=== PATIENT | male | born 1975 | race Caucasian/White ===

== ENCOUNTER 2016-10-23 15:37 | Emergency (ER) | payer OTHER ==
[~2016-10-23] VITALS: Ht 165.1 cm; Wt 84.4 kg
[~2016-10-23 15:37] MED LIST: ALPRAZOLAM1 M2 PO; AMOXICILLIN875 M1 PO; ANAPROX DS550 MG PO; ANDROGEL1.25 GM TOP; ATORVASTATIN CA20 M1 PO; BACLOFEN10 M1 PO; COQ-10100 MG PO; FLEXERIL PO; GABAPENTIN300 M2 PO; IBUPROFEN800 M1 PO; METFORMIN HCL500 M2 PO; METHADONE HCL10 M1 PO; NEXIUM20 M1 PO; PERCOCET 325 MG1 TA2 PO; PERCOCET 5-3251 EACH PO; POLYETHYLENE G255 GM PO; PROPRANOLOL HCL80 M3 PO; QUETIAPINE FUM200 M1 PO; SEA-OMEGA 50 C1 EACH PO; VENTOLIN HFA18 GM INH; ZITHROMAX250 M2 PO
[2016-10-23 15:40] VITALS: BP 146/92
[2016-10-23] MEDS ORDERED: AMOXICILLIN875 M1 PO (16:14)
[2016-10-23] MEDS ORDERED: IBUPROFEN800 M1 PO (16:14)
--- NOTE | 2016-10-23 16:14 | ED THROAT/DENTAL COMPLAINT ---
History of Present Illness General Chief Complaint: Sore Throat, Dental Pain Stated Complaint: SORE THROAT Source: patient Exam Limitations: no limitations Vital Signs & Intake/Output Vital Signs & Intake/Output Vital Signs Date Time Temp Pulse Resp B/P B/P Pulse O2 O2 Flow FiO2 Mean Ox Delivery Rate 10/23 1540 97.9 95 18 146/92 97 Room Air Allergies Coded Allergies: NO KNOWN ALLERGIES (08/27/15) Reconcile Medications Albuterol Sulfate (Ventolin Hfa) 18 GM HFA.AER.AD 2 PUF INH Q4-6 PRN PRN SOB Alprazolam 1 MG TABLET 1 TAB PO PRN PANIC ATTACKS (Reported) Amoxicillin 875 MG TABLET 1 TAB PO BID pharyngitis Amoxicillin 875 MG TABLET 1 TAB PO BID pharyngitis Atorvastatin Calcium 20 MG TABLET 1 TAB PO DAILY CHOLESTEROL (Reported) Baclofen 10 MG TABLET 1 TAB PO TIDPRN PRN muscle spasm/strain Esomeprazole Magnesium (Nexium) 20 MG CAPSULE.DR 1 CAP PO DAILY GI (Reported) Fish Oil (Sea-[place] 50 Capsule) 1 EACH CAPSULE 1 CAP PO DAILY SUPPLEMENT ( Reported) [FLEXERIL] 5 MG 1 TAB PO TID PRN PAIN Gabapentin 300 MG CAPSULE 1 CAP PO BID NERVE PAIN (Reported) Ibuprofen 800 MG TABLET 1 TAB PO TID pain Ibuprofen 800 MG TABLET 1 TAB PO TID PAIN Metformin HCl (Metformin HCl ER) 500 MG TAB.ER.24 1 TAB PO DAILY PRE-DIABETES (Reported) Methadone Hydrochloride (Methadone HCl) 10 MG TABLET 50 MG PO BID CHRONIC PAIN (Reported) Naproxen (Anaprox Ds) 550 MG TABLET 1 TAB PO BID PRN pain Oxycodone HCl/Acetaminophen (Percocet 5-325 MG Tablet) 1 EACH TABLET 1 TAB PO Q6HR PRN BREAKTHROUGH PAIN Polyethylene Glycol 3350 255 GM POWDER 17 GM PO DAILY PRN GI (Reported) Propranolol HCl 80 MG TABLET 2 TAB PO BID MIGRAINE PREVENTION/BP (Reported) Quetiapine Fumarate 200 MG TABLET 1 TAB PO 4 TIMES/DAY MENTAL HEALTH ( Reported) Testosterone (Androgel) 1.25 GM GEL.PACKET 1 PAC TOP DAILY HRT (Reported) Ubidecarenone (Coq-10) 100 MG CAPSULE 1 CAP PO DAILY SUPPLEMENT (Reported) Triage Note: PT TO TRIAGE WITH C/O SORE THROAT SINCE YESTERDAY. DENIES FEVER, AFEBRILE IN TRIAGE. ALSO PT C/O R EAR PAIN. STREP SWABS OBTAINED IN TRIAGE AND SENT TO LAB. Triage Nurses Notes Reviewed? yes Onset: Abrupt Duration: day(s): (FEW), constant, continues in ED Timing: recent history Injury Environment: home No Modifying Factors: none HPI: 41-year-old male comes into emergency room with complaints of sore throat for the past couple days. Difficulty swallowing. Associated fatigue and malaise. Patient reports some right-sided ear pain. Denies any fever. Denies any vomiting. Denies any other associated symptoms. (EL ADAMS) Past History Travel History Traveled to [place] past 21 day No Medical History Any Pertinent Medical History? 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 No (EL ADAMS) Review of Systems Review of Systems Constitutional: Reports: see HPI. EENTM: Reports: see HPI. Respiratory: Reports: no symptoms. Cardiovascular: Reports: no symptoms. GI: Reports: no symptoms. Genitourinary: Reports: no symptoms. Musculoskeletal: Reports: no symptoms. Skin: Reports: no symptoms. Neurological/Psychological: Reports: no symptoms. Hematologic/Endocrine: Reports: no symptoms. Immunologic/Allergic: Reports: no symptoms. All Other Systems: Reviewed and Negative (EL ADAMS) Physical Exam Physical Exam General Appearance: well developed/nourished, no apparent distress, alert, awake Head: atraumatic, normal appearance Eyes: Bilateral: normal appearance. Nose: normal inspection Mouth/Throat: pharynx swelling, UVULA SWOLLEN Neck: normal inspection, full range of motion Cardiovascular/Respiratory: regular rate/rhythm, no respiratory distress Back: normal inspection Neurologic/Psych: awake, alert, oriented x 3, normal gait, normal mood/affect Skin: intact, normal color Core Measures ACS in differential dx? No Severe Sepsis Present: No Septic Shock Present: No (EL ADAMS) Progress Differential Diagnosis: aspirated tooth, carious tooth, epiglottitis, Ludwigs angina, meningitis, odontogenic abscess, regina-tonsillar abscess, pharyngeal for. body, stomatitis/gingivitis, strep pharyngitis, tooth fracture Plan of Care: Orders Procedure Date/time Status THROAT CULTURE W/QUICK STREP 10/23 1542 Active Departure Departure Disposition: HOME OR SELF CARE Condition: Stable Clinical Impression Primary Impression: Pharyngitis Secondary Impressions: Uvular swelling Referrals: UNKNOWN (PCP/Family) Additional Instructions: Take amoxicillin and ibuprofen as prescribed. Follow-up with your primary care doctor. Return if any concerns worsening symptoms. Please go over all results of today's visit with your primary care doctor. Contact your primary care doctor to let them know you were here in the emergency room. There may be nonspecific findings which may not be related to your visit today here in the emergency room but may require further evaluation and chronic monitoring by your primary care doctor. If you had a laceration today the chance of foreign body always remains. You should follow-up with your primary care doctor for recheck in 3-5 days for a wound check. If you had an x-ray done there is a chance that a fracture could have been missed on initial read and you should follow-up with your primary care doctor for repeat x-rays if symptoms persist. If your blood pressure was elevated here in the emergency room please have rechecked by her primary care doctor within the next 48 hours by your primary care doctor. If you were prescribed a narcotic here in the emergency room or any type of controlled substances you're not allowed to drive while taking this medication or operate any type of heavy machinery. Narcotics can make you feel lightheaded dizziness nausea and can cause constipation. You may need to orange picker a stool softener. Thank you for choosing [facility] emergency room. Please return to the emergency room immediately if you have any other concerns worsening of symptoms. Departure Forms: Customer Survey General Discharge Information Prescriptions: Current Visit Scripts Amoxicillin 1 TAB PO BID #20 TAB Ibuprofen 1 TAB PO TID #30 TAB Comments 10/23/2016 5:05:16 PM Patient clinically looks well. Nontoxic-appearing. In no apparent distress. Strep negative. Due to significant swelling patient covered with antibiotics. Return if any other concerns worsening symptoms. No evidence of airway obstruction. No stridor. Understands and agrees with plan of care. (EBENEZER MCGINNIS,EL) PA/GLUER MACHINE OPERATOR Co-Sign Statement Statement: ED Attending supervision documentation- [] I saw and evaluated the patient. I have also reviewed all the pertinent lab results and diagnostic results. I agree with the findings and the plan of care as documented in the PA's/GLUER MACHINE OPERATOR's documentation. [X] I have reviewed the ED Record and agree with the PA's/GLUER MACHINE OPERATOR's documentation. [] Additions or exceptions (if any) to the PAs/GLUER MACHINE OPERATOR's note and plan are summarized below: [] (ARELI MALIN,JUSTINE Zaldivar)
== END 2016-10-23 16:20 ==
LOC: ERH 15:37
DX: J02.9 Acute pharyngitis, unspecified (principal); R22.0 Localized swelling, mass and lump, head; F17.210 Nicotine dependence, cigarettes, uncomplicated

== ENCOUNTER 2017-09-29 09:34 | Emergency (ER) | payer OTHER ==
[~2017-09-29] VITALS: Ht 165.1 cm; Wt 88.5 kg
--- NOTE | 2017-09-29 10:54 | RADIOLOGY REPORT ---
EXAMINATION: PA and lateral chest radiograph CLINICAL INFORMATION: Productive cough COMPARISON: None TECHNIQUE: 2 views of the chest were obtained. FINDINGS: There is symmetric lung inflation. There is no focal consolidation, pleural effusion, or pneumothorax. Peribronchial thickening that may reflect chronic small airways disease or atypical/viral pneumonia. Cardiac silhouette size is normal. There are no acute osseous findings. IMPRESSION: Peribronchial thickening that may reflect chronic small airways disease or atypical/viral pneumonia. No focal consolidation.
[2017-09-29] MEDS ORDERED: ZITHROMAX250 M2 PO (11:30)
[2017-09-29] MEDS ORDERED: DELTASONE20 MG PO (11:30)
--- NOTE | 2017-09-29 11:30 | ED INFLUENZA/URI COMPLAINT ---
History of Present Illness General Chief Complaint: General Adult Stated Complaint: DX BRONCHITIS FEELING NO BETTER Source: patient Exam Limitations: no limitations Vital Signs & Intake/Output Vital Signs & Intake/Output Vital Signs Date Time Temp Pulse Resp B/P B/P Pulse O2 O2 Flow FiO2 Mean Ox Delivery Rate 09/29 1147 99.0 80 18 118/62 99 Room Air 09/29 0935 100.1 85 16 126/78 95 Room Air Allergies Coded Allergies: NO KNOWN ALLERGIES (08/27/15) Reconcile Medications Albuterol Sulfate (Ventolin Hfa) 18 GM HFA.AER.AD 2 PUF INH Q4-6 PRN PRN SOB Alprazolam 1 MG TABLET 1 TAB PO PRN PANIC ATTACKS (Reported) Atorvastatin Calcium 20 MG TABLET 1 TAB PO DAILY CHOLESTEROL (Reported) Azithromycin (Zithromax) 250 MG TABLET 1 DP PO AD BRONCHITIS 2 the first day followed by 1 for days 2-5 Baclofen 10 MG TABLET 1 TAB PO TIDPRN PRN muscle spasm/strain Esomeprazole Magnesium (Nexium) 20 MG CAPSULE.DR 1 CAP PO DAILY GI (Reported) Fish Oil (Sea-[place] 50 Capsule) 1 EACH CAPSULE 1 CAP PO DAILY SUPPLEMENT ( Reported) Gabapentin 300 MG CAPSULE 1 CAP PO BID NERVE PAIN (Reported) Ibuprofen 800 MG TABLET 1 TAB PO TID pain Metformin HCl (Metformin HCl ER) 500 MG TAB.ER.24 1 TAB PO DAILY PRE-DIABETES (Reported) Methadone Hydrochloride (Methadone HCl) 10 MG TABLET 50 MG PO BID CHRONIC PAIN (Reported) Polyethylene Glycol 3350 255 GM POWDER 17 GM PO DAILY PRN GI (Reported) Prednisone (Deltasone) 20 MG TABLET 1 TAB PO TID BRONCHITIS Propranolol HCl 80 MG TABLET 2 TAB PO BID MIGRAINE PREVENTION/BP (Reported) Quetiapine Fumarate 200 MG TABLET 1 TAB PO 4 TIMES/DAY MENTAL HEALTH ( Reported) Testosterone (Androgel) 1.25 GM GEL.PACKET 1 PAC TOP DAILY HRT (Reported) Ubidecarenone (Coq-10) 100 MG CAPSULE 1 CAP PO DAILY SUPPLEMENT (Reported) Triage Note: 42 Y/O MALE C/O NOT FEELING WELL X 2 WEEKS. STATES HE SWALLOWED SODA "DOWN THE WRONG PIPE" AND BEGAN TO HAVE URI SYMPTOMS SHORTLY AFTER, WHICH HAVE NOT GOTTEN BETTER DESPITE PO ANTIBIOTICS - DIAGNOSED WITH BRONCHITIS TUES AT WALK IN. REPORTS "LOW GRADE" FEVER WELL. TEMP 100.1 SPEAKING CLEARLY WITH NO DISTRESS NOTED, SAT 95% Triage Nurses Notes Reviewed? yes Onset: Abrupt Duration: week(s): (1), constant Timing: recent history Severity: mild, moderate HPI: 42-year-old male comes into the emergency room with complaints of persisting cough and runny nose congestion. Patient has been producing some mucus. He was seen at the walk-in clinic the other day diagnosed bronchitis and prescribed Tessalon Perles and amoxicillin. He reports persisting coughing. Denies any labored breathing or shortness of breath. Denies any fever. He is a daily smoker. Comes in for further evaluation. (Donaldo Beltrán) Past History Travel History Traveled to [place] past 21 day No Medical History Any Pertinent Medical History? 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 No (Donaldo Beltrán) Review of Systems Review of Systems Constitutional: Reports: no symptoms. EENTM: Reports: no symptoms. Respiratory: Reports: see HPI. Cardiovascular: Reports: see HPI. GI: Reports: no symptoms. Genitourinary: Reports: no symptoms. Musculoskeletal: Reports: no symptoms. Skin: Reports: no symptoms. Neurological/Psychological: Reports: no symptoms. Hematologic/Endocrine: Reports: no symptoms. Immunologic/Allergic: Reports: no symptoms. All Other Systems: Reviewed and Negative (Donaldo Beltrán) Physical Exam Physical Exam General Appearance: well developed/nourished, alert, awake Head: atraumatic, normal appearance Eyes: Bilateral: normal appearance. Ears, Nose, Throat: moist mucous membrane, hearing grossly normal Neck: normal inspection Respiratory: normal breath sounds, no respiratory distress Cardiovascular: regular rate/rhythm Back: normal inspection Extremities: normal inspection Neurologic/Psych: awake, alert, oriented x 3 Skin: intact, normal color Core Measures Sepsis Present: No Sepsis Focused Exam Completed? No (Donaldo Beltrán) Progress Differential Diagnosis: influenza, pneumonia, bronchitis Plan of Care: 09/29/2017 1:06:41 PM Patient clinically looks well. Patient is in no apparent distress. Patient is nontoxic-appearing. Symptoms most consistent with bronchitis. Started on prednisone and switch to Z-Aditya. Return if any other concerns. Patient understands and agrees with plan of care. Diagnostic Imaging: Viewed by Me: Radiology Read. Discussed w/RAD: Radiology Read. Radiology Impression: PATIENT: WILLY VARGHESE PRESENT AGE: 42 PATIENT ACCOUNT NO: [id number] : 74 LOCATION: [facility] ORDERING PHYSICIAN: Ford Taylor MD SERVICE DATE: 09/29/17 EXAM TYPE: RAD - XRY-CHEST XRAY, TWO VIEWS EXAMINATION: PA and lateral chest radiograph CLINICAL INFORMATION: Productive cough COMPARISON: None TECHNIQUE: 2 views of the chest were obtained. FINDINGS: There is symmetric lung inflation. There is no focal consolidation, pleural effusion, or pneumothorax. Peribronchial thickening that may reflect chronic small airways disease or atypical/viral pneumonia. Cardiac silhouette size is normal. There are no acute osseous findings. IMPRESSION: Peribronchial thickening that may reflect chronic small airways disease or atypical/viral pneumonia. No focal consolidation. DICTATED BY: David Hobson MD DATE/TIME DICTATED:09/29/171048 CENTRAL PROCESSING TECH:SINDI DATE/TIME TRANSCRIBED:09/29/171048 CONFIDENTIAL, DO NOT COPY WITHOUT APPROPRIATE AUTHORIZATION. <Electronically signed in Other Vendor System> SIGNED BY: David Hobson MD 09/29/17 1058 Initial ED EKG: none (Donaldo Beltrán) Departure Departure Disposition: HOME OR SELF CARE Condition: Stable Clinical Impression Primary Impression: Bronchitis Referrals: Alex Medrano APRN (PCP/Family) Additional Instructions: Take Z-Aditya and prednisone as prescribed. Follow-up with primary care doctor. Continue to use nebulizer pump. Discontinue amoxicillin. Please go over all results of today's visit with your primary care doctor. Contact your primary care doctor to let them know you were here in the emergency room. There may be nonspecific findings which may not be related to your visit today here in the emergency room but may require further evaluation and chronic monitoring by your primary care doctor. If you had a laceration today the chance of foreign body always remains. You should follow-up with your primary care doctor for recheck in 3-5 days for a wound check. If you had an x-ray done there is a chance that a fracture could have been missed on initial read and you should follow-up with your primary care doctor for repeat x-rays if symptoms persist. If your blood pressure was elevated here in the emergency room please have rechecked by our primary care doctor within the next 48. If you were prescribed a narcotic here in the emergency room or any type of controlled substances you're not allowed to drive while taking this medication or operate any type of heavy machinery. Narcotics can make you feel lightheaded dizziness nausea and can cause constipation. You may need to poultry picker a stool softener. Thank you for choosing [facility] emergency room. Please return to the emergency room immediately if you have any other concerns worsening of symptoms. Departure Forms: Customer Survey General Discharge Information Prescriptions: Current Visit Scripts Prednisone (Deltasone) 1 TAB PO TID #15 TAB Azithromycin (Zithromax) 1 DP PO AD #6 TAB 2 the first day followed by 1 for days 2-5 (Donaldo Beltrán) PA/RADIUS CORNER MACHINE OPERATOR Co-Sign Statement Statement: ED Attending supervision documentation- [] I saw and evaluated the patient. I have also reviewed all the pertinent lab results and diagnostic results. I agree with the findings and the plan of care as documented in the PA's/RADIUS CORNER MACHINE OPERATOR's documentation. [X] I have reviewed the ED Record and agree with the PA's/RADIUS CORNER MACHINE OPERATOR's documentation. [] Additions or exceptions (if any) to the PAs/RADIUS CORNER MACHINE OPERATOR's note and plan are summarized below: [] (Claudia MALIN,Ford Zaldivar)
[2017-09-29 11:47] VITALS: BP 118/62
== END 2017-09-29 11:48 ==
LOC: ERH 09:34
DX: J40 Bronchitis, not specified as acute or chronic (principal); F17.210 Nicotine dependence, cigarettes, uncomplicated
CPT/HCPCS: 71046

== ENCOUNTER 2017-10-14 14:07 | Inpatient (IN) | payer OTHER ==
[~2017-10-14] VITALS: Ht 165.1 cm; Wt 81.8 kg
[~2017-10-14 14:07] MED LIST changes: +DELTASONE20 MG PO; +SEA-OMEGA 1,001 EACH PO; -SEA-OMEGA 50 C1 EACH PO
--- NOTE | 2017-10-14 14:43 | ED DYSPNEA/ASTHMA COMPLAINT ---
History of Present Illness General Chief Complaint: Dyspnea (COPD, CHF, Other) Stated Complaint: SHORTNESS OF BREATH X2-3 DAYS Source: patient Exam Limitations: no limitations, unable to give history Vital Signs & Intake/Output Vital Signs & Intake/Output Vital Signs Date Time Temp Pulse Resp B/P B/P Pulse O2 O2 Flow FiO2 Mean Ox Delivery Rate 10/15 0606 100 / 0400 94 Ventilator 100% 10/15 0337 100 10/15 0016 100 10/15 0000 90 Ventilator 100% 10/15 0000 96.7 94 28 120/78 90 Ventilator 100% 10/14 2331 92 Ventilator 100% 10/14 2213 100 10/14 2059 100 Ventilator 10/14 2016 107 28 113/63 90 Ventilator 100% 10/15 2015 104 28 111/66 88 Ventilator 100% 10/14 1958 100 10/14 1922 100 10/14 1915 110 28 122/82 90 Ventilator 100% 10/14 1910 114 28 163/91 90 Ventilator 100% 10/14 1909 118 28 163/91 90 Ventilator 100% 10/14 1907 118 28 165/89 90 Ventilator 100% 10/14 1901 112 28 167/90 90 Ventilator 100% 10/14 1855 114 28 168/86 90 Ventilator 100% 10/14 1853 124 26 157/84 90 100% 10/14 1801 114 94 10/14 1739 116 24 133/70 86 10/14 1734 98.2 115 22 84 10/14 1730 116 22 85 10/14 1718 118 22 113/68 86 Non ReBreather 10/14 1650 22 86 Non 10L ReBreather 10/14 1647 113 22 83 Non 10L ReBreather 10/14 1551 99 18 105/68 94 Non 10L ReBreather 10/14 1438 16 95 Non 10L ReBreather 10/14 1435 20 85 Nasal 6.0L Cannula 10/14 1430 97.9 97 18 109/56 85 Room Air 10/14 1415 Non ReBreather ED Intake and Output 10/15 0000 10/14 1200 Intake Total 263 Output Total 550 Balance -287 Intake, IV 163 Intake, Oral 100 Number 0 Bowel Movements Output, 50 Gastric Drainage Output, Urine 500 Patient 404 lb Weight Weight Estimated Measurement Method Allergies Coded Allergies: No Known Allergies (10/05/17) Reconcile Medications Albuterol Sulfate (Ventolin Hfa) 18 GM HFA.AER.AD 2 PUF INH Q4-6 PRN PRN SOB Alprazolam 1 MG TABLET 1 TAB PO PRN PANIC ATTACKS (Reported) Atorvastatin Calcium 20 MG TABLET 1 TAB PO DAILY CHOLESTEROL (Reported) Baclofen 10 MG TABLET 1 TAB PO TIDPRN PRN muscle spasm/strain Esomeprazole Magnesium (Nexium) 20 MG CAPSULE.DR 1 CAP PO DAILY GI (Reported) Gabapentin 300 MG CAPSULE 1 CAP PO BID NERVE PAIN (Reported) Ibuprofen 800 MG TABLET 1 TAB PO TID pain Metformin HCl (Metformin HCl ER) 500 MG TAB.ER.24 1 TAB PO DAILY PRE-DIABETES (Reported) Methadone Hydrochloride (Methadone HCl) 10 MG TABLET 50 MG PO BID CHRONIC PAIN (Reported) [place]-3S/Dha/Epa/Fish Oil (Sea-[place] 1,000 MG Softgel) 600-1,000MG CAPSULE 1 CAP PO DAILY SUPPLEMENT (Reported) Polyethylene Glycol 3350 255 GM POWDER 17 GM PO DAILY PRN GI (Reported) Prednisone (Deltasone) 20 MG TABLET 1 TAB PO TID BRONCHITIS Propranolol HCl 80 MG TABLET 2 TAB PO BID MIGRAINE PREVENTION/BP (Reported) Quetiapine Fumarate 200 MG TABLET 1 TAB PO 4 TIMES/DAY MENTAL HEALTH ( Reported) Testosterone (Androgel) 1.25 GM GEL.PACKET 1 PAC TOP DAILY HRT (Reported) Ubidecarenone (Coq-10) 100 MG CAPSULE 1 CAP PO DAILY SUPPLEMENT (Reported) Triage Note: TRIAGE: PT COMING FROM HOME WAS FEELING SOB. PT WAS DX WITH BRONCHITIS 3WEEKS AGO. PT FINISHED ZPACK. PT SMOKE 1/2-1 PACK A DAY. PT HAS HAD INCREASED DIZZINESS FOR LAT 3 DAYS. PT WAS 80% ON ROOM AIR. GIVEN 2 DUO NEB AND 125MGSOYU-DORL. BS146. Triage Nurses Notes Reviewed? yes HPI: 42 yo M PMH HTN, Migraines presenting with cough, chest pain, shortness of breath. URI Sx for the last 2-3 weeks with congestion, rhinorrhea, progressive cough, evaluated at walk-in clinic, given azithromycin x 5 days without improvement. Associated progressive shortness of breath and right sided chest pain, pleuritic, non-exertional, worse with movement or palpation. Some tactile fevers, chills, diffuse fatigue, malaise. Denies palpitations, LE swelling or pain, abdominal Sx, urinary Sx, headche, neck pain or focal neurologic Sx. Acute worsening of shortness of breath this morning prompting presentation to the ED. (Paul Moore MD) Past History Medical History Any Pertinent Medical History? 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 Yes (Paul Moore MD) Review of Systems Review of Systems Constitutional: Reports: no symptoms. EENTM: Reports: no symptoms. Respiratory: Reports: see HPI. Cardiovascular: Reports: no symptoms. GI: Reports: no symptoms. Genitourinary: Reports: no symptoms. Musculoskeletal: Reports: no symptoms. Skin: Reports: no symptoms. Neurological/Psychological: Reports: no symptoms. Hematologic/Endocrine: Reports: no symptoms. Immunologic/Allergic: Reports: no symptoms. All Other Systems: Reviewed and Negative (Paul Moore MD) Physical Exam Physical Exam General Appearance: moderate distress Head: atraumatic Eyes: Bilateral: PERRL, EOMI. Ears, Nose, Throat: Dry mucus membranes Respiratory: quiet respiration, rhonchi, respiratory distress Cardiovascular: tachycardia Gastrointestinal: soft, non-tender Comments: General: Moderate distress, tachypneic, appears anxious, Tripoding Lungs: Decreased breath sounds over right lower lung ham[place] with scattered rhonchi throughout both lung [place] Extremities: BLE non-edematous without TTP Core Measures ACS in differential dx? Yes CVA/TIA Diagnosis No Sepsis Present: No Sepsis Focused Exam Completed? No (Paul Moore MD) Progress Differential Diagnosis: asthma, AMI, altitude sickness, bronchitis, costochondritis, CHF, COPD, musculoskeletal pain, pericarditis, pulmonary embolism, pneumonia, pneumothorax, rib fracture, unstable angina Plan of Care: Orders Procedure Date/time Status Nothing by Mouth 10/15 B Active ARTERIAL BLOOD GAS (GEN) 10/15 0700 Active XRY-PORTABLE CHEST XRAY 10/15 0500 Active VANCOMYCIN (VANCOCIN) LEVEL 10/15 0500 Complete ICU LAB BUNDLE 10/15 0500 Complete CORTISOL AM 10/15 0500 Complete CBC WITHOUT DIFFERENTIAL 10/15 0500 Complete Turn and Reposition 10/15 0430 Active ARTERIAL BLOOD GAS (GEN) 10/15 0300 Active Drains/Tubes 10/15 0144 Active XRY-PORTABLE CHEST XRAY 10/15 UNK Active Lab Add-on Test 10/15 UNK Active Restraint- Medical 10/15 UNK Active FingerStick- Glucose 10/15 UNK Active SOCIAL WORK CONSULT 10/15 UNK Active Weight 10/14 2329 Active Vital Signs 10/14 2329 Active Teach/Educate 10/14 2329 Active Pain Treatment and Response 10/14 2329 Active Nutritional Intake, Monitor 10/14 2329 Active Isolation 10/14 2329 Active Intake & Output 10/14 2329 Active Patient Care Conference 10/14 2329 Active Activity/Ambulation 10/14 2329 Active LACTIC ACID 10/14 2227 Complete BLOOD CULTURE 10/14 222 Active ARTERIAL BLOOD GAS (GEN) 10/14 220 Complete OGT 10/14 2099 Active Lavage Treatment 10/14 2057 Active URINE DRUGS OF ABUSE 10/14 2013 Complete SALICYLATE 10/14 2014 Complete SERUM OSMOLALITY 10/14 2014 Complete ECHOCARDIOGRAM 10/14 2012 Active ICU LAB BUNDLE 10/14 2009 Complete Add-on Test (ER Only) 10/14 2008 Active Add-on Test (ER Only) 10/14 2007 Active CULTURE,URINE 10/14 2005 Active STREP PNEUMO URINARY ANTIGEN 10/14 2005 Active LEGIONELLA URINARY ANTIGEN 10/14 2004 Active URINALYSIS 10/14 2005 Complete VRE ACTIVE SURVIELLANCE 10/14 1928 Active VENTILATOR PARAMETERS 10/14 191 Complete ACTIVE SURVEILLANCE NARES 10/14 191 Active Pathway - chart 10/14 1906 Active TRC EVALUATION (GEN) 10/14 190 Active Pathway - chart 10/14 190 Active House Staff 10/14 190 Active Patient Data 10/14 1905 Active SPECIMEN TO BE OBTAINED 10/14 190 Active Code Status 10/14 1905 Active PLEURAL PH (GEN) 10/14 1832 Active LOWER RESPIRATORY CULTURE 10/14 1822 Active BLOOD CULTURE 10/14 1810 Active OXYGEN SETUP (GEN) 10/14 1800 Complete ARTERIAL BLOOD GAS (GEN) 10/14 1745 Complete Patient Data 10/14 1728 Active Admit to inpatient 10/14 1724 Active CULTURE,BODY FLUID 10/14 1623 Active BODY FLUID TOTAL PROTEIN 10/14 1623 Complete BODY FLUID LDH 10/14 1623 Complete BODY FLUID CELL COUNT 10/14 1623 Complete Add-on Test (ER Only) 10/14 1621 Active PROTHROMBIN TIME 10/14 1540 Complete PARTIAL THROMBOPLASTIN TIME 10/14 1518 Complete LDH (LACT ACID DEHYDROGENASE) 10/14 1517 Complete LACTIC ACID 10/14 1517 Complete HIV (Reflex to HIVCQ) 10/14 1517 Complete HEPATIC FUNCTION PANEL 10/14 1517 Complete TROPONIN LEVEL 10/14 1444 Complete CBC WITHOUT DIFFERENTIAL 10/14 1444 Complete BASIC METABOLIC PANEL 10/14 1444 Complete EKG 10/14 1442 Active VENTILATOR PARAMETERS 10/14 UNK Complete BIPAP 10/14 UNK Complete Lab Add-on Test 10/14 UNK Active VTE Mechanical Prophylaxis 10/14 UNK Active Vital Signs 10/14 UNK Complete Intake & Output 10/14 UNK Active Pineda, Insertion/Removal/Asses 10/14 UNK Active Current Medications Sig/Sara Start time Last Medication Dose Stop Time Status Admin Azithromycin 500 MG 10/15 AC (Zithromax) Sodium Chloride 250 ML (Normal Saline 0.9%) Vecuronium [place] 5 MG ONCE ONE 10/15 0730 UNVr (Norcuron) 10/15 0731 Propofol 1,000 MG Q6H 10/15 0615 AC 10/15 (PROPOFOL DRIP) 06 N/A 1 UNIT (No Carrier) Heparin Sodium 5,000 UNIT Q8 10/14 2200 AC 10/15 (Porcine) 0625 Pantoprazole Sodium 40 MG DAILY 10/14 2014 AC 10/14 (Protonix) 2244 Morphine Sulfate 4 MG Q6-PRN PRN 10/14 1914 AC (MORPHINE SULFATE) Potassium Chloride 40 MEQ .[id number] 10/14 191 AC 10/14 (KCl 40MEQ in NS 2245 1000ML) Sodium Chloride 1,000 ML (Normal Saline 0.9%) Vancomycin HCl 1,000 MG ONCE ONE 10/14 1900 CAN Sodium Chloride 250 ML 10/14 195 (Normal Saline 0.9%) Fentanyl Citrate 1,000 MCG Q24H 10/14 1845 AC 10/14 (Fentanyl Drip) 1927 Dextrose/Water 250 ML (Dextrose 5%) Lorazepam 2 MG ONCE ONE 10/14 1730 CAN (Ativan) 10/14 1731 Lidocaine 20 ML ONCE ONE 10/14 1630 CAN (Lidocaine 1%) 10/14 1631 Laboratory Tests 10/15/17 0455: Anion Gap 16, Estimated GFR 17 L, Glucose 163 H, Calcium 6.6 L, Phosphorus 5.2 H, Magnesium 2.6 H, Total Bilirubin 0.6, AST 73 H, ALT 52, Albumin 2.4 L , Cortisol AM Sample 16.5, CBC w Diff MAN DIFF ORDERED, RBC 3.47 L, MCV 85.4, MCH 28.9, MCHC 33.8, RDW 17.2 H, MPV 6.8 L, Segmented Neutrophils 77 H, Band Neutrophils 13 H, Lymphocytes 9 L, Metamyelocytes 1, Platelet Estimate ADEQUATE, Normocytic RBCs VERIFIED, Polychromasia 1+, Random Vancomycin 11.1 10/15/17 0320: pH 7.18 *L, pCO2 50 H, pO2 77 L, HCO3 18 L, ABG O2 Sat (Measured) 92.0 L, P- 50 (Temp Corrected) Y, Carboxyhemoglobin 0.1 L, O2 Concentration % 100%, Temperature 96.8 L, Respiration Rate 28, O2 Delivery Method ESPRIT, Vent Mode AC, Expiratory Pressure 15, Tidal Volume 400, Phlebotomy Draw Site RIGHT RADIAL 10/14/17 2328: pH 7.14 *L, pCO2 52 H, pO2 79 L, HCO3 18 L, ABG O2 Sat (Measured) 91.0 L, Carboxyhemoglobin 0.3 L, O2 Concentration % 100, Respiration Rate 28, O2 Delivery Method VENT, Vent Mode AC, Expiratory Pressure 15, Tidal Volume 400, Pressure Support 0, Phlebotomy Draw Site LEFT RADIAL 10/14/17 2235: Lactic Acid 0.8 10/14/17 2200: Serum Osmolality 293 10/14/17 2200: Anion Gap 16, Estimated GFR 16 L, Glucose 137 H, Calcium 6.3 L, Phosphorus 5.5 H, Magnesium 1.8, Total Bilirubin 0.7, AST 68 H, ALT 48, Albumin 2.4 L, Salicylates < 1.0 10/14/17 2103: Urine Opiates Screen < 100, Methadone Screen > 735 H, Barbiturate Screen < 60, Ur Phencyclidine Scrn < 6.00, Amphetamines Screen < 100, U Benzodiazepines Scrn < 85, Urine Cocaine Screen < 50, Urine Cannabis Screen < 5.00, Urine Color YEL, Urine Clarity CLEAR, Urine pH 6.0, Ur Specific Colon 1.015, Urine Protein 30 H, Urine Ketones NEG, Urine Nitrite NEG, Urine Bilirubin NEG, Urine Urobilinogen 0.2, Ur Leukocyte Esterase NEG, Ur Microscopic SEDIMENT EXAMINED, Urine RBC RARE , Urine WBC 3-5 H, Ur Epithelial Cells RARE, Urine Bacteria RARE H, Urine Hemoglobin SMALL H, Urine Glucose NEG 10/14/172044: pH 7.12 *L, pCO2 49 H, pO2 80, HCO3 16 L, ABG O2 Sat (Measured) 90.0 L, P-50 (Temp Corrected) N, Carboxyhemoglobin 0.3 L, O2 Concentration % 100, Respiration Rate 28, O2 Delivery Method VENT, Vent Mode A/C, Expiratory Pressure 15, Tidal Volume 400, Phlebotomy Draw Site RIGHT RADIAL 10/14/17 1950: Fluid LDH Cancelled 10/14/17 1740: Fluid WBC 01145 H, Fld Total RBCs Counted 1800 H 10/14/17 1740: Fluid Total Protein 5.3, Fluid LDH 6615 10/14/17 1518: PT 15.2 H, INR 1.39 H, APTT 33 10/14/17 1517: Anion Gap 20 H, Estimated GFR 13 L, BUN/Creatinine Ratio 9.8, Glucose 109 H, Lactic Acid 1.2, Calcium 7.7 L, Total Bilirubin 0.9, Direct Bilirubin 0.9 H, AST 48, ALT 32, Alkaline Phosphatase 142 H, Lactate Dehydrogenase 833 H, Troponin I < 0.01, Total Protein 6.3, Albumin 3.1 L, CBC w Diff MAN DIFF ORDERED, RBC 4.31 L, MCV 84.2, MCH 28.6, MCHC 34.0, RDW 16.9 H, MPV 7.3 L, Gran % 91.5 H, Lymphocytes % 4.6 L, Monocytes % 3.0, Eosinophils % 0.9, Basophils % 0, Absolute Granulocytes 13.5 H, Segmented Neutrophils 96 H, Band Neutrophils 3, Absolute Lymphocytes 0.7 L, Lymphocytes 1 L, Absolute Monocytes 0.4, Absolute Eosinophils 0.1, Absolute Basophils 0, Platelet Estimate VERIFIED BY SMEAR, Polychromasia 1+, Anisocytosis 1+, Fld Total RBCs Counted 100, HIV 1&2 Ab Western Blot NONREACTIVE Microbiology 10/14 2229 BLOOD: Blood Culture - RECD 10/14 2209 LOWER RESP: Respiratory Culture - RES 10/14 2209 LOWER RESP: Gram Stain - RES 10/14 2208 LOWER RESP: Respiratory Culture - CAN Cancelled: DUPLICATE ORDER 10/14 2208 LOWER RESP: Gram Stain - CAN Cancelled: DUPLICATE ORDER 10/14 2199 UPPER RESP: Surveillance Culture - RECD 10/14 2199 GI: Surveillance Culture - RECD 10/14 2102 URINE ROUT: Legionella Antigen - RES 10/14 2102 URINE ROUT: Streptococcus pneumoniae Antigen (M - RES 10/14 2102 URINE ROUT: Urine Culture - RES 10/14 1949 BODY FLUID: Body Fluid Culture - CAN Cancelled: DUPLICATE REQUEST 10/14 1949 BODY FLUID: Gram Stain - CAN Cancelled: DUPLICATE REQUEST 10/15 1811 BLOOD: Blood Culture - RECD 10/14 1809 BLOOD: Blood Culture - CAN Cancelled: SPECIMEN NOT RECEIVED IN LABORATORY 10/15 1739 BODY FLUID: Body Fluid Culture - RECD 10/15 1739 BODY FLUID: Gram Stain - RECD Physician MDM: 42 yo M PMH HTN, Migraines presenting with cough, chest pain, shortness of breath. Tachycardic in the 110s, BP stable, saturating 96% on NRB, pulmonary exam as above with mildly increased WOB and decreased breath sounds over right lung base. Bedside utlrasound with large right pleural effusion with ?underlying consolidation, no signs of right heart strain. CXR with large right pleural effusion. CBC with leukocytosis, BMP with BREONNA and elevated creatinine to 4.9, 2L NS ordered for sepsis and BREONNA. Shortly after CXR patient had decline in O2 saturations consistently to the low 80s, this is likely related to the patients large pleural effusion, consented for thoracentesis, right posterior thoracentesis preformed using saftey-centesis needle, drainage of 400-500 ccs of cloudy yellow fluid, unable to aspirate further, ?loculated effusion (though no clear septations on ultrasound). No improvement in O2 sats or work of breathing s/p thoracentesis, placed briefly on HFNC (given recent thoracentsis in effort to avoid iatrogenic PTX), no improvement in O2 saturation, place on BiPAP, O2 sats in the low 90s, improved WOB. Ceftaz, vancomycin ordered. ICU consulted for evaluation and admission, discussed with patient, plan for intubation given persistent hypoxemia, need for CT imaging, and projected critically ill clincal course. Intubated with etomidate, succynlcholine, video assisted laryngoscopy with 8.0 ETT in 1 pass, good post intubation CO2 detector color change and left sided breath sounds, ETT 20 at the teeth, placed on PEEP of 10, O2 sats 92-93%. Good ETT positioning and no PTX on post-intubation XR. Right TLC IJ placed at request of ICU for projected critically ill clinical course, 1 attempt, good flow of agitated saline to right heart on bedside ultrasound, confirmatory CXR pending. Plan for CT chest, admit to ICU for further management. Initial ED EKG: NSR (Paul Moore MD) Departure Departure Disposition: STILL A PATIENT Condition: Stable Clinical Impression Primary Impression: Hypoxemic respiratory failure, chronic Referrals: Alex Medrano APRN (PCP/Family) Departure Forms: Customer Survey General Discharge Information Admission Note Spoke With: David Watts MD Documentation of Exam: Documentation of any treatments & extenuating circumstances including Concerns Regarding Discharge (functional status, medication knowledge or non-compliance, living conditions, etc.) that warrant an admission rather than observation: [ Patient is inutbated and critically ill with hypoxemic respiratory failure and a large right pleural effusion] (Paul Moore MD) Resident Co-Sign Statement Statement: ED Attending supervision documentation- I saw and evaluated the patient. I have also reviewed all the pertinent lab results and diagnostic results. I agree with the findings and the plan of care as documented in the Resident's documentation. x I have reviewed the ED Record and agree with the Resident's documentation. [] Additions or exceptions (if any) to the Resident's note and plan are summarized below: [] (Isra Celis MD) Critical Care Note Critical Care Note Critical Care Time: 75-104 min Comments: Hypoxemic respiratory failure neccessitating thoracentesis, intubation, and central line placement (Paul Moore MD) ED Attending Observation Initial Observation Note: I have seen and personally examined WILLY VARGHESE on 10/14/17 at 2127. I agree with the current emergency department documentation. The disposition (admission or discharge) is uncertain at this time, he needs a period of observation for the following reason(s): The ED Nurse caring for this patient has been personally informed as to what the patient is being observed for. (Teresa MALIN,Paul)
[2017-10-14 15:42] LABS: ABSOLUTE BASOPHIL COUNT 0 /CUMM (0.0-0.2); ABSOLUTE EOSINOPHIL COUNT 0.1 /CUMM (0.0-0.7); ABSOLUTE GRANULOCYTE CT 13.5 /CUMM (1.4-6.5); ABSOLUTE LYMPH COUNT 0.7 /CUMM (1.2-3.4); ABSOLUTE MONOCYTE COUNT 0.4 /CUMM (0.10-0.60); BASOPHIL % 0 % (0.0-2.0); EOSINOPHIL % 0.9 % (0-5); HEMATOCRIT 36.3 % (42-52); MEAN CORPUSCULAR HGB 28.6 PG (27.0-31.0); MEAN CORPUSCULAR VOLUME 84.2 FL (80.0-94.0); MEAN PLATELET VOLUME 7.3 FL (7.4-10.4); PLATELET COUNT 496 /CUMM (130-400); RBC DISTRIBUTION WIDTH 16.9 % (11.5-14.5); RED BLOOD CELL CT 4.31 /CUMM (4.70-6.10); WHITE BLOOD CELL COUNT 14.7 /CUMM (4.8-10.8)
[2017-10-14 15:45] LABS: GRANULOCYTE % 91.5 % (42.2-75.2)
--- NOTE | 2017-10-14 16:29 | RADIOLOGY REPORT ---
EXAMINATION: XR PORTABLE CHEST CLINICAL INFORMATION: Pleural effusion on a Bedside ultrasound study COMPARISON: Chest x-ray 09/29/2017. TECHNIQUE: Portable frontal view of the chest was obtained. 3:33 PM FINDINGS: There is a large opacity in the right hemithorax opacifying the mid and lower lung field. This would be consistent with a pleural effusion but underlying infiltrate and atelectasis likely present as well. There is no midline shift. Left lung is clear. There is no left pleural effusion or pneumothorax. The cardiac and mediastinal contour is normal. IMPRESSION: Large opacity in the right hemithorax opacifying the mid and lower lung field. This is consistent with effusion and probable underlying infiltrate/atelectasis. This density is new since the chest x-ray of 09/29/2017. CT of chest with contrast would be helpful for further assessment.
--- NOTE | 2017-10-14 17:38 | RADIOLOGY REPORT ---
EXAMINATION: XR PORTABLE CHEST CLINICAL INFORMATION: Shortness of breath. Right chest density. COMPARISON: Chest x-ray 10/14/2017, 3:33 PM TECHNIQUE: Portable frontal view of the chest was obtained. 4:59 PM. FINDINGS: There is persistent density at the right lung base. The density now appears decreased since the prior chest x-ray today. There is still silhouetting of the right diaphragm with blunting of the costophrenic angle and hazy parenchymal opacity through the mid and lower lung. Some of the pleural density though present on the prior chest x-ray along the right lateral chest wall at the mid lung has diminished. There is a subtle patchy density at the right lung base adjacent to the left cardiac heart border without silhouetting of the heart border or the diaphragm. This is accentuated by the low inspiratory effort. IMPRESSION: There is persistent density in the right mid and lower lung with silhouetting of the diaphragm and blunting of the costophrenic angle and hazy density of the mid lower lung. The pleural density present along the right lateral chest wall on the chest x-ray earlier today has diminished.
--- NOTE | 2017-10-14 17:43 | History & Physical ---
Gomez MALIN,Marixa 10/14/17 1743: General Information and HPI MD Statement: I have seen and personally examined WILLY HERNÁNDEZ and documented this H&P. The patient is a 42 year old M who presented with a patient stated chief complaint of [shortness of breath]. Source of Information: patient, family, old records, EMS Exam Limitations: no limitations History of Present Illness: Patient is a 42-year-old actively smoking male with past medical history significant for hyperlipidemia, hypertension, anxiety/bipolar disorder, migraines, polysubstance abuse presented to [facility] due to persistent productive cough and shortness of breath despite 2 rounds of antibiotics recently. She had been sick for the past 1 month, initially went to urgent care received amoxicillin for possible bronchitis initially. He never had a chest x-ray at that time. After completing first course of antibiotics he still need to have fevers and came to [facility] ER, received azithromycin with prednisone. After completing his second course of antibiotics is still having productive cough with on and off fevers and chills. Continues to have productive cough with clear phlegm production. Today he woke up in the afternoon tried to go to restroom, had significant shortness of breath with gasping. He found to have bright red sputum production after coming to ER. Allergies/Medications Allergies: Coded Allergies: No Known Allergies (10/05/17) Home Med list Albuterol Sulfate (Ventolin Hfa) 18 GM HFA.AER.AD 2 PUF INH Q4-6 PRN PRN SOB Alprazolam 1 MG TABLET 1 TAB PO PRN PANIC ATTACKS (Reported) Atorvastatin Calcium 20 MG TABLET 1 TAB PO DAILY CHOLESTEROL (Reported) Baclofen 10 MG TABLET 1 TAB PO TIDPRN PRN muscle spasm/strain Esomeprazole Magnesium (Nexium) 20 MG CAPSULE.DR 1 CAP PO DAILY GI (Reported) Gabapentin 300 MG CAPSULE 1 CAP PO BID NERVE PAIN (Reported) Ibuprofen 800 MG TABLET 1 TAB PO TID pain Metformin HCl (Metformin HCl ER) 500 MG TAB.ER.24 1 TAB PO DAILY PRE-DIABETES (Reported) Methadone Hydrochloride (Methadone HCl) 10 MG TABLET 50 MG PO BID CHRONIC PAIN (Reported) [place]-3S/Dha/Epa/Fish Oil (Sea-[place] 1,000 MG Softgel) 600-1,000MG CAPSULE 1 CAP PO DAILY SUPPLEMENT (Reported) Polyethylene Glycol 3350 255 GM POWDER 17 GM PO DAILY PRN GI (Reported) Prednisone (Deltasone) 20 MG TABLET 1 TAB PO TID BRONCHITIS Propranolol HCl 80 MG TABLET 2 TAB PO BID MIGRAINE PREVENTION/BP (Reported) Quetiapine Fumarate 200 MG TABLET 1 TAB PO 4 TIMES/DAY MENTAL HEALTH ( Reported) Testosterone (Androgel) 1.25 GM GEL.PACKET 1 PAC TOP DAILY HRT (Reported) Ubidecarenone (Coq-10) 100 MG CAPSULE 1 CAP PO DAILY SUPPLEMENT (Reported) Compliance With Home Meds: GOOD Past History Travel History Traveled to [place] past 21 day No Medical History Neurological: migraine EENT: NONE Cardiovascular: hyperlipidemia Respiratory: bronchitis Gastrointestinal: HERNIA CHILD Hepatic: NONE Renal: CYST ON KIDNEY Musculoskeletal: CHRONIC LEFT SHOULDER HUE Psychiatric: anxiety, bipolar disease Endocrine: NONE Blood Disorders: NONE Cancer(s): NONE 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 Home Who Do You Live With? spouse, child Services at Home: None Smoking Status: Current Everyday Smoker ETOH Use: occasional use Functional Ability ADLs Independent: dressing, eating, toileting, bathing. Ambulation: independent IADLs Independent: shopping, housework, finances, food prep, telephone, transportation , medication admin. Review of Systems Review of Systems Constitutional: Reports: see HPI. Cardiovascular: Reports: no symptoms. Respiratory: Reports: short of breath. GI: Reports: see HPI. Genitourinary: Reports: see HPI. Musculoskeletal: Reports: see HPI. Skin: Reports: see HPI. Neurological/Psychological: Reports: see HPI. Exam & Diagnostic Data Last 24 Hrs of Vital Signs/I&O Vital Signs Date Time Temp Pulse Resp B/P B/P Pulse O2 O2 Flow FiO2 Mean Ox Delivery Rate 10/14 1739 116 24 133/70 86 10/14 1734 98.2 115 22 84 10/14 1730 116 22 85 10/14 1718 118 22 113/68 86 Non ReBreather 10/14 1650 22 86 Non 10L ReBreather 10/14 1647 113 22 83 Non 10L ReBreather 10/14 1551 99 18 105/68 94 Non 10L ReBreather 10/14 1438 16 95 Non 10L ReBreather 10/14 1435 20 85 Nasal 6.0L Cannula 10/14 1430 97.9 97 18 109/56 85 Room Air 10/14 1415 Non ReBreather Intake & Output 10/14 1600 10/14 0800 10/14 0000 Intake Total 100 Output Total Balance 100 Intake, Oral 100 Patient 83.007 kg Weight Weight Estimated Measurement Method Physical Exam General Appearance Alert, Oriented X3, Cooperative, Moderate Distress Skin No Rashes, No Breakdown Skin Temp/Moisture Exam: Warm/Dry Sepsis Skin Exam (color): Normal for Ethnicity HEENT Atraumatic, PERRLA, EOMI Neck Supple Cardiovascular Normal S1, Normal S2 Lungs Diffuse rhonchi with poor air entry Decreased to absent breath sounds at right lung base Abdomen Normal Bowel Sounds, Soft, No Tenderness Neurological Normal Speech, Strength at 5/5 X4 Ext, Normal Tone, Sensation Intact Extremities No Clubbing, No Cyanosis, scant edema Vascular Normal Pulses Last 24 Hrs of Labs/Venancio: Laboratory Tests 10/14/178: pH 7.14 *L, pCO2 52 H, pO2 79 L, HCO3 18 L, ABG O2 Sat (Measured) 91.0 L, Carboxyhemoglobin 0.3 L, O2 Concentration % 100, Respiration Rate 28, O2 Delivery Method VENT, Vent Mode AC, Expiratory Pressure 15, Tidal Volume 400, Pressure Support 0, Phlebotomy Draw Site LEFT RADIAL 10/14/175: Lactic Acid 0.8 10/14/170: Serum Osmolality 293 10/14/17 2200: Anion Gap 16, Estimated GFR 16 L, Glucose 137 H, Calcium 6.3 L, Phosphorus 5.5 H, Magnesium 1.8, Total Bilirubin 0.7, AST 68 H, ALT 48, Albumin 2.4 L, Salicylates < 1.0 10/14/17 2103: Urine Opiates Screen < 100, Methadone Screen > 735 H, Barbiturate Screen < 60, Ur Phencyclidine Scrn < 6.00, Amphetamines Screen < 100, U Benzodiazepines Scrn < 85, Urine Cocaine Screen < 50, Urine Cannabis Screen < 5.00, Urine Color YEL, Urine Clarity CLEAR, Urine pH 6.0, Ur Specific Mcdaniels 1.015, Urine Protein 30 H, Urine Ketones NEG, Urine Nitrite NEG, Urine Bilirubin NEG, Urine Urobilinogen 0.2, Ur Leukocyte Esterase NEG, Ur Microscopic SEDIMENT EXAMINED, Urine RBC RARE , Urine WBC 3-5 H, Ur Epithelial Cells RARE, Urine Bacteria RARE H, Urine Hemoglobin SMALL H, Urine Glucose NEG 10/14/172044: pH 7.12 *L, pCO2 49 H, pO2 80, HCO3 16 L, ABG O2 Sat (Measured) 90.0 L, P-50 (Temp Corrected) N, Carboxyhemoglobin 0.3 L, O2 Concentration % 100, Respiration Rate 28, O2 Delivery Method VENT, Vent Mode A/C, Expiratory Pressure 15, Tidal Volume 400, Phlebotomy Draw Site RIGHT RADIAL 10/14/17 1950: Fluid LDH Cancelled 10/14/17 1740: Fluid WBC 92389 H, Fld Total RBCs Counted 1800 H 10/14/17 1740: Fluid Total Protein 5.3, Fluid LDH 6615 10/14/17 1518: PT 15.2 H, INR 1.39 H, APTT 33 10/14/17 1517: Anion Gap 20 H, Estimated GFR 13 L, BUN/Creatinine Ratio 9.8, Glucose 109 H, Lactic Acid 1.2, Calcium 7.7 L, Total Bilirubin 0.9, Direct Bilirubin 0.9 H, AST 48, ALT 32, Alkaline Phosphatase 142 H, Troponin I < 0.01, Total Protein 6.3, Albumin 3.1 L, CBC w Diff MAN DIFF ORDERED, RBC 4.31 L, MCV 84.2, MCH 28.6, MCHC 34.0, RDW 16.9 H, MPV 7.3 L, Gran % 91.5 H, Lymphocytes % 4.6 L, Monocytes % 3.0, Eosinophils % 0.9, Basophils % 0, Absolute Granulocytes 13.5 H , Segmented Neutrophils 96 H, Band Neutrophils 3, Absolute Lymphocytes 0.7 L, Lymphocytes 1 L, Absolute Monocytes 0.4, Absolute Eosinophils 0.1, Absolute Basophils 0, Platelet Estimate VERIFIED BY SMEAR, Polychromasia 1+, Anisocytosis 1+, Fld Total RBCs Counted 100, HIV 1&2 Ab Western Blot NONREACTIVE Microbiology 10/14 2229 BLOOD: Blood Culture - RECD 10/14 2209 LOWER RESP: Respiratory Culture - RES 10/14 2209 LOWER RESP: Gram Stain - RES 10/14 2208 LOWER RESP: Respiratory Culture - CAN Cancelled: DUPLICATE ORDER 10/14 2208 LOWER RESP: Gram Stain - CAN Cancelled: DUPLICATE ORDER 10/14 2199 UPPER RESP: Surveillance Culture - RECD 10/14 2199 GI: Surveillance Culture - RECD 10/14 2102 URINE ROUT: Legionella Antigen - RES 10/14 2102 URINE ROUT: Streptococcus pneumoniae Antigen (M - RES 10/14 2102 URINE ROUT: Urine Culture - RES 10/14 1949 BODY FLUID: Body Fluid Culture - CAN Cancelled: DUPLICATE REQUEST 10/14 1949 BODY FLUID: Gram Stain - CAN Cancelled: DUPLICATE REQUEST 10/15 1811 BLOOD: Blood Culture - RECD 10/14 1809 BLOOD: Blood Culture - COLB 10/15 1739 BODY FLUID: Body Fluid Culture - RECD 10/15 1739 BODY FLUID: Gram Stain - RECD Diagnostic Data EKG Results NSR, narrow QRS waves with no ST T wave changes CXR Results Large opacity in the right hemithorax opacifying the mid and lower lung field. This is consistent with effusion and probable underlying infiltrate/atelectasis. This density is new since the chest x-ray of 09/29/2017. Assessment/Plan Assessment: Patient is a 42-year-old male with significant history of polysubstance abuse including cocaine, migraines, hypertension, previous diabetes not on medications presented with progressive worsening of shortness of breath since around a month with outpatient antimicrobial failure. In the ED he found to have purulent phlegm production with productive cough tripoding despite on 100% FiO2. Vital signs at presentation afebrile, heart rate 97, blood pressure 109/56 mmHg, saturating 85% on 6 L. Labs did show white count of 14.7, H&H 12/36, platelet count 496, chemistry sodium 134, potassium 4.5, BUN/creatinine 48/4.9, GFR 13, calcium 7.7, bilirubin 0.9, ALP 142, HIV nonreactive. Normal lactic. Thoracentesis was done in the ER with draining 400 mL of purulent fluid. Pleural fluid analysis did show white count of 22,400, RBC 1800, total protein 5.3, LDH 6615. Blood cultures peripheral cultures pending. Differentials Multilobar pneumonia causing ARDS secondary to staph aureus versus Klebsiella versus strep pneumo. Sepsis with multiorgan failure. Plan Admit to ICU Acute hypoxic respiratory failure Multilobar pneumonia leading to ARDS/acute lung injury Patient was intubated and sedated in the ER. TLC placed at bedside in ER. Currently maintained on low tidal volume, high PEEP 15 cm saturating around 91%. Neuromuscular blockade for the next 24 hours with IV vecuronium. * Monitor ABGs every 2 hours with permissive hypercarbia and mild acidosis. * Continue IV propofol and IV fentanyl for now, if hypotensive can continue discontinue IV propofol. * ABG every 2 hours, add bicarbonate if pH is less than 7.1 * Chest x-ray daily * CT rule out acute pneumothorax, if decompensates candidate for chest tube placement * Received 1 dose of IV vancomycin 1 g, IV Zosyn and IV azithromycin * Continue IV azithromycin daily * Check random Vanco level tomorrow and dose her renal function * Dose Zosyn tomorrow per renal function Acute renal failure Patient has creatinine of 4.9 with anion gap. It appears secondary dehydration in the setting of sepsis. BUN/Cr 9. Intrinsic renal injury due to hypotension. * IV hydration * Able to make urine for now * Monitor BEP Other chronic conditions Hold all home medications for now. He was on methadone -supplemented with IV propofol and IV morphine Watch for baclofen withdrawal symptoms History of diabetes, but he was not on metformin since for around 3 months. Family dynamics Patient is currently with his girlfriend rossy hernández for the past 1 year --they do not have kids together but however his girlfriend had 4 kids. Patient had a by name Gayla with two children (boys). He is not yet legally with his . And patient was awake alert and oriented she gave decision-making authority to his girlfriend. 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 DVT prophylaxis subcutaneous heparin CODE STATUS Full code As Ranked By This Provider Problem List: 1. Acute hypoxemic respiratory failure 2. Tobacco abuse counseling 3. Methadone dependence Core Measures/Misc (01/30) Acute Coronary Syndrome ACS Diagnosis: No Congestive Heart Failure Congestive Heart Failure Diagnosis No Cerebrovascular Accident CVA/TIA Diagnosis: No VTE (View Protocol) VTE Risk Factors Acute Medical Illness No Mechanical VTE Prophylaxis d/t N/A MechProphylax Ordered No VTE Pharm Prophylaxis d/t NA PharmProphylax ordered Sepsis (View protocol) Sepsis Present: Yes If YES complete Sepsis Event Note If YES complete Sepsis Event Note Mac MALIN,[facility] 10/14/171913: Core Measures/Misc (01/30) Sepsis (View protocol) If YES complete Sepsis Event Note If YES complete Sepsis Event Note Attending MD Review Statement Attending Statement Attending MD Statement: examined this patient, discuss w/resident/PA/REAL ESTATE SALES SUPERVISOR, agreed w/resident/PA/REAL ESTATE SALES SUPERVISOR, discussed with family, reviewed EMR data (avail), discussed with nursing, discussed with case mgmt, reviewed images, amended to note Attending Assessment/Plan: In the emergency room This is a gentleman with history of polysubstance abuse in the past, on methadone replacement, hypertension, hyperlipidemia, chronic prednisone use in the recent past, hypoadrenalism, migraine, cocaine abuse in the past, history of intravenous drug abuse, bipolar disorder, on multiple medications, ongoing smoking, previous admission to this hospital with altered mental status, has had a few emergency room visits in the recent past few days. Patient has had cough wheezing shortness of breath and was last seen a few days ago in the emergency room. At that time he was treated for bronchitis with a Z-Aditya and a course of steroid. Patient apparently has been febrile on and off. When I saw him no history could be obtained as he was extremely tachypneic short of breath and he was bringing up copious amounts of sputum. In the emergency room when he first came in before I was called he was evaluated by emergency room physician and he will had a chest x-ray which had shown a consolidation/effusion. This was tapped by the ER M.DLucy and cultures and other workup is pending. He was also noted to be in renal failure. When I saw him he was in profound respiratory failure was short of breath hypoxemic and was tripoding. He was bringing up copious amounts of secretions. At that time was decided to intubate the patient. Patient is in the process of being intubated and I am dictating this note. Past history is as above multiple substance abuse, smoking, other history as noted above He was afebrile profoundly hypoxemic His medications were reviewed On exam extremely tachypneic hypoxemic on BiPAP Pupils reacting extraocular movements intact Obese gentleman with tattoos Tachycardic and hypoxemic with O2 sat of 90% on 100% with BiPAP No significant JVD Chest decreased breath sounds with significant bronchial breathing on the right side with rhonchi diffusely Heart S1 and S2 was heard no murmur could be appreciated but he had significant rhonchi Abdominal exam obese nontender full abdominal exam could not be done as he was unable to lay flat No significant edema or needle cronin noted. Significant laboratory data patient has significant metabolic acidosis with a gap of 20 lactic acid pending Sodium was low, bicarbonate is 21, creatinine is 4.9 BUN is 48. His white count was elevated with a left shift at 14,000 with 91% granulocytes 3% bands His cultures are pending His platelets were 321. Other workup included a chest x-ray which showed dense consolidation and an effusion. He scan of the chest pending After 400 mL of thoracentesis patient has a persistent density in the right mid and lower lung with hazy density pleural density in the lateral chest wall has diminished Previous chest x-ray done few days ago showed peribronchial thickening with small airway disease IMPRESSION This is a gentleman with previous history of polysubstance abuse now on methadone, bipolar disorder, ongoing smoking, now here with Acute respiratory failure and severe sepsis due to severe community-acquired pneumonia in a gentleman with immunosuppressed with previous history of drug use. He also has a parapneumonic effusion probable empyema CT scan pending Impending ARDS versus acute lung injury as he is profoundly hypoxemic. Other pathology needs to be ruled out unlikely he has any other venous thromboembolism Significant emphysema clinically status post apical 400 ML of thoracentesis fluid pending workup. Patient would require a chest tube Acute renal failure in a patient with stage I R2 chronic kidney disease most likely related to sepsis. Patient has been on ibuprofen lately for chest discomfort which may have contributing to that. Does not look like he was on an MARJORIE inhibitor. Patient has been on metformin due to diabetes Diabetes on metformin Methadone use high risk for withdrawal Recent steroid use hence immunosuppressed Bipolar disorder, hypo-testosterone, multiple other issues including polysubstance use and smoking Hyperlipidemia, hypertension, previous chest pain chest discomfort. RECOMMENDATION Intubate IV fluids Patient would need a triple lumen Cantu culture and sputum culture Start broad-spectrum antibiotics with vancomycin S patient has had staph aureus before, Zosyn as he is a risk for aspiration pneumonia or necrotizing pneumonia due to immunosuppressed state and poor dentition, also start him on azithromycin for atypical coverage Low tidal volume ARDS-type strategy for his ventilator Check lactic acid Follow blood work closely Pineda catheter Sedate the patient with fentanyl and propofol, later on he can be switched to fentanyl and low-dose benzos Call surgical consult patient would require chest tube after a chest CT if he has effusions or multiple septae. If he does not have a very large effusion left any probably would require a pigtail catheter by interventional radiology Check coags ICU bundle Discontinue metformin and other medications for now. Patient has been on baclofen which may need to be started as he is a risk for withdrawal. Patient has been on methadone and we will start him on morphine Proton pump inhibitor Venodyne boots Watch electrolytes and replete appropriately. Patient desires for hyperkalemia watch him for that Echocardiogram the future Urine tox screen, serum osmolality to calculate osmolar gap, check alcohol level , salicylate acid level Patient is critically ill prognosis is extremely poor discussed with his girlfriend and discussed with the patient is agreeable to the plan. Patient wants discomfort to make his decisions Patient is critically ill total time spent 40 minutes Prognosis very poor
--- NOTE | 2017-10-14 20:47 | RADIOLOGY REPORT ---
EXAMINATION: XR PORTABLE CHEST CLINICAL INFORMATION: Intubation. COMPARISON: Chest x-ray 10/14/2017, 4:59 PM, 3:33 PM TECHNIQUE: Portable frontal view of the chest was obtained. 7:37 PM FINDINGS: Endotracheal tube in position with catheter tip about 6 cm above the mahendra. Nasogastric tube passes below the level of the diaphragm but the catheter tip is not visualized being below the margin of the film. There is persistent haziness at the right lung base with blunting of the costophrenic angle due to pleural effusion and basilar infiltrate/atelectasis. The right midlung there is increasing radiolucency however. Uncertain whether this is related just to the lung or there is some pleural lucency. There is no air-fluid level however related with the pleural effusion and therefore suspected the increased radiolucency is due to lung. A CT of chest however would be helpful. There is increasing airspace opacity now on the left lung. The small peripheral density at the left lung base has now progressed to patchy airspace and increased vascularity throughout the left lung perihilar and lower lobe. There is consolidation in the retrocardiac area with air bronchograms now present. IMPRESSION: 1. Endotracheal tube in position about 6 cm above mahendra. 2. Nasogastric tube courses below the diaphragm. 3. Persistent left pleural effusion and opacity at the right lung base of infiltrate/atelectasis. 4. Increasing lucency now seen over the right midlung which is favored to be parenchymal but a pleural component not excluded. CT could be helpful for further assessment. 5. Increasing airspace disease now within the left lung superiorly worse than prior chest x-ray today.
[2017-10-14 21:08] LABS: PT 15.2 SEC (9.4-12.5); PTT 33 SEC (25-37)
--- NOTE | 2017-10-14 22:27 | CT SCAN REPORT ---
EXAMINATION: CT CHEST WITHOUT CONTRAST CLINICAL INFORMATION: Follow-up pneumonia COMPARISON: Recent radiographs TECHNIQUE: Multidetector volumetric CT imaging of the chest was done. Axial MIP volume rendering provided. Sagittal and coronal reformatted images were obtained. DLP: 453 mGy-cm FINDINGS: FIRE CODE INSPECTOR: Extensive bilateral consolidation appears progressive. Lucency right pleural space laterally noted. LUNGS: Extensive consolidation involving all lobes particularly dense within the left lower lobe and right lower lobe. Air bronchograms noted. Without contrast, it is difficult to discern whether the air fluid level within the right lung base posteriorly is pleural or parenchymal. There is an element of a moderate size parapneumonic effusion. The air-fluid level is concerning for either a lung abscess versus empyema. Bronchopleural fistula not excluded. There is volume loss involving the right lower lobe suggesting an element of an atelectasis. There is also mild volume loss left hemithorax due to the left lower lobe disease. No gross central endobronchial lesion. MEDIASTINUM: Mildly prominent lymph nodes within the mediastinum largest precarinal location measuring up to 2 cm short axis. ET tube NG tube in good position. PLEURA: As above. AXILLA: No lymphadenopathy. UPPER ABDOMEN: Unremarkable. OSSEOUS STRUCTURES: Unremarkable. IMPRESSION: Without IV contrast, it is difficult to assess pleural-parenchymal disease especially on the right. There is progressive dense marked multilobar pneumonia. Air fluid level disease right hemithorax which may be in part pleural related to empyema. Lung abscess not excluded. Follow-up imaging should be performed with IV contrast for better assessment and delineation.
[2017-10-15] VITALS: BP 120/78
[2017-10-15 05:42] LABS: MEAN CORPUSCULAR HGB 28.9 PG (27.0-31.0); MEAN CORPUSCULAR HGB CONC 33.8 G/DL (33.0-37.0); MEAN CORPUSCULAR VOLUME 85.4 FL (80.0-94.0); MEAN PLATELET VOLUME 6.8 FL (7.4-10.4); PLATELET COUNT 391 /CUMM (130-400); RBC DISTRIBUTION WIDTH 17.2 % (11.5-14.5); RED BLOOD CELL CT 3.47 /CUMM (4.70-6.10); WHITE BLOOD CELL COUNT 14.2 /CUMM (4.8-10.8)
[2017-10-15 05:53] LABS: HEMATOCRIT 29.6 % (42-52)
[2017-10-15 08:00] VITALS: BP 92/58
--- NOTE | 2017-10-15 08:10 | RADIOLOGY REPORT ---
EXAMINATION: XR PORTABLE CHEST CLINICAL INFORMATION: ARDS with multi lobar pneumonia COMPARISON: CT chest 10/14/2017, portable chest 10/15/2019 18 x 2, 2 view chest 09/29/2017 TECHNIQUE: Portable upright AP view of the chest was obtained. FINDINGS: Radiograph obtained with a lordotic patient positioning. The medial clavicular heads are projected superiorly above the lung apices. Endotracheal tube tip is likely partially imaged at superior margin of film, 7 cm above mahendra. The right internal jugular central venous line tip is at mid superior vena cava. Nasogastric tube tip is in the stomach. There is patchy bilateral airspace consolidation mid and lower zones with bilateral apical sparing. There is increased confluence of consolidation left perihilar region. Numerous cystic changes are again seen is noted on recent CT. It is difficult to discern if this is within the pleural cavity or lung parenchyma. Results called to Dr. Ford Ruffin at 0714 hrs. IMPRESSION: 1. Endotracheal tube not clearly visualized, possibly at superior margin of radiograph 7 cm above mahendra. Repeat radiograph with re-centering of patient recommended. 2. Bilateral patchy airspace consolidation with numerous cystic changes on right similar to CT 10/14/2017. Left perihilar consolidation slightly increased.
--- NOTE | 2017-10-15 08:20 | Event Note ---
Event Note Event Note: Situation Major decision making Brief Patient is currently with his girlfriend iesha for the past 1 year --they do not have kids together (however his girlfriend had 4 kids). Patient had a by name Gayla with two children (boys). He is not yet legally with his . And when patient was awake alert and oriented he gave decision-making authority to his girlfriend. His step daughter bal works in our outpatient physical therapy and actively involved in care. His and two kids wants to be involved in major decision making. They requested active participation in his current course, wants update on his condition. Assessment 2 familys are involved in care, legal and girlfriend. Legal isidro is not against girlfriend but wants to be part of major and active decision making on behalf of patient. If they are not reachable they agree with girlfriend making decisons. Plan Family wants to be involved in care. As patient said girlfriend is the decision maker when he is alert and oriented, we will proceed with girlfriend being the POA verbally.
--- NOTE | 2017-10-15 08:47 | PN- Resident CRCU ---
Subjective HPI/CRCU Issues: Patient seen and examined. He is seen lying in bed with his head elevated maintained in bilateral upper extremity restraints. He remains intubated, sedated, on mechanical ventillation in no acute distress. Subjective complaints and review of systems are unobtainable. Objective Vital Signs & I&O Last 8 Hrs of Vitals and I&O: Tele: NSR, no events Exam General Appearance: sedated, intubated Other Physical Findings: General: well developed, ill appearing young man in no acute distress HEENT: NCAT, PERRLA, EOMI, anicteric sclera, moist mucous membranes, OGT/ET tube in place Neck: Supple, no JVD, trachea midline, no accessory respiratory muscle use, RIJ TLC in place Cardio: Normal S1/S2 w/o m/g/r; RRR Pulm: Diffuse rhonchi Abdomen: Soft, non-tender, non-distended, bowel sounds intact : bowman catheter in place draining clear yellow urine Neuro: Sedated, AAOx0, CN II-XII grossly intact Extremities: normal pulses, A-line in left wrist, no edema Current Medications: Current Medications Sig/Sara Start time Last Medication Dose Route Stop Time Status Admin Azithromycin 500 MG 10/15 220 AC Sodium Chloride 250 ML IV Azithromycin 500 MG ONCE ONE 10/14 1900 DC 10/15 Sodium Chloride 250 ML IV 10/14 195 0103 Ceftazidime 0 .STK-MED ONE 10/14 1827 DC .ROUTE Ceftazidime 1,000 MG ONCE ONE 10/14 1630 DC 10/14 IV 10/14 1631 1830 Etomidate 20 MG ONCE ONE 10/14 1845 DC 10/14 IV 10/14 1846 1855 Fentanyl Citrate 1,000 MCG Q4H 10/15 1030 AC Dextrose/Water 250 ML IV Fentanyl Citrate 1,000 MCG Q24H 10/14 1845 DC 10/14 Dextrose/Water 250 ML IV 1927 Heparin Sodium 5,000 UNIT Q8 10/14 2200 AC 10/15 (Porcine) SC 0625 Lidocaine 0 .STK-MED ONE 10/14 1634 DC .ROUTE Lidocaine 20 ML ONCE ONE 10/14 1630 CAN ID 10/14 1631 Lorazepam 2 MG ONCE ONE 10/14 1730 CAN PO 10/14 1731 Lorazepam 2 MG ONCE ONE 10/14 1730 DC 10/14 IV 10/14 1731 1640 Lorazepam 0 .STK-MED ONE 10/14 1637 DC .ROUTE Magnesium Sulfate 1 GM ONCE ONE 10/15 0230 DC 10/15 Dextrose/Water 100 ML IV 10/15 0629 0320 Morphine Sulfate 4 MG Q6-PRN PRN 10/14 1914 AC IV Non-Formulary 0 SEE ADMIN CRITERIA 10/14 1900 DC Medication ANY Non-Formulary 0 SEE ADMIN CRITERIA 10/14 1845 DC Medication ANY Pantoprazole Sodium 40 MG DAILY 10/14 2014 AC 10/15 IV 0812 Piperacillin Sod/ 3.375 GM Q6H 10/15 1030 AC Tazobactam Sod IV Sodium Chloride 100 ML Piperacillin Sod/ 3.375 GM ONE ONE 10/14 191 DC 10/14 Tazobactam Sod IV 10/14 194 2246 Sodium Chloride 100 ML Potassium Chloride 40 MEQ .[id number] 10/14 191 AC 10/14 Sodium Chloride 1,000 ML IV 2245 Propofol 1,000 MG Q6H 10/15 0615 AC 10/15 N/A 1 UNIT IV 0626 Propofol 1,000 MG Q12H 10/14 1930 DC 10/15 N/A 1 UNIT IV 0318 Propofol 1,000 MG ONE ONE 10/14 1900 DC 10/14 N/A 1 UNIT IV 10/14 1901 1901 Sodium Chloride 500 ML BOLUS ONE 10/15 0930 AC 10/15 IV 10/15 1029 0958 Sodium Chloride 1,000 ML BOLUS ONE 10/14 1945 DC 10/14 IV 10/14 2144 1958 Sodium Chloride 1,000 ML BOLUS ONE 10/14 1730 DC 10/14 IV 10/14 1929 1810 Succinylcholine 100 MG ONCE ONE 10/14 1845 DC 10/14 Chloride IV 10/14 1846 1853 Vancomycin HCl 1,000 MG 1930 10/15 193 UNir Sodium Chloride 250 ML IV 10/15 202 Vancomycin HCl 1,000 MG ONCE ONE 10/14 1900 CAN Sodium Chloride 250 ML IV 10/14 1959 Vancomycin HCl 0 .STK-MED ONE 10/14 1827 DC .ROUTE Vancomycin HCl 1,000 MG ONCE ONE 10/14 1630 DC 10/14 Sodium Chloride 250 ML IV 10/14 1729 1935 Vecuronium [place] 5 MG ONCE ONE 10/15 0730 DC 10/15 IV 10/15 0731 0805 Vecuronium [place] 5 MG ONCE ONE 10/15 0030 DC / IV 10/15 0031 0102 Vecuronium [place] 10 MG ONCE ONE 10/14 1845 DC 10/14 IV 10/14 1846 1915 Impression/Plan Impression/Problem List Impression: 42 year old man with multiple medical problems significant for polysubstance abuse on methadone and recent prednisone use seen for evaluation of persistent productive cough with shortness of breath admitted to acute respiratory failure requiring intubation secondary to severe multilobar pneumonia. Patients remains sedated. Vitals are within normal limits on ventilator support. Physical exam is significant for diffuse course rhonchi. Labs demonstrate improvement of his anion gap, mild improvement of his pH, and mild improvement of his creatinine. Cultures remain no growth to date. Patient remains critically ill with extensive multilobar pneumonia and ARDS. Continue antibiotics and sedation. Tidal volume reduced to 380 for elevated plateau pressures. Dose 1 g Vancomycin today and check trough tomorrow. Follow up CT surgery recommenedations regarding possible chest tube placement. Problem List -Acute hypoxic respiratory failure s/p intubation -Acute respiratory distress syndrome -Multilobar pneumonia -Sepsis -Acute kidney injury, improving -Anion gap metabolic acidosis, resolved -Recent steroid use -Bipolar disorder -Polysubstance abuse, on Methadone -Hypertension -Hyperlipidemia -Non-insulin dependent diabetes mellitus Plan -Telemetry monitoring -Intubated, on Vent: 400 VT, FiO2 100%, RR 28. PEEP 15, Plateau 32 -RIJ TLC -NGT -Bowman Catheter -A-Line, left wrist -Accuchecks Q6H -Bilateral upper extremity soft restraits -LR @ 125 mL/hr -Vanco 1 g IV today at 7:30, dose daily -Zosyn 3.375 g IV Q6H -Azithromycin 500 mg IV Daily -Protonix 40 mg IV Daily -Vecuronium PRN for agitation / restlessness -Fentanyl / Propofol for sedation -Morphine PRN for agitation -Hold home meds for now, restart as tolerated/needed -ID consult for antibiotic evaluation -Cardio consult -Follow up cultures & sensitivies -Daily CBC, ICU bundle, CXR, ABG -Follow up transthoracic echocardiogram -Follow up renal ultrasound -Check CPK -Check vanco level in AM -Pain control with morphine PRN -NPO -DVT PPx with subcutaneous heparin / ALPS -FULL CODE Problem List: 1. Acute hypoxemic respiratory failure 2. ARDS (adult respiratory distress syndrome) 3. Community acquired pneumonia Pain Ratin Tomorrow's Labs & Rationales: CBC, ICU ABG, CXR, Vanco trough Plan DVT/Prophylaxis: mechanical, pharmacological
--- NOTE | 2017-10-15 10:24 | PN- CRCU ---
Subjective HPI/Critical Care Issues: Events and data reviewed Continues to be intubated sedated and paralyzed. Blood pressure has been adequate. MAXIMUM TEMPERATURE was 100.1. Other history could not be obtained as patient is sedated and paralyzed Ventilator settings reviewed with the respiratory therapist on the house staff. Patient was on 100% FiO2 with tidal volume of 400 PEEP of 15. His right toe pressure was 33. His tidal volume was further reduced to 380. Plateau did come down to 31. He is being ventilated with ARDS protocol with the plateau off less than 30 being the goal. He is being permissively being kept hypercarbic due to severe ARDS and acute lung injury. Other data no cultures are positive yet body fluid culture did show gram- positive cocci no gram-negative rods were seen in the body fluid blood cultures pending urine for antigen negative lower respiratory culture showed few gram- positive cocci ET tube position was checked and x-ray probably [address] scan of the chest reviewed PATIENT: WILLY VARGHESE PRESENT AGE: 42 PATIENT ACCOUNT NO: [id number] : 74 LOCATION: [facility] ORDERING PHYSICIAN: Marixa Dyer MD SERVICE DATE: 10/14/17- EXAM TYPE: CAT - CT CHEST WO IV CONTRAST EXAMINATION: CT CHEST WITHOUT CONTRAST CLINICAL INFORMATION: Follow-up pneumonia COMPARISON: Recent radiographs TECHNIQUE: Multidetector volumetric CT imaging of the chest was done. Axial MIP volume rendering provided. Sagittal and coronal reformatted images were obtained. DLP: 453 mGy-cm FINDINGS: QUALITY CONTROL TECHNICIAN: Extensive bilateral consolidation appears progressive. Lucency right pleural space laterally noted. LUNGS: Extensive consolidation involving all lobes particularly dense within the left lower lobe and right lower lobe. Air bronchograms noted. Without contrast, it is difficult to discern whether the air fluid level within the right lung base posteriorly is pleural or parenchymal. There is an element of a moderate size parapneumonic effusion. The air-fluid level is concerning for either a lung abscess versus empyema. Bronchopleural fistula not excluded. There is volume loss involving the right lower lobe suggesting an element of an atelectasis. There is also mild volume loss left hemithorax due to the left lower lobe disease. No gross central endobronchial lesion. MEDIASTINUM: Mildly prominent lymph nodes within the mediastinum largest precarinal location measuring up to 2 cm short axis. ET tube NG tube in good position. PLEURA: As above. AXILLA: No lymphadenopathy. UPPER ABDOMEN: Unremarkable. OSSEOUS STRUCTURES: Unremarkable. IMPRESSION: Without IV contrast, it is difficult to assess pleural-parenchymal disease especially on the right. There is progressive dense marked multilobar pneumonia. Air fluid level disease right hemithorax which may be in part pleural related to empyema. Lung abscess not excluded. Follow-up imaging should be performed with IV contrast for better assessment and delineation. DICTATED BY: Ja Sommers MD Objective Current Medications: Current Medications Sig/Sara Start time Last Medication Dose Route Stop Time Status Admin Azithromycin 500 MG 0 10/15 2199 AC Sodium Chloride 250 ML IV Azithromycin 500 MG ONCE ONE 10/14 1899 DC 10/15 Sodium Chloride 250 ML IV 10/14 1958 010 Ceftazidime 0 .STK-MED ONE 10/14 1827 DC .ROUTE Ceftazidime 1,000 MG ONCE ONE 10/14 1630 DC 10/14 IV 10/14 1631 1830 Etomidate 20 MG ONCE ONE 10/14 1845 DC 10/14 IV 10/14 1846 1855 Fentanyl Citrate 1,000 MCG Q24H 10/14 184 AC 10/14 Dextrose/Water 250 ML IV 1927 Heparin Sodium 5,000 UNIT Q8 10/14 2199 AC 10/15 (Porcine) SC 0625 Lidocaine 0 .STK-MED ONE 10/14 1634 DC .ROUTE Lidocaine 20 ML ONCE ONE 10/14 1630 CAN ID 10/14 1631 Lorazepam 2 MG ONCE ONE 10/14 1730 CAN PO 10/14 1731 Lorazepam 2 MG ONCE ONE 10/14 1730 DC 10/14 IV 10/14 1731 1640 Lorazepam 0 .STK-MED ONE 10/14 1637 DC .ROUTE Magnesium Sulfate 1 GM ONCE ONE 10/15 0230 DC 10/15 Dextrose/Water 100 ML IV 10/15 06 0320 Morphine Sulfate 4 MG Q6-PRN PRN 10/14 1914 AC IV Non-Formulary 0 SEE ADMIN CRITERIA 10/14 1899 DC Medication ANY Non-Formulary 0 SEE ADMIN CRITERIA 10/14 184 DC Medication ANY Pantoprazole Sodium 40 MG DAILY 10/14 2014 AC 10/15 IV 0812 Piperacillin Sod/ 3.375 GM ONE ONE 10/14 1914 DC 10/14 Tazobactam Sod IV 10/14 1944 2246 Sodium Chloride 100 ML Potassium Chloride 40 MEQ .[id number] 10/14 1915 AC 10/14 Sodium Chloride 1,000 ML IV 2245 Propofol 1,000 MG Q6H / 0615 AC 10/15 N/A 1 UNIT IV 0626 Propofol 1,000 MG Q12H 10/14 1930 DC 10/15 N/A 1 UNIT IV 0318 Propofol 1,000 MG ONE ONE 10/14 1900 DC 10/14 N/A 1 UNIT IV 10/14 1901 1901 Sodium Chloride 500 ML BOLUS ONE 10/15 0930 AC / IV / 1029 0958 Sodium Chloride 1,000 ML BOLUS ONE 10/14 1945 DC 10/14 IV 10/14 2144 1958 Sodium Chloride 1,000 ML BOLUS ONE 10/14 1730 DC 10/14 IV 10/14 1929 1810 Succinylcholine 100 MG ONCE ONE 10/14 1845 DC 10/14 Chloride IV 10/14 1846 1853 Vancomycin HCl 1,000 MG ONCE ONE 10/14 1900 CAN Sodium Chloride 250 ML IV 10/14 195 Vancomycin HCl 0 .STK-MED ONE 10/14 1827 DC .ROUTE Vancomycin HCl 1,000 MG ONCE ONE 10/14 1630 DC 10/14 Sodium Chloride 250 ML IV 10/14 1729 1935 Vecuronium [place] 5 MG ONCE ONE 10/15 0730 DC 10/15 IV / 0731 0805 Vecuronium [place] 5 MG ONCE ONE 10/15 0030 DC 10/15 IV / 0031 0102 Vecuronium [place] 10 MG ONCE ONE 10/14 1845 DC 10/14 IV / 1846 1915 Vital Signs & I&O Last 24 Hrs of Vitals and I&O: Vital Signs Date Time Temp Pulse Resp B/P B/P Pulse O2 O2 Flow FiO2 Mean Ox Delivery Rate / 0900 90 06/02 0831 100 06/02 0800 97.7 81 28 92/58 97 Ventilator 100% / 0800 97 Ventilator 100% 06/ 0606 100 06/02 0400 94 Ventilator 100% / 0337 100 06/ 0016 100 06/02 0000 90 Ventilator 100% 06/ 0000 96.7 94 28 120/78 90 Ventilator 100% / 2331 92 Ventilator 100% 06/01 2213 100 10/14 2058 100 Ventilator 10/14 2016 107 28 113/63 90 Ventilator 100% 10/15 2015 104 28 111/66 88 Ventilator 100% 10/14 1957 100 10/14 1921 100 10/14 1914 110 28 122/82 90 Ventilator 100% 10/14 1910 114 28 163/91 90 Ventilator 100% 10/14 1909 118 28 163/91 90 Ventilator 100% 10/14 1907 118 28 165/89 90 Ventilator 100% 10/14 1901 112 28 167/90 90 Ventilator 100% 10/14 1855 114 28 168/86 90 Ventilator 100% 10/14 185 124 26 157/84 90 100% 10/14 1801 114 94 10/14 1739 116 24 133/70 86 10/14 1734 98.2 115 22 84 10/14 1730 116 22 85 10/14 1718 118 22 113/68 86 Non ReBreather 10/14 1650 22 86 Non 10L ReBreather 10/14 1647 113 22 83 Non 10L ReBreather 10/14 1551 99 18 105/68 94 Non 10L ReBreather 10/14 1438 16 95 Non 10L ReBreather 10/14 1435 20 85 Nasal 6.0L Cannula 10/14 1430 97.9 97 18 109/56 85 Room Air 10/14 1415 Non ReBreather Intake & Output 10/15 1600 10/15 0800 10/15 0000 Intake Total 1050 163 Output Total 1090 550 Balance -40 -387 Intake, IV 1050 163 Number 0 0 Bowel Movements Output, 60 50 Gastric Drainage Output, Urine 1030 500 Patient 178 lb 404 lb Weight Weight Bed scale Measurement Method Laboratory Tests 10/15 10/15 0455 0320 Blood Gas pH (7.35 - 7.45 PH) 7.18 *L pCO2 (35 - 45 TORR) 50 H pO2 (80 - 100 TORR) 77 L HCO3 (21 - 28 MEQ/L) 18 L ABG O2 Sat (Measured) (>96.0 %) 92.0 L P-50 (Temp Corrected) Y Carboxyhemoglobin (1.5 - 5.0 %) 0.1 L O2 Concentration % 100% Temperature (97.0 - 100.0 FARH) 96.8 L Respiration Rate (BPM) 28 O2 Delivery Method ESPRIT Vent Mode AC Expiratory Pressure (CMH2O/P) 15 Tidal Volume (CC) 400 Chemistry Sodium (137 - 145 mmol/L) 139 Potassium (3.5 - 5.1 mmol/L) 4.0 Chloride (98 - 107 mmol/L) 104 Carbon Dioxide (22 - 30 mmol/L) 19 L Anion Gap (5 - 16) 16 BUN (9 - 20 mg/dL) 41 H Creatinine (0.7 - 1.2 mg/dL) 3.9 H Estimated GFR (>60 ml/min) 17 L Glucose (65 - 99 mg/dL) 163 H Calcium (8.4 - 10.2 mg/dL) 6.6 L Phosphorus (2.5 - 4.5 mg/dL) 5.2 H Magnesium (1.6 - 2.3 mg/dL) 2.6 H Total Bilirubin (0.2 - 1.3 mg/dL) 0.6 AST (17 - 59 U/L) 73 H ALT (21 - 72 U/L) 52 Albumin (3.5 - 5.0 g/dL) 2.4 L Cortisol AM Sample (4.46 - 22.7 ug/dL) 16.5 Hematology CBC w Diff MAN DIFF ORDERED WBC (4.8 - 10.8 /CUMM) 14.2 H RBC (4.70 - 6.10 /CUMM) 3.47 L Hgb (14.0 - 18.0 G/DL) 10.0 L Hct (42 - 52 %) 29.6 L MCV (80.0 - 94.0 FL) 85.4 MCH (27.0 - 31.0 PG) 28.9 MCHC (33.0 - 37.0 G/DL) 33.8 RDW (11.5 - 14.5 %) 17.2 H Plt Count (130 - 400 /CUMM) 391 MPV (7.4 - 10.4 FL) 6.8 L Segmented Neutrophils (42.2 - 75.2 %) 77 H Band Neutrophils (0.0 - 5.0 %) 13 H Lymphocytes (20.5 - 51.1 %) 9 L Metamyelocytes (0.0 - 1.0 %) 1 Platelet Estimate (ADEQUATE) ADEQUATE Normocytic RBCs VERIFIED Polychromasia 1+ Miscellaneous Phlebotomy Draw Site RIGHT RADIAL Toxicology Random Vancomycin (ug/ml) 11.1 10/14 10/14 10/14 10/14 2328 2235 2200 2200 Blood Gas pH (7.35 - 7.45 PH) 7.14 *L pCO2 (35 - 45 TORR) 52 H pO2 (80 - 100 TORR) 79 L HCO3 (21 - 28 MEQ/L) 18 L ABG O2 Sat (Measured) (>96.0 %) 91.0 L Carboxyhemoglobin (1.5 - 5.0 %) 0.3 L O2 Concentration % 100 Respiration Rate (BPM) 28 O2 Delivery Method VENT Vent Mode AC Expiratory Pressure (CMH2O/P) 15 Tidal Volume (CC) 400 Pressure Support (CMH2O/P) 0 Chemistry Sodium (137 - 145 mmol/L) 135 L Potassium (3.5 - 5.1 mmol/L) 4.0 Chloride (98 - 107 mmol/L) 102 Carbon Dioxide (22 - 30 mmol/L) 17 L Anion Gap (5 - 16) 16 BUN (9 - 20 mg/dL) 43 H Creatinine (0.7 - 1.2 mg/dL) 4.2 H Estimated GFR (>60 ml/min) 16 L Glucose (65 - 99 mg/dL) 137 H Serum Osmolality (285 - 295 MOSM/KG) 293 Lactic Acid (0.7 - 2.1 mmol/L) 0.8 Calcium (8.4 - 10.2 mg/dL) 6.3 L Phosphorus (2.5 - 4.5 mg/dL) 5.5 H Magnesium (1.6 - 2.3 mg/dL) 1.8 Total Bilirubin (0.2 - 1.3 mg/dL) 0.7 AST (17 - 59 U/L) 68 H ALT (21 - 72 U/L) 48 Albumin (3.5 - 5.0 g/dL) 2.4 L Miscellaneous Phlebotomy Draw Site LEFT RADIAL Toxicology Salicylates (0 - 20.0 mg/dL) < 1.0 10/14 Blood Gas pH (7.35 - 7.45 PH) 7.12 *L pCO2 (35 - 45 TORR) 49 H pO2 (80 - 100 TORR) 80 HCO3 (21 - 28 MEQ/L) 16 L ABG O2 Sat (Measured) (>96.0 %) 90.0 L P-50 (Temp Corrected) N Carboxyhemoglobin (1.5 - 5.0 %) 0.3 L O2 Concentration % 100 Respiration Rate (BPM) 28 O2 Delivery Method VENT Vent Mode A/C Expiratory Pressure (CMH2O/P) 15 Tidal Volume (CC) 400 Miscellaneous Phlebotomy Draw Site RIGHT RADIAL Toxicology Urine Opiates Screen (>2000 NG/ML) < 100 Methadone Screen (>300 NG/ML) > 735 H Barbiturate Screen (>200 NG/ML) < 60 Ur Phencyclidine Scrn (>25 NG/ML) < 6.00 Amphetamines Screen (>1000 NG/ML) < 100 U Benzodiazepines Scrn (>200 NG/ML) < 85 Urine Cocaine Screen (>300 NG/ML) < 50 Urine Cannabis Screen (>50 NG/ML) < 5.00 Urines Urine Color (YEL,AMB,STR) YEL Urine Clarity (CLEAR) CLEAR Urine pH (5.0 - 8.0) 6.0 Ur Specific [place] (1.001 - 1.035) 1.015 Urine Protein (NEG,<30 MG/DL) 30 H Urine Ketones (NEG) NEG Urine Nitrite (NEG) NEG Urine Bilirubin (NEG) NEG Urine Urobilinogen (0.1 - 1.0 EU/dl) 0.2 Ur Leukocyte Esterase (NEG) NEG Ur Microscopic SEDIMENT EXAMINED Urine RBC (0 - 5 /HPF) RARE Urine WBC (0 - 2 /HPF) 3-5 H Ur Epithelial Cells (NONE,FEW) RARE Urine Bacteria (NEG/NONE) RARE H Urine Hemoglobin (NEG) SMALL H Urine Glucose (N MG/DL) NEG 10/14 10/14 10/14 10/14 1950 1740 1740 1518 Coagulation PT (9.4 - 12.5 SEC) 15.2 H INR (0.90 - 1.17) 1.39 H APTT (25 - 37 SEC) 33 Other Body Source Fluid WBC (0 - 5 /CUMM) 21821 H Fld Total RBCs Counted (0 /CUMM) 1800 H Fluid Total Protein (g/dL) 5.3 Fluid LDH (U/L) Cancelled 6615 10/14 1517 Chemistry Sodium (137 - 145 mmol/L) 134 L Potassium (3.5 - 5.1 mmol/L) 4.5 Chloride (98 - 107 mmol/L) 94 L Carbon Dioxide (22 - 30 mmol/L) 21 L Anion Gap (5 - 16) 20 H BUN (9 - 20 mg/dL) 48 H Creatinine (0.7 - 1.2 mg/dL) 4.9 H Estimated GFR (>60 ml/min) 13 L BUN/Creatinine Ratio (7 - 25 %) 9.8 Glucose (65 - 99 mg/dL) 109 H Lactic Acid (0.7 - 2.1 mmol/L) 1.2 Calcium (8.4 - 10.2 mg/dL) 7.7 L Total Bilirubin (0.2 - 1.3 mg/dL) 0.9 Direct Bilirubin (< 0.4 mg/dL) 0.9 H AST (17 - 59 U/L) 48 ALT (21 - 72 U/L) 32 Alkaline Phosphatase (< 127 U/L) 142 H Lactate Dehydrogenase (313 - 618 U/L) 833 H Troponin I (<0.11 ng/ml) < 0.01 Total Protein (6.3 - 8.2 g/dL) 6.3 Albumin (3.5 - 5.0 g/dL) 3.1 L Hematology CBC w Diff MAN DIFF ORDERED WBC (4.8 - 10.8 /CUMM) 14.7 H RBC (4.70 - 6.10 /CUMM) 4.31 L Hgb (14.0 - 18.0 G/DL) 12.3 L Hct (42 - 52 %) 36.3 L MCV (80.0 - 94.0 FL) 84.2 MCH (27.0 - 31.0 PG) 28.6 MCHC (33.0 - 37.0 G/DL) 34.0 RDW (11.5 - 14.5 %) 16.9 H Plt Count (130 - 400 /CUMM) 496 H MPV (7.4 - 10.4 FL) 7.3 L Gran % (42.2 - 75.2 %) 91.5 H Lymphocytes % (20.5 - 51.1 %) 4.6 L Monocytes % (1.7 - 9.3 %) 3.0 Eosinophils % (0 - 5 %) 0.9 Basophils % (0.0 - 2.0 %) 0 Absolute Granulocytes (1.4 - 6.5 /CUMM) 13.5 H Segmented Neutrophils (42.2 - 75.2 %) 96 H Band Neutrophils (0.0 - 5.0 %) 3 Absolute Lymphocytes (1.2 - 3.4 /CUMM) 0.7 L Lymphocytes (20.5 - 51.1 %) 1 L Absolute Monocytes (0.10 - 0.60 /CUMM) 0.4 Absolute Eosinophils (0.0 - 0.7 /CUMM) 0.1 Absolute Basophils (0.0 - 0.2 /CUMM) 0 Platelet Estimate (ADEQUATE) VERIFIED BY SMEAR Polychromasia 1+ Anisocytosis 1+ Other Body Source Fld Total RBCs Counted (%) 100 Serology HIV 1&2 Ab Western Blot (NONREACTIVE) NONREACTIVE Microbiology Date/Time Procedure - Status Source Growth 10/14 2229 Blood Culture - RECD BLOOD 10/14 2209 Respiratory Culture - RES LOWER RESP 10/14 2209 Gram Stain - RES LOWER RESP 10/14 2208 Respiratory Culture - CAN LOWER RESP Cancelled: DUPLICATE ORDER 10/14 2208 Gram Stain - CAN LOWER RESP Cancelled: DUPLICATE ORDER 10/14 2199 Surveillance Culture - RECD UPPER RESP 10/14 2199 Surveillance Culture - RECD GI 10/14 2102 Legionella Antigen - RES URINE ROUT 10/14 210 Streptococcus pneumoniae Antigen (M - RES URINE ROUT 10/14 210 Urine Culture - RES URINE ROUT 10/14 1950 Body Fluid Culture - CAN BODY FLUID Cancelled: DUPLICATE REQUEST 10/14 1950 Gram Stain - CAN BODY FLUID Cancelled: DUPLICATE REQUEST 10/14 181 Blood Culture - RECD BLOOD 10/14 1809 Blood Culture - CAN BLOOD Cancelled: SPECIMEN NOT RECEIVED IN LABORATORY 10/14 174 Body Fluid Culture - RES BODY FLUID 10/14 174 Gram Stain - RES BODY FLUID Impression/Plan Impression/Plan Impression/Plan: This is a gentleman with history of polysubstance abuse in the past, on methadone replacement, hypertension, hyperlipidemia, chronic prednisone use in the recent past, hypoadrenalism, migraine, cocaine abuse in the past, history of intravenous drug abuse, bipolar disorder, on multiple medications, ongoing smoking, previous admission to this hospital with altered mental status, has had a few emergency room visits in the recent past few days. Now with severe ARDS and necrotizing pna with empyema with trapped lung with large hydropneumothorax INtubated and sedated and paralysed Pupils reacting small pupils Obese gentleman with tattoos IJ cath in place [place] placed today No significant JVD Chest decreased breath sounds with significant bronchial breathing on the right side with rhonchi diffusely Heart S1 and S2 was heard no murmur could be appreciated but he had significant rhonchi Abdominal exam obese nontender full abdominal exam could not be done as he was unable to lay flat No significant edema or needle cronin noted. IMPRESSION This is a gentleman with previous history of polysubstance abuse now on methadone, bipolar disorder, ongoing smoking, now here with * Severe ARDS with severe bilateral multilobar pna due to prob strep or staph pna with empyema (s/p drained initially 400 cc) with hydropneumothorax with trapped lung. INtubated and sedated and paralysed and being vented with ards protocol with plateau pressure goal of 30 with permissive hypercarbia * Trapped lung and hydropneumothorax * Acute renal failure in a patient with sepsis with atn (was on ACI and metformin aswell) * History of Diabetes on metformin * Methadone use high risk for withdrawal * Recent steroid use hence immunosuppressed * Bipolar disorder, hypo-testosterone, multiple other issues including polysubstance use and smoking * History of Hyperlipidemia, hypertension, previous chest pain chest discomfort. RECOMMENDATION COnt vent with ARDS stratergy with high peep and low vt (plateau less than 30 as goal) Ok with permissive hypercarbia (ph goal more than 7.1 CVP goal 6-8 IV fluids d5 ringers at 75 cc Keep npo Cont paralytics and cont cont propofol and fentanyl Ask Thoracic to see would need a bedside chest tube Sedate the patient with fentanyl and propofol, later on he can be switched to fentanyl and low-dose benzos Call surgical consult patient would require chest tube after a chest CT if he has effusions or multiple septae. If he does not have a very large effusion left any probably would require a pigtail catheter by interventional radiology Check coags Cont Proton pump inhibitor and heparin sub cut Rpt sputum culture Follow calcium and may need a dose later if still low Renal, ID , CTS consult Pt critically ill DIscussed with girl friend at the bedside TTS 60 mins PT had explicitly told me that his girl friend should be the surrogate decision maker
--- NOTE | 2017-10-15 11:04 | RADIOLOGY REPORT ---
EXAMINATION: XR PORTABLE CHEST CLINICAL INFORMATION: ET tube difficult to visualize. COMPARISON: 10/15/2017 TECHNIQUE: Portable AP supine view of the chest was obtained. FINDINGS: Endotracheal tube terminates at T3-T4, located approximately 5.3 cm above mahendra and unchanged from the study of 10/14/2017. Right jugular line extends to the mid SVC level. Enteric tube extends below diaphragm, tip not visualized. Extensive airspace disease is seen throughout the bilateral lungs with multiple pleural pulmonary cysts again seen in the mid and lower right lung as noted previously. IMPRESSION: Endotracheal tube terminates 5.3 cm above mahendra which is unchanged from 10/14/2017. Extensive multifocal opacities and right-sided pleural parenchymal cystic changes again identified.
--- NOTE | 2017-10-15 11:40 | Cons- Nephrology ---
General Information and HPI Consulting Request Date of Consult: 10/15/17 Requested By: Brandon Omer MD Reason for Consult: BREONNA Source of Information: patient Exam Limitations: clinical condition History of Present Illness: 42-year-old male with a history of anxiety/bipolar disorder (no documentation of having been on lithium in the past), chronic pain on methadone, history of polysubstance abuse, hypertension, hyperlipidemia, admitted with a chief complaint of several weeks of shortness of breath cough sputum production, as well as having developed hemopytsis. As an outpatient several weeks ago was on amoxicillin without clinical improvement and more recently was seen in the ER [facility] was treated with azithromycin and steroids, without improvement in symptoms. Due to respiratory strict distress hypoxemic respiratory failure he required intubation, and is currently paralyzed and being ventilated on high flow O2 with permissive hypercapnea. Found to be an BREONNA with creatinine of 4.9 on admission improving after 4 L of IV fluids to 3.9 L today. UA is bland with only trace proteinuria. He was taking NSAIDs at home according to his girlfriend and is listed as having been taking ibuprofen, and per the girlfriend was taking at least on a daily basis. Also was on metformin however lactic acid ok at 0.8. Currently with borderline low bBP at 107/55, lowest BP in 90s, and has not required pressors. Chest CT without contrast revealed a multilobar pneumonia, and he is also status post a 400 mL thoracentesis with results consistent with empyema. Allergies/Medications Allergies: Coded Allergies: No Known Allergies (10/05/17) Home Med List: Albuterol Sulfate (Ventolin Hfa) 18 GM HFA.AER.AD 2 PUF INH Q4-6 PRN PRN SOB Alprazolam 1 MG TABLET 1 TAB PO PRN PANIC ATTACKS (Reported) Atorvastatin Calcium 20 MG TABLET 1 TAB PO DAILY CHOLESTEROL (Reported) Baclofen 10 MG TABLET 1 TAB PO TIDPRN PRN muscle spasm/strain Esomeprazole Magnesium (Nexium) 20 MG CAPSULE.DR 1 CAP PO DAILY GI (Reported) Gabapentin 300 MG CAPSULE 1 CAP PO BID NERVE PAIN (Reported) Ibuprofen 800 MG TABLET 1 TAB PO TID pain Metformin HCl (Metformin HCl ER) 500 MG TAB.ER.24 1 TAB PO DAILY PRE-DIABETES (Reported) Methadone Hydrochloride (Methadone HCl) 10 MG TABLET 50 MG PO BID CHRONIC PAIN (Reported) Jelm-3S/Dha/Epa/Fish Oil (Sea-Jelm 1,000 MG Softgel) 600-1,000MG CAPSULE 1 CAP PO DAILY SUPPLEMENT (Reported) Polyethylene Glycol 3350 255 GM POWDER 17 GM PO DAILY PRN GI (Reported) Prednisone (Deltasone) 20 MG TABLET 1 TAB PO TID BRONCHITIS Propranolol HCl 80 MG TABLET 2 TAB PO BID MIGRAINE PREVENTION/BP (Reported) Quetiapine Fumarate 200 MG TABLET 1 TAB PO 4 TIMES/DAY MENTAL HEALTH ( Reported) Testosterone (Androgel) 1.25 GM GEL.PACKET 1 PAC TOP DAILY HRT (Reported) Ubidecarenone (Coq-10) 100 MG CAPSULE 1 CAP PO DAILY SUPPLEMENT (Reported) Current Medications: Current Medications Sig/Sara Start time Last Medication Dose Route Stop Time Status Admin Azithromycin 500 MG 10/15 AC Sodium Chloride 250 ML IV Azithromycin 500 MG ONCE ONE 10/14 1900 DC 10/15 Sodium Chloride 250 ML IV 10/14 1959 0103 Ceftazidime 0 .STK-MED ONE 10/14 1827 DC .ROUTE Ceftazidime 1,000 MG ONCE ONE 10/14 1630 DC 10/14 IV 10/14 1631 1830 Etomidate 20 MG ONCE ONE 10/14 1845 DC 10/14 IV 10/14 1846 1855 Fentanyl Citrate 1,000 MCG Q4H 10/15 1030 AC 10/15 Dextrose/Water 250 ML IV 1106 Fentanyl Citrate 1,000 MCG Q24H 10/14 1845 DC 10/14 Dextrose/Water 250 ML IV 1927 Heparin Sodium 5,000 UNIT Q8 10/14 2200 AC 10/15 (Porcine) SC 0625 Lactated Ringer's 1,000 ML .[Q13] 10/15 1045 UNir IV Lidocaine 0 .STK-MED ONE 10/14 1634 DC .ROUTE Lidocaine 20 ML ONCE ONE 10/14 1630 CAN ID 10/14 1631 Lorazepam 2 MG ONCE ONE 10/14 1730 CAN PO 10/14 1731 Lorazepam 2 MG ONCE ONE 10/14 1730 DC 10/14 IV 10/14 1731 1640 Lorazepam 0 .STK-MED ONE 10/14 1637 DC .ROUTE Magnesium Sulfate 1 GM ONCE ONE 10/15 0230 DC 10/15 Dextrose/Water 100 ML IV 10/15 0629 0320 Morphine Sulfate 4 MG Q6-PRN PRN 06/01 1915 AC IV Non-Formulary 0 SEE ADMIN CRITERIA 10/14 1900 DC Medication ANY Non-Formulary 0 SEE ADMIN CRITERIA 10/14 184 DC Medication ANY Pantoprazole Sodium 40 MG DAILY 10/14 2014 AC 06/02 IV 0812 Piperacillin Sod/ 3.375 GM Q6H 10/15 1030 AC 10/15 Tazobactam Sod IV 1113 Sodium Chloride 100 ML Piperacillin Sod/ 3.375 GM ONE ONE 10/14 191 DC 10/14 Tazobactam Sod IV 10/14 1944 2246 Sodium Chloride 100 ML Potassium Chloride 40 MEQ .[id number] 10/14 191 DC 10/14 Sodium Chloride 1,000 ML IV 2245 Propofol 1,000 MG Q6H 10/15 0615 AC 10/15 N/A 1 UNIT IV 0626 Propofol 1,000 MG .STK-MED ONE 10/15 0309 DC IV 10/15 0310 Propofol 1,000 MG Q12H 10/14 1930 DC 10/15 N/A 1 UNIT IV 0318 Propofol 1,000 MG ONE ONE 10/14 1900 DC 10/14 N/A 1 UNIT IV 10/14 1901 1901 Sodium Chloride 500 ML BOLUS ONE 10/15 0930 DC 10/15 IV 10/15 1029 0958 Sodium Chloride 1,000 ML BOLUS ONE 10/14 194 DC 10/14 IV 10/14 2144 1958 Sodium Chloride 1,000 ML BOLUS ONE 10/14 1730 DC 10/14 IV 10/14 1929 1810 Succinylcholine 100 MG ONCE ONE 10/14 1845 DC 10/14 Chloride IV 10/14 1846 1853 Vancomycin HCl 1,000 MG 1930 10/15 1930 AC Sodium Chloride 250 ML IV 10/15 2029 Vancomycin HCl 1,000 MG ONCE ONE 10/14 1900 CAN Sodium Chloride 250 ML IV 10/14 1959 Vancomycin HCl 0 .STK-MED ONE 10/14 1827 DC .ROUTE Vancomycin HCl 1,000 MG ONCE ONE 10/14 1630 DC 10/14 Sodium Chloride 250 ML IV 10/14 1729 1935 Vecuronium Coyote 5 MG ONCE ONE 10/15 0730 DC 10/15 IV 10/15 0731 0805 Vecuronium Coyote 5 MG ONCE ONE 10/15 0030 DC 10/15 IV 10/15 0031 0102 Vecuronium Coyote 10 MG ONCE ONE 10/14 1845 DC 10/14 IV 10/14 1846 1915 Review of Systems Review of Systems: Unable to obtain due to patient's clinical condition as he is intubated sedated. 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 Home Who Do You Live With? spouse, child Services at Home: None Smoking Status: Current Everyday Smoker ETOH Use: occasional use Functional Ability ADLs Independent: dressing, eating, toileting, bathing. Ambulation: independent IADLs Independent: shopping, housework, finances, food prep, telephone, transportation , medication admin. Exam & Diagnostic Data Vital Signs and I&O Vital Signs Date Time Temp Pulse Resp B/P B/P Pulse O2 O2 Flow FiO2 Mean Ox Delivery Rate 10/15 1130 Ventilator 90% 10/15 0900 90 10/15 0831 100 10/15 0800 97.7 81 28 92/58 97 Ventilator 100% 10/15 0800 97 Ventilator 100% 10/15 0606 100 10/15 0400 94 Ventilator 100% 10/15 0337 100 10/15 0016 100 / 0000 90 Ventilator 100% 10/15 0000 96.7 94 28 120/78 90 Ventilator 100% 10/14 2331 92 Ventilator 100% 10/14 2213 100 10/14 2059 100 Ventilator 10/14 2016 107 28 113/63 90 Ventilator 100% 10/15 2015 104 28 111/66 88 Ventilator 100% 10/148 100 10/14 1922 100 10/14 1915 110 28 122/82 90 Ventilator 100% 10/140 114 28 163/91 90 Ventilator 100% 10/14 1909 118 28 163/91 90 Ventilator 100% 10/14 1907 118 28 165/89 90 Ventilator 100% 10/141 112 28 167/90 90 Ventilator 100% 10/14 1855 114 28 168/86 90 Ventilator 100% 10/14 1853 124 26 157/84 90 100% 10/14 1801 114 94 10/14 1739 116 24 133/70 86 10/14 1734 98.2 115 22 84 10/14 1730 116 22 85 10/14 1718 118 22 113/68 86 Non ReBreather 10/14 1650 22 86 Non 10L ReBreather 10/14 1647 113 22 83 Non 10L ReBreather 10/14 1551 99 18 105/68 94 Non 10L ReBreather 10/14 1438 16 95 Non 10L ReBreather 10/14 1435 20 85 Nasal 6.0L Cannula 10/14 1430 97.9 97 18 109/56 85 Room Air 10/14 1415 Non ReBreather Intake & Output 10/15 1600 10/15 0400 10/14 1600 10/14 0400 10/13 1600 10/13 0400 Intake Total 1050 163 100 Output Total 1090 550 Balance -40 -387 100 Intake, IV 1050 163 Intake, Oral 100 Number 0 0 Bowel Movements Output, 60 50 Gastric Drainage Output, Urine 1030 500 Patient 178 lb 183 lb Weight Weight Bed scale Estimated Measurement Method Physical Exam: General: NAD, A+O x3. int/sedated HEENT: NC/AT. No icterus. Moist mucosa Neck: negative for JACQUE, JVD CV: RRR, no m/r/g Pulm: CTAB, no rales Abd: soft, NT/ND, negative renal bruits Lower Ext: neg edema or chronic venous changes Upper Ext: no AVFs or AVGs Back: negative for CVA tenderness Neuro: neg tremor, asterixis Skin: no rash, jaundice : + bowman catheter Assessment/Plan Assessment/Recommendations Assessment: Acute kidney injury: I suspect prerenal azotemia from volume depletion exacerbated by having been on NSAIDs. There was also question as to whether he was on an MARJORIE inhibitor however this is not on his home medication list. Fortunately renal status improving with IV hydration. As is more hypotensive would increase IV fluids to 125 mL per hour. CVP was 5 this morning supporting ongoing intravascular depletion. Cannot rule out element of ATN however excellent urine output and improving creatinine support for prerenal picture. Would check a renal ultrasound to rule out hydronephrosis which I do not suspect. Despite hemoptysis there is no sign of pulmonary renal syndrome as his urinalysis is bland with only trace proteinuria. Would add on CPK to rule out rhabdo. Possible chronic kidney disease: Baseline creatinine was 1.1-1.2, which may be due to hypertensive nephrosclerosis. I can't say for certain if he's as to whether he's never been on the nephrotoxin lithium in the past for bipolar disorder. Recommendations: Add on CPK level Renal ultrasound Suggest increasing IV fluids 125 mL per hour Strict ins and outs daily weights and daily renal labs, including ca/mag/phos Avoid IV contrast for now if possible There is no acute dialytic need Thank you for the consult Discussed with ICU team Haider Crane MD
--- NOTE | 2017-10-15 11:40 | Cons- Thoracic Surgery ---
General Information and HPI Consulting Request Date of Consult: 10/15/17 Requested By: Brandon Omer MD Reason for Consult: RIGHT LUNG COLLECTION/CONSOLIDATION Source of Information: old records Exam Limitations: clinical condition History of Present Illness: Patient is a 42-year-old actively smoking male with past medical history significant for hyperlipidemia, hypertension, anxiety/bipolar disorder, migraines, polysubstance abuse presented to [facility] due to persistent productive cough and shortness of breath despite 2 rounds of antibiotics recently. He had been sick for the past 1 month, initially went to urgent care received amoxicillin for possible bronchitis initially. He never had a chest x-ray at that time. After completing first course of antibiotics he still need to have fevers and came to [facility] ER, received azithromycin with prednisone. After completing his second course of antibiotics is still having productive cough with on and off fevers and chills. Continues to have productive cough with clear phlegm production. Today he woke up in the afternoon tried to go to restroom, had significant shortness of breath with gasping. He found to have bright red sputum production after coming to ER. Allergies/Medications Allergies: Coded Allergies: No Known Allergies (10/05/17) Home Med List: Albuterol Sulfate (Ventolin Hfa) 18 GM HFA.AER.AD 2 PUF INH Q4-6 PRN PRN SOB Alprazolam 1 MG TABLET 1 TAB PO PRN PANIC ATTACKS (Reported) Atorvastatin Calcium 20 MG TABLET 1 TAB PO DAILY CHOLESTEROL (Reported) Baclofen 10 MG TABLET 1 TAB PO TIDPRN PRN muscle spasm/strain Esomeprazole Magnesium (Nexium) 20 MG CAPSULE.DR 1 CAP PO DAILY GI (Reported) Gabapentin 300 MG CAPSULE 1 CAP PO BID NERVE PAIN (Reported) Ibuprofen 800 MG TABLET 1 TAB PO TID pain Metformin HCl (Metformin HCl ER) 500 MG TAB.ER.24 1 TAB PO DAILY PRE-DIABETES (Reported) Methadone Hydrochloride (Methadone HCl) 10 MG TABLET 50 MG PO BID CHRONIC PAIN (Reported) [place]-3S/Dha/Epa/Fish Oil (Sea-[place] 1,000 MG Softgel) 600-1,000MG CAPSULE 1 CAP PO DAILY SUPPLEMENT (Reported) Polyethylene Glycol 3350 255 GM POWDER 17 GM PO DAILY PRN GI (Reported) Prednisone (Deltasone) 20 MG TABLET 1 TAB PO TID BRONCHITIS Propranolol HCl 80 MG TABLET 2 TAB PO BID MIGRAINE PREVENTION/BP (Reported) Quetiapine Fumarate 200 MG TABLET 1 TAB PO 4 TIMES/DAY MENTAL HEALTH ( Reported) Testosterone (Androgel) 1.25 GM GEL.PACKET 1 PAC TOP DAILY HRT (Reported) Ubidecarenone (Coq-10) 100 MG CAPSULE 1 CAP PO DAILY SUPPLEMENT (Reported) Past History Medical History Neurological: migraine EENT: NONE Cardiovascular: hyperlipidemia Respiratory: bronchitis Gastrointestinal: HERNIA CHILD Hepatic: NONE Renal: CYST ON KIDNEY Musculoskeletal: CHRONIC LEFT SHOULDER HUE Psychiatric: anxiety, bipolar disease Endocrine: NONE Blood Disorders: NONE Cancer(s): NONE 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 Home Who Do You Live With? spouse, child Services at Home: None Smoking Status: Current Everyday Smoker ETOH Use: occasional use Functional Ability ADLs Independent: dressing, eating, toileting, bathing. Ambulation: independent IADLs Independent: shopping, housework, finances, food prep, telephone, transportation , medication admin. Exam & Diagnostic Data Vital Signs and I&O Vital Signs Date Time Temp Pulse Resp B/P B/P Pulse O2 O2 Flow FiO2 Mean Ox Delivery Rate / 1130 Ventilator 90% 10/15 0900 90 / 0831 100 06/ 0800 97.7 81 28 92/58 97 Ventilator 100% / 0800 97 Ventilator 100% / 0606 100 06/ 0400 94 Ventilator 100% / 0337 100 06/ 0016 100 06/02 0000 90 Ventilator 100% /02 0000 96.7 94 28 120/78 90 Ventilator 100% 10/14 2331 92 Ventilator 100% 10/14 2213 100 10/14 2059 100 Ventilator 10/14 2016 107 28 113/63 90 Ventilator 100% 10/14 2016 104 28 111/66 88 Ventilator 100% 10/14 1958 100 10/14 1922 100 10/14 191 110 28 122/82 90 Ventilator 100% 10/14 1910 114 28 163/91 90 Ventilator 100% 10/14 1909 118 28 163/91 90 Ventilator 100% 10/14 1907 118 28 165/89 90 Ventilator 100% 10/14 1901 112 28 167/90 90 Ventilator 100% 10/14 1855 114 28 168/86 90 Ventilator 100% 10/14 1853 124 26 157/84 90 100% 10/14 1801 114 94 10/14 1739 116 24 133/70 86 10/14 1734 98.2 115 22 84 10/14 1730 116 22 85 10/14 1718 118 22 113/68 86 Non ReBreather 10/14 1650 22 86 Non 10L ReBreather 10/14 1647 113 22 83 Non 10L ReBreather 10/14 1551 99 18 105/68 94 Non 10L ReBreather 10/14 1438 16 95 Non 10L ReBreather 10/14 1435 20 85 Nasal 6.0L Cannula 10/14 1430 97.9 97 18 109/56 85 Room Air 10/14 1415 Non ReBreather Intake & Output 10/15 1600 10/15 0800 10/15 0000 10/14 1600 10/14 0800 10/14 0000 Intake Total 1050 163 100 Output Total 1090 550 Balance -40 -387 100 Intake, IV 1050 163 Intake, Oral 100 Number 0 0 Bowel Movements Output, 60 50 Gastric Drainage Output, Urine 1030 500 Patient 178 lb 404 lb 183 lb Weight Weight Bed scale Estimated Measurement Method Last 24 Hours of Labs: Laboratory Tests 10/15 10/15 1100 0455 Blood Gas pH (7.35 - 7.45 PH) 7.20 *L pCO2 (35 - 45 TORR) 47 H pO2 (80 - 100 TORR) 87 HCO3 (21 - 28 MEQ/L) 18 L ABG O2 Sat (Measured) (>96.0 %) 95.0 L Carboxyhemoglobin (1.5 - 5.0 %) 0 L O2 Concentration % 90% Respiration Rate (BPM) 28 O2 Delivery Method VENT Vent Mode AC Expiratory Pressure (CMH2O/P) 15 Tidal Volume (CC) 380 Pressure Support (CMH2O/P) 0 Chemistry Sodium (137 - 145 mmol/L) 139 Potassium (3.5 - 5.1 mmol/L) 4.0 Chloride (98 - 107 mmol/L) 104 Carbon Dioxide (22 - 30 mmol/L) 19 L Anion Gap (5 - 16) 16 BUN (9 - 20 mg/dL) 41 H Creatinine (0.7 - 1.2 mg/dL) 3.9 H Estimated GFR (>60 ml/min) 17 L Glucose (65 - 99 mg/dL) 163 H Calcium (8.4 - 10.2 mg/dL) 6.6 L Phosphorus (2.5 - 4.5 mg/dL) 5.2 H Magnesium (1.6 - 2.3 mg/dL) 2.6 H Total Bilirubin (0.2 - 1.3 mg/dL) 0.6 AST (17 - 59 U/L) 73 H ALT (21 - 72 U/L) 52 Creatine Kinase (55 - 170 U/L) 43 L Albumin (3.5 - 5.0 g/dL) 2.4 L Cortisol AM Sample (4.46 - 22.7 ug/dL) 16.5 Hematology CBC w Diff MAN DIFF ORDERED WBC (4.8 - 10.8 /CUMM) 14.2 H RBC (4.70 - 6.10 /CUMM) 3.47 L Hgb (14.0 - 18.0 G/DL) 10.0 L Hct (42 - 52 %) 29.6 L MCV (80.0 - 94.0 FL) 85.4 MCH (27.0 - 31.0 PG) 28.9 MCHC (33.0 - 37.0 G/DL) 33.8 RDW (11.5 - 14.5 %) 17.2 H Plt Count (130 - 400 /CUMM) 391 MPV (7.4 - 10.4 FL) 6.8 L Segmented Neutrophils (42.2 - 75.2 %) 77 H Band Neutrophils (0.0 - 5.0 %) 13 H Lymphocytes (20.5 - 51.1 %) 9 L Metamyelocytes (0.0 - 1.0 %) 1 Platelet Estimate (ADEQUATE) ADEQUATE Normocytic RBCs VERIFIED Polychromasia 1+ Miscellaneous Phlebotomy Draw Site LEFT A LINE Toxicology Random Vancomycin (ug/ml) 11.1 0602 0610/14 0320 2328 2236 2200 Blood Gas pH (7.35 - 7.45 PH) 7.18 *L 7.14 *L pCO2 (35 - 45 TORR) 50 H 52 H pO2 (80 - 100 TORR) 77 L 79 L HCO3 (21 - 28 MEQ/L) 18 L 18 L ABG O2 Sat (Measured) (>96.0 %) 92.0 L 91.0 L P-50 (Temp Corrected) Y Carboxyhemoglobin (1.5 - 5.0 %) 0.1 L 0.3 L O2 Concentration % 100% 100 Temperature (97.0 - 100.0 FARH) 96.8 L Respiration Rate (BPM) 28 28 O2 Delivery Method ESPRIT VENT Vent Mode AC AC Expiratory Pressure (CMH2O/P) 15 15 Tidal Volume (CC) 400 400 Pressure Support (CMH2O/P) 0 Chemistry Serum Osmolality (285 - 295 MOSM/KG) 293 Lactic Acid (0.7 - 2.1 mmol/L) 0.8 Miscellaneous Phlebotomy Draw Site RIGHT RADIAL LEFT RADIAL 10/14 10/14 2200 2103 Chemistry Sodium (137 - 145 mmol/L) 135 L Potassium (3.5 - 5.1 mmol/L) 4.0 Chloride (98 - 107 mmol/L) 102 Carbon Dioxide (22 - 30 mmol/L) 17 L Anion Gap (5 - 16) 16 BUN (9 - 20 mg/dL) 43 H Creatinine (0.7 - 1.2 mg/dL) 4.2 H Estimated GFR (>60 ml/min) 16 L Glucose (65 - 99 mg/dL) 137 H Calcium (8.4 - 10.2 mg/dL) 6.3 L Phosphorus (2.5 - 4.5 mg/dL) 5.5 H Magnesium (1.6 - 2.3 mg/dL) 1.8 Total Bilirubin (0.2 - 1.3 mg/dL) 0.7 AST (17 - 59 U/L) 68 H ALT (21 - 72 U/L) 48 Albumin (3.5 - 5.0 g/dL) 2.4 L Toxicology Salicylates (0 - 20.0 mg/dL) < 1.0 Urine Opiates Screen (>2000 NG/ML) < 100 Methadone Screen (>300 NG/ML) > 735 H Barbiturate Screen (>200 NG/ML) < 60 Ur Phencyclidine Scrn (>25 NG/ML) < 6.00 Amphetamines Screen (>1000 NG/ML) < 100 U Benzodiazepines Scrn (>200 NG/ML) < 85 Urine Cocaine Screen (>300 NG/ML) < 50 Urine Cannabis Screen (>50 NG/ML) < 5.00 Urines Urine Color (YEL,AMB,STR) YEL Urine Clarity (CLEAR) CLEAR Urine pH (5.0 - 8.0) 6.0 Ur Specific [place] (1.001 - 1.035) 1.015 Urine Protein (NEG,<30 MG/DL) 30 H Urine Ketones (NEG) NEG Urine Nitrite (NEG) NEG Urine Bilirubin (NEG) NEG Urine Urobilinogen (0.1 - 1.0 EU/dl) 0.2 Ur Leukocyte Esterase (NEG) NEG Ur Microscopic SEDIMENT EXAMINED Urine RBC (0 - 5 /HPF) RARE Urine WBC (0 - 2 /HPF) 3-5 H Ur Epithelial Cells (NONE,FEW) RARE Urine Bacteria (NEG/NONE) RARE H Urine Hemoglobin (NEG) SMALL H Urine Glucose (N MG/DL) NEG 10/145 1950 1740 1740 Blood Gas pH (7.35 - 7.45 PH) 7.12 *L pCO2 (35 - 45 TORR) 49 H pO2 (80 - 100 TORR) 80 HCO3 (21 - 28 MEQ/L) 16 L ABG O2 Sat (Measured) (>96.0 %) 90.0 L P-50 (Temp Corrected) N Carboxyhemoglobin (1.5 - 5.0 %) 0.3 L O2 Concentration % 100 Respiration Rate (BPM) 28 O2 Delivery Method VENT Vent Mode A/C Expiratory Pressure (CMH2O/P) 15 Tidal Volume (CC) 400 Miscellaneous Phlebotomy Draw Site RIGHT RADIAL Other Body Source Fluid WBC (0 - 5 /CUMM) 44965 H Fld Total RBCs Counted (0 /CUMM) 1800 H Fluid Total Protein (g/dL) 5.3 Fluid LDH (U/L) Cancelled 6615 10/14 10/14 1518 1517 Chemistry Sodium (137 - 145 mmol/L) 134 L Potassium (3.5 - 5.1 mmol/L) 4.5 Chloride (98 - 107 mmol/L) 94 L Carbon Dioxide (22 - 30 mmol/L) 21 L Anion Gap (5 - 16) 20 H BUN (9 - 20 mg/dL) 48 H Creatinine (0.7 - 1.2 mg/dL) 4.9 H Estimated GFR (>60 ml/min) 13 L BUN/Creatinine Ratio (7 - 25 %) 9.8 Glucose (65 - 99 mg/dL) 109 H Lactic Acid (0.7 - 2.1 mmol/L) 1.2 Calcium (8.4 - 10.2 mg/dL) 7.7 L Total Bilirubin (0.2 - 1.3 mg/dL) 0.9 Direct Bilirubin (< 0.4 mg/dL) 0.9 H AST (17 - 59 U/L) 48 ALT (21 - 72 U/L) 32 Alkaline Phosphatase (< 127 U/L) 142 H Lactate Dehydrogenase (313 - 618 U/L) 833 H Troponin I (<0.11 ng/ml) < 0.01 Total Protein (6.3 - 8.2 g/dL) 6.3 Albumin (3.5 - 5.0 g/dL) 3.1 L Coagulation PT (9.4 - 12.5 SEC) 15.2 H INR (0.90 - 1.17) 1.39 H APTT (25 - 37 SEC) 33 Hematology CBC w Diff MAN DIFF ORDERED WBC (4.8 - 10.8 /CUMM) 14.7 H RBC (4.70 - 6.10 /CUMM) 4.31 L Hgb (14.0 - 18.0 G/DL) 12.3 L Hct (42 - 52 %) 36.3 L MCV (80.0 - 94.0 FL) 84.2 MCH (27.0 - 31.0 PG) 28.6 MCHC (33.0 - 37.0 G/DL) 34.0 RDW (11.5 - 14.5 %) 16.9 H Plt Count (130 - 400 /CUMM) 496 H MPV (7.4 - 10.4 FL) 7.3 L Gran % (42.2 - 75.2 %) 91.5 H Lymphocytes % (20.5 - 51.1 %) 4.6 L Monocytes % (1.7 - 9.3 %) 3.0 Eosinophils % (0 - 5 %) 0.9 Basophils % (0.0 - 2.0 %) 0 Absolute Granulocytes (1.4 - 6.5 /CUMM) 13.5 H Segmented Neutrophils (42.2 - 75.2 %) 96 H Band Neutrophils (0.0 - 5.0 %) 3 Absolute Lymphocytes (1.2 - 3.4 /CUMM) 0.7 L Lymphocytes (20.5 - 51.1 %) 1 L Absolute Monocytes (0.10 - 0.60 /CUMM) 0.4 Absolute Eosinophils (0.0 - 0.7 /CUMM) 0.1 Absolute Basophils (0.0 - 0.2 /CUMM) 0 Platelet Estimate (ADEQUATE) VERIFIED BY SMEAR Polychromasia 1+ Anisocytosis 1+ Other Body Source Fld Total RBCs Counted (%) 100 Serology HIV 1&2 Ab Western Blot (NONREACTIVE) NONREACTIVE Imaging Results: SERVICE DATE: 10/14/17- EXAM TYPE: CAT - CT CHEST WO IV CONTRAST EXAMINATION: CT CHEST WITHOUT CONTRAST CLINICAL INFORMATION: Follow-up pneumonia COMPARISON: Recent radiographs TECHNIQUE: Multidetector volumetric CT imaging of the chest was done. Axial MIP volume rendering provided. Sagittal and coronal reformatted images were obtained. 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 Lucency right pleural space laterally noted. LUNGS: Extensive consolidation involving all lobes particularly dense within the left lower lobe and right lower lobe. Air bronchograms noted. Without contrast, it is difficult to discern whether the air fluid level within the right lung base posteriorly is pleural or parenchymal. There is an element of a moderate size parapneumonic effusion. The air-fluid level is concerning for either a lung abscess versus empyema. Bronchopleural fistula not excluded. There is volume loss involving the right lower lobe suggesting an element of an atelectasis. There is also mild volume loss left hemithorax due to the left lower lobe disease. No gross central endobronchial lesion. MEDIASTINUM: Mildly prominent lymph nodes within the mediastinum largest precarinal location measuring up to 2 cm short axis. ET tube NG tube in good position. PLEURA: As above. AXILLA: No lymphadenopathy. UPPER ABDOMEN: Unremarkable. OSSEOUS STRUCTURES: Unremarkable. IMPRESSION: Without IV contrast, it is difficult to assess pleural-parenchymal disease especially on the right. There is progressive dense marked multilobar pneumonia. Air fluid level disease right hemithorax which may be in part pleural related to empyema. Lung abscess not excluded. Follow-up imaging should be performed with IV contrast for better assessment and delineation. DICTATED BY: Ja Sommers MD DATE/TIME DICTATED:10/14/172150 NETWORK FIELD ENGINEER:SINDI DATE/TIME TRANSCRIBED:10/14/172150 Other Results: SERVICE DATE: 10/15/17-0500 EXAM TYPE: RAD - XRY-PORTABLE CHEST XRAY EXAMINATION: XR PORTABLE CHEST CLINICAL INFORMATION: ARDS with multi lobar pneumonia COMPARISON: CT chest 10/14/2017, portable chest 10/15/2019 18 x 2, 2 view chest 09/29/2017 TECHNIQUE: Portable upright AP view of the chest was obtained. FINDINGS: Radiograph obtained with a lordotic patient positioning. The medial clavicular heads are projected superiorly above the lung apices. Endotracheal tube tip is likely partially imaged at superior margin of film, 7 cm above mahendra. The right internal jugular central venous line tip is at mid superior vena cava. Nasogastric tube tip is in the stomach. There is patchy bilateral airspace consolidation mid and lower zones with bilateral apical sparing. There is increased confluence of consolidation left perihilar region. Numerous cystic changes are again seen is noted on recent CT. It is difficult to discern if this is within the pleural cavity or lung parenchyma. Results called to Dr. Ford Ruffin at 0714 hrs. IMPRESSION: 1. Endotracheal tube not clearly visualized, possibly at superior margin of radiograph 7 cm above mahendra. Repeat radiograph with re-centering of patient recommended. 2. Bilateral patchy airspace consolidation with numerous cystic changes on right similar to CT 10/14/2017. Left perihilar consolidation slightly increased. DICTATED BY: Ildefonso Bains MD DATE/TIME DICTATED:10/15/17700 NETWORK FIELD ENGINEER:SINDI DATE/TIME TRANSCRIBED:10/15/17700 Assessment/Plan Assessment/Plan Mr Diaz is a 42-year-old male who presents to the emergency room yesterday with shortness of breath. Imaging in the emergency room revealed lung collection/consolidation of concern probably contributing to his current respiratory status. He is currently in the ICU intubated requiring maximum pulmonary support. These imagings were reviewed by Dr. Barry who believes at this time, as the patient is slowly improving, a chest tube would not be warranted as is it is unsure if this collection is fluid or solid. The thoracic surgical team will continue to follow this patient as needed Consult Acknowledgment - Thank you for your consult request.
--- NOTE | 2017-10-15 13:03 | Cons- Cardiology ---
General Information and HPI Consulting Request Date of Consult: 10/15/17 Requested By: Brandon Omer MD Reason for Consult: Assess current cardiac Source of Information: old records Exam Limitations: unable to give history, clinical condition History of Present Illness: The patient is a 42-year-old male whose past medical history is remarkable for hyperlipidemia, hypertension, anxiety/bipolar disorder, polysubstance abuse, and tobacco use. The patient presented to [facility] emergency room with productive cough and shortness of breath despite multiple rounds of antibiotic therapy. The patient has apparently been ill over the last month. He received antibiotics orally at urgent care center. No chest x-ray performed at that time. Due to persistent fevers and cough after the first course of antibiotics he presented to the [place] emergency room and received further antibiotics with steroids. Ultimately, the patient presented to the emergency room again and was found to have a reddish sputum. He is now admitted, in the ICU, post thoracentesis, sedated, etc. No obvious acute cardiac symptoms or acute cardiac event. Allergies/Medications Allergies: Coded Allergies: No Known Allergies (10/05/17) Home Med List: Albuterol Sulfate (Ventolin Hfa) 18 GM HFA.AER.AD 2 PUF INH Q4-6 PRN PRN SOB Alprazolam 1 MG TABLET 1 TAB PO PRN PANIC ATTACKS (Reported) Atorvastatin Calcium 20 MG TABLET 1 TAB PO DAILY CHOLESTEROL (Reported) Baclofen 10 MG TABLET 1 TAB PO TIDPRN PRN muscle spasm/strain Esomeprazole Magnesium (Nexium) 20 MG CAPSULE.DR 1 CAP PO DAILY GI (Reported) Gabapentin 300 MG CAPSULE 1 CAP PO BID NERVE PAIN (Reported) Ibuprofen 800 MG TABLET 1 TAB PO TID pain Metformin HCl (Metformin HCl ER) 500 MG TAB.ER.24 1 TAB PO DAILY PRE-DIABETES (Reported) Methadone Hydrochloride (Methadone HCl) 10 MG TABLET 50 MG PO BID CHRONIC PAIN (Reported) Starbuck-3S/Dha/Epa/Fish Oil (Sea-Starbuck 1,000 MG Softgel) 600-1,000MG CAPSULE 1 CAP PO DAILY SUPPLEMENT (Reported) Polyethylene Glycol 3350 255 GM POWDER 17 GM PO DAILY PRN GI (Reported) Prednisone (Deltasone) 20 MG TABLET 1 TAB PO TID BRONCHITIS Propranolol HCl 80 MG TABLET 2 TAB PO BID MIGRAINE PREVENTION/BP (Reported) Quetiapine Fumarate 200 MG TABLET 1 TAB PO 4 TIMES/DAY MENTAL HEALTH ( Reported) Testosterone (Androgel) 1.25 GM GEL.PACKET 1 PAC TOP DAILY HRT (Reported) Ubidecarenone (Coq-10) 100 MG CAPSULE 1 CAP PO DAILY SUPPLEMENT (Reported) Current Medications: Current Medications Sig/Sara Start time Last Medication Dose Route Stop Time Status Admin Albuterol Sulfate 3 ML EVERY 4 HRS/AWAKE 10/15 1200 AC 10/15 INH 1235 Azithromycin 500 MG 2200 10/15 2199 AC Sodium Chloride 250 ML IV Azithromycin 500 MG ONCE ONE 10/14 190 DC 10/15 Sodium Chloride 250 ML IV 10/14 195 0103 Ceftazidime 0 .STK-MED ONE 10/14 1827 DC .ROUTE Ceftazidime 1,000 MG ONCE ONE 10/14 1630 DC 10/14 IV 10/14 1631 1830 Etomidate 20 MG ONCE ONE 10/14 1845 DC 10/14 IV 10/14 1846 1855 Fentanyl Citrate 1,000 MCG Q4H 10/15 1030 AC 10/15 Dextrose/Water 250 ML IV 1106 Fentanyl Citrate 1,000 MCG Q24H 10/14 1845 DC 10/14 Dextrose/Water 250 ML IV 1927 Heparin Sodium 5,000 UNIT Q8 10/14 2200 AC 10/15 (Porcine) SC 0625 Lactated Ringer's 1,000 ML Q13H 10/15 1045 AC 10/15 IV 1157 Lidocaine 0 .STK-MED ONE 10/14 1634 DC .ROUTE Lidocaine 20 ML ONCE ONE 10/14 1630 CAN ID 10/14 1631 Lorazepam 2 MG ONCE ONE 10/14 1730 CAN PO 10/14 1731 Lorazepam 2 MG ONCE ONE 10/14 1730 DC 10/14 IV 10/14 1731 1640 Lorazepam 0 .STK-MED ONE 10/14 1637 DC .ROUTE Magnesium Sulfate 1 GM ONCE ONE 10/15 0230 DC 10/15 Dextrose/Water 100 ML IV 10/15 06 0320 Morphine Sulfate 4 MG Q6-PRN PRN 10/14 191 AC IV Non-Formulary 0 SEE ADMIN CRITERIA 10/14 190 DC Medication ANY Non-Formulary 0 SEE ADMIN CRITERIA 10/14 184 DC Medication ANY Pantoprazole Sodium 40 MG DAILY 10/14 2014 AC 10/15 IV 0812 Piperacillin Sod/ 3.375 GM Q6H 10/15 1030 AC 06/ Tazobactam Sod IV 1113 Sodium Chloride 100 ML Piperacillin Sod/ 3.375 GM ONE ONE 10/14 1915 DC 10/14 Tazobactam Sod IV 10/14 1944 2246 Sodium Chloride 100 ML Potassium Chloride 40 MEQ .[id number] 10/14 1915 DC 10/14 Sodium Chloride 1,000 ML IV 2245 Propofol 1,000 MG Q6H / 0615 AC / N/A 1 UNIT IV 1110 Propofol 1,000 MG .STK-MED ONE 10/15 0309 DC IV / 0310 Propofol 1,000 MG Q12H 10/14 1930 DC 10/15 N/A 1 UNIT IV 0318 Propofol 1,000 MG ONE ONE 10/14 1900 DC 10/14 N/A 1 UNIT IV 10/14 1901 1901 Sodium Chloride 500 ML BOLUS ONE 10/15 0930 DC 10/15 IV / 1029 0958 Sodium Chloride 1,000 ML BOLUS ONE 10/14 1945 DC 10/14 IV 10/14 2144 1958 Sodium Chloride 1,000 ML BOLUS ONE 10/14 1730 DC 10/14 IV / 1929 1810 Succinylcholine 100 MG ONCE ONE 10/14 1845 DC 10/14 Chloride IV 10/14 1846 1853 Vancomycin HCl 1,000 MG 1930 10/15 1930 AC Sodium Chloride 250 ML IV 10/15 2029 Vancomycin HCl 1,000 MG ONCE ONE 10/14 1900 CAN Sodium Chloride 250 ML IV 10/14 1959 Vancomycin HCl 0 .STK-MED ONE 10/14 1827 DC .ROUTE Vancomycin HCl 1,000 MG ONCE ONE 10/14 1630 DC 10/14 Sodium Chloride 250 ML IV 10/14 1729 1935 Vecuronium [place] 5 MG ONCE ONE 10/15 1300 UNVr IV 06/ 1301 Vecuronium [place] 5 MG ONCE ONE 10/15 0730 DC 10/15 IV 06/ 0731 0805 Vecuronium [place] 5 MG ONCE ONE 10/15 0030 DC 10/15 IV 06/ 0031 0102 Vecuronium [place] 10 MG ONCE ONE 10/14 1845 DC 10/14 IV / 1846 1915 Past History Travel History Traveled to [place] past 21 day No Medical History Neurological: migraine EENT: NONE Cardiovascular: hyperlipidemia Respiratory: bronchitis Gastrointestinal: HERNIA CHILD Hepatic: NONE Renal: CYST ON KIDNEY Musculoskeletal: CHRONIC LEFT SHOULDER HUE Psychiatric: anxiety, bipolar disease Endocrine: NONE Blood Disorders: NONE Cancer(s): NONE PROSTHETIC DENTIST/Reproductive: NONE Surgical History Surgical History: non-contributory Family History Relations & Conditions If Any: Relation not specified for: *No pertinent family history Psychosocial History Where Do You Live? Home Who Do You Live With? spouse, child Services at Home: None Smoking Status: Current Everyday Smoker ETOH Use: occasional use Functional Ability ADLs Independent: dressing, eating, toileting, bathing. Ambulation: independent IADLs Independent: shopping, housework, finances, food prep, telephone, transportation , medication admin. Exam & Diagnostic Data Vital Signs and I&O Vital Signs Date Time Temp Pulse Resp B/P B/P Pulse O2 O2 Flow FiO2 Mean Ox Delivery Rate 10/15 1245 90 / 1200 97 Ventilator 90% 10/15 1130 Ventilator 90% 10/15 0900 90 / 0831 100 10/15 0800 97.7 81 28 92/58 97 Ventilator 100% 10/15 0800 97 Ventilator 100% 10/15 0606 100 / 0400 94 Ventilator 100% 10/15 0337 100 /02 0016 100 06/02 0000 90 Ventilator 100% / 0000 96.7 94 28 120/78 90 Ventilator 100% 10/14 2331 92 Ventilator 100% 10/14 2213 100 10/14 2059 100 Ventilator 10/14 2016 107 28 113/63 90 Ventilator 100% 10/14 2016 104 28 111/66 88 Ventilator 100% 10/14 1958 100 10/14 1922 100 10/14 1915 110 28 122/82 90 Ventilator 100% 10/14 1910 114 28 163/91 90 Ventilator 100% 10/14 1909 118 28 163/91 90 Ventilator 100% 10/14 1907 118 28 165/89 90 Ventilator 100% 10/14 1901 112 28 167/90 90 Ventilator 100% 10/14 1855 114 28 168/86 90 Ventilator 100% 10/14 1853 124 26 157/84 90 100% 10/14 1801 114 94 10/14 1739 116 24 133/70 86 10/14 1734 98.2 115 22 84 10/14 1730 116 22 85 10/14 1718 118 22 113/68 86 Non ReBreather 10/14 1650 22 86 Non 10L ReBreather 10/14 1647 113 22 83 Non 10L ReBreather 10/14 1551 99 18 105/68 94 Non 10L ReBreather 10/14 1438 16 95 Non 10L ReBreather 10/14 1435 20 85 Nasal 6.0L Cannula 10/14 1430 97.9 97 18 109/56 85 Room Air 10/14 1415 Non ReBreather Intake & Output 10/15 0810/15 0000 10/14 1600 10/14 0800 10/14 0000 Intake Total 1050 163 100 Output Total 1090 550 Balance -40 -387 100 Intake, IV 1050 163 Intake, Oral 100 Number 0 0 Bowel Movements Output, 60 50 Gastric Drainage Output, Urine 1030 500 Patient 178 lb 404 lb 183 lb Weight Weight Bed scale Estimated Measurement Method Physical Exam: General Appearance: well developed/nourished, overweight, sedated, intubated Head: normal HEENT: Normal Neck: supple, JVP appears normal, carotid upstrokes normal bilaterally, no masses or thyromegaly Respiratory: chest non-tender, diffuse bilateral rhonchi with decreased breath sound Cardiovascular: regular rate/rhythm, normal S1, S2, 1/6 systolic murmur Abdomen: normal bowel sounds, soft, non-tender Extremities: normal inspection, no edema Vascular: Pulses are 2+ and equal bilaterally Neurologic: Grossly normal/nonfocal Labs/Venancio Results: Laboratory Tests 10/15 10/15 1100 0455 Blood Gas pH (7.35 - 7.45 PH) 7.20 *L pCO2 (35 - 45 TORR) 47 H pO2 (80 - 100 TORR) 87 HCO3 (21 - 28 MEQ/L) 18 L ABG O2 Sat (Measured) (>96.0 %) 95.0 L Carboxyhemoglobin (1.5 - 5.0 %) 0 L O2 Concentration % 90% Respiration Rate (BPM) 28 O2 Delivery Method VENT Vent Mode AC Expiratory Pressure (CMH2O/P) 15 Tidal Volume (CC) 380 Pressure Support (CMH2O/P) 0 Chemistry Sodium (137 - 145 mmol/L) 139 Potassium (3.5 - 5.1 mmol/L) 4.0 Chloride (98 - 107 mmol/L) 104 Carbon Dioxide (22 - 30 mmol/L) 19 L Anion Gap (5 - 16) 16 BUN (9 - 20 mg/dL) 41 H Creatinine (0.7 - 1.2 mg/dL) 3.9 H Estimated GFR (>60 ml/min) 17 L Glucose (65 - 99 mg/dL) 163 H Calcium (8.4 - 10.2 mg/dL) 6.6 L Phosphorus (2.5 - 4.5 mg/dL) 5.2 H Magnesium (1.6 - 2.3 mg/dL) 2.6 H Total Bilirubin (0.2 - 1.3 mg/dL) 0.6 AST (17 - 59 U/L) 73 H ALT (21 - 72 U/L) 52 Creatine Kinase (55 - 170 U/L) 43 L Albumin (3.5 - 5.0 g/dL) 2.4 L Cortisol AM Sample (4.46 - 22.7 ug/dL) 16.5 Hematology CBC w Diff MAN DIFF ORDERED WBC (4.8 - 10.8 /CUMM) 14.2 H RBC (4.70 - 6.10 /CUMM) 3.47 L Hgb (14.0 - 18.0 G/DL) 10.0 L Hct (42 - 52 %) 29.6 L MCV (80.0 - 94.0 FL) 85.4 MCH (27.0 - 31.0 PG) 28.9 MCHC (33.0 - 37.0 G/DL) 33.8 RDW (11.5 - 14.5 %) 17.2 H Plt Count (130 - 400 /CUMM) 391 MPV (7.4 - 10.4 FL) 6.8 L Segmented Neutrophils (42.2 - 75.2 %) 77 H Band Neutrophils (0.0 - 5.0 %) 13 H Lymphocytes (20.5 - 51.1 %) 9 L Metamyelocytes (0.0 - 1.0 %) 1 Platelet Estimate (ADEQUATE) ADEQUATE Normocytic RBCs VERIFIED Polychromasia 1+ Miscellaneous Phlebotomy Draw Site LEFT A LINE Toxicology Random Vancomycin (ug/ml) 11.1 0602 0610/14 0320 1225 2235 2200 Blood Gas pH (7.35 - 7.45 PH) 7.18 *L 7.14 *L pCO2 (35 - 45 TORR) 50 H 52 H pO2 (80 - 100 TORR) 77 L 79 L HCO3 (21 - 28 MEQ/L) 18 L 18 L ABG O2 Sat (Measured) (>96.0 %) 92.0 L 91.0 L P-50 (Temp Corrected) Y Carboxyhemoglobin (1.5 - 5.0 %) 0.1 L 0.3 L O2 Concentration % 100% 100 Temperature (97.0 - 100.0 FARH) 96.8 L Respiration Rate (BPM) 28 28 O2 Delivery Method ESPRIT VENT Vent Mode AC AC Expiratory Pressure (CMH2O/P) 15 15 Tidal Volume (CC) 400 400 Pressure Support (CMH2O/P) 0 Chemistry Serum Osmolality (285 - 295 MOSM/KG) 293 Lactic Acid (0.7 - 2.1 mmol/L) 0.8 Miscellaneous Phlebotomy Draw Site RIGHT RADIAL LEFT RADIAL 10/14 10/14 2200 2103 Chemistry Sodium (137 - 145 mmol/L) 135 L Potassium (3.5 - 5.1 mmol/L) 4.0 Chloride (98 - 107 mmol/L) 102 Carbon Dioxide (22 - 30 mmol/L) 17 L Anion Gap (5 - 16) 16 BUN (9 - 20 mg/dL) 43 H Creatinine (0.7 - 1.2 mg/dL) 4.2 H Estimated GFR (>60 ml/min) 16 L Glucose (65 - 99 mg/dL) 137 H Calcium (8.4 - 10.2 mg/dL) 6.3 L Phosphorus (2.5 - 4.5 mg/dL) 5.5 H Magnesium (1.6 - 2.3 mg/dL) 1.8 Total Bilirubin (0.2 - 1.3 mg/dL) 0.7 AST (17 - 59 U/L) 68 H ALT (21 - 72 U/L) 48 Albumin (3.5 - 5.0 g/dL) 2.4 L Toxicology Salicylates (0 - 20.0 mg/dL) < 1.0 Urine Opiates Screen (>2000 NG/ML) < 100 Methadone Screen (>300 NG/ML) > 735 H Barbiturate Screen (>200 NG/ML) < 60 Ur Phencyclidine Scrn (>25 NG/ML) < 6.00 Amphetamines Screen (>1000 NG/ML) < 100 U Benzodiazepines Scrn (>200 NG/ML) < 85 Urine Cocaine Screen (>300 NG/ML) < 50 Urine Cannabis Screen (>50 NG/ML) < 5.00 Urines Urine Color (YEL,AMB,STR) YEL Urine Clarity (CLEAR) CLEAR Urine pH (5.0 - 8.0) 6.0 Ur Specific [place] (1.001 - 1.035) 1.015 Urine Protein (NEG,<30 MG/DL) 30 H Urine Ketones (NEG) NEG Urine Nitrite (NEG) NEG Urine Bilirubin (NEG) NEG Urine Urobilinogen (0.1 - 1.0 EU/dl) 0.2 Ur Leukocyte Esterase (NEG) NEG Ur Microscopic SEDIMENT EXAMINED Urine RBC (0 - 5 /HPF) RARE Urine WBC (0 - 2 /HPF) 3-5 H Ur Epithelial Cells (NONE,FEW) RARE Urine Bacteria (NEG/NONE) RARE H Urine Hemoglobin (NEG) SMALL H Urine Glucose (N MG/DL) NEG 10/14 1950 1740 1740 Blood Gas pH (7.35 - 7.45 PH) 7.12 *L pCO2 (35 - 45 TORR) 49 H pO2 (80 - 100 TORR) 80 HCO3 (21 - 28 MEQ/L) 16 L ABG O2 Sat (Measured) (>96.0 %) 90.0 L P-50 (Temp Corrected) N Carboxyhemoglobin (1.5 - 5.0 %) 0.3 L O2 Concentration % 100 Respiration Rate (BPM) 28 O2 Delivery Method VENT Vent Mode A/C Expiratory Pressure (CMH2O/P) 15 Tidal Volume (CC) 400 Miscellaneous Phlebotomy Draw Site RIGHT RADIAL Other Body Source Fluid WBC (0 - 5 /CUMM) 20678 H Fld Total RBCs Counted (0 /CUMM) 1800 H Fluid Total Protein (g/dL) 5.3 Fluid LDH (U/L) Cancelled 6615 10/14 10/14 1518 1517 Chemistry Sodium (137 - 145 mmol/L) 134 L Potassium (3.5 - 5.1 mmol/L) 4.5 Chloride (98 - 107 mmol/L) 94 L Carbon Dioxide (22 - 30 mmol/L) 21 L Anion Gap (5 - 16) 20 H BUN (9 - 20 mg/dL) 48 H Creatinine (0.7 - 1.2 mg/dL) 4.9 H Estimated GFR (>60 ml/min) 13 L BUN/Creatinine Ratio (7 - 25 %) 9.8 Glucose (65 - 99 mg/dL) 109 H Lactic Acid (0.7 - 2.1 mmol/L) 1.2 Calcium (8.4 - 10.2 mg/dL) 7.7 L Total Bilirubin (0.2 - 1.3 mg/dL) 0.9 Direct Bilirubin (< 0.4 mg/dL) 0.9 H AST (17 - 59 U/L) 48 ALT (21 - 72 U/L) 32 Alkaline Phosphatase (< 127 U/L) 142 H Lactate Dehydrogenase (313 - 618 U/L) 833 H Troponin I (<0.11 ng/ml) < 0.01 Total Protein (6.3 - 8.2 g/dL) 6.3 Albumin (3.5 - 5.0 g/dL) 3.1 L Coagulation PT (9.4 - 12.5 SEC) 15.2 H INR (0.90 - 1.17) 1.39 H APTT (25 - 37 SEC) 33 Hematology CBC w Diff MAN DIFF ORDERED WBC (4.8 - 10.8 /CUMM) 14.7 H RBC (4.70 - 6.10 /CUMM) 4.31 L Hgb (14.0 - 18.0 G/DL) 12.3 L Hct (42 - 52 %) 36.3 L MCV (80.0 - 94.0 FL) 84.2 MCH (27.0 - 31.0 PG) 28.6 MCHC (33.0 - 37.0 G/DL) 34.0 RDW (11.5 - 14.5 %) 16.9 H Plt Count (130 - 400 /CUMM) 496 H MPV (7.4 - 10.4 FL) 7.3 L Gran % (42.2 - 75.2 %) 91.5 H Lymphocytes % (20.5 - 51.1 %) 4.6 L Monocytes % (1.7 - 9.3 %) 3.0 Eosinophils % (0 - 5 %) 0.9 Basophils % (0.0 - 2.0 %) 0 Absolute Granulocytes (1.4 - 6.5 /CUMM) 13.5 H Segmented Neutrophils (42.2 - 75.2 %) 96 H Band Neutrophils (0.0 - 5.0 %) 3 Absolute Lymphocytes (1.2 - 3.4 /CUMM) 0.7 L Lymphocytes (20.5 - 51.1 %) 1 L Absolute Monocytes (0.10 - 0.60 /CUMM) 0.4 Absolute Eosinophils (0.0 - 0.7 /CUMM) 0.1 Absolute Basophils (0.0 - 0.2 /CUMM) 0 Platelet Estimate (ADEQUATE) VERIFIED BY SMEAR Polychromasia 1+ Anisocytosis 1+ Other Body Source Fld Total RBCs Counted (%) 100 Serology HIV 1&2 Ab Western Blot (NONREACTIVE) NONREACTIVE Diagnostic Data CXR Results IMPRESSION: 1. Endotracheal tube not clearly visualized, possibly at superior margin of radiograph 7 cm above mahendra. Repeat radiograph with re-centering of patient recommended. 2. Bilateral patchy airspace consolidation with numerous cystic changes on right similar to CT 10/14/2017. Left perihilar consolidation slightly increased. Other Results Chest CT: LUNGS: Extensive consolidation involving all lobes particularly dense within the left lower lobe and right lower lobe. Air bronchograms noted. Without contrast, it is difficult to discern whether the air fluid level within the right lung base posteriorly is pleural or parenchymal. There is an element of a moderate size parapneumonic effusion. The air-fluid level is concerning for either a lung abscess versus empyema. Bronchopleural fistula not excluded. There is volume loss involving the right lower lobe suggesting an element of an atelectasis. There is also mild volume loss left hemithorax due to the left lower lobe disease. No gross central endobronchial lesion. MEDIASTINUM: Mildly prominent lymph nodes within the mediastinum largest precarinal location measuring up to 2 cm short axis. ET tube NG tube in good position. PLEURA: As above. AXILLA: No lymphadenopathy. UPPER ABDOMEN: Unremarkable. OSSEOUS STRUCTURES: Unremarkable. IMPRESSION: Without IV contrast, it is difficult to assess pleural-parenchymal disease especially on the right. There is progressive dense marked multilobar pneumonia. Air fluid level disease right hemithorax which may be in part pleural related to empyema. Lung abscess not excluded. Follow-up imaging should be performed with IV contrast for better assessment and delineation. Assessment/Plan Assessment/Plan Assessment: 1. Acute respiratory failure with ARDS, severe bilateral multilobar pneumonia, empyema, hydropneumothorax, trapped lung, etc. 2. Acute renal insufficiency 3. History of diabetes 4. Anemia 5. History of polysubstance abuse, on methadone, 6. Recent steroid use/immunosuppression 7. History of hypertension 8. History of hyperlipidemia Recommendations: -Continue all supportive care as per the medical/ICU team -Echocardiogram pending -Further plans after the echocardiogram is reviewed Consult Acknowledgment - Thank you for your consult request.
--- NOTE | 2017-10-15 14:32 | ULTRASOUND REPORT ---
EXAMINATION: US RETROPERITONEAL COMPLETE (RENAL) CLINICAL INFORMATION: Hypotension and sepsis. COMPARISON: None TECHNIQUE: Real-time imaging of the kidneys and bladder. FINDINGS: RIGHT KIDNEY: 10 x 4.6 x 4.6 cm (SAG x AP x TRV). The kidney is normal in size, contour, and echogenicity. Renal cortical thickness is normal. No calculi or focal parenchymal lesions. No hydronephrosis. Please note that the lower pole of the right kidney is obscured by bowel. LEFT KIDNEY: 12.2 x 5.8 x 4.9 cm (SAG x AP x TRV). The kidney is normal in size, contour, and echogenicity. Renal cortical thickness is normal. There is a 1.2 x 1.1 cm cyst at the upper pole. No calculi or focal parenchymal lesions otherwise seen. No hydronephrosis. BLADDER: Well-distended and normal. Bilateral ureteral jets are not seen. Prevoid bladder volume is 41.2 mL. The patient has a Pineda catheter in place. IMPRESSION: Small left renal cyst. No hydronephrosis or acute abnormality otherwise. Lower pole of the right kidney is partially obscured by bowel gas.
[2017-10-15 16:00] VITALS: BP 98/58
--- NOTE | 2017-10-15 17:20 | ECHOCARDIOGRAM REPORT ---
WILLY VARGHESE Age: 42 : 1975 Gender: M Exam Date: 10/15/2017 09:33 Exam Location: [facility] Ht (in): 65 Wt (lb): 183 BSA: 1.98 BP: / Ordering Physician: Jonathan Jules MD Referring Physician: Jonathan Jules MD Technologist: Cindy Lake [facility] Room Number: 106 Indications: Rhythm: Sinus Technical Quality: Fair, Very technically difficult study FINDINGS Left Ventricle Normal size left ventricle. No obvious regional wall motion abnormalities. Normal left ventricular ejection fraction estimated at 55-60%. Right Ventricle Right ventricle not well visualized, grossly normal. Right Atrium Right atrium not well visualized, grossly normal. Left Atrium Normal left atrial size. Mitral Valve Mitral valve thickened. [id number] mitral regurgitation. Aortic Valve Trileaflet aortic valve. Focal thickening of the aortic valve cusps. No aortic stenosis. No aortic regurgitation. Tricuspid Valve Tricuspid valve not well visualized, grossly normal. Mild tricuspid regurgitation. Pulmonic Valve Pulmonic valve not well visualized, grossly normal. Mild pulmonic regurgitation. Pericardium No pericardial effusion. Great Vessels Aortic root and proximal ascending aorta not well visualized. CONCLUSIONS 1. This was a technically difficult and very limited study. 2. Minimal aortic sclerosis is present with no valvular stenosis or insufficiency. 3. Mild thickening of the mitral leaflets is present with mild to moderate mitral insufficiency. 4. No significant pericardial fluid was detected on the study. 5. The left ventricular chamber size and systolic function appear normal. Accurate wall motion assessment was not possible due to the quality of the images obtained. The apical and subcostal images were suboptimal. 6. Mild tricuspid and pulmonic insufficiency are present. There is no evidence of significant pulmonary hypertension. Miguel Jose M.D. (Electronically Signed) Final Date: 15 October 2017 17:19 MEASUREMENTS (Male / Female) Normal Values 2D ECHO LV Diastolic Diameter PLAX 4.8 cm 4.2 - 5.9 / 3.9 - 5.3 cm LV Systolic Diameter PLAX 3.5 cm 2.1 - 4.0 cm LV Fractional Shortening PLAX 27.1 % 25 - 46 % LV Ejection Fraction 2D Teich 52.7 % IVS Diastolic Thickness 0.9 cm LVPW Diastolic Thickness 0.8 cm LV Relative Wall Thickness 0.4 LVOT Diameter 2.0 cm Aortic Root Diameter 3.1 cm LA Systolic Diameter LX 4.0 cm 3.0 - 4.0 / 2.7 - 3.8 cm DOPPLER AV Peak Velocity 144.0 cm/s AV Peak Gradient 8.3 mmHg LVOT Peak Velocity 103.0 cm/s LVOT Peak Gradient 4.2 mmHg AV Area Cont Eq pk 2.2 cm Mitral E Point Velocity 127.0 cm/s Mitral A Point Velocity 104.0 cm/s Mitral E to A Ratio 1.2 MV Deceleration Time 183.0 ms TV Peak Velocity 241.7 cm/s PV Peak Velocity 130.0 cm/s PV Peak Gradient 6.8 mmHg LV E' Lateral Velocity 10.6 cm/s Mitral E to LV E' Lateral Ratio 12.0 LV E' Septal Velocity 13.5 cm/s Mitral E to LV E' Septal Ratio 9.4
[2017-10-15 20:39] LABS: HEMATOCRIT 25.5 % (42-52); MEAN CORPUSCULAR HGB 28.4 PG (27.0-31.0); MEAN CORPUSCULAR HGB CONC 33.5 G/DL (33.0-37.0); MEAN CORPUSCULAR VOLUME 84.8 FL (80.0-94.0); MEAN PLATELET VOLUME 6.9 FL (7.4-10.4); PLATELET COUNT 349 /CUMM (130-400); RBC DISTRIBUTION WIDTH 18.3 % (11.5-14.5); RED BLOOD CELL CT 3.01 /CUMM (4.70-6.10); WHITE BLOOD CELL COUNT 11.2 /CUMM (4.8-10.8)
[2017-10-15 23:00] VITALS: BP 110/64
[2017-10-16 00:28] LABS: HEMATOCRIT 26.6 % (42-52); MEAN CORPUSCULAR HGB 28.7 PG (27.0-31.0); MEAN CORPUSCULAR HGB CONC 34.2 G/DL (33.0-37.0); MEAN CORPUSCULAR VOLUME 84.1 FL (80.0-94.0); MEAN PLATELET VOLUME 6.7 FL (7.4-10.4); PLATELET COUNT 363 /CUMM (130-400); RBC DISTRIBUTION WIDTH 17.8 % (11.5-14.5); RED BLOOD CELL CT 3.16 /CUMM (4.70-6.10); WHITE BLOOD CELL COUNT 14.3 /CUMM (4.8-10.8)
[2017-10-16 05:13] LABS: HEMATOCRIT 26.6 % (42-52); MEAN CORPUSCULAR HGB 28.7 PG (27.0-31.0); MEAN CORPUSCULAR HGB CONC 33.9 G/DL (33.0-37.0); MEAN CORPUSCULAR VOLUME 84.8 FL (80.0-94.0); MEAN PLATELET VOLUME 6.9 FL (7.4-10.4); PLATELET COUNT 401 /CUMM (130-400); RBC DISTRIBUTION WIDTH 17.9 % (11.5-14.5); RED BLOOD CELL CT 3.14 /CUMM (4.70-6.10); WHITE BLOOD CELL COUNT 14.9 /CUMM (4.8-10.8)
[2017-10-16 05:17] LABS: PT 13.4 SEC (9.4-12.5)
--- NOTE | 2017-10-16 07:54 | Cons- Infect Disease ---
General Information and HPI Consulting Request Date of Consult: 10/16/17 Requested By: Brandon Omer MD Reason for Consult: Multilobar pneumonia Source of Information: old records History of Present Illness: This is a 42-year-old man with a history of hypertension, polysubstance abuse, migraines, anxiety and bipolar disorder, treated with 2 courses of antibiotics, initially Amoxicillin, followed by Azithromycin, and one course of steroids over the past month for "bronchitis", with a chronic cough and intermittent fevers and chills, admitted on October 14 with increased shortness of breath and hemoptysis. On admission he was afebrile. Laboratory data revealed a white blood cell count of 15,000, BUN/creatinine 48 and 4.9, lactic acid 1.2, alkaline phosphatase 142, INR 1.39/PTT 33. Urinalysis rare RBC/3-5 WBCs. Urine tox screen was positive for methadone. Chest x-ray revealed a large opacity in the right hemithorax, suggestive of a pleural effusion with an underlying infiltrate and atelectasis. CT of the chest revealed extensive multilobar consolidation, particularly involving the left lower lobe and right lower lobe, with a moderate -sized pleural effusion, with an air-fluid level and volume loss involving the right lower lobe and, to a lesser extent, the left lower lobe. He underwent a thoracentesis in the emergency room, with removal of 400-500 cc of cloudy fluid, which revealed 22,400 white blood cells, with a gram stain revealing many white blood cells and rare gram-positive cocci. He was intubated and admitted to the ICU. He was given Vancomycin, Ceftazidime, Azithromycin and Zosyn initially and then continued on Vancomycin, Azithromycin and Zosyn. He has remained afebrile and sedated on the ventilator, requiring 80% FiO2, and is unable to provide any history. Allergies/Medications Allergies: Coded Allergies: No Known Allergies (10/05/17) Home Med List: Albuterol Sulfate (Ventolin Hfa) 18 GM HFA.AER.AD 2 PUF INH Q4-6 PRN PRN SOB Alprazolam 1 MG TABLET 1 TAB PO PRN PANIC ATTACKS (Reported) Atorvastatin Calcium 20 MG TABLET 1 TAB PO DAILY CHOLESTEROL (Reported) Baclofen 10 MG TABLET 1 TAB PO TIDPRN PRN muscle spasm/strain Esomeprazole Magnesium (Nexium) 20 MG CAPSULE.DR 1 CAP PO DAILY GI (Reported) Gabapentin 300 MG CAPSULE 1 CAP PO BID NERVE PAIN (Reported) Ibuprofen 800 MG TABLET 1 TAB PO TID pain Metformin HCl (Metformin HCl ER) 500 MG TAB.ER.24 1 TAB PO DAILY PRE-DIABETES (Reported) Methadone Hydrochloride (Methadone HCl) 10 MG TABLET 50 MG PO BID CHRONIC PAIN (Reported) [place]-3S/Dha/Epa/Fish Oil (Sea-[place] 1,000 MG Softgel) 600-1,000MG CAPSULE 1 CAP PO DAILY SUPPLEMENT (Reported) Polyethylene Glycol 3350 255 GM POWDER 17 GM PO DAILY PRN GI (Reported) Prednisone (Deltasone) 20 MG TABLET 1 TAB PO TID BRONCHITIS Propranolol HCl 80 MG TABLET 2 TAB PO BID MIGRAINE PREVENTION/BP (Reported) Quetiapine Fumarate 200 MG TABLET 1 TAB PO 4 TIMES/DAY MENTAL HEALTH ( Reported) Testosterone (Androgel) 1.25 GM GEL.PACKET 1 PAC TOP DAILY HRT (Reported) Ubidecarenone (Coq-10) 100 MG CAPSULE 1 CAP PO DAILY SUPPLEMENT (Reported) Past History Travel History Traveled to [place] past 21 day No Medical History Neurological: migraine EENT: NONE Cardiovascular: hyperlipidemia Respiratory: bronchitis Gastrointestinal: HERNIA CHILD Hepatic: NONE Renal: CYST ON KIDNEY Musculoskeletal: CHRONIC LEFT SHOULDER HUE Psychiatric: anxiety, bipolar disease Endocrine: NONE Blood Disorders: NONE Cancer(s): NONE PREMIUM REPRESENTATIVE/Reproductive: NONE History of MRSA: No History of VRE: No History of CDIFF: No Isolation History: Standard Surgical History Surgical History: non-contributory Family History Relations & Conditions If Any: Relation not specified for: *No pertinent family history Psychosocial History Where Do You Live? Home Who Do You Live With? spouse, child Services at Home: None Smoking Status: Current Everyday Smoker ETOH Use: occasional use Functional Ability ADLs Independent: dressing, eating, toileting, bathing. Ambulation: independent IADLs Independent: shopping, housework, finances, food prep, telephone, transportation , medication admin. Review of Systems Comments Unobtainable Exam & Diagnostic Data Last 24 Hrs of Vital Signs/I&O Vital Signs Date Time Temp Pulse Resp B/P B/P Pulse O2 O2 Flow FiO2 Mean Ox Delivery Rate 10/16 0556 80 10/16 0400 96 Ventilator 80% 10/16 0304 80 10/16 0028 80 10/16 0000 92 Ventilator 80% 06/02 2300 98.2 87 28 110/64 92 Ventilator 80% 06/02 2000 956 Ventilator 80% 06/02 1942 80 06/02 1625 80 06/02 1600 97.5 86 28 98/58 92 Ventilator 80% 06/02 1600 93 Ventilator 80% 06/02 1416 80 06/02 1400 80 06/02 1245 90 06/02 1200 97 Ventilator 90% 06/02 1130 Ventilator 90% 06/02 0900 90 06/02 0831 100 06/02 0800 97.7 81 28 92/58 97 Ventilator 100% 06/02 0800 97 Ventilator 100% Intake & Output 06/03 0800 06/03 0000 06/02 1600 Intake Total 1371 2125 1617 Output Total 590 570 2722 Balance 486 1535 517 Intake, IV 1371 2125 1617 Number 0 0 Bowel Movements Output, Urine [phone] Patient 198 lb Weight Weight Bed scale Measurement Method Physical Exam Other Physical Findings: He is sedated and unresponsive on the ventilator. He is afebrile. Skin reveals no rash. HEENT right IJ triple-lumen catheter with no inflammation at the site. Neck is supple with no adenopathy. Lungs bilateral rhonchi. Heart regular rhythm with no murmur. Abdomen is soft, nontender with positive bowel sounds. Back no CVA tenderness. Extremities no cyanosis, clubbing or edema. Neuro is without focality. Pineda catheter is in place. Last 24 Hours of Lab Results: Laboratory Tests 10/16/ 0600 0420 0015 Blood Gas pH (7.35 - 7.45 PH) 7.23 *L 7.19 *L pCO2 (35 - 45 TORR) 50 H 51 H pO2 (80 - 100 TORR) 91 77 L HCO3 (21 - 28 MEQ/L) 20 L 19 L ABG O2 Sat (Measured) (>96.0 %) 96.0 92.0 L P-50 (Temp Corrected) N N Carboxyhemoglobin (1.5 - 5.0 %) 0.2 L 0.3 L O2 Concentration % .80 .80 Respiration Rate (BPM) 28 28 O2 Delivery Method VENT VENT Vent Mode A/C A/C Expiratory Pressure (CMH2O/P) 15 15 Tidal Volume (CC) 380 380 Chemistry Sodium (137 - 145 mmol/L) 141 Potassium (3.5 - 5.1 mmol/L) 3.8 Chloride (98 - 107 mmol/L) 106 Carbon Dioxide (22 - 30 mmol/L) 21 L Anion Gap (5 - 16) 14 BUN (9 - 20 mg/dL) 38 H Creatinine (0.7 - 1.2 mg/dL) 2.5 H Estimated GFR (>60 ml/min) 28 L Glucose (65 - 99 mg/dL) 131 H Calcium (8.4 - 10.2 mg/dL) 6.9 L Phosphorus (2.5 - 4.5 mg/dL) 5.9 H Magnesium (1.6 - 2.3 mg/dL) 2.3 Total Bilirubin (0.2 - 1.3 mg/dL) 0.4 AST (17 - 59 U/L) 155 H ALT (21 - 72 U/L) 117 H Albumin (3.5 - 5.0 g/dL) 2.4 L Coagulation PT (9.4 - 12.5 SEC) 13.4 H INR (0.90 - 1.17) 1.23 H Hematology CBC w Diff NO MAN DIFF REQ WBC (4.8 - 10.8 /CUMM) 14.9 H RBC (4.70 - 6.10 /CUMM) 3.14 L Hgb (14.0 - 18.0 G/DL) 9.0 L Hct (42 - 52 %) 26.6 L MCV (80.0 - 94.0 FL) 84.8 MCH (27.0 - 31.0 PG) 28.7 MCHC (33.0 - 37.0 G/DL) 33.9 RDW (11.5 - 14.5 %) 17.9 H Plt Count (130 - 400 /CUMM) 401 H MPV (7.4 - 10.4 FL) 6.9 L Miscellaneous Phlebotomy Draw Site [facility] Toxicology Vancomycin Trough (10.0 - 20.0 ug/mL) 15.3 06/03 06 0005 1930 Hematology CBC w Diff MAN DIFF ORDERED MAN DIFF ORDERED WBC (4.8 - 10.8 /CUMM) 14.3 H 11.2 H RBC (4.70 - 6.10 /CUMM) 3.16 L 3.01 L Hgb (14.0 - 18.0 G/DL) 9.1 L 8.6 L Hct (42 - 52 %) 26.6 L 25.5 L MCV (80.0 - 94.0 FL) 84.1 84.8 MCH (27.0 - 31.0 PG) 28.7 28.4 MCHC (33.0 - 37.0 G/DL) 34.2 33.5 RDW (11.5 - 14.5 %) 17.8 H 18.3 H Plt Count (130 - 400 /CUMM) 363 349 MPV (7.4 - 10.4 FL) 6.7 L 6.9 L Segmented Neutrophils (42.2 - 75.2 %) 73 76 H Band Neutrophils (0.0 - 5.0 %) 13 H 14 H Lymphocytes (20.5 - 51.1 %) 10 L 7 L Monocytes (1.7 - 9.3 %) 4 2 Metamyelocytes (0.0 - 1.0 %) 1 Platelet Estimate (ADEQUATE) ADEQUATE ADEQUATE Normocytic RBCs VERIFIED Normochromic RBCs VERIFIED Poikilocytosis 1+ Anisocytosis 1+ Microcytic Cells 1+ Ovalocytes FEW Cassy Cells FEW Elliptocytes FEW 10/15 10/15 1850 1100 Blood Gas pH (7.35 - 7.45 PH) 7.29 *L 7.20 *L pCO2 (35 - 45 TORR) 39 47 H pO2 (80 - 100 TORR) 100 87 HCO3 (21 - 28 MEQ/L) 18 L 18 L ABG O2 Sat (Measured) (>96.0 %) 97.0 95.0 L P-50 (Temp Corrected) N Carboxyhemoglobin (1.5 - 5.0 %) 0.4 L 0 L O2 Concentration % 80% 90% Temperature (97.0 - 100.0 FARH) 97.5 Respiration Rate (BPM) 28 28 O2 Delivery Method ESPRIT VENT Vent Mode AC AC Expiratory Pressure (CMH2O/P) 15 15 Tidal Volume (CC) 380 380 Pressure Support (CMH2O/P) 0 Miscellaneous Phlebotomy Draw Site MANPREET LEFT A LINE Last 24 Hours of Venancio Results: Blood cultures 2 October 14 negative Right pleural fluid culture October 14 positive for alpha strep Sputum culture October 14 positive for alpha strep Urine October 14 strep pneumo antigen and Legionella antigen negative Urine culture October 14 negative Diagnostic Data Recent Imaging Findings: Chest x-ray October 16 reveals patchy bilateral airspace consolidation with numerous cystic changes Renal ultrasound October [address] of the chest revealed extensive multilobar consolidation, particularly involving the left lower lobe and right lower lobe, with a moderate-sized pleural effusion, with an air-fluid level and volume loss involving the right lower lobe and, to a lesser extent, the left lower lobe Assessment/Plan Assessment/Plan Impression: This is a 42-year-old man with a history of polysubstance abuse, treated with 2 courses of antibiotics, initially Amoxicillin, followed by Azithromycin, and one course of steroids over the past month for "bronchitis", with a chronic cough and intermittent fevers and chills, admitted on October 14 with increased shortness of breath and hemoptysis, found to be afebrile with significant hypoxia, a leukocytosis and renal failure, with a CT of the chest revealing extensive multilobar consolidation and a moderate-sized pleural effusion, with a thoracentesis revealing cloudy fluid, with 22,400 white blood cells and with the sputum and pleural fluid culture growing alpha strep. His clinical picture is consistent with an empyema and multilobar pneumonia. He will require a pigtail catheter/chest tube for more effective drainage in addition to antibiotics, which can be narrowed given his culture results. The etiology is unclear but may be secondary to aspiration given his report of "swallowing soda down the wrong type" at the onset of his illness. His renal failure is likely multifactorial, secondary to sepsis and, possibly, dehydration , and it does appear to be improving. Suggestion: 1. Would pursue placement of a pigtail catheter/chest tube 2. Further management of his respiratory failure per Pulmonary 3. Further management of his renal failure per Renal 4. Discontinue Vancomycin, Azithromycin and Zosyn 5. Begin Unasyn 3 g IV every 8 hours Consult Acknowledgment - Thank you for your consult request.
[2017-10-16 08:00] VITALS: BP 140/64
--- NOTE | 2017-10-16 08:05 | RADIOLOGY REPORT ---
EXAMINATION: XR PORTABLE CHEST [facility] IN[facility] COM[facility]ISON: Multiple prior studies most recently 10/15/2017 TECHNIQUE: Portable AP 90 degrees upright view of the chest was obtained. FINDINGS: Endotracheal tube terminates at the level of the thoracic inlet. Enteric tube tip is not clearly seen. The right subclavian line extends to the level of the mid SVC. The lungs are hypoinflated. The extensive pleural-parenchymal cystic changes and opacity at the right lung base with associated small right pleural effusion are redemonstrated. There does appear to be improvement in comparison to prior. Patchy left upper lobe and left retrocardiac consolidation is redemonstrated with interval improvement. IMPRESSION: Low lung volumes. Extensive bilateral pulmonary changes are seen. There has been interval improvement since the previous examination.
--- NOTE | 2017-10-16 08:10 | PN- Resident CRCU ---
Subjective HPI/CRCU Issues: 1. ARDS on low TV and high PEEP ventilation 2. Acute renal failure 3. Hydropneumothorax with trapped lung 4. Methadone maintenence 5. Bipolar disorder 6. Polysubstance abuse 24 Hour Events: patient remained stable over night. Currently on IV fentanyl and IV propofol - sedated and on maintence fluids. VS afebrile, HR 70-80, BP 120/60mmHg, SAS 1-2 I/O 6326/4215 till date Vent settings - AC 380/28/80/15 PEEP Lab date significant ABG - 7.23/50/91/20/saturating 96 on 80% FiO2 white count of 14, Chem panel 141, 3.8, 2, Cr 2.5 GFR 28. AST/ALT - 115/117 Objective Vital Signs & I&O Last 8 Hrs of Vitals and I&O: Vital Signs Date Time Temp Pulse Resp B/P B/P Pulse O2 O2 Flow FiO2 Mean Ox Delivery Rate / 0819 60 06/03 0800 98.3 88 28 140/64 96 Ventilator 60% 06/03 0800 96 Ventilator 60% 06/03 0556 80 06/03 0400 96 Ventilator 80% 06/03 0304 80 06/03 0028 80 06/03 0000 92 Ventilator 80% 06/02 2300 98.2 87 28 110/64 92 Ventilator 80% 06/02 2000 956 Ventilator 80% 06/02 1942 80 06/02 1625 80 06/02 1600 97.5 86 28 98/58 92 Ventilator 80% 06/02 1600 93 Ventilator 80% 06/02 1416 80 06/02 1400 80 06/02 1245 90 06/02 1200 97 Ventilator 90% 06/02 1130 Ventilator 90% Intake & Output 06/03 1600 06/03 0800 06/03 0000 Intake Total 1371 2125 Output Total 885 590 Balance 486 1535 Intake, IV 1371 2125 Number 0 0 Bowel Movements Output, Urine 885 590 Patient 89.981 kg Weight Weight Bed scale Measurement Method Exam General Appearance: sedated, intubated Head: atraumatic, normal appearance Neck: normal inspection, supple Cardiovascular: regular rate/rhythm, normal peripheral pulses Gastrointestinal: normal bowel sounds, soft, non-tender Extremities: normal inspection, normal capillary refill Cranial Nerves: unable to interpret Skin: intact, normal color Skin Temp/Moisture Exam: Warm/Dry IV Drips IV Drips: Fentanyl, Propofol Nutrition Nutrition: P.O. diet, IV fluids Current Medications: Current Medications Sig/Sara Start time Last Medication Dose Route Stop Time Status Admin Albuterol Sulfate 3 ML EVERY 4 HRS/AWAKE / 1200 10/16 INH 0816 Ampicillin Sodium/ 3,000 MG Q8 10/16 0820 Sulbactam Sodium IV Sodium Chloride 100 ML Azithromycin 500 MG 2200 10/15 2200 ID 10/15 Sodium Chloride 250 ML IV 2132 Fentanyl Citrate 1,000 MCG Q5H / 2245 10/16 Dextrose/Water 250 ML IV 0854 Fentanyl Citrate 1,000 MCG Q4H / 1030 DC 10/15 Dextrose/Water 250 ML IV 10/15 2244 2228 Fentanyl Citrate 1,000 MCG Q24H / 1845 ID 10/14 Dextrose/Water 250 ML IV 1927 Heparin Sodium 5,000 UNIT Q8 10/14 2200 10/16 (Porcine) SC 0545 Lactated Ringer's 1,000 ML Q13H 10/15 1045 10/16 IV 0627 Lorazepam 50 MG Q24H 10/16 0845 Dextrose/Water 500 ML IV Lorazepam 2 MG ONE ONE 10/16 0745 DC 10/16 IV 10/16 0746 0756 Lorazepam 2 MG ONE ONE 10/15 1915 DC 10/15 IV 10/15 1916 1907 Lorazepam 1 MG ONE ONE 10/15 1430 DC 10/15 IV 10/15 1431 1430 Morphine Sulfate 4 MG Q6-PRN PRN 10/14 1914 IV Pantoprazole Sodium 40 MG DAILY 10/14 2014 10/16 IV 0752 Piperacillin Sod/ 3.375 GM Q6H / 1030 DC 10/16 Tazobactam Sod IV 0457 Sodium Chloride 100 ML Potassium Chloride 20 MEQ ONCE ONE 10/16 0845 DC IV 10/16 0846 Potassium Chloride 40 MEQ .[id number] 10/14 191 ID 10/14 Sodium Chloride 1,000 ML IV 2245 Propofol 1,000 MG .STK-MED ONE 10/15 1432 DC IV / 1433 Propofol 1,000 MG Q6H 10/15 0615 10/16 N/A 1 UNIT IV 0626 Sodium Chloride 500 ML BOLUS ONE 10/15 0930 DC 06/02 IV 06/ 1029 0958 Vancomycin HCl 1,000 MG 1930 10/15 1930 DC 06/ Sodium Chloride 250 ML IV /2028 1851 Vecuronium [place] 7.5 MG ONCE ONE 10/16 0700 DC 06/03 IV 06/ 0701 0720 Vecuronium [place] 5 MG ONCE ONE / 0100 DC 06/ IV 06/ 0101 0055 Vecuronium [place] 5 MG ONCE ONE 10/15 2045 DC 06/ IV 06/ 204 2040 Vecuronium [place] 5 MG ONCE ONE / 1300 DC 06/02 IV 06/02 1301 1304 Results Cultures: Culture: Negative till date CXR Findings: IMPRESSION: Low lung volumes. Extensive bilateral pulmonary changes are seen. There has been interval improvement since the previous examination. Impression/Plan Impression/Problem List Impression: Patient is a 42-year-old male with significant history of polysubstance abuse including cocaine, migraines, hypertension, previous diabetes not on medications lately presented with progressive worsening of shortness of breath since around a month with outpatient antimicrobial failure. In the ED he found to have purulent phlegm production with productive cough tripoding despite on 100% FiO2. Vital signs at presentation afebrile, heart rate 97, blood pressure 109/56 mmHg, saturating 85% on 6 L. Labs did show white count of 14.7, H&H 12/36, platelet count 496, chemistry sodium 134, potassium 4.5, BUN/creatinine 48/4.9, GFR 13, calcium 7.7, bilirubin 0.9, ALP 142, HIV nonreactive. Normal lactic. Thoracentesis was done in the ER with draining 400 mL of purulent fluid. Pleural fluid analysis did show white count of 22,400, RBC 1800, total protein 5.3, LDH 6615. Blood cultures and sputum cultures - NGTD Problem list 1. ARDS on low TV and high PEEP ventilation 2. Acute renal failure 3. Hydropneumothorax with trapped lung 4. Methadone maintenence 5. HTN 6. Bipolar disorder 7. Polysubstance abuse PLAN Respiratory Acute hypoxic respiratory failure ARDS with low TV, high PEEP protocol with goal Plateau pressure <30 cm H2o * FiO2 reduced from 100 to 60, if saturations maintained and plataeu within goal we can increase tidal volume. * Currently on IV fentanyl and IV propofol, plan to wean off propofol while continuing fentanyl and start IV ativan. * EKG for QTc - <500 ok for haldol PRN * Maintence fluids for nutrition and renal function (of note urine output is adequate) * Needs CT guided vs Bedside chest tube at some point. Infectious Multilobar pneumonia Intially started on broad spectrum with IV Zosyn/IV azithro/IV vanco. Once started improving, cultures remained negative, started on IV unasyn 3gm Q8. Cardiovascular Remained stable with HR 70-90, BP 100-130/60-70mmHg. ECHO unremarkable Hematology White count improving. Metablolic Acute renal failure Cr 4.9 to 2.5. Ultrasound ruled out post renal causes. Likely related to sepsis with ATN/Prerenal. * Continue hydration * Daily BEP Respiratory acidosis Patient continues to have respiratory acidosis on his ABG. Permissive hypercarbia. Alimentary NPO on A6Pddeaqm @ 75ml/hr Neuro Sedated with IV propofol/IV fentanyl Goal to wena off propofol and continue fentanyl, supplementing with IV ativan. History of bipolar disorder He was on seroquel, currently holding all the home medications. DVT prophylaxis SC heparin Code status Full Code Problem List: 1. ARDS (adult respiratory distress syndrome) 2. Community acquired pneumonia 3. Acute hypoxemic respiratory failure 4. Methadone dependence 5. Bipolar disorder Pain Ratin Pain Location: n/a Tomorrow's Labs & Rationales: cbc, ICU bundle Plan DVT/Prophylaxis: mechanical, pharmacological
--- NOTE | 2017-10-16 08:17 | PN- CRCU ---
Subjective HPI/Critical Care Issues: Relatively doing much better Afebrile Other history could not be obtained intubated and paralyzed His ventilator mechanics have improved his peak pressures 33 plateau's come down to less than 30 He still on low tidal volume high PEEP ventilation protocol per ARDS No bowel movement Adequate urine output Creatinine is down to 2.5 anion gap seems to have close ABG still consistent with permissive hypercarbia LFTs are elevated with normal bilirubin and alkaline phosphatase is 142 LDH was high upon admission HIV negative troponin unremarkable TSH from July was unremarkable his cortisol level was 16 white count 14 hemoglobin down to 9 bandemia persists ABG shows respiratory acidosis 7.23/50/91 on 80% FiO2 Mental later assist-control 28 rate tidal volume 380 peak pressure 35 plateau less than 30 chest x-ray done this morning showed low lung volumes extensive bilateral pulmonary changes some improvement right lower lobe lobe area pleural parenchymal opacity present ET tube is high Objective Current Medications: Current Medications Sig/Sara Start time Last Medication Dose Route Stop Time Status Admin Albuterol Sulfate 3 ML EVERY 4 HRS/AWAKE 10/15 1200 10/15 INH 2036 Azithromycin 500 MG 2200 10/15 2200 10/15 Sodium Chloride 250 ML IV 2132 Fentanyl Citrate 1,000 MCG Q5H / 2245 10/16 Dextrose/Water 250 ML IV 0316 Fentanyl Citrate 1,000 MCG Q4H / 1030 SD 10/15 Dextrose/Water 250 ML IV / 2244 2228 Fentanyl Citrate 1,000 MCG Q24H / 1845 SD / Dextrose/Water 250 ML IV 1927 Heparin Sodium 5,000 UNIT Q8 / 2200 10/16 (Porcine) SC 0545 Lactated Ringer's 1,000 ML Q13H / 1045 10/16 IV 0627 Lorazepam 2 MG ONE ONE 10/16 0745 SD 10/16 IV 10/16 0746 0756 Lorazepam 2 MG ONE ONE 10/15 1915 SD 10/15 IV 10/15 1916 1907 Lorazepam 1 MG ONE ONE 10/15 1430 SD 10/15 IV / 1431 1430 Morphine Sulfate 4 MG Q6-PRN PRN 10/14 1915 IV Pantoprazole Sodium 40 MG DAILY 10/14 2014 10/16 IV 0752 Piperacillin Sod/ 3.375 GM Q6H 06/02 1030 10/16 Tazobactam Sod IV 0457 Sodium Chloride 100 ML Potassium Chloride 40 MEQ .[id number] 10/14 1915 DC 10/14 Sodium Chloride 1,000 ML IV 2245 Propofol 1,000 MG .STK-MED ONE 10/15 1432 DC IV / 1433 Propofol 1,000 MG Q6H / 0615 10/16 N/A 1 UNIT IV 0626 Sodium Chloride 500 ML BOLUS ONE 10/15 0930 DC 10/15 IV / 1029 0958 Vancomycin HCl 1,000 MG 1930 10/15 1930 DC 10/15 Sodium Chloride 250 ML IV 10/15 202 1851 Vecuronium [place] 7.5 MG ONCE ONE 10/16 0700 DC 10/16 IV 10/16 0701 0720 Vecuronium [place] 5 MG ONCE ONE 10/16 0100 DC / IV / 0101 0055 Vecuronium [place] 5 MG ONCE ONE 10/15 2045 DC / IV / 2046 2040 Vecuronium [place] 5 MG ONCE ONE 10/15 1300 DC 06/ IV 06/ 1301 1304 Vital Signs & I&O Last 24 Hrs of Vitals and I&O: Vital Signs Date Time Temp Pulse Resp B/P B/P Pulse O2 O2 Flow FiO2 Mean Ox Delivery Rate / 0556 80 06/ 0400 96 Ventilator 80% / 0304 80 06/03 0028 80 06/03 0000 92 Ventilator 80% / 2300 98.2 87 28 110/64 92 Ventilator 80% / 2000 956 Ventilator 80% / 1942 80 06/ 1625 80 06/02 1600 97.5 86 28 98/58 92 Ventilator 80% 06/02 1600 93 Ventilator 80% 06/02 1416 80 06/02 1400 80 06/02 1245 90 06/02 1200 97 Ventilator 90% / 1130 Ventilator 90% / 0900 90 / 0831 100 Intake & Output / 1600 06/03 0800 06/03 0000 Intake Total 1371 2125 Output Total 885 590 Balance 486 1535 Intake, IV 1371 2125 Number 0 0 Bowel Movements Output, Urine 885 590 Patient 198 lb Weight Weight Bed scale Measurement Method Impression/Plan Impression/Plan Impression/Plan: This is a gentleman with history of polysubstance abuse in the past, on methadone replacement, hypertension, hyperlipidemia, chronic prednisone use in the recent past, hypoadrenalism, migraine, cocaine abuse in the past, history of intravenous drug abuse, bipolar disorder, on multiple medications, ongoing smoking, previous admission to this hospital with altered mental status, has had a few emergency room visits in the recent past few days. Now with severe ARDS and necrotizing pna with empyema with trapped lung with large hydropneumothorax INtubated and sedated and paralysed Pupils reacting small pupils Obese gentleman with tattoos IJ cath in place Dunia placed today No significant JVD Chest decreased breath sounds with significant bronchial breathing on the right side with rhonchi diffusely Heart S1 and S2 was heard no murmur could be appreciated but he had significant rhonchi Abdominal exam obese nontender full abdominal exam could not be done as he was unable to lay flat No significant edema or needle cronin noted. IMPRESSION This is a gentleman with previous history of polysubstance abuse now on methadone, bipolar disorder, ongoing smoking, now here with * Severe ARDS with severe bilateral multilobar pna due to prob strep or staph pna with empyema (s/p drained initially 400 cc) with hydropneumothorax with trapped lung. INtubated and sedated and paralysed and being vented with ards protocol with plateau pressure goal of 30 with permissive hypercarbia * Trapped lung and hydropneumothorax * Resolving Acute renal failure in a patient with sepsis with atn (was on ACI and metformin aswell) * History of Diabetes on metformin * Methadone use high risk for withdrawal * Recent steroid use hence immunosuppressed * Bipolar disorder, hypo-testosterone, multiple other issues including polysubstance use and smoking * History of Hyperlipidemia, hypertension, previous chest pain chest discomfort. RECOMMENDATION COnt vent with ARDS stratergy with high peep and low vt (plateau less than 30 as goal), can increase the tidal volume to 400 or 420 if his plateau pressures remains low Reduce FiO2 to 60% Reduce PEEP once the FiO2 is down to 50% Ok with permissive hypercarbia (ph goal more than 7.1) Advance ET tube by 2 cm check chest x-ray CVP goal 6-8 IV fluids d5 ringers at 75 cc Keep npo Start Ativan drip if needed, continue high-dose fentanyl, check EKG with QTC management, deep magnesium more than 2. If he needs it to probably would require low-dose Haldol 1 mg every 8 hours with EKG monitoring and QTC monitoring every 12 hours for the first 2 days. Discontinue probably next by this evening as 48 hours of parotid excisions the goal Patient is not stable to go downstairs to the IR suite. We'll discuss with radiology if they can consider pigtail. The amount of trapped lung with hydropneumothorax which he has is quite large to be drained by a pigtail Thoracic surgery involved Patient would ideally needed chest CT with IV contrast once his creatinine is better to evaluate and see whether this indeed this is pleural versus lung which would be difficult to ascertain edema and with that due to significant emphysema he has Cont Proton pump inhibitor and heparin sub cut Rpt sputum culture Follow calcium and may need a dose later if still low Pt critically ill DIscussed with girl friend at the bedside TTS 60 mins PT had explicitly told me that his girl friend should be the surrogate decision maker
--- NOTE | 2017-10-16 10:39 | RADIOLOGY REPORT ---
EXAMINATION: XR PORTABLE CHEST CLINICAL INFORMATION: Intubated, adjusted ET tube COMPARISON: Portable chest 10/16/2017 at 0522 hours, 10/15/2017, 10/14/2017 TECHNIQUE: Portable frontal view of the chest is obtained at 0951 hours. FINDINGS: Endotracheal tube tip is approximately 5.2 cm above mahendra. Right internal jugular central venous line is at mid superior vena cava. There is an NG tube seen extending to the diaphragm and then beyond the film [id number]. Cardiopulmonary appearance is similar to prior exam with pleural parenchymal cystic changes and opacities on the right and airspace consolidation left of similar distribution and severity. IMPRESSION: 1. ET tube approximately 5.2 cm above mahendra. 2. Right internal jugular central line mid superior vena cava. 3. NG tube seen to the diaphragm and beyond field of view. 4. Cardiopulmonary appearance stable from prior exam at 0522 hours.
--- NOTE | 2017-10-16 13:14 | PN- Cardiology ---
Subjective Subjective: Clinically about the same. Cardiac status unchanged. Rhythm generally stable. Brief episodes of nonsustained supraventricular tachycardia arrhythmia noted Objective Vital Signs and I&Os Vital Signs Date Time Temp Pulse Resp B/P B/P Pulse O2 O2 Flow FiO2 Mean Ox Delivery Rate 10/16 1200 94 Ventilator 50% / 1135 55 / 0819 60 / 0800 98.3 88 28 140/64 96 Ventilator 60% 10/16 0800 96 Ventilator 60% 10/16 0556 80 / 0400 96 Ventilator 80% / 0304 80 06/ 0028 80 06/ 0000 92 Ventilator 80% 06/ 2300 98.2 87 28 110/64 92 Ventilator 80% 06/ 2000 956 Ventilator 80% 06/ 1942 80 06/ 1625 80 06/ 1600 97.5 86 28 98/58 92 Ventilator 80% 06/ 1600 93 Ventilator 80% 06/ 1416 80 06/ 1400 80 Intake & Output 10/16 1600 / 0800 / 0000 06/02 1600 / 0800 06/ 0000 Intake Total 1371 2125 1617 1050 163 Output Total 376 545 5814 1090 550 Balance 486 1535 517 -40 -387 Intake, IV 1371 2125 1617 1050 163 Number 0 0 0 0 Bowel Movements Output, 60 50 Gastric Drainage Output, Urine 590 476 0392 1030 500 Patient 198 lb 178 lb 404 lb Weight Weight Bed scale Bed scale Measurement Method Physical Exam: General Appearance: well developed/nourished, overweight, sedated, intubated Head: normal HEENT: Normal Neck: supple, JVP appears normal, carotid upstrokes normal bilaterally, no masses or thyromegaly Respiratory: chest non-tender, diffuse bilateral rhonchi with decreased breath sound Cardiovascular: regular rate/rhythm, normal S1, S2, 1/6 systolic murmur Abdomen: normal bowel sounds, soft, non-tender Extremities: normal inspection, no edema Vascular: Pulses are 2+ and equal bilaterally Neurologic: Grossly normal/nonfocal Current Medications: Current Medications Sig/Sara Start time Last Medication Dose Route Stop Time Status Admin Albuterol Sulfate 3 ML EVERY 4 HRS/AWAKE / 1200 AC 10/16 INH 1134 Ampicillin Sodium/ 3,000 MG Q8 10/16 0820 AC 10/16 Sulbactam Sodium IV 1000 Sodium Chloride 100 ML Azithromycin 500 MG 2200 10/15 2200 [place] 10/15 Sodium Chloride 250 ML IV 2132 Fentanyl Citrate 1,000 MCG Q5H / 2245 10/16 Dextrose/Water 250 ML IV 0854 Fentanyl Citrate 1,000 MCG Q4H / 1030 DC / Dextrose/Water 250 ML IV / 2244 2228 Heparin Sodium 5,000 UNIT Q8 10/14 2200 10/16 (Porcine) SC 0545 Lactated Ringer's 1,000 ML Q20H / 1230 AC IV Lactated Ringer's 1,000 ML Q13H / 1045 [place] 10/16 IV 0627 Lorazepam 50 MG Q24H / 0845 10/16 Dextrose/Water 500 ML IV 0949 Lorazepam 2 MG ONE ONE 10/16 0745 [place] 10/16 IV 10/16 0746 0756 Lorazepam 2 MG ONE ONE 10/15 1915 [place] 10/15 IV 10/15 1916 1907 Lorazepam 1 MG ONE ONE 10/15 1430 DC 10/15 IV / 1431 1430 Morphine Sulfate 4 MG Q6-PRN PRN 10/14 191 IV Pantoprazole Sodium 40 MG DAILY 10/14 2014 10/16 IV 0752 Piperacillin Sod/ 3.375 GM Q6H / 1030 DC 10/16 Tazobactam Sod IV 0457 Sodium Chloride 100 ML Potassium Chloride 20 MEQ ONCE ONE 10/16 0845 [place] 10/16 IV 10/16 0846 0956 Propofol 1,000 MG .STK-MED ONE 10/15 1432 DC IV / 1433 Propofol 1,000 MG Q6H / 0615 10/16 N/A 1 UNIT IV 0626 Vancomycin HCl 1,000 MG 1930 10/15 1930 [place] 10/15 Sodium Chloride 250 ML IV 10/15 2029 1851 Vecuronium [place] 7.5 MG ONCE ONE 10/16 0700 DC 10/16 IV 10/16 0701 0720 Vecuronium [place] 5 MG ONCE ONE 10/16 0100 DC 10/16 IV 10/16 0101 0055 Vecuronium [place] 5 MG ONCE ONE 10/15 2045 DC 10/15 IV 10/15 2046 2040 Results Last 48 Hrs of Labs/Mics: Laboratory Tests 10/16/17 0600: pH 7.23 *L, pCO2 50 H, pO2 91, HCO3 20 L, ABG O2 Sat (Measured) 96.0, P-50 ( Temp Corrected) N, Carboxyhemoglobin 0.2 L, O2 Concentration % .80, Respiration Rate 28, O2 Delivery Method VENT, Vent Mode A/C, Expiratory Pressure 15, Tidal Volume 380, Phlebotomy Draw Site [place] 10/16/17 0420: Anion Gap 14, Estimated GFR 28 L, Glucose 131 H, Calcium 6.9 L, Phosphorus 5.9 H, Magnesium 2.3, Total Bilirubin 0.4, AST 155 H, ALT 117 H, Albumin 2.4 L, PT 13.4 H, INR 1.23 H, CBC w Diff NO MAN DIFF REQ, RBC 3.14 L, MCV 84.8, MCH 28.7, MCHC 33.9, RDW 17.9 H, MPV 6.9 L, Vancomycin Trough 15.3 10/16/17 0015: pH 7.19 *L, pCO2 51 H, pO2 77 L, HCO3 19 L, ABG O2 Sat (Measured) 92.0 L, P- 50 (Temp Corrected) N, Carboxyhemoglobin 0.3 L, O2 Concentration % .80, Respiration Rate 28, O2 Delivery Method VENT, Vent Mode A/C, Expiratory Pressure 15, Tidal Volume 380, Phlebotomy Draw Site [place] 10/16/17 0005: CBC w Diff MAN DIFF ORDERED, RBC 3.16 L, MCV 84.1, MCH 28.7, MCHC 34.2, RDW 17.8 H, MPV 6.7 L, Segmented Neutrophils 73, Band Neutrophils 13 H, Lymphocytes 10 L, Monocytes 4, Platelet Estimate ADEQUATE, Normocytic RBCs VERIFIED, Normochromic RBCs VERIFIED 10/15/17 1930: CBC w Diff MAN DIFF ORDERED, RBC 3.01 L, MCV 84.8, MCH 28.4, MCHC 33.5, RDW 18.3 H, MPV 6.9 L, Segmented Neutrophils 76 H, Band Neutrophils 14 H, Lymphocytes 7 L, Monocytes 2, Metamyelocytes 1, Platelet Estimate ADEQUATE, Poikilocytosis 1+, Anisocytosis 1+, Microcytic Cells 1+, Ovalocytes FEW, Cassy Cells FEW, Elliptocytes FEW 10/15/17 1850: pH 7.29 *L, pCO2 39, pO2 100, HCO3 18 L, ABG O2 Sat (Measured) 97.0, P-50 (Temp Corrected) N, Carboxyhemoglobin 0.4 L, O2 Concentration % 80%, Temperature 97.5 , Respiration Rate 28, O2 Delivery Method ESPRIT, Vent Mode AC, Expiratory Pressure 15, Tidal Volume 380, Phlebotomy Draw Site [place] 10/15/17 1100: pH 7.20 *L, pCO2 47 H, pO2 87, HCO3 18 L, ABG O2 Sat (Measured) 95.0 L, Carboxyhemoglobin 0 L, O2 Concentration % 90%, Respiration Rate 28, O2 Delivery Method VENT, Vent Mode AC, Expiratory Pressure 15, Tidal Volume 380, Pressure Support 0, Phlebotomy Draw Site LEFT A LINE 10/15/17 0455: Anion Gap 16, Estimated GFR 17 L, Glucose 163 H, Calcium 6.6 L, Phosphorus 5.2 H, Magnesium 2.6 H, Total Bilirubin 0.6, AST 73 H, ALT 52, Creatine Kinase 43 L, Albumin 2.4 L, Cortisol AM Sample 16.5, CBC w Diff MAN DIFF ORDERED, RBC 3.47 L, MCV 85.4, MCH 28.9, MCHC 33.8, RDW 17.2 H, MPV 6.8 L, Segmented Neutrophils 77 H, Band Neutrophils 13 H, Lymphocytes 9 L, Metamyelocytes 1, Platelet Estimate ADEQUATE, Normocytic RBCs VERIFIED, Polychromasia 1+, Random Vancomycin 11.1 10/15/17 0320: pH 7.18 *L, pCO2 50 H, pO2 77 L, HCO3 18 L, ABG O2 Sat (Measured) 92.0 L, P- 50 (Temp Corrected) Y, Carboxyhemoglobin 0.1 L, O2 Concentration % 100%, Temperature 96.8 L, Respiration Rate 28, O2 Delivery Method ESPRIT, Vent Mode AC, Expiratory Pressure 15, Tidal Volume 400, Phlebotomy Draw Site RIGHT RADIAL 10/14/17 2328: pH 7.14 *L, pCO2 52 H, pO2 79 L, HCO3 18 L, ABG O2 Sat (Measured) 91.0 L, Carboxyhemoglobin 0.3 L, O2 Concentration % 100, Respiration Rate 28, O2 Delivery Method VENT, Vent Mode AC, Expiratory Pressure 15, Tidal Volume 400, Pressure Support 0, Phlebotomy Draw Site LEFT RADIAL 10/14/17 2235: Lactic Acid 0.8 10/14/17 2200: Serum Osmolality 293 10/14/17 2200: Anion Gap 16, Estimated GFR 16 L, Glucose 137 H, Calcium 6.3 L, Phosphorus 5.5 H, Magnesium 1.8, Total Bilirubin 0.7, AST 68 H, ALT 48, Albumin 2.4 L, Salicylates < 1.0 10/14/173: Urine Opiates Screen < 100, Methadone Screen > 735 H, Barbiturate Screen < 60, Ur Phencyclidine Scrn < 6.00, Amphetamines Screen < 100, U Benzodiazepines Scrn < 85, Urine Cocaine Screen < 50, Urine Cannabis Screen < 5.00, Urine Color YEL, Urine Clarity CLEAR, Urine pH 6.0, Ur Specific [place] 1.015, Urine Protein 30 H, Urine Ketones NEG, Urine Nitrite NEG, Urine Bilirubin NEG, Urine Urobilinogen 0.2, Ur Leukocyte Esterase NEG, Ur Microscopic SEDIMENT EXAMINED, Urine RBC RARE , Urine WBC 3-5 H, Ur Epithelial Cells RARE, Urine Bacteria RARE H, Urine Hemoglobin SMALL H, Urine Glucose NEG 10/14/172044: pH 7.12 *L, pCO2 49 H, pO2 80, HCO3 16 L, ABG O2 Sat (Measured) 90.0 L, P-50 (Temp Corrected) N, Carboxyhemoglobin 0.3 L, O2 Concentration % 100, Respiration Rate 28, O2 Delivery Method VENT, Vent Mode A/C, Expiratory Pressure 15, Tidal Volume 400, Phlebotomy Draw Site RIGHT RADIAL 10/14/17 1950: Fluid LDH Cancelled 10/14/17 1740: Fluid WBC 02006 H, Fld Total RBCs Counted 1800 H 10/14/17 1740: Fluid Total Protein 5.3, Fluid LDH 6615 10/14/17 1518: PT 15.2 H, INR 1.39 H, APTT 33 10/14/17 1517: Anion Gap 20 H, Estimated GFR 13 L, BUN/Creatinine Ratio 9.8, Glucose 109 H, Lactic Acid 1.2, Calcium 7.7 L, Total Bilirubin 0.9, Direct Bilirubin 0.9 H, AST 48, ALT 32, Alkaline Phosphatase 142 H, Lactate Dehydrogenase 833 H, Troponin I < 0.01, Total Protein 6.3, Albumin 3.1 L, CBC w Diff MAN DIFF ORDERED, RBC 4.31 L, MCV 84.2, MCH 28.6, MCHC 34.0, RDW 16.9 H, MPV 7.3 L, Gran % 91.5 H, Lymphocytes % 4.6 L, Monocytes % 3.0, Eosinophils % 0.9, Basophils % 0, Absolute Granulocytes 13.5 H, Segmented Neutrophils 96 H, Band Neutrophils 3, Absolute Lymphocytes 0.7 L, Lymphocytes 1 L, Absolute Monocytes 0.4, Absolute Eosinophils 0.1, Absolute Basophils 0, Platelet Estimate VERIFIED BY SMEAR, Polychromasia 1+, Anisocytosis 1+, Fld Total RBCs Counted 100, HIV 1&2 Ab Western Blot NONREACTIVE Microbiology 10/14 2209 LOWER RESP: Respiratory Culture - COMP ALPHA STREP 10/14 2209 LOWER RESP: Gram Stain - COMP 10/14 2199 UPPER RESP: Surveillance Culture - COMP 10/14 2199 GI: Surveillance Culture - COMP 10/14 2102 URINE ROUT: Legionella Antigen - COMP 10/14 2102 URINE ROUT: Streptococcus pneumoniae Antigen (M - COMP 10/14 2102 URINE ROUT: Urine Culture - COMP 10/15 1739 BODY FLUID: Body Fluid Culture - COMP ALPHA STREP 10/15 1739 BODY FLUID: Gram Stain - COMP Assessment/Plan Assessment/Plan Assessment: 1. Acute respiratory failure with ARDS, severe bilateral multilobar pneumonia, empyema, hydropneumothorax, trapped lung, etc. 2. Acute renal insufficiency 3. History of diabetes 4. Anemia 5. History of polysubstance abuse, on methadone, 6. Recent steroid use/immunosuppression 7. History of hypertension 8. History of hyperlipidemia 9. Nonsustained supraventricular tachycardia Recommendations: -Continue all supportive care as per the medical/ICU team -Echocardiogram was technically suboptimal but showed normal left ventricular function, no significant pericardial effusion, and no obvious significant valvular heart disease. -Maintain telemetry monitoring for any further supraventricular arrhythmias. Continue telemetry? Yes
--- NOTE | 2017-10-16 14:01 | PN- Nephrology ---
Assessment/Plan Nephrology Assessment: Acute kidney injury: I suspect prerenal azotemia from volume depletion exacerbated by having been on NSAIDs. There was also question as to whether he was on an MARJORIE inhibitor however this is not on his home medication list. Fortunately renal status improving with IV hydration. Cannot rule out element of ATN however excellent urine output and improving creatinine support for prerenal picture. Possible chronic kidney disease: Baseline creatinine was 1.1-1.2, which may be due to hypertensive nephrosclerosis. I can't say for certain if he's as to whether he's never been on the nephrotoxin lithium in the past for bipolar disorder. Suggestion: continue gentle IV hydration per ICU team daily renal labs hold off on IV contrast a bit longer if possible as remains at high risk for contrast nephropathy Subjective Subjective: No acute event remains intubated BP excellent Good UO creat improving Review of Systems: unable to obtain given patients clinical condition Objective Vital Signs and I&Os Vital Signs Date Time Temp Pulse Resp B/P B/P Pulse O2 O2 Flow FiO2 Mean Ox Delivery Rate 10/16 1200 94 Ventilator 50% / 1135 55 06/ 0819 60 06/03 0800 98.3 88 28 140/64 96 Ventilator 60% 06/03 0800 96 Ventilator 60% 06/03 0556 80 06/03 0400 96 Ventilator 80% 06/03 0304 80 06/03 0028 80 06/03 0000 92 Ventilator 80% 06/02 2300 98.2 87 28 110/64 92 Ventilator 80% 06/02 2000 956 Ventilator 80% 06/02 1942 80 06/02 1625 80 06/02 1600 97.5 86 28 98/58 92 Ventilator 80% 06/02 1600 93 Ventilator 80% 06/02 1416 80 06/02 1400 80 Intake & Output 06/03 1600 06/03 0400 06/02 1600 06/02 0400 06/ 1600 06/ 0400 Intake Total 1371 2125 2667 163 100 Output Total 097 735 1675 550 Balance 486 1535 477 -387 100 Intake, IV 1371 2125 2667 163 Intake, Oral 100 Number 0 0 0 0 Bowel Movements Output, 60 50 Gastric Drainage Output, Urine 861 467 5802 500 Patient 198 lb 178 lb 183 lb Weight Weight Bed scale Bed scale Estimated Measurement Method Physical Exam: General: NAD, A+O x3. int/sedated HEENT: NC/AT. No icterus. Moist mucosa Neck: negative for JACQUE, JVD CV: RRR, no m/r/g Pulm:Course BS Abd: soft, NT/ND, negative renal bruits Lower Ext:NO EDEMA Neuro: neg tremor, asterixis Skin: no rash, jaundice : + bowman catheter Current Medications: Current Medications Sig/Sara Start time Last Medication Dose Route Stop Time Status Admin Albuterol Sulfate 3 ML EVERY 4 HRS/AWAKE / 1200 AC 10/16 INH 1134 Ampicillin Sodium/ 3,000 MG Q8 10/16 0820 10/16 Sulbactam Sodium IV 1000 Sodium Chloride 100 ML Azithromycin 500 MG 2200 / 2200 DC 10/15 Sodium Chloride 250 ML IV 2132 Fentanyl Citrate 1,000 MCG Q5H / 2245 AC 10/16 Dextrose/Water 250 ML IV 1323 Fentanyl Citrate 1,000 MCG Q4H / 1030 DC 10/15 Dextrose/Water 250 ML IV / 2244 2228 Heparin Sodium 5,000 UNIT Q8 10/14 2200 10/16 (Porcine) SC 1330 Lactated Ringer's 1,000 ML Q20H / 1230 IV Lactated Ringer's 1,000 ML Q13H / 1045 DC 10/16 IV 0627 Lorazepam 50 MG Q24H / 0845 10/16 Dextrose/Water 500 ML IV 0949 Lorazepam 2 MG ONE ONE 10/16 0745 DC 10/16 IV 10/16 0746 0756 Lorazepam 2 MG ONE ONE 10/15 1915 WV 10/15 IV 10/15 1916 1907 Lorazepam 1 MG ONE ONE 10/15 1430 DC 06/ IV / 1431 1430 Morphine Sulfate 4 MG Q6-PRN PRN 10/14 1915 IV Pantoprazole Sodium 40 MG DAILY 10/14 2015 AC 10/16 IV 0752 Piperacillin Sod/ 3.375 GM Q6H / 1030 DC 10/16 Tazobactam Sod IV 0457 Sodium Chloride 100 ML Potassium Chloride 20 MEQ ONCE ONE 10/16 0845 WV 10/16 IV 10/16 0846 0956 Propofol 1,000 MG .STK-MED ONE 10/15 1432 DC IV 10/15 1433 Propofol 1,000 MG Q6H 10/15 0615 AC 10/16 N/A 1 UNIT IV 06 Vancomycin HCl 1,000 MG 0 10/15 1929 DC 10/15 Sodium Chloride 250 ML IV 10/15 Vecuronium [place] 7.5 MG ONCE ONE 10/16 0700 DC 10/16 IV 10/16 07 0720 Vecuronium [place] 5 MG ONCE ONE 10/160 DC 10/16 IV 10/16 100 0055 Vecuronium [place] 5 MG ONCE ONE 10/15 2044 DC 10/15 IV 10/15 Results Pertinent Lab Results: Laboratory Tests 10/16 10/16 10/16 06 0420 0015 Blood Gas pH (7.35 - 7.45 PH) 7.23 *L 7.19 *L pCO2 (35 - 45 TORR) 50 H 51 H pO2 (80 - 100 TORR) 91 77 L HCO3 (21 - 28 MEQ/L) 20 L 19 L ABG O2 Sat (Measured) (>96.0 %) 96.0 92.0 L P-50 (Temp Corrected) N N Carboxyhemoglobin (1.5 - 5.0 %) 0.2 L 0.3 L O2 Concentration % .80 .80 Respiration Rate (BPM) 28 28 O2 Delivery Method VENT VENT Vent Mode A/C A/C Expiratory Pressure (CMH2O/P) 15 15 Tidal Volume (CC) 380 380 Chemistry Sodium (137 - 145 mmol/L) 141 Potassium (3.5 - 5.1 mmol/L) 3.8 Chloride (98 - 107 mmol/L) 106 Carbon Dioxide (22 - 30 mmol/L) 21 L Anion Gap (5 - 16) 14 BUN (9 - 20 mg/dL) 38 H Creatinine (0.7 - 1.2 mg/dL) 2.5 H Estimated GFR (>60 ml/min) 28 L Glucose (65 - 99 mg/dL) 131 H Calcium (8.4 - 10.2 mg/dL) 6.9 L Phosphorus (2.5 - 4.5 mg/dL) 5.9 H Magnesium (1.6 - 2.3 mg/dL) 2.3 Total Bilirubin (0.2 - 1.3 mg/dL) 0.4 AST (17 - 59 U/L) 155 H ALT (21 - 72 U/L) 117 H Albumin (3.5 - 5.0 g/dL) 2.4 L Coagulation PT (9.4 - 12.5 SEC) 13.4 H INR (0.90 - 1.17) 1.23 H Hematology CBC w Diff NO MAN DIFF REQ WBC (4.8 - 10.8 /CUMM) 14.9 H RBC (4.70 - 6.10 /CUMM) 3.14 L Hgb (14.0 - 18.0 G/DL) 9.0 L Hct (42 - 52 %) 26.6 L MCV (80.0 - 94.0 FL) 84.8 MCH (27.0 - 31.0 PG) 28.7 MCHC (33.0 - 37.0 G/DL) 33.9 RDW (11.5 - 14.5 %) 17.9 H Plt Count (130 - 400 /CUMM) 401 H MPV (7.4 - 10.4 FL) 6.9 L Miscellaneous Phlebotomy Draw Site [facility] Vancomycin Trough (10.0 - 20.0 ug/mL) 15.3 06/03 06/02 0005 1930 Hematology CBC w Diff MAN DIFF ORDERED MAN DIFF ORDERED WBC (4.8 - 10.8 /CUMM) 14.3 H 11.2 H RBC (4.70 - 6.10 /CUMM) 3.16 L 3.01 L Hgb (14.0 - 18.0 G/DL) 9.1 L 8.6 L Hct (42 - 52 %) 26.6 L 25.5 L MCV (80.0 - 94.0 FL) 84.1 84.8 MCH (27.0 - 31.0 PG) 28.7 28.4 MCHC (33.0 - 37.0 G/DL) 34.2 33.5 RDW (11.5 - 14.5 %) 17.8 H 18.3 H Plt Count (130 - 400 /CUMM) 363 349 MPV (7.4 - 10.4 FL) 6.7 L 6.9 L Segmented Neutrophils (42.2 - 75.2 %) 73 76 H Band Neutrophils (0.0 - 5.0 %) 13 H 14 H Lymphocytes (20.5 - 51.1 %) 10 L 7 L Monocytes (1.7 - 9.3 %) 4 2 Metamyelocytes (0.0 - 1.0 %) 1 Platelet Estimate (ADEQUATE) ADEQUATE ADEQUATE Normocytic RBCs VERIFIED Normochromic RBCs VERIFIED Poikilocytosis 1+ Anisocytosis 1+ Microcytic Cells 1+ Ovalocytes FEW Cassy Cells FEW Elliptocytes FEW 10/15 10/15 10/15 1850 1100 0455 Blood Gas pH (7.35 - 7.45 PH) 7.29 *L 7.20 *L pCO2 (35 - 45 TORR) 39 47 H pO2 (80 - 100 TORR) 100 87 HCO3 (21 - 28 MEQ/L) 18 L 18 L ABG O2 Sat (Measured) (>96.0 %) 97.0 95.0 L P-50 (Temp Corrected) N Carboxyhemoglobin (1.5 - 5.0 %) 0.4 L 0 L O2 Concentration % 80% 90% Temperature (97.0 - 100.0 FARH) 97.5 Respiration Rate (BPM) 28 28 O2 Delivery Method ESPRIT VENT Vent Mode AC AC Expiratory Pressure (CMH2O/P) 15 15 Tidal Volume (CC) 380 380 Pressure Support (CMH2O/P) 0 Chemistry Sodium (137 - 145 mmol/L) 139 Potassium (3.5 - 5.1 mmol/L) 4.0 Chloride (98 - 107 mmol/L) 104 Carbon Dioxide (22 - 30 mmol/L) 19 L Anion Gap (5 - 16) 16 BUN (9 - 20 mg/dL) 41 H Creatinine (0.7 - 1.2 mg/dL) 3.9 H Estimated GFR (>60 ml/min) 17 L Glucose (65 - 99 mg/dL) 163 H Calcium (8.4 - 10.2 mg/dL) 6.6 L Phosphorus (2.5 - 4.5 mg/dL) 5.2 H Magnesium (1.6 - 2.3 mg/dL) 2.6 H Total Bilirubin (0.2 - 1.3 mg/dL) 0.6 AST (17 - 59 U/L) 73 H ALT (21 - 72 U/L) 52 Creatine Kinase (55 - 170 U/L) 43 L Albumin (3.5 - 5.0 g/dL) 2.4 L Cortisol AM Sample (4.46 - 22.7 ug/dL) 16.5 Hematology CBC w Diff MAN DIFF ORDERED WBC (4.8 - 10.8 /CUMM) 14.2 H RBC (4.70 - 6.10 /CUMM) 3.47 L Hgb (14.0 - 18.0 G/DL) 10.0 L Hct (42 - 52 %) 29.6 L MCV (80.0 - 94.0 FL) 85.4 MCH (27.0 - 31.0 PG) 28.9 MCHC (33.0 - 37.0 G/DL) 33.8 RDW (11.5 - 14.5 %) 17.2 H Plt Count (130 - 400 /CUMM) 391 MPV (7.4 - 10.4 FL) 6.8 L Segmented Neutrophils (42.2 - 75.2 %) 77 H Band Neutrophils (0.0 - 5.0 %) 13 H Lymphocytes (20.5 - 51.1 %) 9 L Metamyelocytes (0.0 - 1.0 %) 1 Platelet Estimate (ADEQUATE) ADEQUATE Normocytic RBCs VERIFIED Polychromasia 1+ Miscellaneous Phlebotomy Draw Site MANPREET LEFT A LINE Toxicology Random Vancomycin (ug/ml) 11.1 10/15 10/14 10/14 10/14 0320 2328 2235 2200 Blood Gas pH (7.35 - 7.45 PH) 7.18 *L 7.14 *L pCO2 (35 - 45 TORR) 50 H 52 H pO2 (80 - 100 TORR) 77 L 79 L HCO3 (21 - 28 MEQ/L) 18 L 18 L ABG O2 Sat (Measured) (>96.0 %) 92.0 L 91.0 L P-50 (Temp Corrected) Y Carboxyhemoglobin (1.5 - 5.0 %) 0.1 L 0.3 L O2 Concentration % 100% 100 Temperature (97.0 - 100.0 FARH) 96.8 L Respiration Rate (BPM) 28 28 O2 Delivery Method ESPRIT VENT Vent Mode AC AC Expiratory Pressure (CMH2O/P) 15 15 Tidal Volume (CC) 400 400 Pressure Support (CMH2O/P) 0 Chemistry Serum Osmolality (285 - 295 MOSM/KG) 293 Lactic Acid (0.7 - 2.1 mmol/L) 0.8 Miscellaneous Phlebotomy Draw Site RIGHT RADIAL LEFT RADIAL 10/14 10/14 2200 2103 Chemistry Sodium (137 - 145 mmol/L) 135 L Potassium (3.5 - 5.1 mmol/L) 4.0 Chloride (98 - 107 mmol/L) 102 Carbon Dioxide (22 - 30 mmol/L) 17 L Anion Gap (5 - 16) 16 BUN (9 - 20 mg/dL) 43 H Creatinine (0.7 - 1.2 mg/dL) 4.2 H Estimated GFR (>60 ml/min) 16 L Glucose (65 - 99 mg/dL) 137 H Calcium (8.4 - 10.2 mg/dL) 6.3 L Phosphorus (2.5 - 4.5 mg/dL) 5.5 H Magnesium (1.6 - 2.3 mg/dL) 1.8 Total Bilirubin (0.2 - 1.3 mg/dL) 0.7 AST (17 - 59 U/L) 68 H ALT (21 - 72 U/L) 48 Albumin (3.5 - 5.0 g/dL) 2.4 L Toxicology Salicylates (0 - 20.0 mg/dL) < 1.0 Urine Opiates Screen (>2000 NG/ML) < 100 Methadone Screen (>300 NG/ML) > 735 H Barbiturate Screen (>200 NG/ML) < 60 Ur Phencyclidine Scrn (>25 NG/ML) < 6.00 Amphetamines Screen (>1000 NG/ML) < 100 U Benzodiazepines Scrn (>200 NG/ML) < 85 Urine Cocaine Screen (>300 NG/ML) < 50 Urine Cannabis Screen (>50 NG/ML) < 5.00 Urines Urine Color (YEL,AMB,STR) YEL Urine Clarity (CLEAR) CLEAR Urine pH (5.0 - 8.0) 6.0 Ur Specific [place] (1.001 - 1.035) 1.015 Urine Protein (NEG,<30 MG/DL) 30 H Urine Ketones (NEG) NEG Urine Nitrite (NEG) NEG Urine Bilirubin (NEG) NEG Urine Urobilinogen (0.1 - 1.0 EU/dl) 0.2 Ur Leukocyte Esterase (NEG) NEG Ur Microscopic SEDIMENT EXAMINED Urine RBC (0 - 5 /HPF) RARE Urine WBC (0 - 2 /HPF) 3-5 H Ur Epithelial Cells (NONE,FEW) RARE Urine Bacteria (NEG/NONE) RARE H Urine Hemoglobin (NEG) SMALL H Urine Glucose (N MG/DL) NEG 10/14 1950 1740 1740 Blood Gas pH (7.35 - 7.45 PH) 7.12 *L pCO2 (35 - 45 TORR) 49 H pO2 (80 - 100 TORR) 80 HCO3 (21 - 28 MEQ/L) 16 L ABG O2 Sat (Measured) (>96.0 %) 90.0 L P-50 (Temp Corrected) N Carboxyhemoglobin (1.5 - 5.0 %) 0.3 L O2 Concentration % 100 Respiration Rate (BPM) 28 O2 Delivery Method VENT Vent Mode A/C Expiratory Pressure (CMH2O/P) 15 Tidal Volume (CC) 400 Miscellaneous Phlebotomy Draw Site RIGHT RADIAL Other Body Source Fluid WBC (0 - 5 /CUMM) 68143 H Fld Total RBCs Counted (0 /CUMM) 1800 H Fluid Total Protein (g/dL) 5.3 Fluid LDH (U/L) Cancelled 6615 10/14 10/14 1518 1517 Chemistry Sodium (137 - 145 mmol/L) 134 L Potassium (3.5 - 5.1 mmol/L) 4.5 Chloride (98 - 107 mmol/L) 94 L Carbon Dioxide (22 - 30 mmol/L) 21 L Anion Gap (5 - 16) 20 H BUN (9 - 20 mg/dL) 48 H Creatinine (0.7 - 1.2 mg/dL) 4.9 H Estimated GFR (>60 ml/min) 13 L BUN/Creatinine Ratio (7 - 25 %) 9.8 Glucose (65 - 99 mg/dL) 109 H Lactic Acid (0.7 - 2.1 mmol/L) 1.2 Calcium (8.4 - 10.2 mg/dL) 7.7 L Total Bilirubin (0.2 - 1.3 mg/dL) 0.9 Direct Bilirubin (< 0.4 mg/dL) 0.9 H AST (17 - 59 U/L) 48 ALT (21 - 72 U/L) 32 Alkaline Phosphatase (< 127 U/L) 142 H Lactate Dehydrogenase (313 - 618 U/L) 833 H Troponin I (<0.11 ng/ml) < 0.01 Total Protein (6.3 - 8.2 g/dL) 6.3 Albumin (3.5 - 5.0 g/dL) 3.1 L Coagulation PT (9.4 - 12.5 SEC) 15.2 H INR (0.90 - 1.17) 1.39 H APTT (25 - 37 SEC) 33 Hematology CBC w Diff MAN DIFF ORDERED WBC (4.8 - 10.8 /CUMM) 14.7 H RBC (4.70 - 6.10 /CUMM) 4.31 L Hgb (14.0 - 18.0 G/DL) 12.3 L Hct (42 - 52 %) 36.3 L MCV (80.0 - 94.0 FL) 84.2 MCH (27.0 - 31.0 PG) 28.6 MCHC (33.0 - 37.0 G/DL) 34.0 RDW (11.5 - 14.5 %) 16.9 H Plt Count (130 - 400 /CUMM) 496 H MPV (7.4 - 10.4 FL) 7.3 L Gran % (42.2 - 75.2 %) 91.5 H Lymphocytes % (20.5 - 51.1 %) 4.6 L Monocytes % (1.7 - 9.3 %) 3.0 Eosinophils % (0 - 5 %) 0.9 Basophils % (0.0 - 2.0 %) 0 Absolute Granulocytes (1.4 - 6.5 /CUMM) 13.5 H Segmented Neutrophils (42.2 - 75.2 %) 96 H Band Neutrophils (0.0 - 5.0 %) 3 Absolute Lymphocytes (1.2 - 3.4 /CUMM) 0.7 L Lymphocytes (20.5 - 51.1 %) 1 L Absolute Monocytes (0.10 - 0.60 /CUMM) 0.4 Absolute Eosinophils (0.0 - 0.7 /CUMM) 0.1 Absolute Basophils (0.0 - 0.2 /CUMM) 0 Platelet Estimate (ADEQUATE) VERIFIED BY SMEAR Polychromasia 1+ Anisocytosis 1+ Other Body Source Fld Total RBCs Counted (%) 100 Serology HIV 1&2 Ab Western Blot (NONREACTIVE) NONREACTIVE
--- NOTE | 2017-10-16 14:07 | Sepsis Event Note ---
Sepsis Event Note Severe Sepsis Severe Sepsis Present: Yes Severe Sepsis Actions Taken: Blood Cultures x2, Lactic Acid x2, IV Broad Spectrum Abx, IV Fluids- NS or LR Septic Shock Septic Shock Present: No Sepsis Focused Exam Sepsis Cardiac Exam: Tachycardia Sepsis Resp Exam: Rales Sepsis Cap Refill Exam: >2 sec Sepsis Peripheral Pulse Exam: Bounding Sepsis Peripheral Pulse Location: Radial Sepsis Skin Exam (color): Normal for Ethnicity Skin Temp/Moisture Exam: Warm/Dry
[2017-10-16 16:00] VITALS: BP 110/64
[2017-10-16 23:00] VITALS: BP 140/70
[2017-10-17 04:28] LABS: HEMATOCRIT 25.1 % (42-52); MEAN CORPUSCULAR HGB 28.5 PG (27.0-31.0); MEAN PLATELET VOLUME 6.6 FL (7.4-10.4); RBC DISTRIBUTION WIDTH 18.1 % (11.5-14.5)
[2017-10-17 04:34] LABS: PLATELET COUNT 410 /CUMM (130-400); RED BLOOD CELL CT 2.98 /CUMM (4.70-6.10); WHITE BLOOD CELL COUNT 13.5 /CUMM (4.8-10.8)
--- NOTE | 2017-10-17 07:25 | PN- Resident CRCU ---
Subjective HPI/CRCU Issues: No acute events overnight. Tried to ween off popofol but patient became agitated. Restarting propofol. Family meeting today between ex- and girlfriend and Amalia. Girlfriend is POA. Objective Vital Signs & I&O Last 8 Hrs of Vitals and I&O: Laboratory Tests 10/17/17 1300: Sodium Cancelled, Potassium Cancelled, Chloride Cancelled, Carbon Dioxide Cancelled, Anion Gap Cancelled, BUN Cancelled, Creatinine Cancelled, BUN/ Creatinine Ratio Cancelled 10/17/17 1300: Anion Gap 11, Estimated GFR > 60, Glucose 103 H, Calcium 7.1 L, Phosphorus 2.3 L, Magnesium 1.5 L, Total Bilirubin 0.5, AST 27, ALT 64, Albumin 2.0 L 10/17/17 1253: pH 7.45, pCO2 30 L, pO2 78 L, HCO3 21, ABG O2 Sat (Measured) 95.0 L, P-50 ( Temp Corrected) N, Carboxyhemoglobin 0.3 L, O2 Concentration % 50%, Temperature 98.7, Respiration Rate 22, O2 Delivery Method VENT, Vent Mode VC-AC, Expiratory Pressure 10, Tidal Volume 500, Phlebotomy Draw Site A-LINE 10/17/17 0610: pH 7.40, pCO2 32 L, pO2 83, HCO3 19 L, ABG O2 Sat (Measured) 95.0 L, P-50 ( Temp Corrected) N, Carboxyhemoglobin 0.3 L, O2 Concentration % .55, Respiration Rate 28, O2 Delivery Method VENT, Vent Mode A/C, Expiratory Pressure 15, Tidal Volume 380, Phlebotomy Draw Site MANPREET 10/17/17 0500: Lactic Acid 1.7 10/17/17 0357: Anion Gap 12, Estimated GFR 44 L, Glucose 95, Calcium 8.0 L, Phosphorus 2.4 L , Magnesium 1.7, Total Bilirubin 0.4, Direct Bilirubin 0.3, AST 49, ALT 80 H, Alkaline Phosphatase 98, Creatine Kinase 35 L, Total Protein 4.9 L, Albumin 2.3 L, Triglycerides 311 H, CBC w Diff MAN DIFF ORDERED, RBC 2.98 L, MCV 84.0 , MCH 28.5, MCHC 34.0, RDW 18.1 H, MPV 6.6 L, Segmented Neutrophils 81 H, Band Neutrophils 4, Lymphocytes 11 L, Monocytes 3, Eosinophils 1, Nucleated RBCs 1 H, Platelet Estimate INCREASED, Hypochromic-Microcytic 1+, Ovalocytes 1+ Vital Signs Date Time Temp Pulse Resp B/P B/P Pulse O2 O2 Flow FiO2 Mean Ox Delivery Rate / 1347 50 06/ 1200 94 Ventilator 50% / 1154 50 06/04 0919 50 06/04 0817 50 06/04 0800 95 Ventilator 55% / 0800 98.7 114 26 110/60 95 Ventilator 55% Intake & Output 10/17 1600 Intake Total Output Total Balance Patient 199 lb Weight Intake & Output 10/17 1600 Intake Total Output Total Balance Patient 199 lb Weight Exam General Appearance: sedated Respiratory: coarse breath sounds Cardiovascular: tachycardia Gastrointestinal: decreased bowel sounds Extremities: RLE slightly larger than left, lower extremity swelling but non pitting Current Medications: Current Medications Sig/Sara Start time Last Medication Dose Route Stop Time Status Admin Acetaminophen 1,000 MG Q8P PRN 10/17 0515 10/17 N/A 1 UNIT IV 10/18 0514 0525 Albuterol Sulfate 3 ML EVERY 4 HRS/AWAKE / 1200 AC 10/17 INH 1159 Ampicillin Sodium/ 3,000 MG Q8H / 1800 AC 10/17 Sulbactam Sodium IV 1001 Sodium Chloride 100 ML Fentanyl Citrate 1,000 MCG Q5H / 2245 10/17 Dextrose/Water 250 ML IV 0706 Heparin Sodium 5,000 UNIT Q8 / 2200 AC 10/17 (Porcine) SC 1547 Lactated Ringer's 1,000 ML Q20H /03 1230 10/17 IV 1003 Lorazepam 100 MG Q12H / 0800 AC / Dextrose/Water 500 ML IV 0901 Lorazepam 100 MG Q24H / 1730 DC / Dextrose/Water 500 ML IV 2001 Lorazepam 50 MG Q24H / 0845 DC / Dextrose/Water 500 ML IV 0949 Magnesium Sulfate 1 GM ONCE ONE 10/17 1445 AC / Dextrose/Water 100 ML IV / 1844 1549 Magnesium Sulfate 1 GM ONCE ONE / 0730 VT / Dextrose/Water 100 ML IV / 1129 0858 Morphine Sulfate 4 MG Q6-PRN PRN 10/14 1915 AC 06/ IV 0303 Pantoprazole Sodium 40 MG DAILY 10/14 2014 AC /04 IV 0901 Phosphate 250 MG 0930 / 0930 DC / PO / 0931 0930 Phosphate 250 MG ONCE ONE / 0515 DC / PO / 0516 0800 Potassium Chloride 20 MEQ Q1H 10/17 1515 AC 06/ IV / 1616 1415 Potassium Chloride 40 MEQ ONCE ONE 10/17 1515 DC / PO / 1516 1547 Potassium Chloride 20 MEQ ONCE ONE 10/17 0730 DC 06/04 IV / 0731 0901 Potassium Chloride 60 MEQ ONCE ONE / 0515 DC / PO / 0516 0525 Propofol 1,000 MG Q6H 10/15 0615 AC 10/17 N/A 1 UNIT IV 1332 Impression/Plan Impression/Problem List Impression: 42-year-old male with significant history of polysubstance abuse including cocaine, migraines, hypertension, previous diabetes not on medications lately presented with progressive worsening of shortness of breath since around a month with outpatient antimicrobial failure. In the ED he found to have purulent phlegm production with productive cough tripoding despite on 100% FiO2. Vital signs at presentation afebrile, heart rate 97, blood pressure 109/56 mmHg, saturating 85% on 6 L. Labs did show white count of 14.7, H&H 12/36, platelet count 496, chemistry sodium 134, potassium 4.5, BUN/creatinine 48/4.9, GFR 13, calcium 7.7, bilirubin 0.9, ALP 142, HIV nonreactive. Normal lactic. Thoracentesis was done in the ER with draining 400 mL of purulent fluid. Pleural fluid analysis did show white count of 22,400, RBC 1800, total protein 5.3, LDH 6615. Blood cultures and sputum cultures - NGTD Problem list 1. Severe ARDS on low TV and high PEEP ventilation. Multilobar pna 2. Acute renal failure 3. Hydropneumothorax with trapped lung 4. Methadone maintenence 5. HTN 6. Bipolar disorder 7. Polysubstance abuse PLAN Respiratory #ARDS with low TV, high PEEP protocol with goal Plateau pressure <30 cm H2o. Multilobar pna Respiratory acidosis on his improving with vent -reduce PEEP, increase TV -check ekg for qtc for haldol -monitor cr for possible CT chest with contrast -f/u with IR for possible pigtail -cont IVF. IV PPI while on vent Infectious #Multilobar pneumonia Intially started on broad spectrum with IV Zosyn/IV azithro/IV vanco. Cultures growing alpha strep WBC improving CXR shows improving pna -?Area of necrotizing pna vs lung tissue. Need CT chest with contrast to help clarify -switched to unasyn -follow ID recommendations -follow final cultures Cardiovascular Tachycardia most likely secondary to ifnection ECHO unremarkable -cont to monitor Hematology Metablolic #Electrolytes Monitor K, Mg, phos -replete as needed Acute renal failure Cr 4.9 upon admission current Cr 1.7 -Ultrasound ruled out post renal causes. Likely related to sepsis with ATN/ Prerenal. -cont IVF Alimentary -cont NGTube Neuro #sedation Currently on IV fentanyl and IV propofol and IV ativan -wean off IV ativan and fentanyl if precedex availible -daily amylase, lipase, lipids, lft while on propofol #History of bipolar disorder He was on seroquel, currently holding all the home medications. DVT prophylaxis SC heparin Code status Full Code Problem List: 1. ARDS (adult respiratory distress syndrome) 2. Community acquired pneumonia Pain Ratin Tomorrow's Labs & Rationales: icu cbc lft lipids amylase lipase Plan DVT/Prophylaxis: mechanical, pharmacological
[2017-10-17 08:00] VITALS: BP 110/60
--- NOTE | 2017-10-17 08:37 | RADIOLOGY REPORT ---
EXAMINATION: XR PORTABLE CHEST CLINICAL INFORMATION: Intubated. COMPARISON: Several prior chest x-rays, most recent of which is dated 10/16/2017. TECHNIQUE: Portable AP semierect view of the chest was obtained. FINDINGS: Evaluation is limited as the lung apices are not fully included. Endotracheal tube tip is 6.3 cm above the mahendra. Enteric tube courses into the left upper quadrant with tip not included. Several EKG leads overlie the chest. Right jugular central venous line is in the mid SVC, unchanged. The cardiomediastinal silhouette is within normal limits in size. Low lung volumes are again noted with extensive pleural-parenchymal cystic changes and opacity in the right mid and lower lung, unchanged when compared to the prior exam from 10/16/2017, but improved when compared to the CT scan of the chest from 10/14/2017. There is also improvement in the left perihilar and retrocardiac opacity with residual density remaining with associated air bronchograms. Small right-sided pleural effusion remains in the right lung base, unchanged. Included bony structures are unremarkable. IMPRESSION: 1. Endotracheal tube tip approximately 6.3 cm above the mahendra. 2. Enteric tube extends into the left upper quadrant with tip not included. 3. Right jugular central venous line tip in mid SVC. 4. No significant change in extensive pleural-parenchymal cystic changes and associated small effusion in the right lung. 5. Improving opacities in the left perihilar and retrocardiac left lung.
--- NOTE | 2017-10-17 09:43 | PN- CRCU ---
Subjective HPI/Critical Care Issues: Doing a little better, oxygenation is better. Patient is now off paralysis now deeply sedated He is febrile now to 101.6 other history could not be obtained On high-dose fentanyl, Ativan and Haldol No significant secretions from the ET tube Creatinine 1.7 Potassium 2.8 Phosphorus low Calcium low Liver enzymes are improving White count 13.5 hemoglobin 8.5 platelets 410 ABG reviewed 7. Chest x-ray reviewed which showed endotracheal tube about 6.3 cm above mahendra probably should be advanced IJ in place Significant pleural parenchymal cystic changes in the right lung improving left- sided opacity renal ultrasound unremarkable Cultures so far is growing alpha strep Objective Current Medications: Current Medications Sig/Sara Start time Last Medication Dose Route Stop Time Status Admin Acetaminophen 1,000 MG Q8P PRN 10/17 0515 10/17 N/A 1 UNIT IV 10/18 0514 0525 Albuterol Sulfate 3 ML EVERY 4 HRS/AWAKE / 1200 10/17 INH 0802 Ampicillin Sodium/ 3,000 MG Q8H 10/16 1800 10/17 Sulbactam Sodium IV 0214 Sodium Chloride 100 ML Ampicillin Sodium/ 3,000 MG Q8 10/16 0820 DC 10/16 Sulbactam Sodium IV 1000 Sodium Chloride 100 ML Fentanyl Citrate 1,000 MCG Q5H / 2245 10/17 Dextrose/Water 250 ML IV 0706 Heparin Sodium 5,000 UNIT Q8 10/14 2200 10/17 (Porcine) SC 0528 Lactated Ringer's 1,000 ML Q20H / 1230 10/16 IV 2247 Lactated Ringer's 1,000 ML Q13H / 1045 OH 10/16 IV 0627 Lorazepam 100 MG Q12H / 0800 10/17 Dextrose/Water 500 ML IV 0901 Lorazepam 100 MG Q24H / 1730 OH / Dextrose/Water 500 ML IV 2001 Lorazepam 50 MG Q24H / 0845 OH / Dextrose/Water 500 ML IV 0949 Magnesium Sulfate 1 GM ONCE ONE 10/17 0730 10/17 Dextrose/Water 100 ML IV 10/17 1129 0858 Morphine Sulfate 4 MG Q6-PRN PRN 10/14 1915 10/17 IV 0303 Pantoprazole Sodium 40 MG DAILY 10/14 2014 AC 10/17 IV 0901 Phosphate 250 MG 0930 10/17 0930 DC PO 10/17 0931 Phosphate 250 MG ONCE ONE 10/17 514 DC PO 10/17 0516 Potassium Chloride 20 MEQ ONCE ONE 10/17 729 DC 10/17 IV 10/17 0731 0901 Potassium Chloride 60 MEQ ONCE ONE 10/17 0415 DC 10/17 PO 10/17 0516 0525 Propofol 1,000 MG Q6H 10/15 614 AC 10/17 N/A 1 UNIT IV 0056 Vital Signs & I&O Last 24 Hrs of Vitals and I&O: Vital Signs Date Time Temp Pulse Resp B/P B/P Pulse O2 O2 Flow FiO2 Mean Ox Delivery Rate 10/17 0919 50 10/17 0817 50 10/17 0630 55 10/17 0618 100.0 10/17 0525 101.6 10/17 0400 93 Ventilator 55% 10/17 0317 55 10/17 0008 55 / 0000 92 Ventilator 55% 10/16 2300 99.5 109 32 140/70 92 Ventilator 55% 10/16 2224 55 10/16 2000 94 Ventilator 55% / 1909 55 / 1600 50 /03 1600 98.2 90 30 110/64 88 Ventilator 50% / 1600 88 Ventilator 50% / 1410 50 /03 1200 94 Ventilator 50% /03 1135 55 Intake & Output / 1600 /04 0800 /04 0000 Intake Total 1463 1489 Output Total 1750 1130 Balance -287 359 Intake, IV 1463 1489 Number 0 0 Bowel Movements Output, 250 50 Gastric Drainage Output, Urine 1500 1080 Patient 199 lb 199 lb Weight Weight Bed scale Measurement Method Impression/Plan Impression/Plan Impression/Plan: This is a gentleman with history of polysubstance abuse in the past, on methadone replacement, hypertension, hyperlipidemia, chronic prednisone use in the recent past, hypoadrenalism, migraine, cocaine abuse in the past, history of intravenous drug abuse, bipolar disorder, on multiple medications, ongoing smoking, previous admission to this hospital with altered mental status, has had a few emergency room visits in the recent past few days. Now with severe ARDS and necrotizing pna with empyema with trapped lung with large hydropneumothorax INtubated and sedated and Pupils reacting small pupils Obese gentleman with tattoos IJ cath in place Hecker placed today No significant JVD Chest decreased breath sounds with significant bronchial breathing on the right side with rhonchi diffusely Heart S1 and S2 was heard no murmur could be appreciated but he had significant rhonchi Abdominal exam obese nontender full abdominal exam could not be done as he was unable to lay flat No significant edema or needle cronin noted. IMPRESSION This is a gentleman with previous history of polysubstance abuse now on methadone, bipolar disorder, ongoing smoking, now here with * Resolving necrotizing strep pna with resolving Severe ARDS with severe bilateral multilobar pna due to prob strep with empyema (s/p drained initially 400 cc) with hydropneumothorax with trapped lung. INtubated and sedated and paralysed initially now on ards protocol for vent (will be liberated from it) * Trapped lung and hydropneumothorax which would need drainage * Resolving Acute renal failure in a patient with sepsis with atn (was on ACI and metformin aswell) * History of Diabetes on metformin * Methadone use high risk for withdrawal * Recent steroid use hence immunosuppressed * Bipolar disorder, hypo-testosterone, multiple other issues including polysubstance use and smoking * History of Hyperlipidemia, hypertension, previous chest pain chest discomfort. RECOMMENDATION REduce PEEP, increase tidal volume Advance ETT by 2 cm CVP goal 8 Pt is getting adequate fluids Replace potassium as Kphos iv Check qtc, after 2 grams iv mag and pt may need haldol prn See if we can get precedex and if so start (watch for mary) and wean off ativan and reduce fentanyl Ask IR to see if we could do a pig tail today or wait till we do a ct chest with iv c in am if creat is down Cont Proton pump inhibitor and heparin sub cut Discussed with ID Pt critically ill DIscussed with girl friend at the bedside TTS 60 mins PT had explicitly told me that his girl friend should be the surrogate decision maker
--- NOTE | 2017-10-17 10:26 | PN- Nephrology ---
Assessment/Plan Nephrology Assessment: Acute kidney injury: I suspect prerenal azotemia from volume depletion exacerbated by having been on NSAIDs. Fortunately renal status improving with IV hydration. Cannot rule out element of ATN however excellent urine output and improving creatinine support for prerenal picture. Possible chronic kidney disease: Baseline creatinine was 1.1-1.2, which may be due to hypertensive nephrosclerosis. He was never on lithium before. Suggestion: continue gentle IV hydration per ICU team daily renal labs hold off on IV contrast a bit longer if possible as remains at high risk for contrast nephropathy; if creatinine continues to improve then tomorrow IV contrast may be considered D/w Dr Watts & residents Subjective Subjective: remains intubated good UO, 2.8L/24 hrs creat improving; down to 1.7 K low at 2.8; was repleted Review of Systems: unable to obtain as intubated/sedated Objective Vital Signs and I&Os Vital Signs Date Time Temp Pulse Resp B/P B/P Pulse O2 O2 Flow FiO2 Mean Ox Delivery Rate 10/17 0919 50 06/04 0817 50 06/ 0800 98.7 114 26 110/60 95 Ventilator 55% 06/04 0630 55 06/04 0618 100.0 06/04 0525 101.6 06/04 0400 93 Ventilator 55% 06/04 0317 55 06/04 0008 55 06/04 0000 92 Ventilator 55% 06/03 2300 99.5 109 32 140/70 92 Ventilator 55% 06/03 2224 55 06/03 2000 94 Ventilator 55% 06/03 1909 55 06/03 1600 50 06/03 1600 98.2 90 30 110/64 88 Ventilator 50% 06/03 1600 88 Ventilator 50% 06/03 1410 50 06/03 1200 94 Ventilator 50% 06/03 1135 55 Intake & Output 06/04 1600 06/04 0400 06/03 1600 06/03 0400 06/02 1600 06/02 0400 Intake Total 1463 1489 2731 2125 2667 163 Output Total 1750 1130 5717 358 5259 550 Balance -287 399 310 6296 477 -387 Intake, IV 1463 1489 2731 2125 2667 163 Number 0 0 0 0 0 0 Bowel Movements Output, 250 50 60 50 Gastric Drainage Output, Urine 1500 1080 3999 928 2048 500 Patient 199 lb 198 lb 178 lb Weight Weight Bed scale Bed scale Bed scale Measurement Method Physical Exam: General: NAD, A+O x3. int/sedated HEENT: NC/AT. No icterus. Moist mucosa Neck: negative for JACQUE, JVD CV: RRR, no m/r/g Pulm:Course BS Abd: soft, NT/ND, negative renal bruits Lower Ext:trace edema Neuro: neg tremor, asterixis Skin: no rash, jaundice : + bowman catheter Current Medications: Current Medications Sig/Sara Start time Last Medication Dose Route Stop Time Status Admin Acetaminophen 1,000 MG Q8P PRN 10/17 0515 10/17 N/A 1 UNIT IV 10/18 0514 0525 Albuterol Sulfate 3 ML EVERY 4 HRS/AWAKE / 1200 10/17 INH 0802 Ampicillin Sodium/ 3,000 MG Q8H / 1800 10/17 Sulbactam Sodium IV 1001 Sodium Chloride 100 ML Ampicillin Sodium/ 3,000 MG Q8 10/16 0820 MI 10/16 Sulbactam Sodium IV 1000 Sodium Chloride 100 ML Fentanyl Citrate 1,000 MCG Q5H / 2245 10/17 Dextrose/Water 250 ML IV 0706 Heparin Sodium 5,000 UNIT Q8 / 2200 10/17 (Porcine) SC 0528 Lactated Ringer's 1,000 ML Q20H / 1230 10/17 IV 1003 Lactated Ringer's 1,000 ML Q13H / 1045 MI 10/16 IV 0627 Lorazepam 100 MG Q12H 10/17 0800 10/17 Dextrose/Water 500 ML IV 0901 Lorazepam 100 MG Q24H / 1730 MI / Dextrose/Water 500 ML IV 2001 Lorazepam 50 MG Q24H / 0845 MI / Dextrose/Water 500 ML IV 0949 Magnesium Sulfate 1 GM ONCE ONE 10/17 0730 10/17 Dextrose/Water 100 ML IV 10/17 1129 0858 Morphine Sulfate 4 MG Q6-PRN PRN 10/14 1915 10/17 IV 0303 Pantoprazole Sodium 40 MG DAILY 10/14 2014 AC 10/17 IV 0901 Phosphate 250 MG 0930 10/17 0930 DC PO 10/17 0931 Phosphate 250 MG ONCE ONE 06/514 DC PO 10/18 515 Potassium Chloride 20 MEQ ONCE ONE 10/17 729 DC 10/17 IV 10/17 0731 0901 Potassium Chloride 60 MEQ ONCE ONE 10/17 514 DC 10/17 PO 10/18 515 0525 Propofol 1,000 MG Q6H 10/15 614 AC 10/17 N/A 1 UNIT IV 0056 Results Pertinent Lab Results: Laboratory Tests 10/17 10/17 10/17 10/16 0610 0500 0357 0600 Blood Gas pH (7.35 - 7.45 PH) 7.40 7.23 *L pCO2 (35 - 45 TORR) 32 L 50 H pO2 (80 - 100 TORR) 83 91 HCO3 (21 - 28 MEQ/L) 19 L 20 L ABG O2 Sat (Measured) (>96.0 %) 95.0 L 96.0 P-50 (Temp Corrected) N N Carboxyhemoglobin (1.5 - 5.0 %) 0.3 L 0.2 L O2 Concentration % .55 .80 Respiration Rate (BPM) 28 28 O2 Delivery Method VENT VENT Vent Mode A/C A/C Expiratory Pressure (CMH2O/P) 15 15 Tidal Volume (CC) 380 380 Chemistry Sodium (137 - 145 mmol/L) 140 Potassium (3.5 - 5.1 mmol/L) 2.8 *L Chloride (98 - 107 mmol/L) 107 Carbon Dioxide (22 - 30 mmol/L) 21 L Anion Gap (5 - 16) 12 BUN (9 - 20 mg/dL) 26 H Creatinine (0.7 - 1.2 mg/dL) 1.7 H Estimated GFR (>60 ml/min) 44 L Glucose (65 - 99 mg/dL) 95 Lactic Acid (0.7 - 2.1 mmol/L) 1.7 Calcium (8.4 - 10.2 mg/dL) 8.0 L Phosphorus (2.5 - 4.5 mg/dL) 2.4 L Magnesium (1.6 - 2.3 mg/dL) 1.7 Total Bilirubin (0.2 - 1.3 mg/dL) 0.4 Direct Bilirubin (< 0.4 mg/dL) 0.3 AST (17 - 59 U/L) 49 ALT (21 - 72 U/L) 80 H Alkaline Phosphatase (< 127 U/L) 98 Creatine Kinase (55 - 170 U/L) 35 L Total Protein (6.3 - 8.2 g/dL) 4.9 L Albumin (3.5 - 5.0 g/dL) 2.3 L Triglycerides (<150 mg/dL) 311 H Hematology CBC w Diff MAN DIFF ORDERED WBC (4.8 - 10.8 /CUMM) 13.5 H RBC (4.70 - 6.10 /CUMM) 2.98 L Hgb (14.0 - 18.0 G/DL) 8.5 L Hct (42 - 52 %) 25.1 L MCV (80.0 - 94.0 FL) 84.0 MCH (27.0 - 31.0 PG) 28.5 MCHC (33.0 - 37.0 G/DL) 34.0 RDW (11.5 - 14.5 %) 18.1 H Plt Count (130 - 400 /CUMM) 410 H MPV (7.4 - 10.4 FL) 6.6 L Segmented Neutrophils (42.2 - 75.2 %) 81 H Band Neutrophils (0.0 - 5.0 %) 4 Lymphocytes (20.5 - 51.1 %) 11 L Monocytes (1.7 - 9.3 %) 3 Eosinophils (0 - 5.0 %) 1 Nucleated RBCs (0.0 - 0.0 /100WBC) 1 H Platelet Estimate (ADEQUATE) INCREASED Hypochromic-Microcytic 1+ Ovalocytes 1+ Miscellaneous Phlebotomy Draw Site [facility] 10/16 10/16 0420 0015 Blood Gas pH (7.35 - 7.45 PH) 7.19 *L pCO2 (35 - 45 TORR) 51 H pO2 (80 - 100 TORR) 77 L HCO3 (21 - 28 MEQ/L) 19 L ABG O2 Sat (Measured) (>96.0 %) 92.0 L P-50 (Temp Corrected) N Carboxyhemoglobin (1.5 - 5.0 %) 0.3 L O2 Concentration % .80 Respiration Rate (BPM) 28 O2 Delivery Method VENT Vent Mode A/C Expiratory Pressure (CMH2O/P) 15 Tidal Volume (CC) 380 Chemistry Sodium (137 - 145 mmol/L) 141 Potassium (3.5 - 5.1 mmol/L) 3.8 Chloride (98 - 107 mmol/L) 106 Carbon Dioxide (22 - 30 mmol/L) 21 L Anion Gap (5 - 16) 14 BUN (9 - 20 mg/dL) 38 H Creatinine (0.7 - 1.2 mg/dL) 2.5 H Estimated GFR (>60 ml/min) 28 L Glucose (65 - 99 mg/dL) 131 H Calcium (8.4 - 10.2 mg/dL) 6.9 L Phosphorus (2.5 - 4.5 mg/dL) 5.9 H Magnesium (1.6 - 2.3 mg/dL) 2.3 Total Bilirubin (0.2 - 1.3 mg/dL) 0.4 AST (17 - 59 U/L) 155 H ALT (21 - 72 U/L) 117 H Albumin (3.5 - 5.0 g/dL) 2.4 L Coagulation PT (9.4 - 12.5 SEC) 13.4 H INR (0.90 - 1.17) 1.23 H Hematology CBC w Diff NO MAN DIFF REQ WBC (4.8 - 10.8 /CUMM) 14.9 H RBC (4.70 - 6.10 /CUMM) 3.14 L Hgb (14.0 - 18.0 G/DL) 9.0 L Hct (42 - 52 %) 26.6 L MCV (80.0 - 94.0 FL) 84.8 MCH (27.0 - 31.0 PG) 28.7 MCHC (33.0 - 37.0 G/DL) 33.9 RDW (11.5 - 14.5 %) 17.9 H Plt Count (130 - 400 /CUMM) 401 H MPV (7.4 - 10.4 FL) 6.9 L Miscellaneous Phlebotomy Draw Site [facility] Toxic[facility] Vancomycin Trough (10.0 - 20.0 ug/mL) 15.3 06/03 06/02 0005 1930 Hematology CBC w Diff MAN DIFF ORDERED MAN DIFF ORDERED WBC (4.8 - 10.8 /CUMM) 14.3 H 11.2 H RBC (4.70 - 6.10 /CUMM) 3.16 L 3.01 L Hgb (14.0 - 18.0 G/DL) 9.1 L 8.6 L Hct (42 - 52 %) 26.6 L 25.5 L MCV (80.0 - 94.0 FL) 84.1 84.8 MCH (27.0 - 31.0 PG) 28.7 28.4 MCHC (33.0 - 37.0 G/DL) 34.2 33.5 RDW (11.5 - 14.5 %) 17.8 H 18.3 H Plt Count (130 - 400 /CUMM) 363 349 MPV (7.4 - 10.4 FL) 6.7 L 6.9 L Segmented Neutrophils (42.2 - 75.2 %) 73 76 H Band Neutrophils (0.0 - 5.0 %) 13 H 14 H Lymphocytes (20.5 - 51.1 %) 10 L 7 L Monocytes (1.7 - 9.3 %) 4 2 Metamyelocytes (0.0 - 1.0 %) 1 Platelet Estimate (ADEQUATE) ADEQUATE ADEQUATE Normocytic RBCs VERIFIED Normochromic RBCs VERIFIED Poikilocytosis 1+ Anisocytosis 1+ Microcytic Cells 1+ Ovalocytes FEW Cassy Cells FEW Elliptocytes FEW 10/15 10/15 10/15 1850 1100 0455 Blood Gas pH (7.35 - 7.45 PH) 7.29 *L 7.20 *L pCO2 (35 - 45 TORR) 39 47 H pO2 (80 - 100 TORR) 100 87 HCO3 (21 - 28 MEQ/L) 18 L 18 L ABG O2 Sat (Measured) (>96.0 %) 97.0 95.0 L P-50 (Temp Corrected) N Carboxyhemoglobin (1.5 - 5.0 %) 0.4 L 0 L O2 Concentration % 80% 90% Temperature (97.0 - 100.0 FARH) 97.5 Respiration Rate (BPM) 28 28 O2 Delivery Method ESPRIT VENT Vent Mode AC AC Expiratory Pressure (CMH2O/P) 15 15 Tidal Volume (CC) 380 380 Pressure Support (CMH2O/P) 0 Chemistry Sodium (137 - 145 mmol/L) 139 Potassium (3.5 - 5.1 mmol/L) 4.0 Chloride (98 - 107 mmol/L) 104 Carbon Dioxide (22 - 30 mmol/L) 19 L Anion Gap (5 - 16) 16 BUN (9 - 20 mg/dL) 41 H Creatinine (0.7 - 1.2 mg/dL) 3.9 H Estimated GFR (>60 ml/min) 17 L Glucose (65 - 99 mg/dL) 163 H Calcium (8.4 - 10.2 mg/dL) 6.6 L Phosphorus (2.5 - 4.5 mg/dL) 5.2 H Magnesium (1.6 - 2.3 mg/dL) 2.6 H Total Bilirubin (0.2 - 1.3 mg/dL) 0.6 AST (17 - 59 U/L) 73 H ALT (21 - 72 U/L) 52 Creatine Kinase (55 - 170 U/L) 43 L Albumin (3.5 - 5.0 g/dL) 2.4 L Cortisol AM Sample (4.46 - 22.7 ug/dL) 16.5 Hematology CBC w Diff MAN DIFF ORDERED WBC (4.8 - 10.8 /CUMM) 14.2 H RBC (4.70 - 6.10 /CUMM) 3.47 L Hgb (14.0 - 18.0 G/DL) 10.0 L Hct (42 - 52 %) 29.6 L MCV (80.0 - 94.0 FL) 85.4 MCH (27.0 - 31.0 PG) 28.9 MCHC (33.0 - 37.0 G/DL) 33.8 RDW (11.5 - 14.5 %) 17.2 H Plt Count (130 - 400 /CUMM) 391 MPV (7.4 - 10.4 FL) 6.8 L Segmented Neutrophils (42.2 - 75.2 %) 77 H Band Neutrophils (0.0 - 5.0 %) 13 H Lymphocytes (20.5 - 51.1 %) 9 L Metamyelocytes (0.0 - 1.0 %) 1 Platelet Estimate (ADEQUATE) ADEQUATE Normocytic RBCs VERIFIED Polychromasia 1+ Miscellaneous Phlebotomy Draw Site [facility] LEFT A LINE Toxicology Random Vancomycin (ug/ml) 11.1 0602 06 0610/14 0320 2328 2235 2200 Blood Gas pH (7.35 - 7.45 PH) 7.18 *L 7.14 *L pCO2 (35 - 45 TORR) 50 H 52 H pO2 (80 - 100 TORR) 77 L 79 L HCO3 (21 - 28 MEQ/L) 18 L 18 L ABG O2 Sat (Measured) (>96.0 %) 92.0 L 91.0 L P-50 (Temp Corrected) Y Carboxyhemoglobin (1.5 - 5.0 %) 0.1 L 0.3 L O2 Concentration % 100% 100 Temperature (97.0 - 100.0 FARH) 96.8 L Respiration Rate (BPM) 28 28 O2 Delivery Method ESPRIT VENT Vent Mode AC AC Expiratory Pressure (CMH2O/P) 15 15 Tidal Volume (CC) 400 400 Pressure Support (CMH2O/P) 0 Chemistry Serum Osmolality (285 - 295 MOSM/KG) 293 Lactic Acid (0.7 - 2.1 mmol/L) 0.8 Miscellaneous Phlebotomy Draw Site RIGHT RADIAL LEFT RADIAL 10/14 10/14 2200 2103 Chemistry Sodium (137 - 145 mmol/L) 135 L Potassium (3.5 - 5.1 mmol/L) 4.0 Chloride (98 - 107 mmol/L) 102 Carbon Dioxide (22 - 30 mmol/L) 17 L Anion Gap (5 - 16) 16 BUN (9 - 20 mg/dL) 43 H Creatinine (0.7 - 1.2 mg/dL) 4.2 H Estimated GFR (>60 ml/min) 16 L Glucose (65 - 99 mg/dL) 137 H Calcium (8.4 - 10.2 mg/dL) 6.3 L Phosphorus (2.5 - 4.5 mg/dL) 5.5 H Magnesium (1.6 - 2.3 mg/dL) 1.8 Total Bilirubin (0.2 - 1.3 mg/dL) 0.7 AST (17 - 59 U/L) 68 H ALT (21 - 72 U/L) 48 Albumin (3.5 - 5.0 g/dL) 2.4 L Toxicology Salicylates (0 - 20.0 mg/dL) < 1.0 Urine Opiates Screen (>2000 NG/ML) < 100 Methadone Screen (>300 NG/ML) > 735 H Barbiturate Screen (>200 NG/ML) < 60 Ur Phencyclidine Scrn (>25 NG/ML) < 6.00 Amphetamines Screen (>1000 NG/ML) < 100 U Benzodiazepines Scrn (>200 NG/ML) < 85 Urine Cocaine Screen (>300 NG/ML) < 50 Urine Cannabis Screen (>50 NG/ML) < 5.00 Urines Urine Color (YEL,AMB,STR) YEL Urine Clarity (CLEAR) CLEAR Urine pH (5.0 - 8.0) 6.0 Ur Specific Byron (1.001 - 1.035) 1.015 Urine Protein (NEG,<30 MG/DL) 30 H Urine Ketones (NEG) NEG Urine Nitrite (NEG) NEG Urine Bilirubin (NEG) NEG Urine Urobilinogen (0.1 - 1.0 EU/dl) 0.2 Ur Leukocyte Esterase (NEG) NEG Ur Microscopic SEDIMENT EXAMINED Urine RBC (0 - 5 /HPF) RARE Urine WBC (0 - 2 /HPF) 3-5 H Ur Epithelial Cells (NONE,FEW) RARE Urine Bacteria (NEG/NONE) RARE H Urine Hemoglobin (NEG) SMALL H Urine Glucose (N MG/DL) NEG 10/14 1950 1740 1740 Blood Gas pH (7.35 - 7.45 PH) 7.12 *L pCO2 (35 - 45 TORR) 49 H pO2 (80 - 100 TORR) 80 HCO3 (21 - 28 MEQ/L) 16 L ABG O2 Sat (Measured) (>96.0 %) 90.0 L P-50 (Temp Corrected) N Carboxyhemoglobin (1.5 - 5.0 %) 0.3 L O2 Concentration % 100 Respiration Rate (BPM) 28 O2 Delivery Method VENT Vent Mode A/C Expiratory Pressure (CMH2O/P) 15 Tidal Volume (CC) 400 Miscellaneous Phlebotomy Draw Site RIGHT RADIAL Other Body Source Fluid WBC (0 - 5 /CUMM) 25924 H Fld Total RBCs Counted (0 /CUMM) 1800 H Fluid Total Protein (g/dL) 5.3 Fluid LDH (U/L) Cancelled 6615 10/14 10/14 1518 1517 Chemistry Sodium (137 - 145 mmol/L) 134 L Potassium (3.5 - 5.1 mmol/L) 4.5 Chloride (98 - 107 mmol/L) 94 L Carbon Dioxide (22 - 30 mmol/L) 21 L Anion Gap (5 - 16) 20 H BUN (9 - 20 mg/dL) 48 H Creatinine (0.7 - 1.2 mg/dL) 4.9 H Estimated GFR (>60 ml/min) 13 L BUN/Creatinine Ratio (7 - 25 %) 9.8 Glucose (65 - 99 mg/dL) 109 H Lactic Acid (0.7 - 2.1 mmol/L) 1.2 Calcium (8.4 - 10.2 mg/dL) 7.7 L Total Bilirubin (0.2 - 1.3 mg/dL) 0.9 Direct Bilirubin (< 0.4 mg/dL) 0.9 H AST (17 - 59 U/L) 48 ALT (21 - 72 U/L) 32 Alkaline Phosphatase (< 127 U/L) 142 H Lactate Dehydrogenase (313 - 618 U/L) 833 H Troponin I (<0.11 ng/ml) < 0.01 Total Protein (6.3 - 8.2 g/dL) 6.3 Albumin (3.5 - 5.0 g/dL) 3.1 L Coagulation PT (9.4 - 12.5 SEC) 15.2 H INR (0.90 - 1.17) 1.39 H APTT (25 - 37 SEC) 33 Hematology CBC w Diff MAN DIFF ORDERED WBC (4.8 - 10.8 /CUMM) 14.7 H RBC (4.70 - 6.10 /CUMM) 4.31 L Hgb (14.0 - 18.0 G/DL) 12.3 L Hct (42 - 52 %) 36.3 L MCV (80.0 - 94.0 FL) 84.2 MCH (27.0 - 31.0 PG) 28.6 MCHC (33.0 - 37.0 G/DL) 34.0 RDW (11.5 - 14.5 %) 16.9 H Plt Count (130 - 400 /CUMM) 496 H MPV (7.4 - 10.4 FL) 7.3 L Gran % (42.2 - 75.2 %) 91.5 H Lymphocytes % (20.5 - 51.1 %) 4.6 L Monocytes % (1.7 - 9.3 %) 3.0 Eosinophils % (0 - 5 %) 0.9 Basophils % (0.0 - 2.0 %) 0 Absolute Granulocytes (1.4 - 6.5 /CUMM) 13.5 H Segmented Neutrophils (42.2 - 75.2 %) 96 H Band Neutrophils (0.0 - 5.0 %) 3 Absolute Lymphocytes (1.2 - 3.4 /CUMM) 0.7 L Lymphocytes (20.5 - 51.1 %) 1 L Absolute Monocytes (0.10 - 0.60 /CUMM) 0.4 Absolute Eosinophils (0.0 - 0.7 /CUMM) 0.1 Absolute Basophils (0.0 - 0.2 /CUMM) 0 Platelet Estimate (ADEQUATE) VERIFIED BY SMEAR Polychromasia 1+ Anisocytosis 1+ Other Body Source Fld Total RBCs Counted (%) 100 Serology HIV 1&2 Ab Western Blot (NONREACTIVE) NONREACTIVE
--- NOTE | 2017-10-17 10:47 | PN- Cardiology ---
Subjective Subjective: The patient continues to be intubated and sedated. He is noted to have fevers to 101.6. No further SVT is seen on telemetry. Oxygenation is improving on the ventilator. Objective Vital Signs and I&Os Vital Signs Date Time Temp Pulse Resp B/P B/P Pulse O2 O2 Flow FiO2 Mean Ox Delivery Rate 10/17 0819 50 06/04 0817 50 / 0800 95 Ventilator 55% / 0800 98.7 114 26 110/60 95 Ventilator 55% 06/04 0630 55 /04 0618 100.0 06/ 0525 101.6 06/ 0400 93 Ventilator 55% 06/04 0317 55 06/04 0008 55 06/04 0000 92 Ventilator 55% 06/03 2300 99.5 109 32 140/70 92 Ventilator 55% 06/03 2224 55 06/ 2000 94 Ventilator 55% 06/03 1909 55 06/03 1600 50 06/03 1600 98.2 90 30 110/64 88 Ventilator 50% 06/03 1600 88 Ventilator 50% 06/03 1410 50 06/03 1200 94 Ventilator 50% 06/03 1135 55 Intake & Output / 1600 06/04 0800 06/04 0000 06/03 1600 06/03 0800 06/03 0000 Intake Total 1463 1489 1360 1371 2125 Output Total 1750 1130 900 885 590 Balance -287 359 548 029 6517 Intake, IV 1463 1489 1360 1371 2125 Number 0 0 0 0 Bowel Movements Output, 250 50 Gastric Drainage Output, Urine 1500 1080 900 885 590 Patient 199 lb 199 lb 198 lb Weight Weight Bed scale Bed scale Measurement Method Physical Exam: General Appearance: well developed/nourished, overweight, sedated, intubated Head: normal HEENT: Normal Neck: supple, JVP appears normal, carotid upstrokes normal bilaterally, no masses or thyromegaly Respiratory: chest non-tender, diffuse bilateral rhonchi with decreased breath sound Cardiovascular: regular rate/rhythm, normal S1, S2, 1/6 systolic murmur Abdomen: normal bowel sounds, soft, non-tender Extremities: normal inspection, no edema Vascular: Pulses are 2+ and equal bilaterally Neurologic: Grossly normal/nonfocal Current Medications: Current Medications Sig/Sara Start time Last Medication Dose Route Stop Time Status Admin Acetaminophen 1,000 MG Q8P PRN 10/17 514 10/17 N/A 1 UNIT IV 10/18 0514 0525 Albuterol Sulfate 3 ML EVERY 4 HRS/AWAKE 10/15 1200 AC 10/17 INH 0802 Ampicillin Sodium/ 3,000 MG Q8H 10/16 1800 AC 10/17 Sulbactam Sodium IV 1001 Sodium Chloride 100 ML Ampicillin Sodium/ 3,000 MG Q8 10/16 0820 DC 10/16 Sulbactam Sodium IV 1000 Sodium Chloride 100 ML Fentanyl Citrate 1,000 MCG Q5H 10/15 2245 AC 10/17 Dextrose/Water 250 ML IV 0706 Heparin Sodium 5,000 UNIT Q8 10/14 2200 AC 10/17 (Porcine) SC 0528 Lactated Ringer's 1,000 ML Q20H 10/16 1230 10/17 IV 1003 Lactated Ringer's 1,000 ML Q13H 10/15 1045 DC 10/16 IV 0627 Lorazepam 100 MG Q12H 10/17 0800 10/17 Dextrose/Water 500 ML IV 0901 Lorazepam 100 MG Q24H 10/16 1730 DC 10/16 Dextrose/Water 500 ML IV 2001 Lorazepam 50 MG Q24H 10/16 0845 DC 10/16 Dextrose/Water 500 ML IV 0949 Magnesium Sulfate 1 GM ONCE ONE 10/17 07 10/17 Dextrose/Water 100 ML IV 10/17 1129 0858 Morphine Sulfate 4 MG Q6-PRN PRN 10/14 1915 10/17 IV 0303 Pantoprazole Sodium 40 MG DAILY 10/14 2014 10/17 IV 0901 Phosphate 250 MG 0930 10/17 0830 DC PO 10/17 0931 Phosphate 250 MG ONCE ONE 10/17 514 DC PO 10/17 0516 Potassium Chloride 20 MEQ ONCE ONE 10/17 0730 DC 10/17 IV 10/17 0731 0901 Potassium Chloride 60 MEQ ONCE ONE 10/17 05 DC 10/17 PO 10/17 0516 0525 Propofol 1,000 MG Q6H 10/15 0615 10/17 N/A 1 UNIT IV 0056 Results Last 48 Hrs of Labs/Mics: Laboratory Tests 10/17/17 0610: pH 7.40, pCO2 32 L, pO2 83, HCO3 19 L, ABG O2 Sat (Measured) 95.0 L, P-50 ( Temp Corrected) N, Carboxyhemoglobin 0.3 L, O2 Concentration % .55, Respiration Rate 28, O2 Delivery Method VENT, Vent Mode A/C, Expiratory Pressure 15, Tidal Volume 380, Phlebotomy Draw Site [place] 10/17/17 0500: Lactic Acid 1.7 10/17/17 0357: Anion Gap 12, Estimated GFR 44 L, Glucose 95, Calcium 8.0 L, Phosphorus 2.4 L , Magnesium 1.7, Total Bilirubin 0.4, Direct Bilirubin 0.3, AST 49, ALT 80 H, Alkaline Phosphatase 98, Creatine Kinase 35 L, Total Protein 4.9 L, Albumin 2.3 L, Triglycerides 311 H, CBC w Diff MAN DIFF ORDERED, RBC 2.98 L, MCV 84.0 , MCH 28.5, MCHC 34.0, RDW 18.1 H, MPV 6.6 L, Segmented Neutrophils 81 H, Band Neutrophils 4, Lymphocytes 11 L, Monocytes 3, Eosinophils 1, Nucleated RBCs 1 H, Platelet Estimate INCREASED, Hypochromic-Microcytic 1+, Ovalocytes 1+ 10/16/17 0600: pH 7.23 *L, pCO2 50 H, pO2 91, HCO3 20 L, ABG O2 Sat (Measured) 96.0, P-50 ( Temp Corrected) N, Carboxyhemoglobin 0.2 L, O2 Concentration % .80, Respiration Rate 28, O2 Delivery Method VENT, Vent Mode A/C, Expiratory Pressure 15, Tidal Volume 380, Phlebotomy Draw Site [place] 10/16/17 0420: Anion Gap 14, Estimated GFR 28 L, Glucose 131 H, Calcium 6.9 L, Phosphorus 5.9 H, Magnesium 2.3, Total Bilirubin 0.4, AST 155 H, ALT 117 H, Albumin 2.4 L, PT 13.4 H, INR 1.23 H, CBC w Diff NO MAN DIFF REQ, RBC 3.14 L, MCV 84.8, MCH 28.7, MCHC 33.9, RDW 17.9 H, MPV 6.9 L, Vancomycin Trough 15.3 10/16/17 0015: pH 7.19 *L, pCO2 51 H, pO2 77 L, HCO3 19 L, ABG O2 Sat (Measured) 92.0 L, P- 50 (Temp Corrected) N, Carboxyhemoglobin 0.3 L, O2 Concentration % .80, Respiration Rate 28, O2 Delivery Method VENT, Vent Mode A/C, Expiratory Pressure 15, Tidal Volume 380, Phlebotomy Draw Site [place] 10/16/17 0005: CBC w Diff MAN DIFF ORDERED, RBC 3.16 L, MCV 84.1, MCH 28.7, MCHC 34.2, RDW 17.8 H, MPV 6.7 L, Segmented Neutrophils 73, Band Neutrophils 13 H, Lymphocytes 10 L, Monocytes 4, Platelet Estimate ADEQUATE, Normocytic RBCs VERIFIED, Normochromic RBCs VERIFIED 10/15/17 1930: CBC w Diff MAN DIFF ORDERED, RBC 3.01 L, MCV 84.8, MCH 28.4, MCHC 33.5, RDW 18.3 H, MPV 6.9 L, Segmented Neutrophils 76 H, Band Neutrophils 14 H, Lymphocytes 7 L, Monocytes 2, Metamyelocytes 1, Platelet Estimate ADEQUATE, Poikilocytosis 1+, Anisocytosis 1+, Microcytic Cells 1+, Ovalocytes FEW, [place] Cells FEW, Elliptocytes FEW 10/15/17 1850: pH 7.29 *L, pCO2 39, pO2 100, HCO3 18 L, ABG O2 Sat (Measured) 97.0, P-50 (Temp Corrected) N, Carboxyhemoglobin 0.4 L, O2 Concentration % 80%, Temperature 97.5 , Respiration Rate 28, O2 Delivery Method ESPRIT, Vent Mode AC, Expiratory Pressure 15, Tidal Volume 380, Phlebotomy Draw Site [place] 10/15/17 1100: pH 7.20 *L, pCO2 47 H, pO2 87, HCO3 18 L, ABG O2 Sat (Measured) 95.0 L, Carboxyhemoglobin 0 L, O2 Concentration % 90%, Respiration Rate 28, O2 Delivery Method VENT, Vent Mode AC, Expiratory Pressure 15, Tidal Volume 380, Pressure Support 0, Phlebotomy Draw Site LEFT A LINE Assessment/Plan Assessment/Plan Assessment: 1. Acute respiratory failure with ARDS, severe bilateral multilobar pneumonia, empyema, hydropneumothorax, trapped lung, etc. 2. Acute renal insufficiency 3. History of diabetes 4. Anemia 5. History of polysubstance abuse, on methadone, 6. Recent steroid use/immunosuppression 7. History of hypertension 8. History of hyperlipidemia 9. Nonsustained supraventricular tachycardia, improved Plan: * Continue supportive care * Continue to monitor on telemetry for recurrence of SVT Continue telemetry? Yes
--- NOTE | 2017-10-17 11:34 | PN- Infect Dx ---
Subjective Subjective: T-max 101.6. His blood pressure remains stable off pressors. He remains sedated on the ventilator. Objective Last 24 Hrs of Vital Signs/I&O Vital Signs Date Time Temp Pulse Resp B/P B/P Pulse O2 O2 Flow FiO2 Mean Ox Delivery Rate 10/17 0919 50 / 0817 50 / 0800 95 Ventilator 55% / 0800 98.7 114 26 110/60 95 Ventilator 55% / 0630 55 / 0618 100.0 / 0525 101.6 / 0400 93 Ventilator 55% / 0317 55 / 0008 55 06/04 0000 92 Ventilator 55% 06/ 2300 99.5 109 32 140/70 92 Ventilator 55% / 2224 55 / 2000 94 Ventilator 55% 06/ 1909 55 06/03 1600 50 06/03 1600 98.2 90 30 110/64 88 Ventilator 50% 06/03 1600 88 Ventilator 50% 06/03 1410 50 06/ 1200 94 Ventilator 50% /03 1135 55 Intake & Output 10/17 1600 /04 0800 06/04 0000 Intake Total 1463 1489 Output Total 1750 1130 Balance -287 359 Intake, IV 1463 1489 Number 0 0 Bowel Movements Output, 250 50 Gastric Drainage Output, Urine 1500 1080 Patient 199 lb 199 lb Weight Weight Bed scale Measurement Method Physical Exam Other Physical Findings: He is unresponsive/sedated on the ventilator Neck right IJ triple-lumen catheter with no inflammation at the site Lungs bilateral rhonchi Heart regular rhythm with no murmur Abdomen is soft, with no obvious tenderness, positive bowel sounds Extremities no cyanosis, clubbing or edema Pineda catheter remains in place Results Last 24 Hours of Lab Results: Laboratory Tests 10/17 10/17 10/17 0610 0500 0357 Blood Gas pH (7.35 - 7.45 PH) 7.40 pCO2 (35 - 45 TORR) 32 L pO2 (80 - 100 TORR) 83 HCO3 (21 - 28 MEQ/L) 19 L ABG O2 Sat (Measured) (>96.0 %) 95.0 L P-50 (Temp Corrected) N Carboxyhemoglobin (1.5 - 5.0 %) 0.3 L O2 Concentration % .55 Respiration Rate (BPM) 28 O2 Delivery Method VENT Vent Mode A/C Expiratory Pressure (CMH2O/P) 15 Tidal Volume (CC) 380 Chemistry Sodium (137 - 145 mmol/L) 140 Potassium (3.5 - 5.1 mmol/L) 2.8 *L Chloride (98 - 107 mmol/L) 107 Carbon Dioxide (22 - 30 mmol/L) 21 L Anion Gap (5 - 16) 12 BUN (9 - 20 mg/dL) 26 H Creatinine (0.7 - 1.2 mg/dL) 1.7 H Estimated GFR (>60 ml/min) 44 L Glucose (65 - 99 mg/dL) 95 Lactic Acid (0.7 - 2.1 mmol/L) 1.7 Calcium (8.4 - 10.2 mg/dL) 8.0 L Phosphorus (2.5 - 4.5 mg/dL) 2.4 L Magnesium (1.6 - 2.3 mg/dL) 1.7 Total Bilirubin (0.2 - 1.3 mg/dL) 0.4 Direct Bilirubin (< 0.4 mg/dL) 0.3 AST (17 - 59 U/L) 49 ALT (21 - 72 U/L) 80 H Alkaline Phosphatase (< 127 U/L) 98 Creatine Kinase (55 - 170 U/L) 35 L Total Protein (6.3 - 8.2 g/dL) 4.9 L Albumin (3.5 - 5.0 g/dL) 2.3 L Triglycerides (<150 mg/dL) 311 H Hematology CBC w Diff MAN DIFF ORDERED WBC (4.8 - 10.8 /CUMM) 13.5 H RBC (4.70 - 6.10 /CUMM) 2.98 L Hgb (14.0 - 18.0 G/DL) 8.5 L Hct (42 - 52 %) 25.1 L MCV (80.0 - 94.0 FL) 84.0 MCH (27.0 - 31.0 PG) 28.5 MCHC (33.0 - 37.0 G/DL) 34.0 RDW (11.5 - 14.5 %) 18.1 H Plt Count (130 - 400 /CUMM) 410 H MPV (7.4 - 10.4 FL) 6.6 L Segmented Neutrophils (42.2 - 75.2 %) 81 H Band Neutrophils (0.0 - 5.0 %) 4 Lymphocytes (20.5 - 51.1 %) 11 L Monocytes (1.7 - 9.3 %) 3 Eosinophils (0 - 5.0 %) 1 Nucleated RBCs (0.0 - 0.0 /100WBC) 1 H Platelet Estimate (ADEQUATE) INCREASED Hypochromic-Microcytic 1+ Ovalocytes 1+ Miscellaneous Phlebotomy Draw Site MANPREET Last 24 Hours of Venancio Results: Blood cultures October 14 negative Sputum culture October 16 mixed agapito Recent Imaging Studies: Chest x-ray October 17 reveals extensive pleural-parenchymal cystic changes with an opacity in the right mid and lower lung, improved from the initial CT scan, with improvement in the left perihilar and retrocardiac opacities; a small right pleural effusion remains in the right lung base Assessment/Plan ID Impression: Overall improvement, with decreasing oxygen requirements and with his white blood cell count slightly decreased, though he is now febrile on Unasyn for a necrotizing pneumonia/empyema secondary to alpha strep, isolated from the pleural fluid and sputum cultures. Feel that he will require more definitive drainage of the empyema, for example with a pigtail catheter. Suggestion: 1. Further management of his empyema, for example drainage with a pigtail catheter or chest tube, per Pulmonary and Thoracic surgery 2. Continue Unasyn
[2017-10-17 16:00] VITALS: BP 130/68
[2017-10-17 23:58] VITALS: BP 128/74
[2017-10-18 04:41] LABS: ABSOLUTE BASOPHIL COUNT 0 /CUMM (0.0-0.2); ABSOLUTE EOSINOPHIL COUNT 0.5 /CUMM (0.0-0.7); ABSOLUTE MONOCYTE COUNT 0.7 /CUMM (0.10-0.60); BASOPHIL % 0.1 % (0.0-2.0); EOSINOPHIL % 3.2 % (0-5); GRANULOCYTE % 78.7 % (42.2-75.2); HEMATOCRIT 24.2 % (42-52); MEAN CORPUSCULAR HGB 28.2 PG (27.0-31.0); MEAN CORPUSCULAR HGB CONC 33.7 G/DL (33.0-37.0); MEAN CORPUSCULAR VOLUME 83.9 FL (80.0-94.0); MEAN PLATELET VOLUME 6.7 FL (7.4-10.4); PLATELET COUNT 347 /CUMM (130-400); RBC DISTRIBUTION WIDTH 17.8 % (11.5-14.5); RED BLOOD CELL CT 2.88 /CUMM (4.70-6.10); WHITE BLOOD CELL COUNT 15.2 /CUMM (4.8-10.8)
--- NOTE | 2017-10-18 04:53 | PN- Resident CRCU ---
Subjective HPI/CRCU Issues: No overnight event. Per nursing staff, unsuccessful on weaning off Propofol. FIO2 went up to 78% overnight gradually due to random dessatting. Objective Vital Signs & I&O Last 8 Hrs of Vitals and I&O: Intake & Output 10/19 0800 Intake Total 1508 Output Total 1600 Balance -92 Intake, IV 928 Intake, Oral 0 Intake, Tube 130 Feeding Intake, Tube 450 Irrigant Number 2 Bowel Movements Output, Urine 1600 Exam General Appearance: sedated Respiratory: Coarse, no obvious crackles/rhonchi Gastrointestinal: non-tender, decreased BS Extremities: BLE swelling non-pitting, no tenderness Current Medications: Current Medications Sig/Sara Start time Last Medication Dose Route Stop Time Status Admin Acetaminophen 1,000 MG Q8P PRN 10/17 0515 10/17 N/A 1 UNIT IV 10/18 0514 0525 Albuterol Sulfate 3 ML EVERY 4 HRS/AWAKE / 1200 AC / INH 2048 Ampicillin Sodium/ 3,000 MG Q8H / 1800 AC / Sulbactam Sodium IV 0117 Sodium Chloride 100 ML Dexmedetomidine HCl 200 MCG Q5H / 2045 AC / Sodium Chloride 48 ML IV 0327 Dexmedetomidine HCl 200 MCG Q10H / 1715 DC / Sodium Chloride 48 ML IV 1715 Dexmedetomidine HCl 90 MCG ONCE ONE 10/17 1700 DC / Sodium Chloride 50 ML IV / 1709 1940 Dexmedetomidine HCl 200 MCG Q10H / 1630 CAN Sodium Chloride 48 ML IV Fentanyl Citrate 1,000 MCG Q5H / 2245 10/18 Dextrose/Water 250 ML IV 0222 Heparin Sodium 5,000 UNIT Q8 / 2200 AC 10/17 (Porcine) SC 2204 Lactated Ringer's 1,000 ML Q20H / 1230 AC 06/ IV 2000 Lorazepam 100 MG Q12H / 0800 RI / Dextrose/Water 500 ML IV 0901 Lorazepam 100 MG Q24H / 1730 DC 06/ Dextrose/Water 500 ML IV 2001 Magnesium Sulfate 1 GM ONCE ONE 10/18 0015 DC 10/18 Dextrose/Water 100 ML IV 10/18 0414 0017 Magnesium Sulfate 1 GM .STK-MED ONE 10/17 1537 DC IM 10/17 1538 Magnesium Sulfate 1 GM ONCE ONE 10/17 1445 DC 10/17 Dextrose/Water 100 ML IV 10/17 1844 1549 Magnesium Sulfate 1 GM .STK-MED ONE 10/17 0844 DC IM 10/17 0845 Magnesium Sulfate 1 GM ONCE ONE 10/17 0730 DC 10/17 Dextrose/Water 100 ML IV 10/17 1129 0858 Morphine Sulfate 4 MG Q6-PRN PRN 10/14 1915 AC 10/17 IV 0303 Non-Formulary 0 SEE ADMIN CRITERIA 10/17 1645 CAN Medication ANY Non-Formulary 0 SEE ADMIN CRITERIA 10/17 1615 CAN Medication ANY Pantoprazole Sodium 40 MG DAILY 10/14 2014 AC 10/17 IV 0901 Phosphate 250 MG 0930 10/17 0930 DC 10/17 PO 10/17 0931 0930 Phosphate 250 MG ONCE ONE 10/17 0515 DC / PO / 0516 0800 Potassium Chloride 20 MEQ ONCE ONE 10/18 0015 CAN IV / 0016 Potassium Chloride 40 MEQ Q10H 10/18 0015 AC 10/18 Sodium Chloride 1,000 ML IV 0117 Potassium Chloride 40 MEQ ONCE ONE 10/18 0015 DC / PO / 0016 0017 Potassium Chloride 20 MEQ Q1H 10/17 1515 DC 06/ IV / 1616 1615 Potassium Chloride 40 MEQ ONCE ONE 10/17 1515 DC / PO 10/17 1516 1547 Potassium Chloride 20 MEQ ONCE ONE 10/17 0730 DC / IV / 0731 0901 Potassium Chloride 60 MEQ ONCE ONE 10/17 0515 DC / PO / 0516 0525 Propofol 1,000 MG Q6H / 0615 AC 10/17 N/A 1 UNIT IV 2356 Impression/Plan Impression/Problem List Impression: 42-year-old male with significant history of polysubstance abuse including cocaine, migraines, hypertension, previous diabetes not on medications lately presented with progressive worsening of shortness of breath since around a month with outpatient antimicrobial failure. In the ED he found to have purulent phlegm production with productive cough tripoding despite on 100% FiO2. Vital signs at presentation afebrile, heart rate 97, blood pressure 109/56 mmHg, saturating 85% on 6 L. Labs did show white count of 14.7, H&H 12/36, platelet count 496, chemistry sodium 134, potassium 4.5, BUN/creatinine 48/4.9, GFR 13, calcium 7.7, bilirubin 0.9, ALP 142, HIV nonreactive. Normal lactic. Thoracentesis was done in the ER with draining 400 mL of purulent fluid. Pleural fluid analysis did show white count of 22,400, RBC 1800, total protein 5.3, LDH 6615. Blood cultures and sputum cultures - NGTD Problem list 1. Severe ARDS on low TV and high PEEP ventilation. Multilobar pna 2. Acute renal failure 3. Hydropneumothorax with trapped lung 4. Methadone maintenence 5. HTN 6. Bipolar disorder 7. Polysubstance abuse PLAN Respiratory #ARDS with low TV, high PEEP protocol with goal Plateau pressure <30 cm H2o. Multilobar pna Respiratory acidosis on his improving with vent -qtc 501 on 10/16 EKG. -Cr 1.2 currently, pending touch base with radiology for CT chest w/ contrast -cont IVF. IV PPI while on vent Infectious #Multilobar pneumonia Intially started on broad spectrum with IV Zosyn/IV azithro/IV vanco. Cultures growing alpha strep WBC improving CXR shows improving pna -?Area of necrotizing pna vs lung tissue. Pending CT chest with contrast once renal function improved to 1.0. Currently Cr 1.2 -switched to unasyn per ID recommendations -Pending final cultures Cardiovascular Tachycardia most likely secondary to ifnection ECHO unremarkable -cont to monitor Hematology Metablolic #Electrolytes Monitor K, Mg, phos daily per renal -K still low at 3.2 on AM lab, repleted by night float with K-gabriella 20meq x 1. Recheck T+1 Acute renal failure Cr 4.9 upon admission current Cr 1.2. -Ultrasound ruled out post renal causes. Likely related to sepsis with ATN/ Prerenal. -cont IVF Alimentary -cont NGTube Neuro #sedation Currently on IV fentanyl and IV propofol and IV ativan -wean off IV ativan and fentanyl if precedex availible -daily amylase, lipase, lipids, lft while on propofol #History of bipolar disorder He was on seroquel, currently holding all the home medications. DVT prophylaxis SC heparin Code status Full Code Problem List: 1. ARDS (adult respiratory distress syndrome) 2. Community acquired pneumonia Pain Ratin Tomorrow's Labs & Rationales: ICU bundle CBC Plan DVT/Prophylaxis: mechanical, pharmacological
[2017-10-18 08:00] VITALS: BP 111/54
--- NOTE | 2017-10-18 08:49 | RADIOLOGY REPORT ---
EXAMINATION: XR PORTABLE CHEST CLINICAL INFORMATION: Intubated. COMPARISON: Multiple prior chest x-rays, most recent of which is dated 10/17/2017. TECHNIQUE: Portable AP semierect view of the chest was obtained. FINDINGS: Endotracheal tube tip is approximately 6 cm above the mahendra. Enteric tube courses into the abdomen with tip not included. Right jugular central venous line tip remains in the mid SVC. Multiple EKG leads overlie the chest. The cardiomediastinal silhouette is within normal limits in size. Low lung volumes are seen with persistent extensive pleural and parenchymal cystic changes and opacities in the right mid and lower lung, unchanged. Small right-sided pleural effusion is also unchanged. There are also hazy opacities throughout the left mid and lower lung, with some air bronchograms seen in the retrocardiac left lung base, unchanged from prior exam. Included bony structures are unremarkable. IMPRESSION: 1. Endotracheal tube tip approximately 6 cm above the mahendra. 2. Enteric tube and right jugular central venous line positioning similar to prior exam. 3. No change in extensive pleural and parenchymal cystic changes, lung consolidation, and small pleural effusion in the right chest. 4. No significant change in left perihilar and retrocardiac opacities, suspicious for pneumonia.
--- NOTE | 2017-10-18 09:07 | PN- CRCU ---
Subjective HPI/Critical Care Issues: Doing better As far as tmax 101.6 and overall status is concerned Sedation is now maintained on fentanyl, Precedex. His propofol was turned out by me this morning. Patient feels comfortable. He was having significant air hunger. His tidal volume was increased to 600 rate was kept at 22. He felt a little more comfortable probably from reduced space. All the cultures are growing alpha strep He has had more than 60 her urine output His CVP is now 8. No bowel movement so far. Significant DATA Creatinine 1.2 potassium is elevated Magnesium is still at 1.8 phosphorus is now replaced no significant anion gap his triglyceride was not elevated than before. His LFTs are unremarkable his last CPK was 35 white count now up to 15 hemoglobin 8.1 he 78% granulocytes INR was unremarkable Previous ABG reviewed Chest x-ray reviewed Objective Current Medications: Current Medications Sig/Sara Start time Last Medication Dose Route Stop Time Status Admin Acetaminophen 1,000 MG Q8P PRN / 0515 DC 10/17 N/A 1 UNIT IV 10/18 0514 0525 Albuterol Sulfate 3 ML EVERY 4 HRS/AWAKE / 1200 AC 06/ INH 0835 Ampicillin Sodium/ 3,000 MG Q8H / 1800 AC 06/ Sulbactam Sodium IV 0117 Sodium Chloride 100 ML Dexmedetomidine HCl 200 MCG Q3H / 1000 AC Sodium Chloride 48 ML IV Dexmedetomidine HCl 200 MCG Q5H / 2045 AC 06/ Sodium Chloride 48 ML IV / 0959 0327 Dexmedetomidine HCl 200 MCG Q10H / 1715 DC / Sodium Chloride 48 ML IV 1715 Dexmedetomidine HCl 90 MCG ONCE ONE 10/17 1700 DC 06/ Sodium Chloride 50 ML IV / 1709 1940 Dexmedetomidine HCl 200 MCG Q10H / 1630 CAN Sodium Chloride 48 ML IV Fentanyl Citrate 1,000 MCG Q3H 06/05 1000 AC Dextrose/Water 250 ML IV Fentanyl Citrate 1,000 MCG Q5H / 2245 AC / Dextrose/Water 250 ML IV / 0959 0612 Heparin Sodium 5,000 UNIT Q8 / 2200 AC 06/ (Porcine) SC 0533 Lactated Ringer's 1,000 ML Q20H 06/03 1230 DC 06/04 IV 2000 Lorazepam 100 MG Q12H /04 0800 DC 06/ Dextrose/Water 500 ML IV 0901 Magnesium Sulfate 1 GM ONCE ONE 10/18 0015 DC 06 Dextrose/Water 100 ML IV 10/18 0414 0017 Magnesium Sulfate 1 GM .STK-MED ONE 10/17 1537 DC IM 10/17 1538 Magnesium Sulfate 1 GM ONCE ONE 10/17 1445 DC 10/17 Dextrose/Water 100 ML IV 10/17 1844 1549 Magnesium Sulfate 1 GM ONCE ONE 10/17 0730 DC 10/17 Dextrose/Water 100 ML IV 10/17 1129 0858 Morphine Sulfate 4 MG Q6-PRN PRN 10/14 1915 AC 10/17 IV 0303 Non-Formulary 0 SEE ADMIN CRITERIA 10/17 1645 CAN Medication ANY Non-Formulary 0 SEE ADMIN CRITERIA 10/17 1615 CAN Medication ANY Pantoprazole Sodium 40 MG DAILY 10/14 2014 AC 06/ IV 0812 Phosphate 250 MG 0930 10/17 0930 DC 10/17 PO 10/17 0931 0930 Potassium Chloride 40 MEQ Q20H 10/18 0815 AC Sodium Chloride 1,000 ML IV Potassium Chloride 40 MEQ 0700 10/18 0700 DC / PO 10/18 0701 0812 Potassium Chloride 20 MEQ ONCE ONE 10/18 0530 DC 06/05 IV 06/ 0531 0534 Potassium Chloride 20 MEQ ONCE ONE 10/18 0015 CAN IV / 0016 Potassium Chloride 40 MEQ Q10H 10/18 0015 DC 06 Sodium Chloride 1,000 ML IV 0117 Potassium Chloride 40 MEQ ONCE ONE 10/18 0015 DC / PO / 0016 0017 Potassium Chloride 20 MEQ Q1H 10/17 1515 DC / IV / 1616 1615 Potassium Chloride 40 MEQ ONCE ONE 10/17 1515 DC / PO / 1516 1547 Propofol 1,000 MG Q6H 10/15 0615 AC 10/18 N/A 1 UNIT IV 0813 Vital Signs & I&O Last 24 Hrs of Vitals and I&O: Vital Signs Date Time Temp Pulse Resp B/P B/P Pulse O2 O2 Flow FiO2 Mean Ox Delivery Rate 10/18 0838 70 10/18 0816 70 10/18 0524 70 10/18 0400 92 Ventilator 70% 10/18 0229 70 10/18 0134 70 10/18 0037 60 06/05 0000 92 Ventilator 60% 06/04 2358 98.9 88 32 128/74 92 Ventilator 60% 06/04 2213 60 06/04 1999 97 Ventilator 50% 06/04 1922 50 06/04 1615 50 06/04 1600 96 Ventilator 50% 06/04 1600 99.5 104 24 130/68 94 Ventilator 50% 06/04 1347 50 06/04 1200 94 Ventilator 50% 06/04 1154 50 06/04 0919 50 Intake & Output / 1600 06/05 0800 06/ 0000 Intake Total 1866 1100 Output Total 1950 2300 Balance -84 -1200 Intake, IV 1786 1100 Intake, Other 80 Output, 300 200 Gastric Drainage Output, Urine 1650 2100 Impression/Plan Impression/Plan Impression/Plan: This is a gentleman with history of polysubstance abuse in the past, on methadone replacement, hypertension, hyperlipidemia, chronic prednisone use in the recent past, hypoadrenalism, migraine, cocaine abuse in the past, history of intravenous drug abuse, bipolar disorder, on multiple medications, ongoing smoking, previous admission to this hospital with altered mental status, has had a few emergency room visits in the recent past few days. Now admitted with severe ARDS and necrotizing pna with empyema with trapped lung with large hydropneumothorax INtubated and sedated and Pupils reacting small pupils Obese gentleman with tattoos IJ cath in place Dunia placed today No significant JVD Chest decreased breath sounds with significant bronchial breathing on the right side with rhonchi diffusely Heart S1 and S2 was heard no murmur could be appreciated but he had significant rhonchi Abdominal exam obese nontender full abdominal exam could not be done as he was unable to lay flat No significant edema or needle cronin noted. IMPRESSION This is a gentleman with previous history of polysubstance abuse now on methadone, bipolar disorder, ongoing smoking, now here with * Resolving necrotizing strep pna with resolving Severe ARDS with severe bilateral multilobar pna due to prob strep with empyema (s/p drained initially 400 cc) with hydropneumothorax with trapped lung. INtubated and sedated and paralysed initially now on ards protocol for vent (will be liberated from it) * Trapped lung and hydropneumothorax which would need drainage * Resolving Acute renal failure in a patient with sepsis with atn (was on ACI and metformin aswell) * History of Diabetes on metformin * Methadone use high risk for withdrawal * Recent steroid use hence immunosuppressed * Bipolar disorder, hypo-testosterone, multiple other issues including polysubstance use and smoking * History of Hyperlipidemia, hypertension, previous chest pain chest discomfort. RECOMMENDATION Cont current resp care with vt of 0.6 litres, reduce peep if able only after fio2 is less than 0.5 CVP goal 8 Replace potassium down ng Agg bowel regimen with miralax, docusate, brent bid, etc Mag iv today check qtc COnt precedex and increase if able, cont fentanyl and reduce to 200 mcs use prn ativan Propofol only for short duration CT chest with ivc and followed by head ct later if stable Consider lasix if potassium is replaced Cont Proton pump inhibitor and heparin sub cut Start tube feeding 20 cc Ok with some free water down ng Pt critically ill DIscussed with girl friend at the bedside TTS 60 mins PT had explicitly told me that his girl friend should be the surrogate decision maker
--- NOTE | 2017-10-18 09:27 | PN- Nephrology ---
Assessment/Plan Nephrology Assessment: Acute kidney injury: Resolved prerenal azotemia.. Possible chronic kidney disease: Baseline creatinine was 1.1-1.2, which may be due to hypertensive nephrosclerosis. He was never on lithium before. Suggestion: continue gentle IV hydration per ICU team, now on 90 cc/hr of all drips added up daily renal labs BREONNA has resolved; as discussed with ICU teambenefits of using contrast with a CAT scan at this point seem to outweigh the renal risks at a care has resolved. There does still exist the chance of contrast nephropathy however the chance have been dramatically minimized by delaying the contrast nephropathy to allow for the BREONNA to resolve. Subjective Subjective: Remains intubated and sedated Excellent urine output 6 L per 24 hour Creatinine improved to 1.2 Review of Systems: Unable to obtain as intubated sedated Objective Vital Signs and I&Os Vital Signs Date Time Temp Pulse Resp B/P B/P Pulse O2 O2 Flow FiO2 Mean Ox Delivery Rate 10/18 0838 70 06/ 0816 70 06/ 0800 95 Ventilator 70% / 0800 98.4 108 30 111/54 95 Ventilator 70% 06/05 0524 70 06/05 0400 92 Ventilator 70% 06/05 0229 70 06/05 0134 70 06/05 0037 60 06/05 0000 92 Ventilator 60% 06/04 2358 98.9 88 32 128/74 92 Ventilator 60% 06/04 2213 60 06/04 2000 97 Ventilator 50% 06/04 1922 50 06/04 1615 50 06/04 1600 96 Ventilator 50% 06/04 1600 99.5 104 24 130/68 94 Ventilator 50% 06/04 1347 50 06/04 1200 94 Ventilator 50% 06/04 1154 50 Intake & Output 06/05 1600 06/05 0400 06/04 1600 06/04 0400 06/03 1600 06/03 0400 Intake Total 1866 1100 3119 1489 2731 2125 Output Total 1950 2300 3950 1130 1785 590 Balance -84 -1200 -831 496 623 2880 Intake, IV 1786 1100 3039 1489 2731 2125 Intake, Other 80 80 Number 0 0 0 0 Bowel Movements Output, 300 200 650 50 Gastric Drainage Output, Stool 0 Output, Urine 1650 2100 3300 1080 1785 590 Patient 199 lb 198 lb Weight Weight Bed scale Bed scale Measurement Method Physical Exam: General: NAD, A+O x3. int/sedated HEENT: NC/AT. No icterus. Moist mucosa Neck: negative for JACQUE, JVD CV: RRR, no m/r/g Pulm:Course BS Abd: soft, NT/ND, negative renal bruits Lower Ext:trace edema UEs: trace edema Neuro: neg tremor, asterixis Skin: no rash, jaundice : + bowman catheter Current Medications: Current Medications Sig/Sara Start time Last Medication Dose Route Stop Time Status Admin Acetaminophen 1,000 MG Q8P PRN / 0515 DC 10/17 N/A 1 UNIT IV 10/18 0514 0525 Albuterol Sulfate 3 ML EVERY 4 HRS/AWAKE / 1200 AC 06/ INH 0835 Ampicillin Sodium/ 3,000 MG Q8H / 1800 AC 06/ Sulbactam Sodium IV 0909 Sodium Chloride 100 ML Bisacodyl 10 MG ONCE ONE 10/18 0915 DC AR / 0916 Dexmedetomidine HCl 200 MCG Q3H / 1000 AC 06/ Sodium Chloride 48 ML IV 0909 Dexmedetomidine HCl 200 MCG Q5H / 2045 AC 06/ Sodium Chloride 48 ML IV / 0959 0327 Dexmedetomidine HCl 200 MCG Q10H / 1715 DC 06/ Sodium Chloride 48 ML IV 1715 Dexmedetomidine HCl 90 MCG ONCE ONE / 1700 DC 06/ Sodium Chloride 50 ML IV 06/ 1709 1940 Dexmedetomidine HCl 200 MCG Q10H / 1630 CAN Sodium Chloride 48 ML IV Fentanyl Citrate 1,000 MCG Q3H 06/05 1000 AC 06/ Dextrose/Water 250 ML IV 0909 Fentanyl Citrate 1,000 MCG Q5H /02 2245 AC 06/05 Dextrose/Water 250 ML IV 06/ 0959 0612 Heparin Sodium 5,000 UNIT Q8 / 2200 AC 06/ (Porcine) SC 0533 Lactated Ringer's 1,000 ML Q20H 06/03 1230 DC 06/04 IV 2000 Lorazepam 100 MG Q12H / 0800 DC 06/ Dextrose/Water 500 ML IV 0901 Magnesium Sulfate 1 GM ONCE ONE 10/18 0015 DC 06/ Dextrose/Water 100 ML IV / 0414 0017 Magnesium Sulfate 1 GM .STK-MED ONE 10/17 1537 DC IM 10/17 1538 Magnesium Sulfate 1 GM ONCE ONE 10/17 1445 DC 10/17 Dextrose/Water 100 ML IV 10/17 1844 1549 Magnesium Sulfate 1 GM ONCE ONE 10/17 0730 DC 10/17 Dextrose/Water 100 ML IV 10/17 1129 0858 Morphine Sulfate 4 MG Q6-PRN PRN 10/14 1915 AC 10/17 IV 0303 Non-Formulary 0 SEE ADMIN CRITERIA 10/17 1645 CAN Medication ANY Non-Formulary 0 SEE ADMIN CRITERIA 10/17 1615 CAN Medication ANY Pantoprazole Sodium 40 MG DAILY 10/14 2014 AC 10/18 IV 0812 Phosphate 250 MG 30 10/17 929 DC 10/17 PO 10/17 0931 0930 Polyethylene Glycol 17 GM DAILY 10/18 09 AC PO Potassium Chloride 40 MEQ Q20H 10/18 0815 DC 10/18 Sodium Chloride 1,000 ML IV 0910 Potassium Chloride 40 MEQ 0700 10/18 0700 DC 10/18 PO 10/18 0701 0812 Potassium Chloride 20 MEQ ONCE ONE 10/18 0530 DC 10/18 IV 10/18 0531 0534 Potassium Chloride 20 MEQ ONCE ONE 10/18 0015 CAN IV / 0016 Potassium Chloride 40 MEQ Q10H 10/18 0015 DC 10/18 Sodium Chloride 1,000 ML IV 0117 Potassium Chloride 40 MEQ ONCE ONE 10/18 0015 DC / PO / 0016 0017 Potassium Chloride 20 MEQ Q1H 10/17 1515 DC / IV 10/17 1616 1615 Potassium Chloride 40 MEQ ONCE ONE 10/17 1515 DC / PO 10/17 1516 1547 Propofol 1,000 MG Q6H / 0615 AC 10/18 N/A 1 UNIT IV 0813 Results Pertinent Lab Results: Laboratory Tests 10/18 10/17 10/17 0355 2200 1300 Chemistry Sodium (137 - 145 mmol/L) 140 137 Cancelled Potassium (3.5 - 5.1 mmol/L) 3.2 L 3.0 L Cancelled Chloride (98 - 107 mmol/L) 104 102 Cancelled Carbon Dioxide (22 - 30 mmol/L) 22 23 Cancelled Anion Gap (5 - 16) 14 12 Cancelled BUN (9 - 20 mg/dL) 17 18 Cancelled Creatinine (0.7 - 1.2 mg/dL) 1.2 1.3 H Cancelled Estimated GFR (>60 ml/min) > 60 > 60 BUN/Creatinine Ratio Cancelled Glucose (65 - 99 mg/dL) 106 H 98 Calcium (8.4 - 10.2 mg/dL) 7.7 L 7.7 L Phosphorus (2.5 - 4.5 mg/dL) 3.3 3.1 Magnesium (1.6 - 2.3 mg/dL) 1.8 1.7 Total Bilirubin (0.2 - 1.3 mg/dL) 0.9 0.8 AST (17 - 59 U/L) 21 26 ALT (21 - 72 U/L) 55 56 Albumin (3.5 - 5.0 g/dL) 2.3 L 2.3 L Triglycerides (<150 mg/dL) 187 H Cholesterol (< 200 MG/DL) 116 LDL Cholesterol, Calc (65 - 129 mg/dL) 67 HDL Cholesterol (40 - 60 mg/dL) 12 L Cholesterol/HDL Ratio (0.00 - 4.88 %) 9.7 H Amylase (30 - 110 U/L) 37 Lipase (23 - 300 U/L) 67 Hematology CBC w Diff NO MAN DIFF REQ WBC (4.8 - 10.8 /CUMM) 15.2 H RBC (4.70 - 6.10 /CUMM) 2.88 L Hgb (14.0 - 18.0 G/DL) 8.1 L Hct (42 - 52 %) 24.2 L MCV (80.0 - 94.0 FL) 83.9 MCH (27.0 - 31.0 PG) 28.2 MCHC (33.0 - 37.0 G/DL) 33.7 RDW (11.5 - 14.5 %) 17.8 H Plt Count (130 - 400 /CUMM) 347 MPV (7.4 - 10.4 FL) 6.7 L Gran % (42.2 - 75.2 %) 78.7 H Lymphocytes % (20.5 - 51.1 %) 13.2 L Monocytes % (1.7 - 9.3 %) 4.8 Eosinophils % (0 - 5 %) 3.2 Basophils % (0.0 - 2.0 %) 0.1 Absolute Granulocytes (1.4 - 6.5 /CUMM) 12.0 H Absolute Lymphocytes (1.2 - 3.4 /CUMM) 2.0 Absolute Monocytes (0.10 - 0.60 /CUMM) 0.7 H Absolute Eosinophils (0.0 - 0.7 /CUMM) 0.5 Absolute Basophils (0.0 - 0.2 /CUMM) 0 10/17 10/17 10/17 10/17 1300 1253 0610 0500 Blood Gas pH (7.35 - 7.45 PH) 7.45 7.40 pCO2 (35 - 45 TORR) 30 L 32 L pO2 (80 - 100 TORR) 78 L 83 HCO3 (21 - 28 MEQ/L) 21 19 L ABG O2 Sat (Measured) (>96.0 %) 95.0 L 95.0 L P-50 (Temp Corrected) N N Carboxyhemoglobin (1.5 - 5.0 %) 0.3 L 0.3 L O2 Concentration % 50% .55 Temperature (97.0 - 100.0 FARH) 98.7 Respiration Rate (BPM) 22 28 O2 Delivery Method VENT VENT Vent Mode VC-AC A/C Expiratory Pressure (CMH2O/P) 10 15 Tidal Volume (CC) 500 380 Chemistry Sodium (137 - 145 mmol/L) 139 Potassium (3.5 - 5.1 mmol/L) 2.4 *L Chloride (98 - 107 mmol/L) 109 H Carbon Dioxide (22 - 30 mmol/L) 20 L Anion Gap (5 - 16) 11 BUN (9 - 20 mg/dL) 18 Creatinine (0.7 - 1.2 mg/dL) 1.3 H Estimated GFR (>60 ml/min) > 60 Glucose (65 - 99 mg/dL) 103 H Lactic Acid (0.7 - 2.1 mmol/L) 1.7 Calcium (8.4 - 10.2 mg/dL) 7.1 L Phosphorus (2.5 - 4.5 mg/dL) 2.3 L Magnesium (1.6 - 2.3 mg/dL) 1.5 L Total Bilirubin (0.2 - 1.3 mg/dL) 0.5 AST (17 - 59 U/L) 27 ALT (21 - 72 U/L) 64 Albumin (3.5 - 5.0 g/dL) 2.0 L Miscellaneous Phlebotomy Draw Site [facility] 10/17 10/16 0357 0600 Blood Gas pH (7.35 - 7.45 PH) 7.23 *L pCO2 (35 - 45 TORR) 50 H pO2 (80 - 100 TORR) 91 HCO3 (21 - 28 MEQ/L) 20 L ABG O2 Sat (Measured) (>96.0 %) 96.0 P-50 (Temp Corrected) N Carboxyhemoglobin (1.5 - 5.0 %) 0.2 L O2 Concentration % .80 Respiration Rate (BPM) 28 O2 Delivery Method VENT Vent Mode A/C Expiratory Pressure (CMH2O/P) 15 Tidal Volume (CC) 380 Chemistry Sodium (137 - 145 mmol/L) 140 Potassium (3.5 - 5.1 mmol/L) 2.8 *L Chloride (98 - 107 mmol/L) 107 Carbon Dioxide (22 - 30 mmol/L) 21 L Anion Gap (5 - 16) 12 BUN (9 - 20 mg/dL) 26 H Creatinine (0.7 - 1.2 mg/dL) 1.7 H Estimated GFR (>60 ml/min) 44 L Glucose (65 - 99 mg/dL) 95 Calcium (8.4 - 10.2 mg/dL) 8.0 L Phosphorus (2.5 - 4.5 mg/dL) 2.4 L Magnesium (1.6 - 2.3 mg/dL) 1.7 Total Bilirubin (0.2 - 1.3 mg/dL) 0.4 Direct Bilirubin (< 0.4 mg/dL) 0.3 AST (17 - 59 U/L) 49 ALT (21 - 72 U/L) 80 H Alkaline Phosphatase (< 127 U/L) 98 Creatine Kinase (55 - 170 U/L) 35 L Total Protein (6.3 - 8.2 g/dL) 4.9 L Albumin (3.5 - 5.0 g/dL) 2.3 L Triglycerides (<150 mg/dL) 311 H Hematology CBC w Diff MAN DIFF ORDERED WBC (4.8 - 10.8 /CUMM) 13.5 H RBC (4.70 - 6.10 /CUMM) 2.98 L Hgb (14.0 - 18.0 G/DL) 8.5 L Hct (42 - 52 %) 25.1 L MCV (80.0 - 94.0 FL) 84.0 MCH (27.0 - 31.0 PG) 28.5 MCHC (33.0 - 37.0 G/DL) 34.0 RDW (11.5 - 14.5 %) 18.1 H Plt Count (130 - 400 /CUMM) 410 H MPV (7.4 - 10.4 FL) 6.6 L Segmented Neutrophils (42.2 - 75.2 %) 81 H Band Neutrophils (0.0 - 5.0 %) 4 Lymphocytes (20.5 - 51.1 %) 11 L Monocytes (1.7 - 9.3 %) 3 Eosinophils (0 - 5.0 %) 1 Nucleated RBCs (0.0 - 0.0 /100WBC) 1 H Platelet Estimate (ADEQUATE) INCREASED Hypochromic-Microcytic 1+ Ovalocytes 1+ Miscellaneous Phlebotomy Draw Site [place] 10/16 10/16 0190 0015 Blood Gas pH (7.35 - 7.45 PH) 7.19 *L pCO2 (35 - 45 TORR) 51 H pO2 (80 - 100 TORR) 77 L HCO3 (21 - 28 MEQ/L) 19 L ABG O2 Sat (Measured) (>96.0 %) 92.0 L P-50 (Temp Corrected) N Carboxyhemoglobin (1.5 - 5.0 %) 0.3 L O2 Concentration % .80 Respiration Rate (BPM) 28 O2 Delivery Method VENT Vent Mode A/C Expiratory Pressure (CMH2O/P) 15 Tidal Volume (CC) 380 Chemistry Sodium (137 - 145 mmol/L) 141 Potassium (3.5 - 5.1 mmol/L) 3.8 Chloride (98 - 107 mmol/L) 106 Carbon Dioxide (22 - 30 mmol/L) 21 L Anion Gap (5 - 16) 14 BUN (9 - 20 mg/dL) 38 H Creatinine (0.7 - 1.2 mg/dL) 2.5 H Estimated GFR (>60 ml/min) 28 L Glucose (65 - 99 mg/dL) 131 H Calcium (8.4 - 10.2 mg/dL) 6.9 L Phosphorus (2.5 - 4.5 mg/dL) 5.9 H Magnesium (1.6 - 2.3 mg/dL) 2.3 Total Bilirubin (0.2 - 1.3 mg/dL) 0.4 AST (17 - 59 U/L) 155 H ALT (21 - 72 U/L) 117 H Albumin (3.5 - 5.0 g/dL) 2.4 L Coagulation PT (9.4 - 12.5 SEC) 13.4 H INR (0.90 - 1.17) 1.23 H Hematology CBC w Diff NO MAN DIFF REQ WBC (4.8 - 10.8 /CUMM) 14.9 H RBC (4.70 - 6.10 /CUMM) 3.14 L Hgb (14.0 - 18.0 G/DL) 9.0 L Hct (42 - 52 %) 26.6 L MCV (80.0 - 94.0 FL) 84.8 MCH (27.0 - 31.0 PG) 28.7 MCHC (33.0 - 37.0 G/DL) 33.9 RDW (11.5 - 14.5 %) 17.9 H Plt Count (130 - 400 /CUMM) 401 H MPV (7.4 - 10.4 FL) 6.9 L Miscellaneous Phlebotomy Draw Site [facility] Vancomycin Trough (10.0 - 20.0 ug/mL) 15.3 06/03 06/02 0005 1930 Hematology CBC w Diff MAN DIFF ORDERED MAN DIFF ORDERED WBC (4.8 - 10.8 /CUMM) 14.3 H 11.2 H RBC (4.70 - 6.10 /CUMM) 3.16 L 3.01 L Hgb (14.0 - 18.0 G/DL) 9.1 L 8.6 L Hct (42 - 52 %) 26.6 L 25.5 L MCV (80.0 - 94.0 FL) 84.1 84.8 MCH (27.0 - 31.0 PG) 28.7 28.4 MCHC (33.0 - 37.0 G/DL) 34.2 33.5 RDW (11.5 - 14.5 %) 17.8 H 18.3 H Plt Count (130 - 400 /CUMM) 363 349 MPV (7.4 - 10.4 FL) 6.7 L 6.9 L Segmented Neutrophils (42.2 - 75.2 %) 73 76 H Band Neutrophils (0.0 - 5.0 %) 13 H 14 H Lymphocytes (20.5 - 51.1 %) 10 L 7 L Monocytes (1.7 - 9.3 %) 4 2 Metamyelocytes (0.0 - 1.0 %) 1 Platelet Estimate (ADEQUATE) ADEQUATE ADEQUATE Normocytic RBCs VERIFIED Normochromic RBCs VERIFIED Poikilocytosis 1+ Anisocytosis 1+ Microcytic Cells 1+ Ovalocytes FEW [place] Cells FEW Elliptocytes FEW 10/15 10/15 1850 1100 Blood Gas pH (7.35 - 7.45 PH) 7.29 *L 7.20 *L pCO2 (35 - 45 TORR) 39 47 H pO2 (80 - 100 TORR) 100 87 HCO3 (21 - 28 MEQ/L) 18 L 18 L ABG O2 Sat (Measured) (>96.0 %) 97.0 95.0 L P-50 (Temp Corrected) N Carboxyhemoglobin (1.5 - 5.0 %) 0.4 L 0 L O2 Concentration % 80% 90% Temperature (97.0 - 100.0 FARH) 97.5 Respiration Rate (BPM) 28 28 O2 Delivery Method ESPRIT VENT Vent Mode AC AC Expiratory Pressure (CMH2O/P) 15 15 Tidal Volume (CC) 380 380 Pressure Support (CMH2O/P) 0 Miscellaneous Phlebotomy Draw Site [place] LEFT A LINE
--- NOTE | 2017-10-18 11:19 | PN- Infect Dx ---
Subjective Subjective: Afebrile. His blood pressure remains stable off pressors. Objective Last 24 Hrs of Vital Signs/I&O Vital Signs Date Time Temp Pulse Resp B/P B/P Pulse O2 O2 Flow FiO2 Mean Ox Delivery Rate 10/18 1042 70 06/05 0838 70 06/ 0816 70 06/ 0800 95 Ventilator 70% / 0800 98.4 108 30 111/54 95 Ventilator 70% 06/05 0524 70 06/05 0400 92 Ventilator 70% 06/05 0229 70 06/05 0134 70 06/05 0037 60 06/05 0000 92 Ventilator 60% 06/04 2358 98.9 88 32 128/74 92 Ventilator 60% 06/04 2213 60 06/04 2000 97 Ventilator 50% 06/04 1922 50 06/04 1615 50 06/04 1600 96 Ventilator 50% 06/04 1600 99.5 104 24 130/68 94 Ventilator 50% 06/04 1347 50 06/04 1200 94 Ventilator 50% 06/04 1154 50 Intake & Output / 1600 06/ 0800 06/05 0000 Intake Total 1866 1100 Output Total 1950 2300 Balance -84 -1200 Intake, IV 1786 1100 Intake, Other 80 Output, 300 200 Gastric Drainage Output, Urine 1650 2100 Physical Exam Other Physical Findings: He is unresponsive on the ventilator Neck right IJ triple lumen catheter with no inflammation at the site Lungs bilateral rhonchi Heart regular rhythm with no murmur Abdomen is distended, with no obvious tenderness, positive bowel sounds Extremities no cyanosis, clubbing or edema Pineda catheter remains in place Results Last 24 Hours of Lab Results: Laboratory Tests 10/18/ 0925 0355 2200 Blood Gas pH (7.35 - 7.45 PH) 7.51 H pCO2 (35 - 45 TORR) 29 L pO2 (80 - 100 TORR) 71 L HCO3 (21 - 28 MEQ/L) 22 ABG O2 Sat (Measured) (>96.0 %) 93.0 L P-50 (Temp Corrected) N Carboxyhemoglobin (1.5 - 5.0 %) 0.6 L O2 Concentration % 70% Respiration Rate (BPM) 22 O2 Delivery Method VENT Vent Mode AC Expiratory Pressure (CMH2O/P) 8 Tidal Volume (CC) 600 Pressure Support (CMH2O/P) 0 Chemistry Sodium (137 - 145 mmol/L) 140 137 Potassium (3.5 - 5.1 mmol/L) 3.2 L 3.0 L Chloride (98 - 107 mmol/L) 104 102 Carbon Dioxide (22 - 30 mmol/L) 22 23 Anion Gap (5 - 16) 14 12 BUN (9 - 20 mg/dL) 17 18 Creatinine (0.7 - 1.2 mg/dL) 1.2 1.3 H Estimated GFR (>60 ml/min) > 60 > 60 Glucose (65 - 99 mg/dL) 106 H 98 Calcium (8.4 - 10.2 mg/dL) 7.7 L 7.7 L Phosphorus (2.5 - 4.5 mg/dL) 3.3 3.1 Magnesium (1.6 - 2.3 mg/dL) 1.8 1.7 Total Bilirubin (0.2 - 1.3 mg/dL) 0.9 0.8 AST (17 - 59 U/L) 21 26 ALT (21 - 72 U/L) 55 56 Albumin (3.5 - 5.0 g/dL) 2.3 L 2.3 L Triglycerides (<150 mg/dL) 187 H Cholesterol (< 200 MG/DL) 116 LDL Cholesterol, Calc (65 - 129 mg/dL) 67 HDL Cholesterol (40 - 60 mg/dL) 12 L Cholesterol/HDL Ratio (0.00 - 4.88 %) 9.7 H Amylase (30 - 110 U/L) 37 Lipase (23 - 300 U/L) 67 Hematology CBC w Diff NO MAN DIFF REQ WBC (4.8 - 10.8 /CUMM) 15.2 H RBC (4.70 - 6.10 /CUMM) 2.88 L Hgb (14.0 - 18.0 G/DL) 8.1 L Hct (42 - 52 %) 24.2 L MCV (80.0 - 94.0 FL) 83.9 MCH (27.0 - 31.0 PG) 28.2 MCHC (33.0 - 37.0 G/DL) 33.7 RDW (11.5 - 14.5 %) 17.8 H Plt Count (130 - 400 /CUMM) 347 MPV (7.4 - 10.4 FL) 6.7 L Gran % (42.2 - 75.2 %) 78.7 H Lymphocytes % (20.5 - 51.1 %) 13.2 L Monocytes % (1.7 - 9.3 %) 4.8 Eosinophils % (0 - 5 %) 3.2 Basophils % (0.0 - 2.0 %) 0.1 Absolute Granulocytes (1.4 - 6.5 /CUMM) 12.0 H Absolute Lymphocytes (1.2 - 3.4 /CUMM) 2.0 Absolute Monocytes (0.10 - 0.60 /CUMM) 0.7 H Absolute Eosinophils (0.0 - 0.7 /CUMM) 0.5 Absolute Basophils (0.0 - 0.2 /CUMM) 0 Miscellaneous Phlebotomy Draw Site LEFT A-LINE 10/17 10/17 10/17 1300 1300 1253 Blood Gas pH (7.35 - 7.45 PH) 7.45 pCO2 (35 - 45 TORR) 30 L pO2 (80 - 100 TORR) 78 L HCO3 (21 - 28 MEQ/L) 21 ABG O2 Sat (Measured) (>96.0 %) 95.0 L P-50 (Temp Corrected) N Carboxyhemoglobin (1.5 - 5.0 %) 0.3 L O2 Concentration % 50% Temperature (97.0 - 100.0 FARH) 98.7 Respiration Rate (BPM) 22 O2 Delivery Method VENT Vent Mode VC-AC Expiratory Pressure (CMH2O/P) 10 Tidal Volume (CC) 500 Chemistry Sodium (137 - 145 mmol/L) Cancelled 139 Potassium (3.5 - 5.1 mmol/L) Cancelled 2.4 *L Chloride (98 - 107 mmol/L) Cancelled 109 H Carbon Dioxide (22 - 30 mmol/L) Cancelled 20 L Anion Gap (5 - 16) Cancelled 11 BUN (9 - 20 mg/dL) Cancelled 18 Creatinine (0.7 - 1.2 mg/dL) Cancelled 1.3 H Estimated GFR (>60 ml/min) > 60 BUN/Creatinine Ratio Cancelled Glucose (65 - 99 mg/dL) 103 H Calcium (8.4 - 10.2 mg/dL) 7.1 L Phosphorus (2.5 - 4.5 mg/dL) 2.3 L Magnesium (1.6 - 2.3 mg/dL) 1.5 L Total Bilirubin (0.2 - 1.3 mg/dL) 0.5 AST (17 - 59 U/L) 27 ALT (21 - 72 U/L) 64 Albumin (3.5 - 5.0 g/dL) 2.0 L Miscellaneous Phlebotomy Draw Site A-LINE Last 24 Hours of Venancio Results: Sputum culture October 16 mixed agapito with light growth of yeast Blood cultures October 17 negative Recent Imaging Studies: Chest x-ray October 18 no change in extensive pleural and parenchymal cystic changes , lung consolidation and small right pleural effusion Assessment/Plan ID Impression: Condition remains poor, with worsening respiratory failure, now on 70% oxygen, with no further fevers but with his white blood cell count slightly increased, on Unasyn, Day 4 of treatment for a necrotizing pneumonia/empyema secondary to alpha strep, which was isolated from the pleural fluid and sputum cultures. Suspect that he will require more definitive drainage of the empyema and a repeat CT of the chest is to be scheduled. His sputum culture for yeast presumably represents oropharyngeal contamination and does not require treatment. Suggestion: 1. Await repeat CT of the chest 2. Further management with regard to placement of a pigtail catheter or chest tube per Pulmonary and Thoracic surgery 3. Would remove right IJ triple lumen catheter and, if peripheral access is an issue, would pursue placement of a PICC 4. Continue Unasyn
--- NOTE | 2017-10-18 14:11 | CT SCAN REPORT ---
EXAMINATION: CT HEAD WITHOUT CONTRAST CLINICAL INFORMATION: Intubated and ventilated. Dilated pupils. COMPARISON: Head CT 09/29/2014 and brain MRI 08/24/2017. TECHNIQUE: Contiguous axial imaging was performed from the skull base to vertex without intravenous administration of contrast. DLP: 617 mGy-cm. FINDINGS: There is no intracranial hemorrhage, extra-axial collection, or CT evidence of large territory infarction. The parker-white differentiation is grossly maintained. The brain parenchyma appears similar compared with head CT from 09/29/2014. There is no sulcal effacement. The basilar cisterns are intact. The ventricular size is stable. There is fluid in the right more than left mastoid air cells and right middle ear cavity. The extracranial structures otherwise appear normal. IMPRESSION: No intracranial hemorrhage or CT evidence of large territory infarction.
[2017-10-18 16:00] VITALS: BP 122/62
--- NOTE | 2017-10-18 19:52 | CT SCAN REPORT ---
EXAMINATION: CT CHEST WITH CONTRAST CLINICAL INFORMATION: ARDS with multilobar pneumonia. On ventilator. Large airspace on right lung. Rule out empyema or trapped lung. COMPARISON: Multiple prior chest x-rays, most recent of which is dated 10/18/2017. CT scan of the chest dated 10/14/2017. TECHNIQUE: Multidetector volumetric CT imaging of the chest was obtained after the administration of 94 mL of intravenous Optiray 320. Sagittal and coronal reformations were obtained. DLP: 490.83 mGy-cm. FINDINGS: Evaluation is limited due to extensive streak artifact related to the patient's arms and overlying wires. LUNGS/PLEURA: Endotracheal tube is in place with tip approximately 6 cm above the mahendra. The central airways are widely patent. Again seen is dense consolidation with air bronchograms and extensive volume loss in the right lower lobe, with only a small amount of aeration remaining in the superior segment. There are less extensive consolidation, volume loss and air bronchograms in the right middle lobe and in the dependent portion of the right upper lobe. Findings have not significantly changed compared to 10/14/2017. There are diffuse groundglass opacities throughout the left lung with patchy areas of denser consolidation seen, especially in the left lower lobe. Compared to the prior exam, there is slightly improved aeration in the left lower lobe and no significant change in the opacities in the left upper lobe. There is a moderate size right-sided pleural effusion, which layers posteriorly all the way up to the level of the aortic arch with extension into the right minor fissure, similar to prior exam. There are multiple air loculations within the pleural fluid, which have decreased in volume and size compared to the previous exam. Since no definite pleural thickening or abnormal pleural enhancement is seen, findings may be related to a bronchopleural fistula. However, in the setting of the extensive lung consolidation, an empyema/infected parapneumonic effusion would be difficult to exclude. There is also a trace left-sided pleural effusion, new compared to the prior exam. LYMPHATIC STRUCTURES: Multiple mediastinal and bilateral hilar lymph nodes are seen, the majority of which are less than 1 cm in size. Subcarinal lymph node is abnormal, measuring 1.2 cm in short axis diameter. The adenopathy is likely reactive to the extensive lung parenchymal process. No significant axillary adenopathy. CARDIOVASCULAR STRUCTURES: Aortic and heart size normal. No pericardial effusion. UPPER ABDOMEN: The spleen is enlarged, measuring 13.6 cm longitudinally, unchanged. The liver is not fully included but also appears enlarged. There is a 1.8 x 2.0 cm fluid attenuation mass in the mid left kidney, consistent with a cyst, unchanged. An enteric tube courses into the stomach with tip in the gastric body. Included portions of the solid organs and bowel loops are otherwise unremarkable. OSSEOUS STRUCTURES: Multilevel minimal vertebral spondylosis seen in the thoracic spine. No suspicious focal findings. IMPRESSION: 1. No significant change is seen in the dense consolidation and near complete collapse of the right lower lobe or in the subtotal consolidations in the right middle lobe and right upper lobe when compared to 10/14/2017. Associated large complex right-sided pleural effusion is seen with multiple internal air locules, producing air-fluid levels. Findings are suspicious for a multi lobar pneumonia/ARDS with associated right-sided infected parapneumonic effusion/empyema. Less likely, findings may be related to a multi lobar pneumonia/ARDS with secondary bronchopleural fistula. Close clinical correlation is requested. 2. Extensive diffuse opacification is seen throughout the left lung, also suspicious for multilobar pneumonia/ARDS. There is mildly improved aeration seen in the left lower lobe when compared to the prior exam. Associated small left-sided pleural effusion is now noted, appearing simple. 3. Mediastinal and bilateral hilar reactive adenopathy is seen. 4. Splenomegaly and probable hepatomegaly, though the liver is not included fully on this exam. 5. Mid left renal cyst. Urgent test results discussed with Dr. Chavez, 10/18/2017, 7:40 PM.
[2017-10-18 23:00] VITALS: BP 120/72
--- NOTE | 2017-10-19 02:41 | RADIOLOGY REPORT ---
EXAMINATION: XR PORTABLE CHEST CLINICAL INFORMATION: Orogastric tube position COMPARISON: 10/18/2017 TECHNIQUE: Portable frontal view of the chest was obtained. FINDINGS: Endotracheal tube tip lies 5.5 cm above the mahendra. Orogastric tube courses into the stomach. Right IJ central line tip lies in the region of the upper SVC. There are redemonstrated multifocal regions of consolidation bilaterally, most prominently in the mid to basilar right lung. Redemonstrated multiloculated gas in the mid to basilar right hemithorax and pleural effusion. No evidence of pneumothorax. The cardiomediastinal silhouette is stable. No acute osseous findings are seen. IMPRESSION: Orogastric tube courses into the stomach. Stable multifocal consolidations as well as multiloculated collection of gas and pleural fluid in the right hemithorax.
[2017-10-19 05:10] LABS: ABSOLUTE BASOPHIL COUNT 0 /CUMM (0.0-0.2); ABSOLUTE EOSINOPHIL COUNT 1.1 /CUMM (0.0-0.7); ABSOLUTE GRANULOCYTE CT 13.9 /CUMM (1.4-6.5); ABSOLUTE LYMPH COUNT 1.4 /CUMM (1.2-3.4); ABSOLUTE MONOCYTE COUNT 0.7 /CUMM (0.10-0.60); BASOPHIL % 0.1 % (0.0-2.0); EOSINOPHIL % 6.2 % (0-5); GRANULOCYTE % 81.3 % (42.2-75.2); HEMATOCRIT 22.8 % (42-52); MEAN CORPUSCULAR HGB 28.9 PG (27.0-31.0); MEAN CORPUSCULAR HGB CONC 34.8 G/DL (33.0-37.0); MEAN PLATELET VOLUME 6.9 FL (7.4-10.4); PLATELET COUNT 282 /CUMM (130-400); RBC DISTRIBUTION WIDTH 17.7 % (11.5-14.5); RED BLOOD CELL CT 2.74 /CUMM (4.70-6.10); WHITE BLOOD CELL COUNT 17.1 /CUMM (4.8-10.8)
--- NOTE | 2017-10-19 07:29 | PN- Resident CRCU ---
Subjective HPI/CRCU Issues: No overnight event. Propofol off yesterday and started on Dexmedetomidine 200/ 48ml x 8 IV, with Fentanyl 1000/250 x 7. FIO2 maintained at 60% overnight. Objective Vital Signs & I&O Last 8 Hrs of Vitals and I&O: n/a Exam General Appearance: sedated Head: atraumatic, normal appearance Cardiovascular: regular rate/rhythm Gastrointestinal: soft, non-tender, decreased BS Extremities: no edema Skin: intact, normal color, warm/dry Current Medications: Current Medications Sig/Sara Start time Last Medication Dose Route Stop Time Status Admin Acetaminophen 1,000 MG ONCE ONE 10/19 0315 DC 10/19 IV 10/19 031 0309 Acetaminophen 1,000 MG ONCE ONE 10/18 1914 DC 10/18 IV 10/18 191 191 Albuterol Sulfate 3 ML EVERY 4 HRS/AWAKE / 1200 AC 10/19 INH 0801 Ampicillin Sodium/ 3,000 MG Q6 10/18 1200 AC 10/19 Sulbactam Sodium IV 0511 Sodium Chloride 100 ML Ampicillin Sodium/ 3,000 MG Q8H 10/16 1800 DC 10/18 Sulbactam Sodium IV 0909 Sodium Chloride 100 ML Dexmedetomidine HCl 400 MCG Q4H 10/19 1200 AC Sodium Chloride 96 ML IV Dexmedetomidine HCl 200 MCG Q3H 10/18 1000 AC 10/19 Sodium Chloride 48 ML IV 10/19 1159 0821 Fentanyl Citrate 1,000 MCG Q3H / 1000 AC 10/19 Dextrose/Water 250 ML IV 0930 Heparin Sodium 5,000 UNIT Q8 10/14 2200 AC 10/19 (Porcine) SC 0511 Lorazepam 2 MG ONE ONE 10/19 1030 DC IV 10/19 1031 Lorazepam 2 MG Q4P PRN 10/18 1215 AC 10/19 IV 0926 Magnesium Sulfate 1 GM Q2H 10/18 1930 DC 10/18 Dextrose/Water 100 ML IV 10/18 2329 205 Morphine Sulfate 4 MG Q6-PRN PRN 10/14 191 AC 10/17 IV 0303 Pantoprazole Sodium 40 MG DAILY 10/14 2014 AC 10/19 IV 0821 Polyethylene Glycol 17 GM DAILY 10/18 0910 AC 10/18 PO 1116 Potassium Chloride 60 MEQ ONCE ONE 10/19 0100 DC 10/19 PO 10/19 0101 0319 Potassium Chloride 20 MEQ ONCE ONE 06/1944 DC 10/18 PO 10/18 Potassium Chloride 40 MEQ ONCE ONE 10/18 1929 DC / PO 10/18 Potassium Chloride 20 MEQ ONCE ONE 10/18 1929 CAN IV 10/18 1930 Potassium Chloride 20 MEQ .STK-MED ONE 10/18 1754 DC IV 10/18 175 Propofol 1,000 MG Q6H 10/15 0615 DC 10/18 N/A 1 UNIT IV 0813 Senna/Docusate Sodium 2 TAB DAILY NEEDED PRN 10/18 1215 AC PO Impression/Plan Impression/Problem List Impression: 42-year-old male with significant history of polysubstance abuse including cocaine, migraines, hypertension, previous diabetes not on medications lately presented with progressive worsening of shortness of breath since around a month with outpatient antimicrobial failure. In the ED he found to have purulent phlegm production with productive cough tripoding despite on 100% FiO2. Vital signs at presentation afebrile, heart rate 97, blood pressure 109/56 mmHg, saturating 85% on 6 L. Labs did show white count of 14.7, H&H 12/36, platelet count 496, chemistry sodium 134, potassium 4.5, BUN/creatinine 48/4.9, GFR 13, calcium 7.7, bilirubin 0.9, ALP 142, HIV nonreactive. Normal lactic. Thoracentesis was done in the ER with draining 400 mL of purulent fluid. Pleural fluid analysis did show white count of 22,400, RBC 1800, total protein 5.3, LDH 6615. Blood cultures and sputum cultures - NGTD Problem list 1. Severe ARDS on low TV and high PEEP ventilation. Multilobar pna 2. Acute renal failure 3. Hydropneumothorax with trapped lung 4. Methadone maintenence 5. HTN 6. Bipolar disorder 7. Polysubstance abuse PLAN Respiratory #ARDS with low TV, high PEEP protocol with goal Plateau pressure <30 cm H2o. Multilobar pna Respiratory acidosis on his improving with vent -qtc 501 on 10/16 EKG. -Cr 1.[address] chest w/ contrast. -cont IVF. IV PPI while on vent Infectious #Multilobar pneumonia Intially started on broad spectrum with IV Zosyn/IV azithro/IV vanco. Cultures growing alpha strep WBC improving CXR shows improving pna Chest CT 6/5 showed No significant change is seen in the dense consolidation and near complete collapse of the right lower lobe or in the subtotal consolidations in the right middle lobe and right upper lobe when compared to 10/14/2017. -switched to unasyn per ID recommendations, currently day 5 -Pending final cultures -Pending PICC line and chest tube placement today. Cardiovascular Tachycardia most likely secondary to ifnection ECHO unremarkable -cont to monitor Hematology Hgb 7.9/22.8, slowly trending down, however likely due to continuous fluid causing hemodilution. Metabloc #Electrolytes Monitor K, Mg, phos daily per renal -K repleted at 4.1 on AM lab Acute renal failure Cr 4.9 upon admission current Cr 1.0. -Ultrasound ruled out post renal causes. Likely related to sepsis with ATN/ Prerenal. -cont IVF Alimentary -cont NGTube - Started tube feeding Neuro #sedation Off Propofol 10/18, started Precedex goal of 1.2 Currently on IV fentanyl & IV ativan #History of bipolar disorder He was on seroquel, currently holding all the home medications. DVT prophylaxis SC heparin Code status Full Code Problem List: 1. ARDS (adult respiratory distress syndrome) 2. Community acquired pneumonia Pain Ratin Tomorrow's Labs & Rationales: ICU CBC Plan DVT/Prophylaxis: mechanical, pharmacological
[2017-10-19 08:00] VITALS: BP 142/68
--- NOTE | 2017-10-19 09:44 | PN- CRCU ---
Subjective HPI/Critical Care Issues: Ct scan reviewed and shows a large hydropneumo with empyema Still agitated Large amount of secretions Of propofol and now on fentanl and precedex Good urine out put Objective Current Medications: Current Medications Sig/Sara Start time Last Medication Dose Route Stop Time Status Admin Acetaminophen 1,000 MG ONCE ONE 10/19 0315 DC 10/19 IV 10/19 0316 0309 Acetaminophen 1,000 MG ONCE ONE 10/18 191 DC 10/18 IV 10/18 191 191 Albuterol Sulfate 3 ML EVERY 4 HRS/AWAKE 10/15 1200 AC 10/19 INH 0801 Ampicillin Sodium/ 3,000 MG Q6 10/18 1200 AC 10/19 Sulbactam Sodium IV 0511 Sodium Chloride 100 ML Ampicillin Sodium/ 3,000 MG Q8H 10/16 1800 DC 10/18 Sulbactam Sodium IV 0909 Sodium Chloride 100 ML Dexmedetomidine HCl 200 MCG Q3H 10/18 1000 AC 10/19 Sodium Chloride 48 ML IV 0821 Dexmedetomidine HCl 200 MCG Q5H 10/17 2045 DC 10/18 Sodium Chloride 48 ML IV 10/18 0959 0327 Fentanyl Citrate 1,000 MCG Q3H / 1000 AC 10/19 Dextrose/Water 250 ML IV 0609 Fentanyl Citrate 1,000 MCG Q5H 10/15 2245 DC 10/18 Dextrose/Water 250 ML IV 10/18 0959 0612 Heparin Sodium 5,000 UNIT Q8 10/14 2200 AC 10/19 (Porcine) SC 0511 Lorazepam 2 MG Q4P PRN 10/18 1215 AC 10/18 IV 1748 Magnesium Sulfate 1 GM Q2H 10/18 1930 DC 10/18 Dextrose/Water 100 ML IV 10/18 2329 2059 Morphine Sulfate 4 MG Q6-PRN PRN 10/14 1915 AC 10/17 IV 0303 Pantoprazole Sodium 40 MG DAILY 10/14 2014 AC 10/19 IV 0821 Polyethylene Glycol 17 GM DAILY 10/18 0910 AC 10/18 PO 1116 Potassium Chloride 60 MEQ ONCE ONE 10/19 0100 DC 10/19 PO 10/19 010 031 Potassium Chloride 20 MEQ ONCE ONE 10/18 1944 DC 10/18 PO 10/18 1945 195 Potassium Chloride 40 MEQ ONCE ONE 10/18 193 DC 10/18 PO 10/18 193 195 Potassium Chloride 20 MEQ ONCE ONE 10/18 1930 CAN IV 10/18 1930 Potassium Chloride 20 MEQ .STK-MED ONE 10/18 175 DC IV 10/18 175 Propofol 1,000 MG Q6H 10/15 0615 DC 10/18 N/A 1 UNIT IV 0813 Senna/Docusate Sodium 2 TAB DAILY NEEDED PRN 10/18 1215 AC PO Vital Signs & I&O Last 24 Hrs of Vitals and I&O: Vital Signs Date Time Temp Pulse Resp B/P B/P Pulse O2 O2 Flow FiO2 Mean Ox Delivery Rate 10/19 0800 60 10/19 0628 60 10/19 0445 100.7 10/19 0404 70 10/19 0400 96 Ventilator 70% 10/19 0309 101.7 10/19 0020 70 10/19 0000 93 Ventilator 70% 10/18 2300 99.1 76 19 120/72 91 Ventilator 70% 10/18 2231 70 10/18 2028 70 10/18 2010 100.7 10/18 2000 93 Ventilator 70% 10/18 1914 102.2 10/18 1644 70 10/18 1600 94 Ventilator 70% 10/18 1600 98.7 114 30 122/62 94 Ventilator 70% 10/18 1419 70 10/18 1200 95 Ventilator 70% 10/18 1042 70 Intake & Output 10/19 1600 10/19 0800 10/19 0000 Intake Total 1508 1407 Output Total 1600 1650 Balance -92 -243 Intake, IV 928 1064 Intake, Oral 0 0 Intake, Tube 130 93 Feeding Intake, Tube 450 250 Irrigant Number 2 1 Bowel Movements Output, Urine 1600 1650 Laboratory Tests 10/19 10/19 10/19 0504 0428 0008 Blood Gas pH (7.35 - 7.45 PH) 7.46 H pCO2 (35 - 45 TORR) 35 pO2 (80 - 100 TORR) 93 HCO3 (21 - 28 MEQ/L) 24 ABG O2 Sat (Measured) (>96.0 %) 96.0 P-50 (Temp Corrected) Y Carboxyhemoglobin (1.5 - 5.0 %) 0.1 L O2 Concentration % 70% Temperature (97.0 - 100.0 FARH) 100.7 H Respiration Rate (BPM) 18 O2 Delivery Method VENT Vent Mode VC-AC Expiratory Pressure (CMH2O/P) 8 Tidal Volume (CC) 600 Chemistry Sodium (137 - 145 mmol/L) 136 L 137 Potassium (3.5 - 5.1 mmol/L) 4.1 3.4 L Chloride (98 - 107 mmol/L) 101 101 Carbon Dioxide (22 - 30 mmol/L) 25 26 Anion Gap (5 - 16) 10 10 BUN (9 - 20 mg/dL) 17 17 Creatinine (0.7 - 1.2 mg/dL) 1.0 1.1 Estimated GFR (>60 ml/min) > 60 > 60 Glucose (65 - 99 mg/dL) 125 H 136 H Calcium (8.4 - 10.2 mg/dL) 8.0 L 8.0 L Phosphorus (2.5 - 4.5 mg/dL) 3.3 3.8 Magnesium (1.6 - 2.3 mg/dL) 1.8 2.3 Total Bilirubin (0.2 - 1.3 mg/dL) 1.4 H 1.3 AST (17 - 59 U/L) 24 20 ALT (21 - 72 U/L) 46 41 Albumin (3.5 - 5.0 g/dL) 2.3 L 2.2 L Triglycerides (<150 mg/dL) 198 H Cholesterol (< 200 MG/DL) 107 LDL Cholesterol, Calc (65 - 129 mg/dL) 57 L HDL Cholesterol (40 - 60 mg/dL) 11 L Cholesterol/HDL Ratio (0.00 - 4.88 %) 10 H Amylase (30 - 110 U/L) < 30 L Lipase (23 - 300 U/L) 28 Hematology CBC w Diff NO MAN DIFF REQ WBC (4.8 - 10.8 /CUMM) 17.1 H RBC (4.70 - 6.10 /CUMM) 2.74 L Hgb (14.0 - 18.0 G/DL) 7.9 L Hct (42 - 52 %) 22.8 L MCV (80.0 - 94.0 FL) 83.0 MCH (27.0 - 31.0 PG) 28.9 MCHC (33.0 - 37.0 G/DL) 34.8 RDW (11.5 - 14.5 %) 17.7 H Plt Count (130 - 400 /CUMM) 282 MPV (7.4 - 10.4 FL) 6.9 L Gran % (42.2 - 75.2 %) 81.3 H Lymphocytes % (20.5 - 51.1 %) 8.2 L Monocytes % (1.7 - 9.3 %) 4.2 Eosinophils % (0 - 5 %) 6.2 H Basophils % (0.0 - 2.0 %) 0.1 Absolute Granulocytes (1.4 - 6.5 /CUMM) 13.9 H Absolute Lymphocytes (1.2 - 3.4 /CUMM) 1.4 Absolute Monocytes (0.10 - 0.60 /CUMM) 0.7 H Absolute Eosinophils (0.0 - 0.7 /CUMM) 1.1 Absolute Basophils (0.0 - 0.2 /CUMM) 0 Miscellaneous Phlebotomy Draw Site A-LINE 10/18 10/18 10/18 1821 1220 0925 Blood Gas pH (7.35 - 7.45 PH) 7.51 H 7.51 H pCO2 (35 - 45 TORR) 29 L 29 L pO2 (80 - 100 TORR) 79 L 71 L HCO3 (21 - 28 MEQ/L) 23 22 ABG O2 Sat (Measured) (>96.0 %) 95.0 L 93.0 L P-50 (Temp Corrected) N N Carboxyhemoglobin (1.5 - 5.0 %) 0.3 L 0.6 L O2 Concentration % 70% 70% Respiration Rate (BPM) 18 22 O2 Delivery Method VENT VENT Vent Mode AC AC Expiratory Pressure (CMH2O/P) 8 8 Tidal Volume (CC) 600 600 Pressure Support (CMH2O/P) 0 0 Chemistry Potassium (3.5 - 5.1 mmol/L) 3.1 L Magnesium (1.6 - 2.3 mg/dL) 1.7 Miscellaneous Phlebotomy Draw Site LEFT A-LINE LEFT A-LINE 10/18 10/17 10/17 0355 2200 1300 Chemistry Sodium (137 - 145 mmol/L) 140 137 Cancelled Potassium (3.5 - 5.1 mmol/L) 3.2 L 3.0 L Cancelled Chloride (98 - 107 mmol/L) 104 102 Cancelled Carbon Dioxide (22 - 30 mmol/L) 22 23 Cancelled Anion Gap (5 - 16) 14 12 Cancelled BUN (9 - 20 mg/dL) 17 18 Cancelled Creatinine (0.7 - 1.2 mg/dL) 1.2 1.3 H Cancelled Estimated GFR (>60 ml/min) > 60 > 60 BUN/Creatinine Ratio Cancelled Glucose (65 - 99 mg/dL) 106 H 98 Calcium (8.4 - 10.2 mg/dL) 7.7 L 7.7 L Phosphorus (2.5 - 4.5 mg/dL) 3.3 3.1 Magnesium (1.6 - 2.3 mg/dL) 1.8 1.7 Total Bilirubin (0.2 - 1.3 mg/dL) 0.9 0.8 AST (17 - 59 U/L) 21 26 ALT (21 - 72 U/L) 55 56 Albumin (3.5 - 5.0 g/dL) 2.3 L 2.3 L Triglycerides (<150 mg/dL) 187 H Cholesterol (< 200 MG/DL) 116 LDL Cholesterol, Calc (65 - 129 mg/dL) 67 HDL Cholesterol (40 - 60 mg/dL) 12 L Cholesterol/HDL Ratio (0.00 - 4.88 %) 9.7 H Amylase (30 - 110 U/L) 37 Lipase (23 - 300 U/L) 67 Hematology CBC w Diff NO MAN DIFF REQ WBC (4.8 - 10.8 /CUMM) 15.2 H RBC (4.70 - 6.10 /CUMM) 2.88 L Hgb (14.0 - 18.0 G/DL) 8.1 L Hct (42 - 52 %) 24.2 L MCV (80.0 - 94.0 FL) 83.9 MCH (27.0 - 31.0 PG) 28.2 MCHC (33.0 - 37.0 G/DL) 33.7 RDW (11.5 - 14.5 %) 17.8 H Plt Count (130 - 400 /CUMM) 347 MPV (7.4 - 10.4 FL) 6.7 L Gran % (42.2 - 75.2 %) 78.7 H Lymphocytes % (20.5 - 51.1 %) 13.2 L Monocytes % (1.7 - 9.3 %) 4.8 Eosinophils % (0 - 5 %) 3.2 Basophils % (0.0 - 2.0 %) 0.1 Absolute Granulocytes (1.4 - 6.5 /CUMM) 12.0 H Absolute Lymphocytes (1.2 - 3.4 /CUMM) 2.0 Absolute Monocytes (0.10 - 0.60 /CUMM) 0.7 H Absolute Eosinophils (0.0 - 0.7 /CUMM) 0.5 Absolute Basophils (0.0 - 0.2 /CUMM) 0 10/17 10/17 1300 1253 Blood Gas pH (7.35 - 7.45 PH) 7.45 pCO2 (35 - 45 TORR) 30 L pO2 (80 - 100 TORR) 78 L HCO3 (21 - 28 MEQ/L) 21 ABG O2 Sat (Measured) (>96.0 %) 95.0 L P-50 (Temp Corrected) N Carboxyhemoglobin (1.5 - 5.0 %) 0.3 L O2 Concentration % 50% Temperature (97.0 - 100.0 FARH) 98.7 Respiration Rate (BPM) 22 O2 Delivery Method VENT Vent Mode VC-AC Expiratory Pressure (CMH2O/P) 10 Tidal Volume (CC) 500 Chemistry Sodium (137 - 145 mmol/L) 139 Potassium (3.5 - 5.1 mmol/L) 2.4 *L Chloride (98 - 107 mmol/L) 109 H Carbon Dioxide (22 - 30 mmol/L) 20 L Anion Gap (5 - 16) 11 BUN (9 - 20 mg/dL) 18 Creatinine (0.7 - 1.2 mg/dL) 1.3 H Estimated GFR (>60 ml/min) > 60 Glucose (65 - 99 mg/dL) 103 H Calcium (8.4 - 10.2 mg/dL) 7.1 L Phosphorus (2.5 - 4.5 mg/dL) 2.3 L Magnesium (1.6 - 2.3 mg/dL) 1.5 L Total Bilirubin (0.2 - 1.3 mg/dL) 0.5 AST (17 - 59 U/L) 27 ALT (21 - 72 U/L) 64 Albumin (3.5 - 5.0 g/dL) 2.0 L Miscellaneous Phlebotomy Draw Site A-LINE Microbiology Date/Time Procedure - Status Source Growth 10/17 045 Blood Culture - RES BLOOD 10/17 042 Blood Culture - RES BLOOD 10/16 163 Respiratory Culture - COMP LOWER RESP YEAST 10/16 1630 Gram Stain - COMP LOWER RESP Impression/Plan Impression/Plan Impression/Plan: CT SCAN IMPRESSION: 1. No significant change is seen in the dense consolidation and near complete collapse of the right lower lobe or in the subtotal consolidations in the right middle lobe and right upper lobe when compared to 10/14/2017. Associated large complex right-sided pleural effusion is seen with multiple internal air locules, producing air-fluid levels. Findings are suspicious for a multi lobar pneumonia/ARDS with associated right-sided infected parapneumonic effusion/empyema. Less likely, findings may be related to a multi lobar pneumonia/ARDS with secondary bronchopleural fistula. Close clinical correlation is requested. 2. Extensive diffuse opacification is seen throughout the left lung, also suspicious for multilobar pneumonia/ARDS. There is mildly improved aeration seen in the left lower lobe when compared to the prior exam. Associated small left-sided pleural effusion is now noted, appearing simple. 3. Mediastinal and bilateral hilar reactive adenopathy is seen. 4. Splenomegaly and probable hepatomegaly, though the liver is not included fully on this exam. 5. Mid left renal cyst. This is a gentleman with history of polysubstance abuse in the past, on methadone replacement, hypertension, hyperlipidemia, chronic prednisone use in the recent past, hypoadrenalism, migraine, cocaine abuse in the past, history of intravenous drug abuse, bipolar disorder, on multiple medications, ongoing smoking, previous admission to this hospital with altered mental status, has had a few emergency room visits in the recent past few days. Now admitted with severe ARDS and necrotizing pna with empyema with trapped lung with large hydropneumothorax INtubated and sedated and Pupils reacting small pupils Obese gentleman with tattoos IJ cath in place Dunia placed today No significant JVD Chest decreased breath sounds with significant bronchial breathing on the right side with rhonchi diffusely Heart S1 and S2 was heard no murmur could be appreciated but he had significant rhonchi Abdominal exam obese nontender full abdominal exam could not be done as he was unable to lay flat No significant edema or needle cronin noted. IMPRESSION This is a gentleman with previous history of polysubstance abuse now on methadone, bipolar disorder, ongoing smoking, now here with * Resolving necrotizing strep pna with resolving Severe ARDS with severe bilateral multilobar pna due to strep with empyema (s/p drained initially 400 cc) with hydropneumothorax with trapped lung. INtubated and sedated and ( paralysed initially) now on ards protocol for vent * Trapped lung and hydropneumothorax which would need drainage * Resolving Acute renal failure in a patient with sepsis with atn (was on ACI and metformin aswell) * History of Diabetes on metformin * Methadone use high risk for withdrawal * Recent steroid use hence immunosuppressed * Bipolar disorder, hypo-testosterone, multiple other issues including polysubstance use and smoking * History of Hyperlipidemia, hypertension, previous chest pain chest discomfort. RECOMMENDATION Cont vent and try to reduce fio2 Increase precedex to 1 and up to 1.2 if needed Prn ativan 2 mg q 2 hr prn if needed One dose of lasix 20 mg CVP goal 8 Replace potassium down ng Agg bowel regimen with Docusate and senna and use miralax daily and can be held if diarrhea happens Mag iv today check qtc daily and when qtc is down can give haldol 1 mg down ng q12 Cont Proton pump inhibitor and heparin sub cut Change jevity for now 30 cc and increase to 40 Free water down ng Pt critically ill DIscussed with girl friend at the bedside TTS 60 mins PT had explicitly told me that his girl friend should be the surrogate decision maker
--- NOTE | 2017-10-19 11:11 | PN- Infect Dx ---
Subjective Subjective: T-max 102.2. He remains sedated and is unable to provide any history. Objective Last 24 Hrs of Vital Signs/I&O Vital Signs Date Time Temp Pulse Resp B/P B/P Pulse O2 O2 Flow FiO2 Mean Ox Delivery Rate 10/19 0800 60 10/19 0628 60 10/19 0445 100.7 10/19 0404 70 10/19 0400 96 Ventilator 70% 10/19 0309 101.7 10/19 0020 70 10/19 0000 93 Ventilator 70% 10/18 2300 99.1 76 19 120/72 91 Ventilator 70% 10/18 2231 70 10/18 2028 70 10/18 2010 100.7 10/18 2000 93 Ventilator 70% 10/18 1914 102.2 10/18 1644 70 10/18 1600 94 Ventilator 70% 10/18 1600 98.7 114 30 122/62 94 Ventilator 70% 10/18 1419 70 /05 1200 95 Ventilator 70% Intake & Output 10/19 1600 10/19 0800 06 0000 Intake Total 1508 1407 Output Total 1600 1650 Balance -92 -243 Intake, IV 928 1064 Intake, Oral 0 0 Intake, Tube 130 93 Feeding Intake, Tube 450 250 Irrigant Number 2 1 Bowel Movements Output, Urine 1600 1650 Physical Exam Other Physical Findings: He is sedated on the ventilator, unresponsive to voice or pain Neck right IJ triple lumen catheter with no inflammation at the site Lungs scattered rhonchi Heart regular rhythm with no murmur Abdomen is mildly distended, nontender with positive bowel sounds Extremities no cyanosis, clubbing or edema Pineda catheter remains in place Results Last 24 Hours of Lab Results: Laboratory Tests 10/19 10/19 10/19 0504 0428 0008 Blood Gas pH (7.35 - 7.45 PH) 7.46 H pCO2 (35 - 45 TORR) 35 pO2 (80 - 100 TORR) 93 HCO3 (21 - 28 MEQ/L) 24 ABG O2 Sat (Measured) (>96.0 %) 96.0 P-50 (Temp Corrected) Y Carboxyhemoglobin (1.5 - 5.0 %) 0.1 L O2 Concentration % 70% Temperature (97.0 - 100.0 FARH) 100.7 H Respiration Rate (BPM) 18 O2 Delivery Method VENT Vent Mode VC-AC Expiratory Pressure (CMH2O/P) 8 Tidal Volume (CC) 600 Chemistry Sodium (137 - 145 mmol/L) 136 L 137 Potassium (3.5 - 5.1 mmol/L) 4.1 3.4 L Chloride (98 - 107 mmol/L) 101 101 Carbon Dioxide (22 - 30 mmol/L) 25 26 Anion Gap (5 - 16) 10 10 BUN (9 - 20 mg/dL) 17 17 Creatinine (0.7 - 1.2 mg/dL) 1.0 1.1 Estimated GFR (>60 ml/min) > 60 > 60 Glucose (65 - 99 mg/dL) 125 H 136 H Calcium (8.4 - 10.2 mg/dL) 8.0 L 8.0 L Phosphorus (2.5 - 4.5 mg/dL) 3.3 3.8 Magnesium (1.6 - 2.3 mg/dL) 1.8 2.3 Total Bilirubin (0.2 - 1.3 mg/dL) 1.4 H 1.3 AST (17 - 59 U/L) 24 20 ALT (21 - 72 U/L) 46 41 Albumin (3.5 - 5.0 g/dL) 2.3 L 2.2 L Triglycerides (<150 mg/dL) 198 H Cholesterol (< 200 MG/DL) 107 LDL Cholesterol, Calc (65 - 129 mg/dL) 57 L HDL Cholesterol (40 - 60 mg/dL) 11 L Cholesterol/HDL Ratio (0.00 - 4.88 %) 10 H Amylase (30 - 110 U/L) < 30 L Lipase (23 - 300 U/L) 28 Hematology CBC w Diff NO MAN DIFF REQ WBC (4.8 - 10.8 /CUMM) 17.1 H RBC (4.70 - 6.10 /CUMM) 2.74 L Hgb (14.0 - 18.0 G/DL) 7.9 L Hct (42 - 52 %) 22.8 L MCV (80.0 - 94.0 FL) 83.0 MCH (27.0 - 31.0 PG) 28.9 MCHC (33.0 - 37.0 G/DL) 34.8 RDW (11.5 - 14.5 %) 17.7 H Plt Count (130 - 400 /CUMM) 282 MPV (7.4 - 10.4 FL) 6.9 L Gran % (42.2 - 75.2 %) 81.3 H Lymphocytes % (20.5 - 51.1 %) 8.2 L Monocytes % (1.7 - 9.3 %) 4.2 Eosinophils % (0 - 5 %) 6.2 H Basophils % (0.0 - 2.0 %) 0.1 Absolute Granulocytes (1.4 - 6.5 /CUMM) 13.9 H Absolute Lymphocytes (1.2 - 3.4 /CUMM) 1.4 Absolute Monocytes (0.10 - 0.60 /CUMM) 0.7 H Absolute Eosinophils (0.0 - 0.7 /CUMM) 1.1 Absolute Basophils (0.0 - 0.2 /CUMM) 0 Miscellaneous Phlebotomy Draw Site A-LINE 10/18 10/18 1821 1220 Blood Gas pH (7.35 - 7.45 PH) 7.51 H pCO2 (35 - 45 TORR) 29 L pO2 (80 - 100 TORR) 79 L HCO3 (21 - 28 MEQ/L) 23 ABG O2 Sat (Measured) (>96.0 %) 95.0 L P-50 (Temp Corrected) N Carboxyhemoglobin (1.5 - 5.0 %) 0.3 L O2 Concentration % 70% Respiration Rate (BPM) 18 O2 Delivery Method VENT Vent Mode AC Expiratory Pressure (CMH2O/P) 8 Tidal Volume (CC) 600 Pressure Support (CMH2O/P) 0 Chemistry Potassium (3.5 - 5.1 mmol/L) 3.1 L Magnesium (1.6 - 2.3 mg/dL) 1.7 Miscellaneous Phlebotomy Draw Site LEFT A-LINE Last 24 Hours of Venancio Results: Blood cultures October 17 negative Recent Imaging Studies: CT of the chest October 18 reveals no significant change in the dense consolidation and near complete collapse of the right lower lobe or in the subtotal consolidations in the right middle lobe and right upper lobe; a large complex right-sided pleural effusion is seen with multiple internal air locules, producing air-fluid levels; extensive diffuse opacification is seen throughout the left lung; splenomegaly and probable hepatomegaly CT of the head October 18 no acute process Chest x-ray October 19 revealed stable multifocal consolidations and multiloculated collection of gas and pleural fluid in the right hemithorax Assessment/Plan ID Impression: Condition remains poor, with ongoing respiratory failure and with recurrent fevers and increasing white blood cell count, presumably secondary to an undrained empyema in the right chest, with plans for placement of a chest tube later this morning. He remains on Unasyn, Day 5 of treatment for a necrotizing pneumonia/empyema secondary to alpha strep, which was isolated from the pleural fluid and sputum cultures. Suggestion: 1. Await placement of the chest tube in the right chest 2. Await placement of the PICC so that the right IJ can be removed 3. Continue Unasyn
--- NOTE | 2017-10-19 11:11 | RADIOLOGY REPORT ---
EXAMINATION: CHEST 1 VIEW CLINICAL INFORMATION: Line placement. COMPARISON: Multiple prior exams are reviewed. The most recent is from the same day obtained at 0133 hours. TECHNIQUE: An AP view of the chest was obtained at 1048 hours. FINDINGS: The cardiac silhouette is stable. The tip of the endotracheal tube is approximately 6 cm above the mahendra. A right central venous line is in unchanged position. A right PICC line has been placed. The tip terminates within the distal SVC. An enteric tube is in unchanged position. There is patchy opacification again noted throughout the left lung. Again identified are blebs throughout the lateral right lung along with patchy airspace disease within the lower two thirds of the right hemithorax. There is a small right pleural effusion. The osseous structures are stable. IMPRESSION: Lines and tubes in place as stated above. Interval placement of right PICC line. Relatively stable extensive mixed interstitial and airspace and pleural disease as stated above.
--- NOTE | 2017-10-19 12:27 | Event Note ---
Event Note Event Note: AFTER OBTAINING CONSENT FOR CHEST TUBE PLACEMENT, THE PATIENT WS PLACED IN LEFT LATERAL DECUBE POSITION. AT THE RIGHT MIDAXILLARY LINE THE CHEST WALL WS PREPPED WITH BETADINE. THEN AT 5-6 RIB SKIN WAS INJECTED WITH 1% LIDOCAINE. AFTER INCISION AND FINGERDISECTION DWONTO CHEST WALL THE PERIOSTIUM AND INTERCOSTAL SPACE WITH INJECTED WITH 1% LIDOCAINE. THE CHEST WALL WA OPENED WITH A ASIM CLAMP AND 32F CHEST TUBE WAS PLACED.WITH SEROSANGUINOUS INTO PLEUR EVAC CANNISTER. CHEST TUBE WAS SUTURED IN PLACE WITH 0-SILK SUTURE AND OCCLUSIVE DRESSING APPLIED.
--- NOTE | 2017-10-19 12:34 | PN- Cardiology ---
Subjective Subjective: no significant change in cardiac status; brief nonsustained SVT noted Objective Vital Signs and I&Os Vital Signs Date Time Temp Pulse Resp B/P B/P Pulse O2 O2 Flow FiO2 Mean Ox Delivery Rate 10/19 08 60 10/19 08 94 Ventilator 60% 10/19 0800 98.1 81 18 142/68 94 Ventilator 60% 10/19 0628 60 10/19 0445 100.7 10/19 0404 70 10/19 0400 96 Ventilator 70% 10/19 0309 101.7 10/19 0020 70 10/19 0000 93 Ventilator 70% / 2300 99.1 76 19 120/72 91 Ventilator 70% 10/18 2231 70 10/18 2028 70 10/18 2010 100.7 10/18 2000 93 Ventilator 70% 10/18 1914 102.2 10/18 1644 70 10/18 1600 94 Ventilator 70% / 1600 98.7 114 30 122/62 94 Ventilator 70% 10/18 1419 70 Intake & Output 10/19 1600 10/19 0800 06/06 0000 /05 1600 / 0800 06/ 0000 Intake Total 1508 1407 820.3 1866 1100 Output Total 1600 1650 1750 1950 2300 Balance -92 -243 -929.7 -84 -1200 Intake, IV 928 1064 620.3 1786 1100 Intake, Oral 0 0 0 Intake, Other 80 Intake, Tube 130 93 Feeding Intake, Tube 450 250 200 Irrigant Number 2 1 Bowel Movements Output, 300 300 200 Gastric Drainage Output, Urine 1600 1650 1450 1650 2100 Physical Exam: General Appearance: well developed/nourished, overweight, sedated, intubated Head: normal HEENT: Normal Neck: supple, JVP appears normal, carotid upstrokes normal bilaterally, no masses or thyromegaly Respiratory: chest non-tender, diffuse bilateral rhonchi with decreased breath sound Cardiovascular: regular rate/rhythm, normal S1, S2, 1/6 systolic murmur Abdomen: normal bowel sounds, soft, non-tender Extremities: normal inspection, no edema Vascular: Pulses are 2+ and equal bilaterally Neurologic: Grossly normal/nonfocal Current Medications: Current Medications Sig/Sara Start time Last Medication Dose Route Stop Time Status Admin Acetaminophen 1,000 MG ONCE ONE 10/19 314 DC 10/19 IV 06/06 0316 0309 Acetaminophen 1,000 MG ONCE ONE 10/18 1915 DC 10/18 IV 10/18 191 191 Albuterol Sulfate 3 ML EVERY 4 HRS/AWAKE 10/15 1200 AC 10/19 INH 0801 Ampicillin Sodium/ 3,000 MG Q6 10/18 1200 AC 10/19 Sulbactam Sodium IV 1117 Sodium Chloride 100 ML Dexmedetomidine HCl 400 MCG Q4H 10/19 1200 AC Sodium Chloride 96 ML IV Dexmedetomidine HCl 200 MCG Q3H 10/18 1000 DC 10/19 Sodium Chloride 48 ML IV 10/19 1159 1135 Fentanyl Citrate 1,000 MCG Q3H 10/18 1000 AC 10/19 Dextrose/Water 250 ML IV 0930 Furosemide 20 MG ONCE ONE 10/19 1115 DC 10/19 IV 10/19 1116 1230 Heparin Sodium 5,000 UNIT Q8 10/14 2200 AC 10/19 (Porcine) SC 0511 Lorazepam 2 MG ONE ONE 10/19 1145 DC 10/19 IV 10/19 1146 1134 Lorazepam 2 MG ONE ONE 10/19 1030 DC 10/19 IV 10/19 1031 1104 Lorazepam 2 MG Q4P PRN 10/18 1215 AC 10/19 IV 0926 Magnesium Sulfate 1 GM ONCE ONE 10/19 1115 AC Dextrose/Water 100 ML IV 10/19 1514 Magnesium Sulfate 1 GM Q2H 10/18 1930 DC 10/18 Dextrose/Water 100 ML IV 10/189 2059 Morphine Sulfate 4 MG Q6-PRN PRN 10/14 191 AC 10/17 IV 0303 Pantoprazole Sodium 40 MG DAILY 10/14 2014 AC 10/19 IV 0821 Polyethylene Glycol 17 GM DAILY 10/18 0910 AC 10/18 PO 1116 Potassium Chloride 60 MEQ ONCE ONE 10/19 0100 DC 10/19 PO 10/19 010 0319 Potassium Chloride 20 MEQ ONCE ONE 10/18 194 DC 10/18 PO 10/18 194 195 Potassium Chloride 40 MEQ ONCE ONE 10/18 193 DC 10/18 PO 10/18 1930 195 Potassium Chloride 20 MEQ ONCE ONE 10/18 193 CAN IV 10/18 1930 Potassium Chloride 20 MEQ .STK-MED ONE 10/18 1754 DC IV 10/18 175 Senna/Docusate Sodium 2 TAB DAILY NEEDED PRN 10/18 1215 AC PO Vecuronium [place] 5 MG ONCE ONE 10/19 1100 DC 10/19 IV 10/19 1101 1103 Results Last 48 Hrs of Labs/Mics: Laboratory Tests 10/19/17 0504: pH 7.46 H, pCO2 35, pO2 93, HCO3 24, ABG O2 Sat (Measured) 96.0, P-50 (Temp Corrected) Y, Carboxyhemoglobin 0.1 L, O2 Concentration % 70%, Temperature 100.7 H, Respiration Rate 18, O2 Delivery Method VENT, Vent Mode VC-AC, Expiratory Pressure 8, Tidal Volume 600, Phlebotomy Draw Site A-LINE 10/19/17 0428: Anion Gap 10, Estimated GFR > 60, Glucose 125 H, Calcium 8.0 L, Phosphorus 3.3 , Magnesium 1.8, Total Bilirubin 1.4 H, AST 24, ALT 46, Albumin 2.3 L, Triglycerides 198 H, Cholesterol 107, LDL Cholesterol, Calc 57 L, HDL Cholesterol 11 L, Cholesterol/HDL Ratio 10 H, Amylase < 30 L, Lipase 28, CBC w Diff NO MAN DIFF REQ, RBC 2.74 L, MCV 83.0, MCH 28.9, MCHC 34.8, RDW 17.7 H, MPV 6.9 L, Gran % 81.3 H, Lymphocytes % 8.2 L, Monocytes % 4.2, Eosinophils % 6.2 H, Basophils % 0.1, Absolute Granulocytes 13.9 H, Absolute Lymphocytes 1.4 , Absolute Monocytes 0.7 H, Absolute Eosinophils 1.1, Absolute Basophils 0 10/19/17 0008: Anion Gap 10, Estimated GFR > 60, Glucose 136 H, Calcium 8.0 L, Phosphorus 3.8 , Magnesium 2.3, Total Bilirubin 1.3, AST 20, ALT 41, Albumin 2.2 L 10/18/17 1821: Magnesium 1.7 10/18/17 1220: pH 7.51 H, pCO2 29 L, pO2 79 L, HCO3 23, ABG O2 Sat (Measured) 95.0 L, P-50 (Temp Corrected) N, Carboxyhemoglobin 0.3 L, O2 Concentration % 70%, Respiration Rate 18, O2 Delivery Method VENT, Vent Mode AC, Expiratory Pressure 8, Tidal Volume 600, Pressure Support 0, Phlebotomy Draw Site LEFT A-LINE 10/18/17 5529: pH 7.51 H, pCO2 29 L, pO2 71 L, HCO3 22, ABG O2 Sat (Measured) 93.0 L, P-50 (Temp Corrected) N, Carboxyhemoglobin 0.6 L, O2 Concentration % 70%, Respiration Rate 22, O2 Delivery Method VENT, Vent Mode AC, Expiratory Pressure 8, Tidal Volume 600, Pressure Support 0, Phlebotomy Draw Site LEFT A-LINE 10/18/17 0355: Anion Gap 14, Estimated GFR > 60, Glucose 106 H, Calcium 7.7 L, Phosphorus 3.3 , Magnesium 1.8, Total Bilirubin 0.9, AST 21, ALT 55, Albumin 2.3 L, Triglycerides 187 H, Cholesterol 116, LDL Cholesterol, Calc 67, HDL Cholesterol 12 L, Cholesterol/HDL Ratio 9.7 H, Amylase 37, Lipase 67, CBC w Diff NO MAN DIFF REQ, RBC 2.88 L, MCV 83.9, MCH 28.2, MCHC 33.7, RDW 17.8 H, MPV 6.7 L, Gran % 78.7 H, Lymphocytes % 13.2 L, Monocytes % 4.8, Eosinophils % 3.2, Basophils % 0.1, Absolute Granulocytes 12.0 H, Absolute Lymphocytes 2.0, Absolute Monocytes 0.7 H, Absolute Eosinophils 0.5, Absolute Basophils 0 10/17/17 2200: Anion Gap 12, Estimated GFR > 60, Glucose 98, Calcium 7.7 L, Phosphorus 3.1, Magnesium 1.7, Total Bilirubin 0.8, AST 26, ALT 56, Albumin 2.3 L 10/17/17 1300: Sodium Cancelled, Potassium Cancelled, Chloride Cancelled, Carbon Dioxide Cancelled, Anion Gap Cancelled, BUN Cancelled, Creatinine Cancelled, BUN/ Creatinine Ratio Cancelled 10/17/17 1300: Anion Gap 11, Estimated GFR > 60, Glucose 103 H, Calcium 7.1 L, Phosphorus 2.3 L, Magnesium 1.5 L, Total Bilirubin 0.5, AST 27, ALT 64, Albumin 2.0 L 10/17/17 1253: pH 7.45, pCO2 30 L, pO2 78 L, HCO3 21, ABG O2 Sat (Measured) 95.0 L, P-50 ( Temp Corrected) N, Carboxyhemoglobin 0.3 L, O2 Concentration % 50%, Temperature 98.7, Respiration Rate 22, O2 Delivery Method VENT, Vent Mode VC-AC, Expiratory Pressure 10, Tidal Volume 500, Phlebotomy Draw Site A-LINE Assessment/Plan Assessment/Plan Assessment: 1. Acute respiratory failure with ARDS, severe bilateral multilobar pneumonia, empyema, hydropneumothorax, trapped lung, etc. 2. Acute renal insufficiency 3. History of diabetes 4. Anemia 5. History of polysubstance abuse, on methadone, 6. Recent steroid use/immunosuppression 7. History of hypertension 8. History of hyperlipidemia 9. Nonsustained supraventricular tachycardia, improved; brief episodes of nonsustained SVT noted Plan: * Continue supportive care; monitor metabolic parameters * Continue to monitor on telemetry for recurrence of SVT Continue telemetry? Yes
--- NOTE | 2017-10-19 12:44 | RADIOLOGY REPORT ---
EXAMINATION: XR PORTABLE CHEST CLINICAL INFORMATION: Endotracheal COMPARISON: 10/19/2017 at 10:40 AM. TECHNIQUE: Portable AP upright view of the chest was obtained. FINDINGS: ET tube terminates 6 cm from the mahendra, in good position. Right IJ central venous catheter tip terminates in the SVC. Gastric decompression tube extends off the inferior margin of the study. Right-sided PICC line terminates at the cavoatrial junction. EKG leads overlie the chest. A right-sided chest tube is now present in the base of the right hemithorax. There is improved aeration of the right lung status post right chest tube placement with a decrease in the size of the right pleural effusion. There is hyperlucency at the right lung apex which is likely due to absence of airspace disease in this region. No new pneumothorax is identified. Loculated gas component of the hydropneumothorax are not significant changed at the lateral aspect of the right hemithorax and at the right lung base. Diffuse interstitial opacities and airspace disease throughout the left lung appears unchanged. Airspace disease in the right lung base appears slightly improved, likely due to the decreased effusion. IMPRESSION: 1. Right chest tube terminates in the base of the right hemithorax. No new pneumothorax. Fluid component of the complex right hydropneumothorax is decreased. 2. Other tubes and lines are unchanged. 3. Unchanged interstitial and airspace opacities in the left lung.
[2017-10-19 16:00] VITALS: BP 120/50
[2017-10-19 23:00] VITALS: BP 100/90
[2017-10-20 04:53] LABS: ABSOLUTE BASOPHIL COUNT 0.1 /CUMM (0.0-0.2); ABSOLUTE EOSINOPHIL COUNT 1.5 /CUMM (0.0-0.7); ABSOLUTE GRANULOCYTE CT 11.1 /CUMM (1.4-6.5); ABSOLUTE LYMPH COUNT 2.2 /CUMM (1.2-3.4); ABSOLUTE MONOCYTE COUNT 0.6 /CUMM (0.10-0.60); BASOPHIL % 0.3 % (0.0-2.0); EOSINOPHIL % 9.8 % (0-5); GRANULOCYTE % 71.8 % (42.2-75.2); HEMATOCRIT 23.2 % (42-52); MEAN CORPUSCULAR HGB 28.7 PG (27.0-31.0); MEAN CORPUSCULAR HGB CONC 34.5 G/DL (33.0-37.0); MEAN CORPUSCULAR VOLUME 83.1 FL (80.0-94.0); MEAN PLATELET VOLUME 7.5 FL (7.4-10.4); PLATELET COUNT 275 /CUMM (130-400); RED BLOOD CELL CT 2.79 /CUMM (4.70-6.10); WHITE BLOOD CELL COUNT 15.5 /CUMM (4.8-10.8)
--- NOTE | 2017-10-20 06:51 | RADIOLOGY REPORT ---
EXAMINATION: XR PORTABLE CHEST CLINICAL INFORMATION: Chest tube placement, check positioning COMPARISON: 10/19/2017 TECHNIQUE: Portable frontal view of the chest was obtained. FINDINGS: Endotracheal tube tip lies approximately 5 cm above the mahendra. Enteric tube courses into the stomach. Right PICC tip lies in the expected region of the cavoatrial junction, though is suboptimally assessed due to patient rotation. Right basilar chest tube remains present in similar position to prior. There is a redemonstrated right hydropneumothorax, with basilar pleural effusion component appearing similar to prior. The right pneumothorax component laterally appears decreased from prior. There is worsened opacification at the left lung base compared to prior. The cardiomediastinal silhouette is stable. No acute osseous findings are seen. IMPRESSION: 1. Right basilar chest tube position appears similar to prior. Redemonstrated right hydropneumothorax, with decreased pneumothorax component compared to prior. Volume of right pleural effusion appears similar to prior. 2. Worsening left basilar opacification.
--- NOTE | 2017-10-20 07:53 | PN- Resident CRCU ---
Subjective HPI/CRCU Issues: No overnight event. Patient's now FiO2 50%, comfortable with precedex 22.5mg/ 100ml x 5 doses = 112.5mg in total. Fentanyl 250 x 7 doses. Bedside chest tube output around 550ml since placement, sanguous. Objective Vital Signs & I&O Last 8 Hrs of Vitals and I&O: Intake & Output 10/20 0800 Intake Total 1904 Output Total 1550 Balance 354 Intake, IV 1280 Intake, Oral 0 Intake, Tube 224 Feeding Intake, Tube 400 Irrigant Number 3 Bowel Movements Output, Chest 50 Tube Drainage Output, Urine 1500 Exam General Appearance: no apparent distress, sedated Neck: RIJ catheter in place clean Respiratory: chest non-tender, no respiratory distress Cardiovascular: regular rate/rhythm Gastrointestinal: soft, non-tender, decreased bowel sounds Extremities: normal inspection, no edema Current Medications: Current Medications Sig/Sara Start time Last Medication Dose Route Stop Time Status Admin Albuterol Sulfate 3 ML EVERY 4 HRS/AWAKE / 1200 AC 10/20 INH 0741 Ampicillin Sodium/ 3,000 MG Q6 / 1200 AC 10/20 Sulbactam Sodium IV 0509 Sodium Chloride 100 ML Artificial Tears 2 GTT 4 TIMES/DAY / 1827 AC 10/19 OPH 2050 Dexmedetomidine HCl 400 MCG Q4H / 1200 AC 10/20 Sodium Chloride 96 ML IV 0512 Dexmedetomidine HCl 200 MCG Q3H 06/05 1000 DC 06 Sodium Chloride 48 ML IV 10/19 1159 1135 Fentanyl Citrate 1,000 MCG Q3H 06/05 1000 AC / Dextrose/Water 250 ML IV 0644 Furosemide 20 MG ONCE ONE 10/19 1115 DC 06/ IV 10/19 1116 1230 Heparin Sodium 5,000 UNIT Q8 / 2200 AC 10/20 (Porcine) SC 0509 Lorazepam 2 MG ONE ONE 10/19 1145 DC 06 IV / 1146 1134 Lorazepam 2 MG ONE ONE 10/19 1030 DC 06/ IV / 1031 1104 Lorazepam 2 MG Q4P PRN 10/18 1215 AC 10/20 IV 0352 Magnesium Sulfate 1 GM ONCE ONE 10/20 0630 AC / Dextrose/Water 100 ML IV 10/20 1029 0623 Magnesium Sulfate 1 GM Q2H / 0015 DC 06/ Dextrose/Water 100 ML IV 10/20 0414 0135 Magnesium Sulfate 1 GM ONCE ONE 10/19 1115 DC 10/19 Dextrose/Water 100 ML IV 10/19 1514 1235 Morphine Sulfate 4 MG Q6-PRN PRN 10/14 191 AC 10/17 IV 0303 Pantoprazole Sodium 40 MG DAILY 10/14 2014 AC 10/19 IV 0821 Polyethylene Glycol 17 GM DAILY 10/18 0910 AC 10/18 PO 1116 Potassium Chloride 40 MEQ 1300 10/20 1300 CAN PO Potassium Chloride 60 MEQ ONCE ONE 10/20 0545 DC 10/20 PO 10/20 0546 0535 Potassium Chloride 60 MEQ ONCE ONE 10/19 2345 DC 10/19 PO 10/19 2346 2353 Senna/Docusate Sodium 2 TAB DAILY NEEDED PRN 10/18 1215 AC PO Vecuronium [place] 5 MG ONCE ONE 10/19 1100 DC 10/19 IV 10/19 1101 1103 Impression/Plan Impression/Problem List Impression: 42-year-old male with significant history of polysubstance abuse including cocaine, migraines, hypertension, previous diabetes not on medications lately presented with progressive worsening of shortness of breath since around a month with outpatient antimicrobial failure. In the ED he found to have purulent phlegm production with productive cough tripoding despite on 100% FiO2. Vital signs at presentation afebrile, heart rate 97, blood pressure 109/56 mmHg, saturating 85% on 6 L. Labs did show white count of 14.7, H&H 12/36, platelet count 496, chemistry sodium 134, potassium 4.5, BUN/creatinine 48/4.9, GFR 13, calcium 7.7, bilirubin 0.9, ALP 142, HIV nonreactive. Normal lactic. Thoracentesis was done in the ER with draining 400 mL of purulent fluid. Pleural fluid analysis did show white count of 22,400, RBC 1800, total protein 5.3, LDH 6615. Blood cultures and sputum cultures - NGTD Problem list 1. Severe ARDS on low TV and high PEEP ventilation. Multilobar pna 2. Acute renal failure 3. Hydropneumothorax with trapped lung 4. Methadone maintenence 5. HTN 6. Bipolar disorder 7. Polysubstance abuse PLAN Respiratory #ARDS with low TV, high PEEP protocol with goal Plateau pressure <30 cm H2o. Multilobar pna Respiratory acidosis on his improving with vent -qtc 475 on 10/20 EKG. -Cr 1.[address] chest w/ contrast. -cont IVF. IV PPI while on vent Infectious #Multilobar pneumonia Intially started on broad spectrum with IV Zosyn/IV azithro/IV vanco. Cultures growing alpha strep WBC fluctuating 15-[address] 10/18 showed No significant change is seen in the dense consolidation and near complete collapse of the right lower lobe or in the subtotal consolidations in the right middle lobe and right upper lobe when compared to 10/14/2017. -switched to unasyn per ID recommendations, currently day 6 -Pending final cultures -PICC line and chest tube placement 10/19 without complication. -Chest tube output 550ml since placement till 6AM today. Cardiovascular Tachycardia most likely secondary to ifnection, now stable RR 80s ECHO unremarkable -cont to monitor Hematology Hgb 8.0/23.2 stable, however likely due to continuous fluid causing hemodilution. Metabloc #Electrolytes Monitor K, Mg, phos daily per renal -K repleted at 3.0 on AM lab and K-gabriella was given, will recheck today 11AM Acute renal failure Cr 4.9 upon admission current Cr 1.0. -Ultrasound ruled out post renal causes. Likely related to sepsis with ATN/ Prerenal. -cont IVF Alimentary -cont NGTube - Started tube feeding per nutrition. Neuro #sedation Off Propofol 10/18, started Precedex goal of 1.2 Currently on IV fentanyl & IV ativan #History of bipolar disorder He was on seroquel, currently holding all the home medications. DVT prophylaxis Pharm PPX + ALPS Tube Feeding Full Code Problem List: 1. ARDS (adult respiratory distress syndrome) Pain Ratin Tomorrow's Labs & Rationales: ICU/CBC Plan DVT/Prophylaxis: mechanical, pharmacological
[2017-10-20 08:00] VITALS: BP 120/70
--- NOTE | 2017-10-20 11:14 | PN- Infect Dx ---
Subjective Subjective: T-max 100. He remains sedated. Objective Last 24 Hrs of Vital Signs/I&O Vital Signs Date Time Temp Pulse Resp B/P B/P Pulse O2 O2 Flow FiO2 Mean Ox Delivery Rate 10/20 08 94 Ventilator 50% 10/20 0800 97.6 102 18 120/70 94 Ventilator 50% / 0746 50 / 0619 50 10/20 0400 93 Ventilator 50% 10/20 0253 50 10/20 0004 50 / 0000 99 Ventilator 50% 10/19 2300 100.0 93 21 100/90 100 Ventilator 50% 10/19 2215 50 10/19 2000 97 Ventilator 55% 10/19 1950 55 10/19 1615 60 10/19 1600 100.0 81 18 120/50 96 Ventilator 60% 10/19 1600 96 Ventilator 60% 10/19 1435 60 10/19 1237 60 10/19 1200 97 Ventilator 60% Intake & Output 10/20 1600 10/20 0800 06 0000 Intake Total 1904 1217 Output Total 1550 2350 Balance 354 -1133 Intake, IV 1280 895 Intake, Oral 0 0 Intake, Tube 224 122 Feeding Intake, Tube 400 200 Irrigant Number 3 Bowel Movements Output, Chest 50 150 Tube Drainage Output, Urine 1500 2200 Physical Exam Other Physical Findings: He is minimally responsive on the ventilator Lungs are clear Chest chest tube in place with 450 cc output yesterday and 50 cc overnight Heart regular rhythm with no murmur Extremities no cyanosis, clubbing or edema; PICC in place in the right upper extremity Pineda catheter remains in place Results Last 24 Hours of Lab Results: Laboratory Tests 10/20 10/19 0341 2318 Chemistry Sodium (137 - 145 mmol/L) 135 L 133 L Potassium (3.5 - 5.1 mmol/L) 3.0 L 2.5 *L Chloride (98 - 107 mmol/L) 95 L 92 L Carbon Dioxide (22 - 30 mmol/L) 28 30 Anion Gap (5 - 16) 11 11 BUN (9 - 20 mg/dL) 16 16 Creatinine (0.7 - 1.2 mg/dL) 1.0 1.0 Estimated GFR (>60 ml/min) > 60 > 60 Glucose (65 - 99 mg/dL) 143 H 142 H Calcium (8.4 - 10.2 mg/dL) 8.1 L 7.9 L Phosphorus (2.5 - 4.5 mg/dL) 3.7 3.8 Magnesium (1.6 - 2.3 mg/dL) 2.2 1.6 Total Bilirubin (0.2 - 1.3 mg/dL) 0.8 0.9 AST (17 - 59 U/L) 26 20 ALT (21 - 72 U/L) 40 36 Albumin (3.5 - 5.0 g/dL) 2.3 L 2.4 L Lipase (23 - 300 U/L) 97 Hematology CBC w Diff NO MAN DIFF REQ WBC (4.8 - 10.8 /CUMM) 15.5 H RBC (4.70 - 6.10 /CUMM) 2.79 L Hgb (14.0 - 18.0 G/DL) 8.0 L Hct (42 - 52 %) 23.2 L MCV (80.0 - 94.0 FL) 83.1 MCH (27.0 - 31.0 PG) 28.7 MCHC (33.0 - 37.0 G/DL) 34.5 RDW (11.5 - 14.5 %) 17.0 H Plt Count (130 - 400 /CUMM) 275 MPV (7.4 - 10.4 FL) 7.5 Gran % (42.2 - 75.2 %) 71.8 Lymphocytes % (20.5 - 51.1 %) 14.1 L Monocytes % (1.7 - 9.3 %) 4.0 Eosinophils % (0 - 5 %) 9.8 H Basophils % (0.0 - 2.0 %) 0.3 Absolute Granulocytes (1.4 - 6.5 /CUMM) 11.1 H Absolute Lymphocytes (1.2 - 3.4 /CUMM) 2.2 Absolute Monocytes (0.10 - 0.60 /CUMM) 0.6 Absolute Eosinophils (0.0 - 0.7 /CUMM) 1.5 Absolute Basophils (0.0 - 0.2 /CUMM) 0.1 Last 24 Hours of Venancio Results: Blood cultures October 17 negative Recent Imaging Studies: Chest x-ray October 20 reveals a right hydropneumothorax with basilar pleural effusion component appearing similar to the prior x-ray; the right pneumothorax component laterally appears decreased from the prior study; worsened opacification at the left lung base Assessment/Plan ID Impression: Overall improved, with decreased oxygen requirements, lower grade fevers and white blood cell count decreased, on Unasyn now Day 6 of treatment for necrotizing pneumonia/empyema secondary to alpha strep, status post placement of a chest tube yesterday. Suggestion: 1. Further management of his chest tube per Thoracic surgery and Pulmonary 2. Will need a follow-up CT of the chest once the drainage from his chest tube has decreased 3. Continue Unasyn
--- NOTE | 2017-10-20 13:52 | PN- Pulmonary ---
Subjective HPI/Critical Care Issues: Doing ok Stable Still febrile No overnight event. Patient's now FiO2 50%, comfortable with precedex 22.5mg/ 100ml x 5 doses = 112.5mg in total. Fentanyl 250 x 7 doses. Bedside chest tube output around 550ml since placement, sanguous. Objective Current Medications: Current Medications Sig/Sara Start time Last Medication Dose Route Stop Time Status Admin Albuterol Sulfate 3 ML EVERY 4 HRS/AWAKE 10/15 1200 AC 10/20 INH 1147 Alteplase, 10 MG ONE ONE 10/20 1230 DC Recombinant IV 10/20 1231 Ampicillin Sodium/ 3,000 MG Q6 10/18 1200 AC 10/20 Sulbactam Sodium IV 1138 Sodium Chloride 100 ML Artificial Tears 2 GTT 4 TIMES/DAY 10/19 1827 AC 10/20 OPH 1306 Dexmedetomidine HCl 400 MCG Q4H 10/19 1200 AC 10/20 Sodium Chloride 96 ML IV 1309 Fentanyl Citrate 1,000 MCG Q3H 10/18 1000 AC 10/20 Dextrose/Water 250 ML IV 1032 Furosemide 20 MG ONCE ONE 10/21 1999 AC IV 10/20 2000 Heparin Sodium 5,000 UNIT Q8 10/14 2200 AC 10/20 (Porcine) SC 1307 Lorazepam 2 MG Q4P PRN 10/18 1215 AC 10/20 IV 0750 Magnesium Sulfate 1 GM ONCE ONE 10/20 0630 DC 10/20 Dextrose/Water 100 ML IV 10/20 1029 0623 Magnesium Sulfate 1 GM Q2H 10/20 0015 DC 10/20 Dextrose/Water 100 ML IV 10/20 0414 0135 Magnesium Sulfate 1 GM ONCE ONE 10/19 1115 DC 10/19 Dextrose/Water 100 ML IV 10/19 1514 1235 Morphine Sulfate 4 MG Q6-PRN PRN 10/14 1915 AC 10/17 IV 0303 Pantoprazole Sodium 40 MG DAILY 10/14 2014 AC 10/20 IV 0812 Polyethylene Glycol 17 GM DAILY 10/18 0910 AC 10/20 PO 0814 Potassium Chloride 40 MEQ 1300 10/20 1300 CAN PO Potassium Chloride 40 MEQ ONCE ONE 10/20 1115 DC 10/20 PO 10/20 1116 1138 Potassium Chloride 40 MEQ Q8H 10/20 1100 DC Dextrose/Sodium 1,000 ML IV 10/21 1059 Chloride Potassium Chloride 40 MEQ TID 10/20 1020 CAN IV 10/20 2101 Potassium Chloride 60 MEQ ONCE ONE 10/20 0545 DC 10/20 PO 10/20 0546 0535 Potassium Chloride 60 MEQ ONCE ONE 10/19 2345 DC 10/19 PO 10/19 2346 2353 Senna/Docusate Sodium 2 TAB DAILY NEEDED PRN 10/18 1215 AC PO Vital Signs & I&O Last 24 Hrs of Vitals and I&O: Vital Signs Date Time Temp Pulse Resp B/P B/P Pulse O2 O2 Flow FiO2 Mean Ox Delivery Rate 10/20 1200 97 Ventilator 45% 10/20 1120 50 10/20 0800 94 Ventilator 50% 10/20 08 97.6 102 18 120/70 94 Ventilator 50% 10/20 0746 50 10/20 0619 50 10/20 0400 93 Ventilator 50% 10/20 0253 50 10/20 0004 50 10/20 0000 99 Ventilator 50% 10/19 2300 100.0 93 21 100/90 100 Ventilator 50% 10/19 2215 50 10/19 2000 97 Ventilator 55% 10/19 1950 55 10/19 1615 60 10/19 1600 100.0 81 18 120/50 96 Ventilator 60% 10/19 1600 96 Ventilator 60% 10/19 1435 60 Intake & Output 10/20 1600 10/20 0800 06 0000 Intake Total 1904 1217 Output Total 1550 2350 Balance 354 -1133 Intake, IV 1280 895 Intake, Oral 0 0 Intake, Tube 224 122 Feeding Intake, Tube 400 200 Irrigant Number 3 Bowel Movements Output, Chest 50 150 Tube Drainage Output, Urine 1500 2200 Laboratory Tests 10/20 10/20 10/20 1300 1200 0341 Chemistry Sodium (137 - 145 mmol/L) Pending Cancelled 135 L Potassium (3.5 - 5.1 mmol/L) Pending Cancelled 3.0 L Chloride (98 - 107 mmol/L) Pending Cancelled 95 L Carbon Dioxide (22 - 30 mmol/L) Pending Cancelled 28 Anion Gap (5 - 16) Pending Cancelled 11 BUN (9 - 20 mg/dL) Pending Cancelled 16 Creatinine (0.7 - 1.2 mg/dL) Pending Cancelled 1.0 Estimated GFR (>60 ml/min) > 60 BUN/Creatinine Ratio Cancelled Glucose (65 - 99 mg/dL) Pending 143 H Calcium (8.4 - 10.2 mg/dL) Pending 8.1 L Phosphorus (2.5 - 4.5 mg/dL) Pending 3.7 Magnesium (1.6 - 2.3 mg/dL) Pending 2.2 Total Bilirubin (0.2 - 1.3 mg/dL) Pending 0.8 AST (17 - 59 U/L) Pending 26 ALT (21 - 72 U/L) Pending 40 Albumin (3.5 - 5.0 g/dL) Pending 2.3 L Lipase (23 - 300 U/L) 97 Hematology CBC w Diff NO MAN DIFF REQ WBC (4.8 - 10.8 /CUMM) 15.5 H RBC (4.70 - 6.10 /CUMM) 2.79 L Hgb (14.0 - 18.0 G/DL) 8.0 L Hct (42 - 52 %) 23.2 L MCV (80.0 - 94.0 FL) 83.1 MCH (27.0 - 31.0 PG) 28.7 MCHC (33.0 - 37.0 G/DL) 34.5 RDW (11.5 - 14.5 %) 17.0 H Plt Count (130 - 400 /CUMM) 275 MPV (7.4 - 10.4 FL) 7.5 Gran % (42.2 - 75.2 %) 71.8 Lymphocytes % (20.5 - 51.1 %) 14.1 L Monocytes % (1.7 - 9.3 %) 4.0 Eosinophils % (0 - 5 %) 9.8 H Basophils % (0.0 - 2.0 %) 0.3 Absolute Granulocytes (1.4 - 6.5 /CUMM) 11.1 H Absolute Lymphocytes (1.2 - 3.4 /CUMM) 2.2 Absolute Monocytes (0.10 - 0.60 /CUMM) 0.6 Absolute Eosinophils (0.0 - 0.7 /CUMM) 1.5 Absolute Basophils (0.0 - 0.2 /CUMM) 0.1 10/19 10/19 10/19 7370 9877 4717 Blood Gas pH (7.35 - 7.45 PH) 7.46 H pCO2 (35 - 45 TORR) 35 pO2 (80 - 100 TORR) 93 HCO3 (21 - 28 MEQ/L) 24 ABG O2 Sat (Measured) (>96.0 %) 96.0 P-50 (Temp Corrected) Y Carboxyhemoglobin (1.5 - 5.0 %) 0.1 L O2 Concentration % 70% Temperature (97.0 - 100.0 FARH) 100.7 H Respiration Rate (BPM) 18 O2 Delivery Method VENT Vent Mode VC-AC Expiratory Pressure (CMH2O/P) 8 Tidal Volume (CC) 600 Chemistry Sodium (137 - 145 mmol/L) 133 L 136 L Potassium (3.5 - 5.1 mmol/L) 2.5 *L 4.1 Chloride (98 - 107 mmol/L) 92 L 101 Carbon Dioxide (22 - 30 mmol/L) 30 25 Anion Gap (5 - 16) 11 10 BUN (9 - 20 mg/dL) 16 17 Creatinine (0.7 - 1.2 mg/dL) 1.0 1.0 Estimated GFR (>60 ml/min) > 60 > 60 Glucose (65 - 99 mg/dL) 142 H 125 H Calcium (8.4 - 10.2 mg/dL) 7.9 L 8.0 L Phosphorus (2.5 - 4.5 mg/dL) 3.8 3.3 Magnesium (1.6 - 2.3 mg/dL) 1.6 1.8 Total Bilirubin (0.2 - 1.3 mg/dL) 0.9 1.4 H AST (17 - 59 U/L) 20 24 ALT (21 - 72 U/L) 36 46 Albumin (3.5 - 5.0 g/dL) 2.4 L 2.3 L Triglycerides (<150 mg/dL) 198 H Cholesterol (< 200 MG/DL) 107 LDL Cholesterol, Calc (65 - 129 mg/dL) 57 L HDL Cholesterol (40 - 60 mg/dL) 11 L Cholesterol/HDL Ratio (0.00 - 4.88 %) 10 H Amylase (30 - 110 U/L) < 30 L Lipase (23 - 300 U/L) 28 Hematology CBC w Diff NO MAN DIFF REQ WBC (4.8 - 10.8 /CUMM) 17.1 H RBC (4.70 - 6.10 /CUMM) 2.74 L Hgb (14.0 - 18.0 G/DL) 7.9 L Hct (42 - 52 %) 22.8 L MCV (80.0 - 94.0 FL) 83.0 MCH (27.0 - 31.0 PG) 28.9 MCHC (33.0 - 37.0 G/DL) 34.8 RDW (11.5 - 14.5 %) 17.7 H Plt Count (130 - 400 /CUMM) 282 MPV (7.4 - 10.4 FL) 6.9 L Gran % (42.2 - 75.2 %) 81.3 H Lymphocytes % (20.5 - 51.1 %) 8.2 L Monocytes % (1.7 - 9.3 %) 4.2 Eosinophils % (0 - 5 %) 6.2 H Basophils % (0.0 - 2.0 %) 0.1 Absolute Granulocytes (1.4 - 6.5 /CUMM) 13.9 H Absolute Lymphocytes (1.2 - 3.4 /CUMM) 1.4 Absolute Monocytes (0.10 - 0.60 /CUMM) 0.7 H Absolute Eosinophils (0.0 - 0.7 /CUMM) 1.1 Absolute Basophils (0.0 - 0.2 /CUMM) 0 Miscellaneous Phlebotomy Draw Site A-LINE 10/19 10/18 0008 1821 Chemistry Sodium (137 - 145 mmol/L) 137 Potassium (3.5 - 5.1 mmol/L) 3.4 L 3.1 L Chloride (98 - 107 mmol/L) 101 Carbon Dioxide (22 - 30 mmol/L) 26 Anion Gap (5 - 16) 10 BUN (9 - 20 mg/dL) 17 Creatinine (0.7 - 1.2 mg/dL) 1.1 Estimated GFR (>60 ml/min) > 60 Glucose (65 - 99 mg/dL) 136 H Calcium (8.4 - 10.2 mg/dL) 8.0 L Phosphorus (2.5 - 4.5 mg/dL) 3.8 Magnesium (1.6 - 2.3 mg/dL) 2.3 1.7 Total Bilirubin (0.2 - 1.3 mg/dL) 1.3 AST (17 - 59 U/L) 20 ALT (21 - 72 U/L) 41 Albumin (3.5 - 5.0 g/dL) 2.2 L Impression/Plan Impression/Plan Impression/Plan: This is a gentleman with history of polysubstance abuse in the past, on methadone replacement, hypertension, hyperlipidemia, chronic prednisone use in the recent past, hypoadrenalism, migraine, cocaine abuse in the past, history of intravenous drug abuse, bipolar disorder, on multiple medications, ongoing smoking, previous admission to this hospital with altered mental status, has had a few emergency room visits in the recent past few days. Now admitted with severe ARDS and necrotizing pna with empyema with trapped lung with large hydropneumothorax INtubated and sedated and Pupils reacting small pupils Obese gentleman with tattoos IJ cath in place Dunia placed today No significant JVD Chest decreased breath sounds with significant bronchial breathing on the right side with rhonchi diffusely Heart S1 and S2 was heard no murmur could be appreciated but he had significant rhonchi Abdominal exam obese nontender full abdominal exam could not be done as he was unable to lay flat No significant edema or needle cronin noted. IMPRESSION This is a gentleman with previous history of polysubstance abuse now on methadone, bipolar disorder, ongoing smoking, now here with * Resolving necrotizing strep pna with resolving Severe ARDS with severe bilateral multilobar pna due to strep with empyema (s/p drained initially 400 cc) with hydropneumothorax with trapped lung. INtubated and sedated and ( paralysed initially) now on ards protocol for vent * Trapped lung and hydropneumothorax s/p Chest tube * Resolving Acute renal failure in a patient with sepsis with atn (was on ACI and metformin aswell) * History of Diabetes on metformin * Methadone use high risk for withdrawal * Recent steroid use hence immunosuppressed * Bipolar disorder, hypo-testosterone, multiple other issues including polysubstance use and smoking * History of Hyperlipidemia, hypertension, previous chest pain chest discomfort. RECOMMENDATION Cont vent and try to reduce fio2 Prn ativan 2 mg q 2 hr prn if needed One dose of lasix 20 mg CVP goal 8 Replace potassium down ng Mag iv today check qtc daily and when qtc is down can give haldol 1 mg down ng q12 Cont Proton pump inhibitor and heparin sub cut Ok to give tpa down the chest tube - surg pa to perform Pt critically ill DIscussed with girl friend at the bedside TTS 60 mins PT had explicitly told me that his girl friend should be the surrogate decision maker
[2017-10-21] VITALS: BP 130/70
[2017-10-21 04:06] LABS: ABSOLUTE BASOPHIL COUNT 0.1 /CUMM (0.0-0.2); ABSOLUTE EOSINOPHIL COUNT 1.2 /CUMM (0.0-0.7); ABSOLUTE GRANULOCYTE CT 12.1 /CUMM (1.4-6.5); ABSOLUTE LYMPH COUNT 2.1 /CUMM (1.2-3.4); ABSOLUTE MONOCYTE COUNT 1.1 /CUMM (0.10-0.60); BASOPHIL % 0.3 % (0.0-2.0); EOSINOPHIL % 7.3 % (0-5); GRANULOCYTE % 73.3 % (42.2-75.2); HEMATOCRIT 24.7 % (42-52); MEAN CORPUSCULAR HGB 27.8 PG (27.0-31.0); MEAN CORPUSCULAR HGB CONC 33.4 G/DL (33.0-37.0); MEAN CORPUSCULAR VOLUME 83.1 FL (80.0-94.0); MEAN PLATELET VOLUME 7.8 FL (7.4-10.4); PLATELET COUNT 344 /CUMM (130-400); RBC DISTRIBUTION WIDTH 17.2 % (11.5-14.5); RED BLOOD CELL CT 2.97 /CUMM (4.70-6.10); WHITE BLOOD CELL COUNT 16.6 /CUMM (4.8-10.8)
--- NOTE | 2017-10-21 06:30 | RADIOLOGY REPORT ---
EXAMINATION: XR PORTABLE CHEST CLINICAL INFORMATION: Chest tube placement, check positioning COMPARISON: 10/20/2017 TECHNIQUE: Portable frontal view of the chest was obtained. FINDINGS: Endotracheal tube tip lies approximately 6 cm above the mahendra. Enteric tube courses below the diaphragm. Right basilar chest tube appears in similar position to prior. Right PICC is again noted. Redemonstrated right hydropneumothorax with small basilar pleural effusion. Small pneumothorax component appears slightly decreased compared to prior along the lateral hemithorax. There is redemonstrated extensive heterogeneous opacification throughout the left hemithorax which appears worsened in the upper lung compared to prior. The cardiomediastinal silhouette is stable. No acute osseous findings are seen. IMPRESSION: 1. Redemonstrated small right hydropneumothorax, with pneumothorax component appearing slightly decreased compared to prior. 2. Heterogeneous opacification throughout the left lung, with worsened appearance in the upper lobe.
--- NOTE | 2017-10-21 07:32 | PN- Resident CRCU ---
Subjective HPI/CRCU Issues: No overnight event. Patient was awake and alert during my exam and appeared in no apparent distress. Vent setting in AC 18/600/35/8, chest tube drained 350ml in last 24 hours Objective Vital Signs & I&O Last 8 Hrs of Vitals and I&O: Intake & Output 10/21 1600 08 0800 10/21 0000 Intake Total 1591 914 Output Total 1115 900 Balance 476 14 Intake, IV 873 769 Intake, Oral 0 0 Intake, Other 150 Intake, Tube 368 145 Feeding Intake, Tube 200 Irrigant Number 1 3 Bowel Movements Output, Chest 100 150 Tube Drainage Output, Urine 1015 750 Patient 81.817 kg Weight Weight Bed scale Measurement Method Exam General Appearance: no apparent distress, alert, awake, intubated Head: atraumatic, normal appearance Respiratory: chest non-tender, decreased breath sounds Cardiovascular: regular rate/rhythm Gastrointestinal: normal bowel sounds, soft, non-tender Extremities: no edema Current Medications: Current Medications Sig/Sara Start time Last Medication Dose Route Stop Time Status Admin Albuterol Sulfate 3 ML EVERY 4 HRS/AWAKE 10/15 1200 AC 10/21 INH 0803 Alteplase, 6 MG ONE ONE 10/20 2215 DC 10/21 Recombinant IV 10/20 2216 0037 Alteplase, 10 MG ONE ONE 10/20 1230 DC 10/20 Recombinant IV 10/20 1231 1545 Ampicillin Sodium/ 3,000 MG Q6 10/18 1200 AC 10/21 Sulbactam Sodium IV 0502 Sodium Chloride 100 ML Artificial Tears 2 GTT 4 TIMES/DAY 10/19 1827 AC 10/20 OPH 2206 Dexmedetomidine HCl 400 MCG Q4H 10/19 1200 AC 10/21 Sodium Chloride 96 ML IV 0502 Fentanyl Citrate 1,000 MCG Q4H 10/21 0930 AC Dextrose/Water 250 ML IV Fentanyl Citrate 1,000 MCG Q4H 10/21 0800 AC 10/21 Dextrose/Water 250 ML IV 10/21 0929 0602 Fentanyl Citrate 1,000 MCG Q3H 10/18 1000 DC 10/21 Dextrose/Water 250 ML IV 0048 Furosemide 20 MG ONCE ONE 10/20 2000 CAN IV 10/20 2000 Heparin Sodium 5,000 UNIT Q8 10/14 2200 AC 10/21 (Porcine) SC 0502 Lorazepam 2 MG Q2P PRN 10/20 1545 AC 10/21 IV 0810 Lorazepam 2 MG Q4P PRN 10/18 1215 DC 06/ IV 1402 Magnesium Sulfate 1 GM .STK-MED ONE 10/20 1803 DC IV 10/20 1804 Magnesium Sulfate 1 GM ONCE ONE 10/20 0630 DC 10/20 Dextrose/Water 100 ML IV 10/20 1029 0623 Morphine Sulfate 4 MG Q6-PRN PRN 10/14 1915 AC 10/20 IV 1951 Pantoprazole Sodium 40 MG DAILY 10/14 2014 AC 10/21 IV 0811 Polyethylene Glycol 17 GM DAILY 10/18 0910 DC 10/20 PO 0814 Potassium Chloride 60 MEQ ONCE ONE 10/20 2215 DC 10/20 PO 10/20 2216 2217 Potassium Chloride 60 MEQ .STK-MED ONE 10/20 1803 DC PO 10/20 1804 Potassium Chloride 40 MEQ ONCE ONE 10/20 1530 DC / PO 10/20 1531 1627 Potassium Chloride 40 MEQ ONCE ONE 10/20 1115 DC / PO 10/20 1116 1138 Potassium Chloride 40 MEQ Q8H 10/20 1100 DC Dextrose/Sodium 1,000 ML IV 10/21 1059 Chloride Potassium Chloride 40 MEQ TID 10/20 1020 CAN IV 10/20 2101 Senna/Docusate Sodium 2 TAB DAILY NEEDED PRN 10/18 1215 AC PO Impression/Plan Impression/Problem List Impression: 42-year-old male with significant history of polysubstance abuse including cocaine, migraines, hypertension, previous diabetes not on medications lately presented with progressive worsening of shortness of breath since around a month with outpatient antimicrobial failure. In the ED he found to have purulent phlegm production with productive cough tripoding despite on 100% FiO2. Vital signs at presentation afebrile, heart rate 97, blood pressure 109/56 mmHg, saturating 85% on 6 L. Labs did show white count of 14.7, H&H 12/36, platelet count 496, chemistry sodium 134, potassium 4.5, BUN/creatinine 48/4.9, GFR 13, calcium 7.7, bilirubin 0.9, ALP 142, HIV nonreactive. Normal lactic. Thoracentesis was done in the ER with draining 400 mL of purulent fluid. Pleural fluid analysis did show white count of 22,400, RBC 1800, total protein 5.3, LDH 6615. Blood cultures and sputum cultures - NGTD Problem list 1. Severe ARDS on low TV and high PEEP ventilation. Multilobar pna 2. Acute renal failure 3. Hydropneumothorax with trapped lung 4. Methadone maintenence 5. HTN 6. Bipolar disorder 7. Polysubstance abuse PLAN Respiratory #ARDS with low TV, high PEEP protocol with goal Plateau pressure <30 cm H2o. Multilobar pna Respiratory acidosis on his improving with vent -qtc 484 on 10/21 EKG. Will recheck daily -Cr 0.[address] chest w/ contrast. -cont IVF. IV PPI while on vent Infectious #Multilobar pneumonia Intially started on broad spectrum with IV Zosyn/IV azithro/IV vanco. Cultures growing alpha strep (viridan) Chest CT 10/18 showed No significant change is seen in the dense consolidation and near complete collapse of the right lower lobe or in the subtotal consolidations in the right middle lobe and right upper lobe when compared to 10/14/2017. -switched to unasyn per ID recommendations, currently day 7 -PICC line and chest tube placement 10/19 without complication. -Chest tube output 350ml in last 24hr, total of 850 since placement -Leukocytosis 16.6 on latest lab, stable afebrile overnight. Cardiovascular Tachycardia most likely secondary to ifnection, now stable RR 80s ECHO unremarkable -cont to monitor Hematology -Hgb 8.2 stable, may have underlying continuous fluid causing hemodilution. Metabloc #Electrolytes Monitor K, Mg, phos daily per renal -K repleted at 3.0 on AM lab and K-gabriella was given, will recheck today 11AM Acute renal failure Cr 4.9 upon admission current Cr 1.0. -Ultrasound ruled out post renal causes. Likely related to sepsis with ATN/ Prerenal. -cont IVF Alimentary -cont NGTube - Started tube feeding per nutrition with Glucerna 1.2. Neuro #sedation Off Propofol 10/18, started Precedex goal of 1.2 Currently on IV fentanyl & IV ativan #History of bipolar disorder He was on seroquel, currently holding all the home medications. DVT prophylaxis Pharm PPX + ALPS Tube Feeding Full Code Problem List: 1. ARDS (adult respiratory distress syndrome) Pain Ratin Tomorrow's Labs & Rationales: ICU/CBC/CXR/EKG for qtc recheck Plan DVT/Prophylaxis: mechanical, pharmacological
[2017-10-21 08:00] VITALS: BP 122/60
--- NOTE | 2017-10-21 09:55 | PN- CRCU ---
Subjective HPI/Critical Care Issues: No overnight event. Patient was awake and alert during my exam and appeared in no apparent distress. Vent setting in AC 18/600/35/8, chest tube drained 350ml in last 24 hours Objective Current Medications: Current Medications Sig/Sara Start time Last Medication Dose Route Stop Time Status Admin Albuterol Sulfate 3 ML EVERY 4 HRS/AWAKE 10/15 1200 AC 10/21 INH 0803 Alteplase, 10 MG ONE ONE 10/21 0945 DC Recombinant IV 10/21 0946 Alteplase, 6 MG ONE ONE 10/20 2215 DC 10/21 Recombinant IV 10/20 2216 0037 Alteplase, 10 MG ONE ONE 10/20 1230 DC 10/20 Recombinant IV 10/20 1231 1545 Ampicillin Sodium/ 3,000 MG Q6 10/18 1200 AC 10/21 Sulbactam Sodium IV 0502 Sodium Chloride 100 ML Artificial Tears 2 GTT 4 TIMES/DAY 10/19 1827 AC 10/21 OPH 0843 Dexmedetomidine HCl 400 MCG Q4H 10/19 1200 AC 10/21 Sodium Chloride 96 ML IV 0502 Fentanyl Citrate 1,000 MCG Q4H 10/21 0930 AC Dextrose/Water 250 ML IV Fentanyl Citrate 1,000 MCG Q4H 10/21 0800 DC 10/21 Dextrose/Water 250 ML IV 10/21 0929 0602 Fentanyl Citrate 1,000 MCG Q3H 10/18 1000 DC 10/21 Dextrose/Water 250 ML IV 0048 Furosemide 20 MG ONCE ONE 10/20 2000 CAN IV 10/20 2000 Heparin Sodium 5,000 UNIT Q8 10/14 2200 10/21 (Porcine) SC 0502 Lorazepam 2 MG Q2P PRN 10/20 1545 10/21 IV 0810 Lorazepam 2 MG Q4P PRN 10/18 1215 DC 10/20 IV 1402 Magnesium Sulfate 1 GM .STK-MED ONE 10/20 1803 DC IV 10/20 1804 Magnesium Sulfate 1 GM ONCE ONE 10/20 0630 DC 10/20 Dextrose/Water 100 ML IV 10/20 1029 0623 Morphine Sulfate 4 MG Q6-PRN PRN 10/14 1915 10/20 IV 1951 Pantoprazole Sodium 40 MG DAILY 10/14 2014 AC 10/21 IV 0811 Polyethylene Glycol 17 GM DAILY 10/18 0910 DC 10/20 PO 0814 Potassium Chloride 60 MEQ ONCE ONE 10/20 2215 DC / PO 10/20 2216 2217 Potassium Chloride 60 MEQ .STK-MED ONE 10/20 1803 DC PO 10/20 1804 Potassium Chloride 40 MEQ ONCE ONE 10/20 1530 DC / PO 10/20 1531 1627 Potassium Chloride 40 MEQ ONCE ONE 10/20 1115 DC / PO 10/20 1116 1138 Potassium Chloride 40 MEQ Q8H 10/20 1100 DC Dextrose/Sodium 1,000 ML IV 10/21 1059 Chloride Potassium Chloride 40 MEQ TID 10/20 1020 CAN IV 10/20 2101 Senna/Docusate Sodium 2 TAB DAILY NEEDED PRN 10/18 1215 AC PO Vital Signs & I&O Last 24 Hrs of Vitals and I&O: Vital Signs Date Time Temp Pulse Resp B/P B/P Pulse O2 O2 Flow FiO2 Mean Ox Delivery Rate 10/21 0809 35 10/21 0800 95 Ventilator 35% 10/21 0800 98.1 92 19 122/60 95 Ventilator 35% 10/21 0537 35 10/21 0400 95 Ventilator 35% 10/21 0314 35 10/21 0030 35 06/ 0000 94 Ventilator 35% 10/21 0000 99.1 74 18 130/70 94 Ventilator 35% 10/20 2215 35 10/20 2000 92 Ventilator 35% / 1950 35 /07 1710 35 / 1600 97 Ventilator 40% 10/20 1420 40 / 1200 97 Ventilator 45% / 1120 50 Intake & Output 10/21 1600 06/08 0800 06/08 0000 Intake Total 1591 914 Output Total 1115 900 Balance 476 14 Intake, IV 873 769 Intake, Oral 0 0 Intake, Other 150 Intake, Tube 368 145 Feeding Intake, Tube 200 Irrigant Number 1 3 Bowel Movements Output, Chest 100 150 Tube Drainage Output, Urine 1015 750 Patient 180 lb Weight Weight Bed scale Measurement Method Laboratory Tests 10/21 10/20 10/20 0338 1830 1300 Chemistry Sodium (137 - 145 mmol/L) 136 L 135 L 135 L Potassium (3.5 - 5.1 mmol/L) 3.8 3.6 3.8 Chloride (98 - 107 mmol/L) 98 96 L 96 L Carbon Dioxide (22 - 30 mmol/L) 28 30 28 Anion Gap (5 - 16) 11 9 11 BUN (9 - 20 mg/dL) 13 15 16 Creatinine (0.7 - 1.2 mg/dL) 0.9 0.9 0.9 Estimated GFR (>60 ml/min) > 60 > 60 > 60 BUN/Creatinine Ratio (7 - 25 %) 16.7 Glucose (65 - 99 mg/dL) 133 H 141 H Calcium (8.4 - 10.2 mg/dL) 8.1 L 8.0 L Phosphorus (2.5 - 4.5 mg/dL) 3.6 3.4 Magnesium (1.6 - 2.3 mg/dL) 1.6 2.0 Total Bilirubin (0.2 - 1.3 mg/dL) 0.5 0.6 AST (17 - 59 U/L) 51 79 H ALT (21 - 72 U/L) 62 70 Albumin (3.5 - 5.0 g/dL) 2.3 L 2.4 L Hematology CBC w Diff MAN DIFF ORDERED WBC (4.8 - 10.8 /CUMM) 16.6 H RBC (4.70 - 6.10 /CUMM) 2.97 L Hgb (14.0 - 18.0 G/DL) 8.3 L Hct (42 - 52 %) 24.7 L MCV (80.0 - 94.0 FL) 83.1 MCH (27.0 - 31.0 PG) 27.8 MCHC (33.0 - 37.0 G/DL) 33.4 RDW (11.5 - 14.5 %) 17.2 H Plt Count (130 - 400 /CUMM) 344 MPV (7.4 - 10.4 FL) 7.8 Gran % (42.2 - 75.2 %) 73.3 Lymphocytes % (20.5 - 51.1 %) 12.4 L Monocytes % (1.7 - 9.3 %) 6.7 Eosinophils % (0 - 5 %) 7.3 H Basophils % (0.0 - 2.0 %) 0.3 Absolute Granulocytes (1.4 - 6.5 /CUMM) 12.1 H Segmented Neutrophils (42.2 - 75.2 %) 72 Band Neutrophils (0.0 - 5.0 %) 2 Absolute Lymphocytes (1.2 - 3.4 /CUMM) 2.1 Lymphocytes (20.5 - 51.1 %) 15 L Monocytes (1.7 - 9.3 %) 1 L Absolute Monocytes (0.10 - 0.60 /CUMM) 1.1 H Eosinophils (0 - 5.0 %) 10 H Absolute Eosinophils (0.0 - 0.7 /CUMM) 1.2 Absolute Basophils (0.0 - 0.2 /CUMM) 0.1 Platelet Estimate (ADEQUATE) ADEQUATE Polychromasia 1+ Poikilocytosis 1+ Ovalocytes 1+ Other Body Source Fld Total RBCs Counted (%) 100 10/20 10/20 10/19 1200 0341 2318 Chemistry Sodium (137 - 145 mmol/L) Cancelled 135 L 133 L Potassium (3.5 - 5.1 mmol/L) Cancelled 3.0 L 2.5 *L Chloride (98 - 107 mmol/L) Cancelled 95 L 92 L Carbon Dioxide (22 - 30 mmol/L) Cancelled 28 30 Anion Gap (5 - 16) Cancelled 11 11 BUN (9 - 20 mg/dL) Cancelled 16 16 Creatinine (0.7 - 1.2 mg/dL) Cancelled 1.0 1.0 Estimated GFR (>60 ml/min) > 60 > 60 BUN/Creatinine Ratio Cancelled Glucose (65 - 99 mg/dL) 143 H 142 H Calcium (8.4 - 10.2 mg/dL) 8.1 L 7.9 L Phosphorus (2.5 - 4.5 mg/dL) 3.7 3.8 Magnesium (1.6 - 2.3 mg/dL) 2.2 1.6 Total Bilirubin (0.2 - 1.3 mg/dL) 0.8 0.9 AST (17 - 59 U/L) 26 20 ALT (21 - 72 U/L) 40 36 Albumin (3.5 - 5.0 g/dL) 2.3 L 2.4 L Lipase (23 - 300 U/L) 97 Hematology CBC w Diff NO MAN DIFF REQ WBC (4.8 - 10.8 /CUMM) 15.5 H RBC (4.70 - 6.10 /CUMM) 2.79 L Hgb (14.0 - 18.0 G/DL) 8.0 L Hct (42 - 52 %) 23.2 L MCV (80.0 - 94.0 FL) 83.1 MCH (27.0 - 31.0 PG) 28.7 MCHC (33.0 - 37.0 G/DL) 34.5 RDW (11.5 - 14.5 %) 17.0 H Plt Count (130 - 400 /CUMM) 275 MPV (7.4 - 10.4 FL) 7.5 Gran % (42.2 - 75.2 %) 71.8 Lymphocytes % (20.5 - 51.1 %) 14.1 L Monocytes % (1.7 - 9.3 %) 4.0 Eosinophils % (0 - 5 %) 9.8 H Basophils % (0.0 - 2.0 %) 0.3 Absolute Granulocytes (1.4 - 6.5 /CUMM) 11.1 H Absolute Lymphocytes (1.2 - 3.4 /CUMM) 2.2 Absolute Monocytes (0.10 - 0.60 /CUMM) 0.6 Absolute Eosinophils (0.0 - 0.7 /CUMM) 1.5 Absolute Basophils (0.0 - 0.2 /CUMM) 0.1 Impression/Plan Impression/Plan Impression/Plan: This is a gentleman with history of polysubstance abuse in the past, on methadone replacement, hypertension, hyperlipidemia, chronic prednisone use in the recent past, hypoadrenalism, migraine, cocaine abuse in the past, history of intravenous drug abuse, bipolar disorder, on multiple medications, ongoing smoking, previous admission to this hospital with altered mental status, has had a few emergency room visits in the recent past few days. Now admitted with severe ARDS and necrotizing pna with empyema with trapped lung with large hydropneumothorax INtubated and sedated and Pupils reacting small pupils Obese gentleman with tattoos IJ cath in place Dunia placed today No significant JVD Chest decreased breath sounds with significant bronchial breathing on the right side with rhonchi diffusely Heart S1 and S2 was heard no murmur could be appreciated but he had significant rhonchi Abdominal exam obese nontender full abdominal exam could not be done as he was unable to lay flat No significant edema or needle cronin noted. IMPRESSION This is a gentleman with previous history of polysubstance abuse now on methadone, bipolar disorder, ongoing smoking, now here with * Resolving necrotizing strep pna with resolving Severe ARDS with severe bilateral multilobar pna due to strep with empyema (s/p drained initially 400 cc) with hydropneumothorax with trapped lung. INtubated and sedated and ( paralysed initially) now on ards protocol for vent * Trapped lung and hydropneumothorax s/p Chest tube now s/p tpa * Resolved Acute renal failure in a patient with sepsis with atn (was on ACI and metformin aswell) * History of Diabetes on metformin * Methadone use high risk for withdrawal * Recent steroid use hence immunosuppressed * Bipolar disorder, hypo-testosterone, multiple other issues including polysubstance use and smoking * History of Hyperlipidemia, hypertension, previous chest pain chest discomfort. RECOMMENDATION Cont vent reduce peep and then psv trials and if ok extubate Place a fentanyl patch 100 mcg and wean off fentanyl drip Reduce precedex down Replace potassium down ng and IV Cont Proton pump inhibitor and heparin sub cut REsume low dose seroquel if extubated 25 bid with qtc monitoring psych eval once extubated Once extubated bipap prn Pt critically ill DIscussed with girl friend at the bedside TTS 60 mins PT had explicitly told me that his girl friend should be the surrogate decision maker
--- NOTE | 2017-10-21 11:46 | PN- Thoracic Surgery ---
Subjective Subjective: right chest tube for right pleural effusion/empyhema right chest tube clamped close to patient alteplase 10mg in 20ml of NS injected tolerated procedure Objective Vital Signs and I&Os Vital Signs Date Time Temp Pulse Resp B/P B/P Pulse O2 O2 Flow FiO2 Mean Ox Delivery Rate 10/21 1030 35 06/ 0809 35 06/08 0800 95 Ventilator 35% / 0800 98.1 92 19 122/60 95 Ventilator 35% / 0537 35 / 0400 95 Ventilator 35% / 0314 35 06/08 0030 35 06/08 0000 94 Ventilator 35% 06/08 0000 99.1 74 18 130/70 94 Ventilator 35% / 2215 35 / 2000 92 Ventilator 35% 10/20 1950 35 / 1710 35 / 1600 97 Ventilator 40% / 1420 40 / 1200 97 Ventilator 45% Intake & Output 10/21 1600 /08 0800 06/08 0000 / 1600 10/20 0800 06/07 0000 Intake Total 4609 514 8289 1904 1217 Output Total 3333 467 3201 1550 2350 Balance 476 14 367 354 -1133 Intake, IV 873 494 207 2629 895 Intake, Oral 0 0 0 0 Intake, Other 150 Intake, Tube 368 145 313 224 122 Feeding Intake, Tube 200 183 400 200 Irrigant Number 1 3 5 3 Bowel Movements Output, Chest 100 150 90 50 150 Tube Drainage Output, Urine 1015 029 681 5843 2200 Patient 180 lb Weight Weight Bed scale Measurement Method Physical Exam: stable Assessment/Plan Assessment/Plan rigth chest pleural effusion plan keep chest tube clamped for [address] back to wall suction
--- NOTE | 2017-10-21 11:48 | PN- Infect Dx ---
Subjective Subjective: Afebrile. He reports pain but is unable to localize it. His chest tube drained a significant amount yesterday after Alteplase. Objective Last 24 Hrs of Vital Signs/I&O Vital Signs Date Time Temp Pulse Resp B/P B/P Pulse O2 O2 Flow FiO2 Mean Ox Delivery Rate 10/21 1030 35 06/08 0809 35 / 0800 95 Ventilator 35% / 0800 98.1 92 19 122/60 95 Ventilator 35% / 0537 35 / 0400 95 Ventilator 35% / 0314 35 06/08 0030 35 06/08 0000 94 Ventilator 35% 06/08 0000 99.1 74 18 130/70 94 Ventilator 35% / 2215 35 / 2000 92 Ventilator 35% / 1950 35 / 1710 35 / 1600 97 Ventilator 40% / 1420 40 06/07 1200 97 Ventilator 45% Intake & Output / 1600 06/08 0800 06/08 0000 Intake Total 1591 914 Output Total 1115 900 Balance 476 14 Intake, IV 873 769 Intake, Oral 0 0 Intake, Other 150 Intake, Tube 368 145 Feeding Intake, Tube 200 Irrigant Number 1 3 Bowel Movements Output, Chest 100 150 Tube Drainage Output, Urine 1015 750 Patient 180 lb Weight Weight Bed scale Measurement Method Physical Exam Other Physical Findings: He is awake and alert on the ventilator, appearing in no acute distress Lungs are clear Heart regular rhythm with no murmur; chest tube in place on the right with 290 cc output yesterday and 100 cc overnight Abdomen is soft, mildly tender on palpation diffusely, with no guarding or rebound, positive bowel sounds Extremities no cyanosis, clubbing or edema; PICC in the right upper extremity with no inflammation at the site Pineda catheter is in place Results Last 24 Hours of Lab Results: Laboratory Tests 10/21 10/20 06/ 0338 1830 1300 Chemistry Sodium (137 - 145 mmol/L) 136 L 135 L 135 L Potassium (3.5 - 5.1 mmol/L) 3.8 3.6 3.8 Chloride (98 - 107 mmol/L) 98 96 L 96 L Carbon Dioxide (22 - 30 mmol/L) 28 30 28 Anion Gap (5 - 16) 11 9 11 BUN (9 - 20 mg/dL) 13 15 16 Creatinine (0.7 - 1.2 mg/dL) 0.9 0.9 0.9 Estimated GFR (>60 ml/min) > 60 > 60 > 60 BUN/Creatinine Ratio (7 - 25 %) 16.7 Glucose (65 - 99 mg/dL) 133 H 141 H Calcium (8.4 - 10.2 mg/dL) 8.1 L 8.0 L Phosphorus (2.5 - 4.5 mg/dL) 3.6 3.4 Magnesium (1.6 - 2.3 mg/dL) 1.6 2.0 Total Bilirubin (0.2 - 1.3 mg/dL) 0.5 0.6 AST (17 - 59 U/L) 51 79 H ALT (21 - 72 U/L) 62 70 Albumin (3.5 - 5.0 g/dL) 2.3 L 2.4 L TSH (0.270 - 4.200 uIU/mL) 7.780 H Thyroxine (T4) (4.5 - 10.9 ug/dL) 4.8 Total T3 (0.97 - 1.69 ng/mL) 0.80 L Hematology CBC w Diff MAN DIFF ORDERED WBC (4.8 - 10.8 /CUMM) 16.6 H RBC (4.70 - 6.10 /CUMM) 2.97 L Hgb (14.0 - 18.0 G/DL) 8.3 L Hct (42 - 52 %) 24.7 L MCV (80.0 - 94.0 FL) 83.1 MCH (27.0 - 31.0 PG) 27.8 MCHC (33.0 - 37.0 G/DL) 33.4 RDW (11.5 - 14.5 %) 17.2 H Plt Count (130 - 400 /CUMM) 344 MPV (7.4 - 10.4 FL) 7.8 Gran % (42.2 - 75.2 %) 73.3 Lymphocytes % (20.5 - 51.1 %) 12.4 L Monocytes % (1.7 - 9.3 %) 6.7 Eosinophils % (0 - 5 %) 7.3 H Basophils % (0.0 - 2.0 %) 0.3 Absolute Granulocytes (1.4 - 6.5 /CUMM) 12.1 H Segmented Neutrophils (42.2 - 75.2 %) 72 Band Neutrophils (0.0 - 5.0 %) 2 Absolute Lymphocytes (1.2 - 3.4 /CUMM) 2.1 Lymphocytes (20.5 - 51.1 %) 15 L Monocytes (1.7 - 9.3 %) 1 L Absolute Monocytes (0.10 - 0.60 /CUMM) 1.1 H Eosinophils (0 - 5.0 %) 10 H Absolute Eosinophils (0.0 - 0.7 /CUMM) 1.2 Absolute Basophils (0.0 - 0.2 /CUMM) 0.1 Platelet Estimate (ADEQUATE) ADEQUATE Polychromasia 1+ Poikilocytosis 1+ Ovalocytes 1+ Other Body Source Fld Total RBCs Counted (%) 100 06/07 1200 Chemistry Sodium Cancelled Potassium Cancelled Chloride Cancelled Carbon Dioxide Cancelled Anion Gap Cancelled BUN Cancelled Creatinine Cancelled BUN/Creatinine Ratio Cancelled Last 24 Hours of Venancio Results: Blood cultures October 17 negative Recent Imaging Studies: Chest x-ray October 21 reveals the right hydropneumothorax with a small basilar pleural effusion; small pneumothorax component appears slightly decreased compared to the previous study; increased opacification throughout the left hemithorax Assessment/Plan ID Impression: Overall improvement continues, with a further decrease in his oxygen requirements, now on weaning trials, with his temperatures normal, though with a slight increase in his white blood cell count, on Unasyn now Day 7 of treatment for necrotizing pneumonia/empyema secondary to alpha strep, status post placement of a chest tube 2 days ago, with a significant output yesterday after Alteplase. His persistent leukocytosis does raise concern for persistent empyema/undrained fluid and will need to continue to monitor. Chest x-ray does reveal an increasing density on the left, though his respiratory status is overall improved. Suggestion: 1. Repeat sputum culture 2. Further management of his chest tube, with further doses of Alteplase, per Thoracic surgery 3. Remove Pineda catheter 4. Will need a follow-up CT of the chest once his drainage has decreased 5. Continue Unasyn Dr. Byrd will be covering over the weekend
[2017-10-21 16:00] VITALS: BP 120/60
[2017-10-22] VITALS: BP 134/78
[2017-10-22 03:55] LABS: ABSOLUTE BASOPHIL COUNT 0 /CUMM (0.0-0.2); ABSOLUTE EOSINOPHIL COUNT 0.2 /CUMM (0.0-0.7); ABSOLUTE MONOCYTE COUNT 1.6 /CUMM (0.10-0.60); HEMATOCRIT 25.5 % (42-52)
[2017-10-22 04:00] LABS: BASOPHIL % 0.1 % (0.0-2.0); EOSINOPHIL % 0.9 % (0-5); MEAN CORPUSCULAR HGB 28.2 PG (27.0-31.0); MEAN CORPUSCULAR VOLUME 82.9 FL (80.0-94.0); MEAN PLATELET VOLUME 7.6 FL (7.4-10.4); RBC DISTRIBUTION WIDTH 17.6 % (11.5-14.5); RED BLOOD CELL CT 3.07 /CUMM (4.70-6.10); WHITE BLOOD CELL COUNT 19.8 /CUMM (4.8-10.8)
[2017-10-22 04:06] LABS: PLATELET COUNT 551 /CUMM (130-400)
--- NOTE | 2017-10-22 07:31 | RADIOLOGY REPORT ---
EXAMINATION: XR PORTABLE CHEST CLINICAL INFORMATION: "Reconfirm endotracheal tube position". COMPARISON: Recent admission film on 10/14/2017. 2 CT exams the chest on 10/14/2017 and 10/18/2017. Interval chest x-rays, the last dated 10/21/2017. TECHNIQUE: Portable AP and erect view of the chest was obtained. FINDINGS: Evidently, the patient has been extubated. The hydropneumothorax in the right has decreased in size. There is improved aeration of the airspace disease involving the left lung. Represent improving pneumonia. The right-sided PICC line terminates in the distal SVC. IMPRESSION: 1. Patient extubated. 2. Decreased hydropneumothorax on the right. 3. Slowly improving consolidating pneumonia involving primarily the left lower lobe.
[2017-10-22 08:00] VITALS: BP 150/80
--- NOTE | 2017-10-22 08:02 | PN- Resident CRCU ---
Subjective HPI/CRCU Issues: Reviewed the patient seated comfortably on the bed the patient reports that he did not sleep overnight never mind what he tried. She is reporting nausea especially after taking anything by mouth. Patient was extubated yesterday at 13 hours and has been on oxygen through [place] and saturating well at 3 L at the moment. 24 Hour Events: Laboratory Tests 10/22 10/21 0330 1139 Blood Gas pH (7.35 - 7.45 PH) 7.57 H pCO2 (35 - 45 TORR) 33 L pO2 (80 - 100 TORR) 85 HCO3 (21 - 28 MEQ/L) 29 H ABG O2 Sat (Measured) (>96.0 %) 96.0 P-50 (Temp Corrected) N Carboxyhemoglobin (1.5 - 5.0 %) 0.6 L O2 Concentration % 35% Temperature (97.0 - 100.0 FARH) 98.1 O2 Delivery Method VENT Vent Mode CPAP Expiratory Pressure (CMH2O/P) 5 Pressure Support (CMH2O/P) 6 Chemistry Sodium (137 - 145 mmol/L) 139 Potassium (3.5 - 5.1 mmol/L) 3.1 L Chloride (98 - 107 mmol/L) 93 L Carbon Dioxide (22 - 30 mmol/L) 32 H Anion Gap (5 - 16) 14 BUN (9 - 20 mg/dL) 11 Creatinine (0.7 - 1.2 mg/dL) 0.9 Estimated GFR (>60 ml/min) > 60 Glucose (65 - 99 mg/dL) 126 H Calcium (8.4 - 10.2 mg/dL) 8.3 L Phosphorus (2.5 - 4.5 mg/dL) 4.7 H Magnesium (1.6 - 2.3 mg/dL) 1.8 Total Bilirubin (0.2 - 1.3 mg/dL) 0.6 AST (17 - 59 U/L) 38 ALT (21 - 72 U/L) 69 Albumin (3.5 - 5.0 g/dL) 2.7 L Hematology CBC w Diff NO MAN DIFF REQ WBC (4.8 - 10.8 /CUMM) 19.8 H RBC (4.70 - 6.10 /CUMM) 3.07 L Hgb (14.0 - 18.0 G/DL) 8.6 L Hct (42 - 52 %) 25.5 L MCV (80.0 - 94.0 FL) 82.9 MCH (27.0 - 31.0 PG) 28.2 MCHC (33.0 - 37.0 G/DL) 34.0 RDW (11.5 - 14.5 %) 17.6 H Plt Count (130 - 400 /CUMM) 551 H MPV (7.4 - 10.4 FL) 7.6 Gran % (42.2 - 75.2 %) 81.0 H Lymphocytes % (20.5 - 51.1 %) 10.1 L Monocytes % (1.7 - 9.3 %) 7.9 Eosinophils % (0 - 5 %) 0.9 Basophils % (0.0 - 2.0 %) 0.1 Absolute Granulocytes (1.4 - 6.5 /CUMM) 16.0 H Absolute Lymphocytes (1.2 - 3.4 /CUMM) 2.0 Absolute Monocytes (0.10 - 0.60 /CUMM) 1.6 H Absolute Eosinophils (0.0 - 0.7 /CUMM) 0.2 Absolute Basophils (0.0 - 0.2 /CUMM) 0 Miscellaneous Phlebotomy Draw Site MANPREET Vital Signs Date Time Temp Pulse Resp B/P B/P Pulse O2 O2 Flow FiO2 Mean Ox Delivery Rate 10/23 807 97 Nasal 3.0L Cannula 10/23 799 98.4 110 20 150/80 93 Nasal 3.0L Cannula 10/23 799 95 Nasal 3.0L Cannula 10/220 97 Nasal 3.0L Cannula Objective Vital Signs & I&O Last 8 Hrs of Vitals and I&O: Vital Signs Date Time Temp Pulse Resp B/P B/P Pulse O2 O2 Flow FiO2 Mean Ox Delivery Rate 10/23 807 97 Nasal 3.0L Cannula 10/23 799 98.4 110 20 150/80 93 Nasal 3.0L Cannula 10/23 799 95 Nasal 3.0L Cannula 10/22 0400 97 Nasal 3.0L Cannula 10/22 0000 98.1 104 34 134/78 95 Nasal 3.0L Cannula 10/22 0000 95 Nasal 3.0L Cannula 10/21 2021 96 Nasal 3.0L Cannula 10/22 1999 90 Nasal 3.0L Cannula 10/21 1600 92 Nasal 4.0L Cannula 10/21 1600 97.4 101 15 120/60 92 Nasal 4.0L Cannula 10/21 1200 95 Ventilator 35% 10/21 1030 35 Intake & Output 10/22 1600 10/22 0800 10/22 0000 Intake Total 370 220 Output Total 670 830 Balance -300 -610 Intake, IV 340 60 Intake, Oral 30 60 Intake, Other 100 Number 1 2 Bowel Movements Output, Chest 120 230 Tube Drainage Output, Urine 550 600 Exam General Appearance: no apparent distress, alert, awake, obese Head: atraumatic, normal appearance Ears, Nose, Throat: normal ENT inspection Neck: normal inspection, supple Respiratory: crackles, more on the right bases Cardiovascular: regular rate/rhythm, tachycardia Gastrointestinal: normal bowel sounds, soft, non-tender Extremities: normal inspection, normal capillary refill Cranial Nerves: normal hearing, PERRL Skin: intact, normal color Skin Temp/Moisture Exam: Warm/Dry Weaning Parameters Minute Volume: 12.5 Resp rate: 27 Vt: 405 Heart Rate: 84 Weaning Schedule Start Time: 1034 Minute Volume: 12.7 Resp Rate: 31 Vt: 406 Heart Rate: 84 End Time: 1235 Minute Volume: 11.5 Resp Rate: 27 Vt: 385 Heart Rate: 92 PICC Site: Right cubital fossa Date In: 10/19/17 Need for Catheter poor access Pineda Still Needed? Yes Nutrition Nutrition: P.O. diet Current Medications: Current Medications Sig/Sara Start time Last Medication Dose Route Stop Time Status Admin Albuterol Sulfate 3 ML EVERY 4 HRS/AWAKE / 1200 AC 10/22 INH 0804 Alteplase, 10 MG ONE ONE 10/22 0745 DC Recombinant IV 10/22 0746 Ampicillin Sodium/ 3,000 MG Q6 10/18 1200 AC 10/22 Sulbactam Sodium IV 0506 Sodium Chloride 100 ML Artificial Tears 2 GTT 4 TIMES/DAY 10/19 1827 AC 10/22 OPH 0842 Dexmedetomidine HCl 400 MCG Q4H 10/19 1200 DC /08 Sodium Chloride 96 ML IV 1639 Fentanyl Citrate 100 MCG Q72H / 1300 AC 10/21 TOP 1123 Fentanyl Citrate 1,000 MCG Q4H / 0930 DC /08 Dextrose/Water 250 ML IV 1041 Furosemide 20 MG ONCE ONE 10/21 1000 DC 06/08 IV /08 1001 0949 Heparin Sodium 5,000 UNIT Q8 10/14 2200 AC 10/22 (Porcine) SC 0506 Lorazepam 2 MG Q2P PRN 10/20 1545 AC 10/22 IV 0844 Magnesium Sulfate 1 GM Q2H 10/21 1000 DC 10/21 Dextrose/Water 100 ML IV 10/21 1359 1058 Melatonin 10 MG AT BEDTIME 10/21 2300 AC 10/21 PO 2305 Morphine Sulfate 4 MG Q6-PRN PRN 10/14 1915 DC 10/21 IV 1601 Pantoprazole Sodium 40 MG DAILY 10/14 2014 AC 10/22 IV 0843 Potassium Chloride 20 MEQ Q1H 10/22 0530 DC 10/22 IV 10/22 0631 0634 Potassium Chloride 20 MEQ .STK-MED ONE 10/21 1818 DC PO 10/21 1819 Potassium Chloride 40 MEQ ONCE ONE 10/21 1000 DC / PO 10/21 1001 0950 Quetiapine Fumarate 25 MG BID 10/21 2100 AC 10/22 PO 0842 Senna/Docusate Sodium 2 TAB DAILY NEEDED PRN 10/18 1215 AC PO Trazodone HCl 12.5 MG AT BEDTIME 10/21 2359 AC 10/21 PO 2357 Trimethobenzamide HCl 200 MG ONCE ONE 10/22 0730 DC 10/22 IM 10/22 0731 0730 CXR Findings: Decreased hydropneumothorax on the right. Slowly improving consolidating pneumonia involving primarily the left lower lobe. Impression/Plan Impression/Problem List Impression: 42-year-old male with significant history of polysubstance abuse including cocaine, migraines, hypertension, previous diabetes not on medications lately presented with progressive worsening of shortness of breath since around a month with outpatient antimicrobial failure. In the ED he found to have purulent phlegm production with productive cough tripoding despite on 100% FiO2. Blood cultures NGTD Lower respiratory culture Alpha strep Problem list Severe ARDS initially on low TV and high PEEP ventilation. (Off vent) Multilobar pna Acute renal failure (Resolved) Hydropneumothorax with trapped lung (Chest tube in draining) Methadone maintenence HTN Bipolar disorder Polysubstance abuse PLAN Respiratory Patient presented with ARDS initially requiring TV, high PEEP protocol with goal Plateau pressure <30 cm H2o. patient was successfully extubated yesterday at 13 hours put on oxygen through [place] initial at 4 L and now at 3 L maintaining saturation well. Infectious Multilobar pneumonia Intially started on broad spectrum with IV Zosyn/IV azithro/IV vanco. Cultures growing alpha strep (viridan) Patient now on Unasyn only -PICC line and chest tube placement 10/19 without complication. (The PICC line and chest tube sites shows no erythema or tenderness) -Leukocytosis 19.8 on latest lab, stable afebrile overnight, last fever of 100 was on October 19 Cardiovascular Tachycardia most most of the time ECHO unremarkable cont to monitor Hematology H&H 8.6 and 25.5 Metabloc Electrolytes has been deranged most of the time having low K, this morning potassium 3.1 being corrected Continue to Monitor K, Mg, phos daily per renal Recheck potassium at 6 PM Cr 4.9 upon admission, current Cr normal 1.0. Alimentary Patient extubated and passed the swallow evaluation for clear liquid diet Complains of nausea this morning received 1 dose of Tigan. Neuro Fully awake alert and oriented Off all sedation medications Patient on fentanyl patch for pain Supposed to be seen by psychiatrist Dr. Ramires due to multiple antipsychotic medications seen very large doses but so far patient has not been reviewed by PSY. Spoke with Psychiatrist Dr. Zacarias will see the patient today. Problem List: 1. Acute hypoxemic respiratory failure 2. ARDS (adult respiratory distress syndrome) 3. Electrolyte abnormality 4. Methadone dependence Pain Ratin Tomorrow's Labs & Rationales: ICU bundle Plan DVT/Prophylaxis: mechanical, pharmacological
--- NOTE | 2017-10-22 10:25 | PN- Pulmonary ---
Subjective HPI/Critical Care Issues: Patient is extubated conversant mildly lethargic chest tube is in place continued to drain serosanguineous fluid chest x-ray shows improved hydropneumothorax Objective Current Medications: Current Medications Sig/Sara Start time Last Medication Dose Route Stop Time Status Admin Albuterol Sulfate 3 ML EVERY 4 HRS/AWAKE 10/15 1200 AC 10/22 INH 0804 Alteplase, 10 MG ONE ONE 10/22 0745 DC Recombinant IV 10/22 0746 Ampicillin Sodium/ 3,000 MG Q6 10/18 1200 AC 10/22 Sulbactam Sodium IV 0506 Sodium Chloride 100 ML Artificial Tears 2 GTT 4 TIMES/DAY 10/19 1827 AC 10/22 OPH 0842 Dexmedetomidine HCl 400 MCG Q4H 10/19 1200 DC 10/21 Sodium Chloride 96 ML IV 1639 Fentanyl Citrate 100 MCG Q72H 10/21 1300 AC 10/21 TOP 1123 Fentanyl Citrate 1,000 MCG Q4H 10/21 0930 DC 10/21 Dextrose/Water 250 ML IV 1041 Heparin Sodium 5,000 UNIT Q8 10/14 2200 AC 10/22 (Porcine) SC 0506 Lorazepam 2 MG Q2P PRN 10/20 1545 AC 10/22 IV 0844 Magnesium Sulfate 1 GM Q2H 10/21 1000 DC 10/21 Dextrose/Water 100 ML IV 10/21 1359 1058 Melatonin 10 MG AT BEDTIME 10/21 2300 AC 10/21 PO 2305 Morphine Sulfate 4 MG ONCE ONE 10/22 1000 DC 10/22 IV 10/22 1001 1002 Morphine Sulfate 4 MG Q6-PRN PRN 10/14 1915 DC 10/21 IV 1601 Pantoprazole Sodium 40 MG DAILY 10/14 2015 AC 10/22 IV 0843 Potassium Chloride 20 MEQ Q1H 10/22 0530 DC 10/22 IV 10/22 0631 0634 Potassium Chloride 20 MEQ .STK-MED ONE 10/21 1818 DC PO 08 1819 Quetiapine Fumarate 25 MG BID 10/21 2100 AC 10/22 PO 0842 Senna/Docusate Sodium 2 TAB DAILY NEEDED PRN 10/18 1215 AC PO Trazodone HCl 12.5 MG AT BEDTIME 10/21 2359 AC 10/21 PO 2357 Trimethobenzamide HCl 200 MG ONCE ONE 10/22 0730 DC 10/22 IM 10/22 0731 0730 Vital Signs & I&O Last 24 Hrs of Vitals and I&O: Vital Signs Date Time Temp Pulse Resp B/P B/P Pulse O2 O2 Flow FiO2 Mean Ox Delivery Rate 10/22 0808 97 Nasal 3.0L Cannula 10/22 08 98.4 110 20 150/80 93 Nasal 3.0L Cannula 10/22 0800 95 Nasal 3.0L Cannula 10/22 0400 97 Nasal 3.0L Cannula 10/22 0000 98.1 104 34 134/78 95 Nasal 3.0L Cannula 10/22 0000 95 Nasal 3.0L Cannula 10/21 2022 96 Nasal 3.0L Cannula 10/21 2000 90 Nasal 3.0L Cannula 10/21 1600 92 Nasal 4.0L Cannula 10/21 1600 97.4 101 15 120/60 92 Nasal 4.0L Cannula 10/21 1200 95 Ventilator 35% 10/21 1030 35 Intake & Output 10/22 1600 10/22 0800 06 0000 Intake Total 370 220 Output Total 670 830 Balance -300 -610 Intake, IV 340 60 Intake, Oral 30 60 Intake, Other 100 Number 1 2 Bowel Movements Output, Chest 120 230 Tube Drainage Output, Urine 550 600 Since saturation 3 L 97% exam of his chest shows diminished breath sounds over the right posterior hemithorax cardiac exam shows regular S1 and S2 abdomen is soft nontender Impression/Plan Impression/Plan Impression/Plan: 42-year-old gentleman status post drainage of right sided pleural effusion and treatment for pneumonia in the setting of opiate usage. Respiratory status is improved she is now extubated Recommendations: Continue chest tube drainage complete course of antibiotics. Attempt to minimize narcotic and sedation. Aggressive pulmonary toilet.
[2017-10-22 12:00] VITALS: BP 104/60
--- NOTE | 2017-10-22 12:17 | PN- Infect Dx ---
Subjective Subjective: This patient is a 42-year-old white male with a right chest tube in place for a hydropneumothorax. The patient continues to drain serous fluid with minimal purulence. He is somnolent but was able to talk to family members. The patient remains afebrile with a increasing white blood cell count. Objective Last 24 Hrs of Vital Signs/I&O Vital Signs Date Time Temp Pulse Resp B/P B/P Pulse O2 O2 Flow FiO2 Mean Ox Delivery Rate 10/23 807 97 Nasal 3.0L Cannula 10/23 799 98.4 110 20 150/80 93 Nasal 3.0L Cannula 10/23 799 95 Nasal 3.0L Cannula 10/22 0400 97 Nasal 3.0L Cannula 10/22 0000 98.1 104 34 134/78 95 Nasal 3.0L Cannula 10/22 0000 95 Nasal 3.0L Cannula 10/21 2021 96 Nasal 3.0L Cannula 10/22 1999 90 Nasal 3.0L Cannula 10/22 1599 92 Nasal 4.0L Cannula 10/21 1600 97.4 101 15 120/60 92 Nasal 4.0L Cannula Intake & Output 10/22 1600 10/22 0800 10/22 0000 Intake Total 370 220 Output Total 670 830 Balance -300 -610 Intake, IV 340 60 Intake, Oral 30 60 Intake, Other 100 Number 1 2 Bowel Movements Output, Chest 120 230 Tube Drainage Output, Urine 550 600 Physical Exam Other Physical Findings: The patient is sleeping comfortably in the chair. He is slightly arousable but does not appear toxic. Pupils are equal and reactive to light and accommodation Neck supple No JVD or lymphadenopathy Breath sounds are rapid and shallow without distress. Chest tube in place with serous drainage Abdomen is soft nontender Dysfunction of any show dependent edema Results Last 24 Hours of Lab Results: Laboratory Tests 10/22 0330 Chemistry Sodium (137 - 145 mmol/L) 139 Potassium (3.5 - 5.1 mmol/L) 3.1 L Chloride (98 - 107 mmol/L) 93 L Carbon Dioxide (22 - 30 mmol/L) 32 H Anion Gap (5 - 16) 14 BUN (9 - 20 mg/dL) 11 Creatinine (0.7 - 1.2 mg/dL) 0.9 Estimated GFR (>60 ml/min) > 60 Glucose (65 - 99 mg/dL) 126 H Calcium (8.4 - 10.2 mg/dL) 8.3 L Phosphorus (2.5 - 4.5 mg/dL) 4.7 H Magnesium (1.6 - 2.3 mg/dL) 1.8 Total Bilirubin (0.2 - 1.3 mg/dL) 0.6 AST (17 - 59 U/L) 38 ALT (21 - 72 U/L) 69 Albumin (3.5 - 5.0 g/dL) 2.7 L Hematology CBC w Diff NO MAN DIFF REQ WBC (4.8 - 10.8 /CUMM) 19.8 H RBC (4.70 - 6.10 /CUMM) 3.07 L Hgb (14.0 - 18.0 G/DL) 8.6 L Hct (42 - 52 %) 25.5 L MCV (80.0 - 94.0 FL) 82.9 MCH (27.0 - 31.0 PG) 28.2 MCHC (33.0 - 37.0 G/DL) 34.0 RDW (11.5 - 14.5 %) 17.6 H Plt Count (130 - 400 /CUMM) 551 H MPV (7.4 - 10.4 FL) 7.6 Gran % (42.2 - 75.2 %) 81.0 H Lymphocytes % (20.5 - 51.1 %) 10.1 L Monocytes % (1.7 - 9.3 %) 7.9 Eosinophils % (0 - 5 %) 0.9 Basophils % (0.0 - 2.0 %) 0.1 Absolute Granulocytes (1.4 - 6.5 /CUMM) 16.0 H Absolute Lymphocytes (1.2 - 3.4 /CUMM) 2.0 Absolute Monocytes (0.10 - 0.60 /CUMM) 1.6 H Absolute Eosinophils (0.0 - 0.7 /CUMM) 0.2 Absolute Basophils (0.0 - 0.2 /CUMM) 0 Last 24 Hours of Venancio Results: No positive cultures. CXR demonstrates decrease hydropneumothorax on right and slowly improving consolidating pneumonia involving primarily the left lower lobe Assessment/Plan ID Impression: This patient is a 42-year-old white male with a possible pneumonia and empyema. Overall improvement continues, off the ventilator, increasing white blood cell count on Unasyn now Day 8 of treatment for necrotizing pneumonia/empyema secondary to alpha strep, status post placement of a chest tube 3 days ago. His persistent leukocytosis does raise concern for persistent empyema/undrained fluid and will need to continue to monitor. Chest x-ray does reveal an increasing density on the left, though his respiratory status is overall improved. Suggestion: 1. Consider more doses of Alteplase, will refer to Thoracic surgery 2. Continue Unasyn 3. Monitor white blood cell count.
--- NOTE | 2017-10-22 12:56 | Cons- Psychiatry ---
Psychiatric Consult Date of Consult: 10/22/17 Reason for Consult: "review of medication", could not offer more specific consult question History of Present Illness: Pt with hx of bipolar disorder and remote hx of PSD on MM admitted for ADRS and complicated PNA. Pt's psychiatric medications were held, seroquel 200mg 4x/d and xanax 1mg. Pt interview limited by unable to speak to significant sentences but able to answer yes and no appropriate. at bedside and did provider hx. Per pt and , pt has been on seroquel for bipolar disorder rx by long-time psychatrist, Dr. Medrano, , for mood stablity. It has been effective at this dose of 800mg, which, is in line with the FDA approve dose range for seroquel. It is split throughout the day 2/2 excessive sedation. Pt notes that mood has worsened in the setting of medical illness and being off the seroquel at appropriate dosing. Denies SI or HI. Denies manic or psychotic sx currently. Allergies: Coded Allergies: No Known Allergies (10/05/17) Current Medications: Current Medications Sig/Sara Start time Last Medication Dose Route Stop Time Status Admin Acetaminophen 650 MG ONCE ONE 10/22 1230 DC 10/22 PO 10/22 1231 1231 Albuterol Sulfate 3 ML EVERY 4 HRS/AWAKE 10/15 1200 AC 10/22 INH 1147 Alteplase, 10 MG ONE ONE 10/22 0745 DC 10/22 Recombinant IV 10/22 0746 1152 Ampicillin Sodium/ 3,000 MG Q6 10/18 1200 AC 10/22 Sulbactam Sodium IV 1154 Sodium Chloride 100 ML Artificial Tears 2 GTT 4 TIMES/DAY 10/19 1827 AC 10/22 OPH 1158 Dexmedetomidine HCl 400 MCG Q4H 10/19 1200 DC 10/21 Sodium Chloride 96 ML IV 1639 Fentanyl Citrate 100 MCG Q72H 10/21 1300 AC 10/21 TOP 1123 Fentanyl Citrate 1,000 MCG Q4H / 0930 DC / Dextrose/Water 250 ML IV 1041 Heparin Sodium 5,000 UNIT Q8 / 2200 AC 10/22 (Porcine) SC 0506 Lorazepam 2 MG Q2P PRN 10/20 1545 AC 10/22 IV 0844 Magnesium Sulfate 1 GM Q2H 10/21 1000 DC 10/21 Dextrose/Water 100 ML IV 10/21 1359 1058 Melatonin 10 MG AT BEDTIME 10/21 2300 AC 10/21 PO 2305 Morphine Sulfate 4 MG ONCE ONE 10/22 1000 DC 10/22 IV 10/22 1001 1002 Morphine Sulfate 4 MG Q6-PRN PRN 10/14 1915 DC 10/21 IV 1601 Pantoprazole Sodium 40 MG DAILY 10/14 2014 AC 10/22 IV 0843 Potassium Chloride 20 MEQ Q1H 10/22 0530 DC 10/22 IV 10/22 06 0634 Potassium Chloride 20 MEQ .STK-MED ONE 10/21 1818 DC PO 10/21 181 Quetiapine Fumarate 25 MG BID 10/21 2100 AC 10/22 PO 0842 Senna/Docusate Sodium 2 TAB DAILY NEEDED PRN 10/18 1215 AC PO Trazodone HCl 12.5 MG AT BEDTIME 10/21 2359 AC 10/21 PO 2357 Trimethobenzamide HCl 200 MG ONCE ONE 10/22 729 DC 10/22 IM 10/22 0731 0730 Past History Past Medical History Neurological: migraine EENT: NONE Cardiovascular: hyperlipidemia Respiratory: bronchitis Gastrointestinal: HERNIA CHILD Hepatic: NONE Renal: CYST ON KIDNEY Musculoskeletal: CHRONIC LEFT SHOULDER HUE Psychiatric: anxiety, bipolar disease Endocrine: NONE Blood Disorders: NONE Cancer(s): NONE RADIATION ENGINEER/Reproductive: NONE Past Surgical History Surgical History: non-contributory Psychosocial History Strengths/Capabilities: Family is supportive, had the same medical provider for a long time, has been stable. Psychiatric Treatment History Psych Treatment Psychiatric Treatment Yes Inpatient Treatment No Outpatient Treatment Yes (Dr. Medrano in [place]) Response to Treatment MM Diagnosis: Bipolar disorder (unclear why previously in quotes) Risk Factors: access to lethal means, male Substance Use/Abuse History Drug Use/Abuse Substances Used/Abused Yes Substance Abuse Treatment Substance Abuse Treatment Past Substance Abuse [place] Yes Inpatient Treatment No Outpatient Treatment Yes Assessment/Plan Mental Status Orientation: Person, Place, Situation Affect: Blunted, Flat Speech: Mumbled Neuro-vegetative: Appetite Decreased, Energy Decreased, Sleep Disturbance Mental Status Exam: MSE General appearance: fair hygiene and grooming; Attitude: cooperative; Eye contact: appropriate; Movement: + psychomotor slowing; Speech: very limited, yes or no; Mood: "OK" Affect: very flat, appropriate, constricted, non-labile, congruent; Thought process: linear and goal-directed; Thought content: denied SI or HI, no paranoid ideation; Perception: denied hallucinations- auditory, visual, does not appear to be responding to internal stimuli; I/J: limited Lab Results: Laboratory Tests 10/22/17 0330: Anion Gap 14, Estimated GFR > 60, Glucose 126 H, Calcium 8.3 L, Phosphorus 4.7 H, Magnesium 1.8, Total Bilirubin 0.6, AST 38, ALT 69, Albumin 2.7 L, CBC w Diff NO MAN DIFF REQ, RBC 3.07 L, MCV 82.9, MCH 28.2, MCHC 34.0, RDW 17.6 H, MPV 7.6, Gran % 81.0 H, Lymphocytes % 10.1 L, Monocytes % 7.9, Eosinophils % 0.9, Basophils % 0.1, Absolute Granulocytes 16.0 H, Absolute Lymphocytes 2.0, Absolute Monocytes 1.6 H, Absolute Eosinophils 0.2, Absolute Basophils 0 Diffential Diagnosis: Delirium Bipolar disorder Impression: Pt with hx of bipolar disorder on seroquel for mood stablization now with complex medical issues. There may be some underlying delirium as well. As such, would recommend restarting seroquel though at lower dose to avoid excessive sedation. Provisional Treatment Plan: - Restart seroquel at 250mg qhs, to resume home treatment as well to address underlying delirium - Monitor for excessive sedation - Monitor QTc
--- NOTE | 2017-10-22 14:07 | Event Note ---
Event Note Event Note: Lytic therapy infused to right chest tube. keep clamped x4 hours, then back to lcws. tolerated well.
[2017-10-22 16:00] VITALS: BP 126/80
[2017-10-23 00:25] VITALS: BP 138/82
[2017-10-23 04:34] LABS: ABSOLUTE BASOPHIL COUNT 0 /CUMM (0.0-0.2); ABSOLUTE EOSINOPHIL COUNT 0.3 /CUMM (0.0-0.7); ABSOLUTE GRANULOCYTE CT 11.1 /CUMM (1.4-6.5); ABSOLUTE LYMPH COUNT 2.5 /CUMM (1.2-3.4); ABSOLUTE MONOCYTE COUNT 1.5 /CUMM (0.10-0.60); BASOPHIL % 0.3 % (0.0-2.0); EOSINOPHIL % 2.1 % (0-5); GRANULOCYTE % 71.6 % (42.2-75.2); HEMATOCRIT 26.7 % (42-52); MEAN CORPUSCULAR HGB 28.2 PG (27.0-31.0); MEAN CORPUSCULAR HGB CONC 33.7 G/DL (33.0-37.0); MEAN CORPUSCULAR VOLUME 83.8 FL (80.0-94.0); MEAN PLATELET VOLUME 7.1 FL (7.4-10.4); PLATELET COUNT 650 /CUMM (130-400); RBC DISTRIBUTION WIDTH 17.4 % (11.5-14.5); RED BLOOD CELL CT 3.19 /CUMM (4.70-6.10); WHITE BLOOD CELL COUNT 15.4 /CUMM (4.8-10.8)
[2017-10-23 07:00] VITALS: BP 122/74
--- NOTE | 2017-10-23 07:16 | RADIOLOGY REPORT ---
EXAMINATION: XR PORTABLE CHEST CLINICAL INFORMATION: Pleural effusion assessment. Chest tube in place. COMPARISON: October 22, 2017 and studies dating back to CT scan of October 18, 2017 TECHNIQUE: Portable AP view of the chest was obtained. FINDINGS: There is some improvement in right-sided hydropneumothorax with less fluid being noted with right-sided chest tube in place. There remains a basilar pneumothorax and question if there may be some degree of trapped lung. There remains diffuse interstitial disease with some airspace component throughout the left lung. This shows no significant change. Heart normal size. No significant pleural effusion is appreciated. Right upper extremity PICC line is seen with its tip within the right atrium. IMPRESSION: Improvement in amount of fluid in right hydropneumothorax with large bore chest tube in place. There remains small right basilar pneumothorax. Continued left hemithorax disease without significant change. PICC line with tip within the right atrium.
--- NOTE | 2017-10-23 07:57 | Event Note ---
Event Note Event Note: Lytic therapy infused to right chest tube. keep clamped x4 hours, then back to lcws. tolerated well.
--- NOTE | 2017-10-23 08:43 | PN- Resident CRCU ---
Subjective HPI/CRCU Issues: Patient is seen and examined at the bedside. He was complaining of pain at the site of chest tube insertion. Local site was not tender and there was no any swelling. We discussed about the planning of pain management. We started patient on gabapentin 300 milligrams twice a day at his home doses 24 Hour Events: No any overnight events Objective Vital Signs & I&O Last 8 Hrs of Vitals and I&O: Afebrile, heart rate 84-101, respiratory 20, blood pressure 110/65, SPO2 96% on 2 liters of nasal cannula. Intake/output 1460/1750 Exam General Appearance: no apparent distress, alert, awake, comfortable Head: atraumatic, normal appearance Neck: normal inspection, supple Respiratory: chest non-tender, no respiratory distress, quiet respiration, lungs clear Cardiovascular: regular rate/rhythm, tachycardia Gastrointestinal: soft, tenderness, right upper quadrant,lower part of right chest Extremities: normal inspection, normal capillary refill, no edema Cranial Nerves: normal speech Current Medications: Current Medications Sig/Sara Start time Last Medication Dose Route Stop Time Status Admin Acetaminophen 1,000 MG Q6P PRN 10/22 1430 AC 10/23 N/A 1 UNIT IV 1026 Acetaminophen 650 MG ONCE ONE 10/22 1230 DC 10/22 PO 10/22 1231 1231 Albuterol Sulfate 3 ML EVERY 4 HRS/AWAKE 10/15 1200 AC 10/23 INH 0755 Alteplase, 10 MG ONE ONE 10/23 0630 DC Recombinant IV 10/23 0631 Ampicillin Sodium/ 3,000 MG Q6 10/18 1200 AC 10/23 Sulbactam Sodium IV 1133 Sodium Chloride 100 ML Artificial Tears 2 GTT 4 TIMES/DAY 10/19 1827 AC 10/23 OPH 0843 Fentanyl Citrate 100 MCG Q72 10/22 1445 AC 10/22 TOP 1442 Fentanyl Citrate 25 MCG Q72H 10/22 1445 AC 10/22 TOP 1442 Fentanyl Citrate 100 MCG Q72H 10/21 1300 DC 10/21 TOP 1123 Gabapentin 300 MG BID 10/23 0935 AC 10/23 PO 1026 Heparin Sodium 5,000 UNIT Q8 10/14 2200 AC 10/22 (Porcine) SC 2013 Ibuprofen 600 MG Q6P PRN 10/22 1430 AC 10/23 PO 0842 Lorazepam 2 MG Q2P PRN 10/20 1545 AC 10/23 IV 0844 Magnesium Oxide 400 MG ONE ONE 10/23 0745 DC 10/23 PO 10/23 0746 0843 Melatonin 10 MG AT BEDTIME 10/21 2300 AC 10/22 PO 2012 Metoprolol Tartrate 5 MG .STK-MED ONE 10/23 0005 DC IV 10/23 0006 Metoprolol Tartrate 5 MG ONCE ONE 10/22 2300 DC 10/23 IV 10/22 2301 0008 Pantoprazole Sodium 40 MG DAILY 10/14 2014 AC 10/23 IV 0843 Potassium Chloride 20 MEQ ONCE ONE 10/23 0745 DC 10/23 PO 10/23 0746 0843 Potassium Chloride 60 MEQ ONCE ONE 10/23 0100 DC 10/23 PO 10/23 0101 0101 Quetiapine Fumarate 250 MG AT BEDTIME 10/22 2099 AC 10/22 PO 2012 Quetiapine Fumarate 25 MG BID 10/21 2099 DC 10/22 PO 0842 Senna/Docusate Sodium 2 TAB DAILY NEEDED PRN 10/18 1215 AC PO Trazodone HCl 12.5 MG AT BEDTIME 10/21 2359 AC 10/22 PO 2011 CXR Findings: Improvement in amount of fluid in right hydropneumothorax with large bore chest tube in place. There remains small right basilar pneumothorax. Continued left hemithorax disease without significant change. PICC line with tip within the right atrium. Impression/Plan Impression/Problem List Impression: Patient is a 41-year-old male with past medical history of hypertension, bipolar disorder, anxiety, migraines, polysubstance abuse, presented with history of cough and intermittent fever, after failing 2 courses of antibiotics as an outpatient. We started patient on antibiotic, for treatment of community- acquired pneumonia. Later, he went into respiratory failure needing intubation. Pneumonia was complicated by right-sided empyema needed chest tube drain. Vital signs -Afebrile, heart rate 84-101, respiratory 20, blood pressure 110/65, SPO2 96% on 2 liters of nasal cannula. Intake/output 1460/1750, chest tube drain -450. Physical exam -lungs bilateral equal air entry. Assessment and plan - Necrotizing pneumonia, Right lower lobe empyema secondary to Streptococcus viridence status post right chest tube(needed tPA x 2) - Patient is afebrile, leukocyte count is in the range of 15,000, chest x-ray did show improvement in the right-sided hydropneumothorax. We'll continue injection Unasyn 3 grams IV 6 hourly Regular monitoring of CBC Chest x-ray tomorrow We'll stop injection pantoprazole and start patient on Omeprazole 40 Milligrams Once a Day Incentive spirometry. TRC/nebulization Pain management - Fentanyl patch 125 micrograms every 72 hours. We started patient on Tablet gabapentin 300 milligrams twice a day Tablet, ibuprofen 600 milligrams, injection acetaminophen 1 gram as needed. Depression, bipolar disorder, anxiety, insomnia- We will stop injection lorazepam, and start patient on tablet, lorazepam 2 milligrams every 6 and taper it. We'll continue tab Seroquel to 50 milligrams at the bedtime. We'll continue tablet trazodone 12.5 milligrams at the bedtime Continue tablet melatonin 10 milligrams at the bedtime CODE STATUS -full code DVT prophylaxis -ALP S/heparin/mobilization Diet -we will upgrade his diet from clear liquid to regular diet, and add dietary supplements-ensure Problem List: 1. Acute hypoxemic respiratory failure 2. Community acquired pneumonia 3. ARDS (adult respiratory distress syndrome) 4. Electrolyte abnormality Pain Ratin Pain Location: Right-sided of the chest at the site of chest tube insertion Tomorrow's Labs & Rationales: Follow-up CBC, ICU lab bundle Plan DVT/Prophylaxis: mechanical, pharmacological
--- NOTE | 2017-10-23 10:14 | PN- Infect Dx ---
Subjective Subjective: This patient is a 42-year-old white male with a right chest tube in place for hydropneumothorax. The patient was significantly lethargic yesterday but is much more conversive today. He denies any fevers chills nausea vomiting or diarrhea however he does have pain in his right flank. Review of Systems Comments: 12 point review of systems complete positives noted in HPI. Objective Last 24 Hrs of Vital Signs/I&O Vital Signs Date Time Temp Pulse Resp B/P B/P Pulse O2 O2 Flow FiO2 Mean Ox Delivery Rate 10/23 0914 94 Nasal 1.0L Cannula 10/23 0700 97.7 101 26 122/74 92 Nasal 1.0L Cannula 10/23 0611 95 Nasal 2.0L Cannula 10/23 0025 98.2 107 22 138/82 95 Nasal 2.0L Cannula 10/23 0020 95 Nasal 2.0L Cannula 10/23 0008 98.2 114 22 138/82 10/22 2000 94 Nasal 2.0L Cannula 10/22 1626 94 Nasal 2.0L Cannula 10/22 1600 98 Nasal 2.0L Cannula 10/22 1600 97.4 117 22 126/80 98 Nasal 2.0L Cannula 10/22 1200 98.2 114 23 104/60 95 Nasal 2.0L Cannula 10/22 1200 95 Nasal 2.0L Cannula Intake & Output 10/23 1600 10/23 0800 10/23 0000 Intake Total 520 380 Output Total 450 750 Balance 70 -370 Intake, IV 300 200 Intake, Oral 220 180 Number 1 Bowel Movements Output, Chest 100 250 Tube Drainage Output, Urine 350 500 Physical Exam Other Physical Findings: Awake alert oriented 3 Pupils equal and reactive to light and accommodation equal ocular motion Neck supple no JVD or lymphadenopathy Heart regular rate and rhythm S1-S2 Lungs clear with some mechanical sounds. Excellent air movement Abdomen soft nontender nondistended No new neurologic deficits noted Results Last 24 Hours of Lab Results: Laboratory Tests 10/23 10/22 0415 2126 Chemistry Sodium (137 - 145 mmol/L) 140 140 Potassium (3.5 - 5.1 mmol/L) 3.8 3.3 L Chloride (98 - 107 mmol/L) 99 96 L Carbon Dioxide (22 - 30 mmol/L) 29 31 H Anion Gap (5 - 16) 11 13 BUN (9 - 20 mg/dL) 11 10 Creatinine (0.7 - 1.2 mg/dL) 0.9 0.9 Estimated GFR (>60 ml/min) > 60 > 60 Glucose (65 - 99 mg/dL) 125 H 137 H Calcium (8.4 - 10.2 mg/dL) 8.8 8.5 Phosphorus (2.5 - 4.5 mg/dL) 4.6 H 4.8 H Magnesium (1.6 - 2.3 mg/dL) 1.9 1.7 Total Bilirubin (0.2 - 1.3 mg/dL) 0.6 0.7 AST (17 - 59 U/L) 41 46 ALT (21 - 72 U/L) 69 68 Albumin (3.5 - 5.0 g/dL) 2.8 L 2.8 L Hematology CBC w Diff NO MAN DIFF REQ WBC (4.8 - 10.8 /CUMM) 15.4 H RBC (4.70 - 6.10 /CUMM) 3.19 L Hgb (14.0 - 18.0 G/DL) 9.0 L Hct (42 - 52 %) 26.7 L MCV (80.0 - 94.0 FL) 83.8 MCH (27.0 - 31.0 PG) 28.2 MCHC (33.0 - 37.0 G/DL) 33.7 RDW (11.5 - 14.5 %) 17.4 H Plt Count (130 - 400 /CUMM) 650 H MPV (7.4 - 10.4 FL) 7.1 L Gran % (42.2 - 75.2 %) 71.6 Lymphocytes % (20.5 - 51.1 %) 16.4 L Monocytes % (1.7 - 9.3 %) 9.6 H Eosinophils % (0 - 5 %) 2.1 Basophils % (0.0 - 2.0 %) 0.3 Absolute Granulocytes (1.4 - 6.5 /CUMM) 11.1 H Absolute Lymphocytes (1.2 - 3.4 /CUMM) 2.5 Absolute Monocytes (0.10 - 0.60 /CUMM) 1.5 H Absolute Eosinophils (0.0 - 0.7 /CUMM) 0.3 Absolute Basophils (0.0 - 0.2 /CUMM) 0 White blood cell count trending down Last 24 Hours of Venancio Results: No new positive cultures Recent Imaging Studies: October 23 x-ray demonstrates improvement amount of fluid in the right hydropneumothorax with large bore chest tube in place. Assessment/Plan ID Impression: This patient is a 42-year-old white male with a possible pneumonia and empyema. Overall improvement continues, off the ventilator, decreasing white blood cell count on Unasyn now Day 9 for treatment for necrotizing pneumonia/empyema secondary to alpha strep, status post placement of a chest tube 4 days ago. Aggressive chest tube management appears to be open with underlying infection. Suggestion: 1. Continue aggressive chest tube management. 2. Continue Unasyn 3. Monitor white blood cell count. 4. Currently on fentanyl patches and NSAIDs as needed would recommend restarting gabapentin at outpatient dosage and increase to control pain.
--- NOTE | 2017-10-23 10:28 | PN- Pulmonary ---
Subjective HPI/Critical Care Issues: She continues to complain of right-sided chest pain. Chest tube continues to drain 450 mL yesterday Objective Current Medications: Current Medications Sig/Sara Start time Last Medication Dose Route Stop Time Status Admin Acetaminophen 1,000 MG Q6P PRN 10/22 1430 AC 10/23 N/A 1 UNIT IV 1026 Acetaminophen 650 MG ONCE ONE 10/22 1230 DC 10/22 PO 10/22 1231 1231 Albuterol Sulfate 3 ML EVERY 4 HRS/AWAKE 10/15 1200 AC 10/23 INH 0755 Alteplase, 10 MG ONE ONE 10/23 0630 DC Recombinant IV 10/23 0631 Ampicillin Sodium/ 3,000 MG Q6 10/18 1200 AC 10/23 Sulbactam Sodium IV 0008 Sodium Chloride 100 ML Artificial Tears 2 GTT 4 TIMES/DAY 10/19 1827 AC 10/23 OPH 0843 Fentanyl Citrate 100 MCG Q72 10/22 1445 AC 10/22 TOP 1442 Fentanyl Citrate 25 MCG Q72H 10/22 1445 AC 10/22 TOP 1442 Fentanyl Citrate 100 MCG Q72H 10/21 1300 DC 10/21 TOP 1123 Gabapentin 300 MG BID 10/23 0935 AC 10/23 PO 1026 Heparin Sodium 5,000 UNIT Q8 10/14 2200 AC 10/22 (Porcine) SC 2013 Ibuprofen 600 MG Q6P PRN 10/22 1430 AC 10/23 PO 0842 Lorazepam 2 MG Q2P PRN 10/20 1545 AC 10/23 IV 0844 Magnesium Oxide 400 MG ONE ONE 10/23 0745 DC 10/23 PO 10/23 0746 0843 Melatonin 10 MG AT BEDTIME 10/21 2300 AC 10/22 PO 2012 Metoprolol Tartrate 5 MG .STK-MED ONE 10/23 0005 DC IV 10/23 0006 Metoprolol Tartrate 5 MG ONCE ONE 10/22 2300 DC 10/23 IV 10/22 2301 0008 Pantoprazole Sodium 40 MG DAILY 10/14 2014 AC 10/23 IV 0843 Potassium Chloride 20 MEQ ONCE ONE 10/23 0745 DC 10/23 PO 10/23 0746 0843 Potassium Chloride 60 MEQ ONCE ONE 10/23 0100 DC 10/23 PO 10/23 0101 0101 Quetiapine Fumarate 250 MG AT BEDTIME 10/22 2100 AC 10/22 PO 2012 Quetiapine Fumarate 25 MG BID 10/21 2100 DC 10/22 PO 0842 Senna/Docusate Sodium 2 TAB DAILY NEEDED PRN 10/18 1215 AC PO Trazodone HCl 12.5 MG AT BEDTIME 10/21 2359 AC 10/22 PO 2011 Vital Signs & I&O Last 24 Hrs of Vitals and I&O: Vital Signs Date Time Temp Pulse Resp B/P B/P Pulse O2 O2 Flow FiO2 Mean Ox Delivery Rate 10/23 0914 94 Nasal 1.0L Cannula 10/23 0700 97.7 101 26 122/74 92 Nasal 2.0L Cannula 10/23 0611 95 Nasal 2.0L Cannula 10/23 0025 98.2 107 22 138/82 95 Nasal 2.0L Cannula 10/23 0020 95 Nasal 2.0L Cannula 10/23 0008 98.2 114 22 138/82 10/22 2000 94 Nasal 2.0L Cannula 10/22 1626 94 Nasal 2.0L Cannula 10/22 1600 98 Nasal 2.0L Cannula 10/22 1600 97.4 117 22 126/80 98 Nasal 2.0L Cannula 10/22 1200 98.2 114 23 104/60 95 Nasal 2.0L Cannula 10/22 1200 95 Nasal 2.0L Cannula Intake & Output 10/23 1600 10/23 0800 10/23 0000 Intake Total 520 380 Output Total 450 750 Balance 70 -370 Intake, IV 300 200 Intake, Oral 220 180 Number 1 Bowel Movements Output, Chest 100 250 Tube Drainage Output, Urine 350 500 Oxygen saturation on 1 L 94% exam of his chest continues to diminished breath sounds over the right posterior chest cardiac exam shows regular S1 and S2 without murmurs Impression/Plan Impression/Plan Impression/Plan: 42-year-old without for strep pneumonia, complicated by empyema status post chest tube placement Recommendations: Continue chest tube drainage complete course of antibiotics. Attempt to minimize narcotic and sedation. Aggressive pulmonary toilet. Continue intermittent lytic installation per CT surgery
[2017-10-23 16:00] VITALS: BP 148/80
[2017-10-24] VITALS: BP 110/62
[2017-10-24 06:12] LABS: ABSOLUTE BASOPHIL COUNT 0.1 /CUMM (0.0-0.2); ABSOLUTE EOSINOPHIL COUNT 0.5 /CUMM (0.0-0.7); ABSOLUTE GRANULOCYTE CT 8.6 /CUMM (1.4-6.5); ABSOLUTE LYMPH COUNT 2.5 /CUMM (1.2-3.4); ABSOLUTE MONOCYTE COUNT 1.2 /CUMM (0.10-0.60); BASOPHIL % 0.4 % (0.0-2.0); EOSINOPHIL % 3.8 % (0-5); GRANULOCYTE % 67.4 % (42.2-75.2); HEMATOCRIT 27.2 % (42-52); MEAN CORPUSCULAR HGB CONC 33.3 G/DL (33.0-37.0); MEAN CORPUSCULAR VOLUME 84.1 FL (80.0-94.0); MEAN PLATELET VOLUME 6.6 FL (7.4-10.4); PLATELET COUNT 932 /CUMM (130-400); RBC DISTRIBUTION WIDTH 17.5 % (11.5-14.5); RED BLOOD CELL CT 3.23 /CUMM (4.70-6.10); WHITE BLOOD CELL COUNT 12.8 /CUMM (4.8-10.8)
--- NOTE | 2017-10-24 07:27 | PN- Resident CRCU ---
Subjective HPI/CRCU Issues: Patient was seen and examined at bedside. No overnight event. chest tube drained <50cc in last 24hrs. Patient was in tears while I examin him and stated that he was thinking about all his relatives visiting him during the hospital course. Otherwise complaining of 6/10 pain at chest tube insertion site, but no other active discomfort at the moment. Objective Vital Signs & I&O Last 8 Hrs of Vitals and I&O: Intake & Output 10/24 1600 10/24 0800 10/24 0000 Intake Total 490 450 Output Total 50 900 Balance 440 -450 Intake, IV 240 130 Intake, Oral 250 320 Output, Chest 50 100 Tube Drainage Output, Urine 800 Exam General Appearance: no apparent distress, alert, awake, comfortable Respiratory: normal breath sounds, no respiratory distress, chest tube insertion site clear without swelling/bleeding Cardiovascular: tachycardia Gastrointestinal: normal bowel sounds, soft, non-tender Extremities: no edema Current Medications: Current Medications Sig/Sara Start time Last Medication Dose Route Stop Time Status Admin Acetaminophen 1,000 MG Q6P PRN 10/22 1430 AC 10/23 N/A 1 UNIT IV 1026 Albuterol Sulfate 3 ML EVERY 4 HRS/AWAKE 10/15 1200 AC 10/24 INH 0802 Ampicillin Sodium/ 3,000 MG Q6 10/18 1200 AC 10/24 Sulbactam Sodium IV 0542 Sodium Chloride 100 ML Artificial Tears 2 GTT 4 TIMES/DAY 10/19 1827 AC 10/23 OPH 2013 Fentanyl Citrate 100 MCG Q72 10/22 1445 AC 10/22 TOP 1442 Fentanyl Citrate 25 MCG Q72H 10/22 1445 AC 10/22 TOP 1442 Gabapentin 300 MG BID 10/23 0935 AC 10/23 PO 2007 Heparin Sodium 5,000 UNIT Q8 10/14 2200 AC 10/24 (Porcine) SC 0542 Ibuprofen 600 MG Q6P PRN 10/22 1430 AC 10/24 PO 0641 Lorazepam 2 MG Q6 10/23 1200 AC 10/24 PO 0542 Lorazepam 2 MG Q2P PRN 10/20 1545 DC 10/23 IV 0844 Magnesium Chloride 64 MG ONCE ONE 10/24 0645 DC PO 10/24 0646 Melatonin 10 MG AT BEDTIME 10/21 2300 AC 10/23 PO 2007 Omeprazole 40 MG DAILY AC 10/24 0700 AC 10/24 PO 0543 Pantoprazole Sodium 40 MG DAILY 10/14 2014 DC 10/23 IV 0843 Potassium Chloride 20 MEQ ONCE ONE 10/24 0645 DC PO 10/24 0646 Quetiapine Fumarate 250 MG AT BEDTIME 10/22 2100 AC 10/23 PO 2007 Senna/Docusate Sodium 2 TAB DAILY NEEDED PRN 10/18 1215 AC PO Trazodone HCl 12.5 MG AT BEDTIME 10/21 2359 AC 10/23 PO 2009 Impression/Plan Impression/Problem List Impression: 42-year-old male with significant history of polysubstance abuse including cocaine, migraines, hypertension, previous diabetes not on medications lately presented with progressive worsening of shortness of breath since around a month with outpatient antimicrobial failure. In the ED he found to have purulent phlegm production with productive cough tripoding despite on 100% FiO2. Vital signs at presentation afebrile, heart rate 97, blood pressure 109/56 mmHg, saturating 85% on 6 L. Labs did show white count of 14.7, H&H 12/36, platelet count 496, chemistry sodium 134, potassium 4.5, BUN/creatinine 48/4.9, GFR 13, calcium 7.7, bilirubin 0.9, ALP 142, HIV nonreactive. Normal lactic. Thoracentesis was done in the ER with draining 400 mL of purulent fluid. Pleural fluid analysis did show white count of 22,400, RBC 1800, total protein 5.3, LDH 6615. Blood cultures and sputum cultures - NGTD Problem list 1. Severe ARDS on low TV and high PEEP ventilation. Multilobar pna 2. Acute renal failure 3. Hydropneumothorax with trapped lung 4. Methadone maintenence 5. HTN 6. Bipolar disorder 7. Polysubstance abuse PLAN Respiratory #ARDS with low TV, high PEEP protocol with goal Plateau pressure <30 cm H2o. Multilobar pna Respiratory acidosis on his improving with vent -qtc 483 on 10/24 EKG. Will recheck daily -Cr 0.9 stable. -Patient has been eating well. No need for IVF -switched to PO PPI. Infectious #Multilobar pneumonia Intially started on broad spectrum with IV Zosyn/IV azithro/IV vanco. Cultures growing alpha strep (viridan) Chest CT 10/18 showed No significant change is seen in the dense consolidation and near complete collapse of the right lower lobe or in the subtotal consolidations in the right middle lobe and right upper lobe when compared to 10/14/2017. -switched to unasyn per ID recommendations, currently day 10, pending switch to PO ABx, likely Augmentin. -PICC line and chest tube placement 10/19 without complication. Chest tube had < 50cc drainage in last 24hr. Pending removal per Thoracic surg. -Leukocytosis resolved to 12.5 on latest lab, stable afebrile overnight. Cardiovascular Tachycardia most likely secondary to ifnection, now stable RR 80s ECHO unremarkable -cont to monitor -Restart metoprolol 25 BID for heart rate control (pt was on home dose Propranolol 160mg BID for migrain prophylaxis). Hematology -Hgb 9.1 stable, may have underlying continuous fluid causing hemodilution. Metabloc #Electrolytes Monitor K, Mg, phos daily per renal -K repleted at 3.8 on latest lab and stablized, may recheck daily as needed -Keep Mg >4 Acute renal failure Cr 4.9 upon admission current Cr 0.9. -Ultrasound 10/15 ruled out post renal causes. Likely related to sepsis with ATN/ Prerenal. Alimentary -Regular diet without complication/choking. Tolerating well. Neuro -Fentanyl patch 125mcg q72, will taper down as tolerated -Started Gabapentin 300 BID. -Appreciated psych consult, restarted on Seroquel 250 qhs (full home dose of 200 QID), Trazdone 12.5 QHs, -Pending psych on increasing Seroquel dose. -Will taper Ativan to 1mg q6. DVT prophylaxis Pharm PPX + ALPS Regular Diet Full Code IV access: Peripheral + PICC Problem List: 1. ARDS (adult respiratory distress syndrome) Pain Ratin Pain Location: chest tube insertion site Tomorrow's Labs & Rationales: ICU/CBC Plan DVT/Prophylaxis: mechanical, pharmacological
[2017-10-24 08:00] VITALS: BP 132/70
--- NOTE | 2017-10-24 08:38 | RADIOLOGY REPORT ---
EXAMINATION: XR PORTABLE CHEST CLINICAL INFORMATION: 42-year-old male with right-sided hydropneumothorax, status post chest tube placement. For follow-up. COMPARISON: Chest radiograph done on 10/23/[address] of the chest done on 10/18/2017. TECHNIQUE: Portable frontal view of the chest was obtained. FINDINGS: Diffuse airspace opacity involving the left lung shows interval progression since most recent prior study dated 10/23/2017. The right lung field is well-expanded and shows nonspecific airspace disease at right lung base, otherwise appear clear. Small amount of right-sided pneumothorax is present outlining the visceral pleural surface. The right-sided chest tube is visualized projecting at the level of the right lung base. The right-sided PICC line is in good position. The cardiomediastinal silhouette is within normal limits. IMPRESSION: 1. Nonspecific diffuse airspace disease involving the left lung shows interval progression since 10/23/2017. 2. No other significant interval change.
--- NOTE | 2017-10-24 09:56 | PN- CRCU ---
Subjective HPI/Critical Care Issues: Improving Patient was seen and examined at bedside. No overnight event. chest tube drained <50cc in last 24hrs. Otherwise complaining of 6/10 pain at chest tube insertion site, but no other active discomfort at the moment. Objective Current Medications: Current Medications Sig/Sara Start time Last Medication Dose Route Stop Time Status Admin Acetaminophen 1,000 MG Q6P PRN 10/22 1430 AC 10/23 N/A 1 UNIT IV 1026 Albuterol Sulfate 3 ML EVERY 4 HRS/AWAKE 10/15 1200 AC 10/24 INH 0802 Ampicillin Sodium/ 3,000 MG Q6 10/18 1200 AC 10/24 Sulbactam Sodium IV 0542 Sodium Chloride 100 ML Artificial Tears 2 GTT 4 TIMES/DAY 10/19 1827 AC 10/23 OPH 2013 Fentanyl Citrate 100 MCG Q72 10/22 1445 AC 10/22 TOP 1442 Fentanyl Citrate 25 MCG Q72H 10/22 1445 AC 10/22 TOP 1442 Gabapentin 300 MG BID 10/23 0935 AC 10/24 PO 0902 Heparin Sodium 5,000 UNIT Q8 10/14 2200 AC 10/24 (Porcine) SC 0542 Ibuprofen 600 MG Q6P PRN 10/22 1430 AC 10/24 PO 0641 Lorazepam 1.5 MG Q6 10/24 1200 AC PO Lorazepam 2 MG Q6 10/23 1200 DC 10/24 PO 0542 Lorazepam 2 MG Q2P PRN 10/20 1545 DC 10/23 IV 0844 Magnesium Chloride 64 MG ONCE ONE 10/24 0645 DC 10/24 PO 10/24 0646 0902 Melatonin 10 MG AT BEDTIME 10/21 2300 AC 10/23 PO 2007 Omeprazole 40 MG DAILY AC 10/24 0700 AC 10/24 PO 0543 Pantoprazole Sodium 40 MG DAILY 10/14 2015 DC 10/23 IV 0843 Potassium Chloride 20 MEQ ONCE ONE 10/24 0645 DC 10/24 PO 10/24 0646 0902 Quetiapine Fumarate 250 MG AT BEDTIME 10/22 2100 AC 10/23 PO 2008 Senna/Docusate Sodium 2 TAB DAILY NEEDED PRN 10/18 1215 AC PO Trazodone HCl 12.5 MG AT BEDTIME 10/21 2359 AC 10/23 PO 2009 Vital Signs & I&O Last 24 Hrs of Vitals and I&O: Vital Signs Date Time Temp Pulse Resp B/P B/P Pulse O2 O2 Flow FiO2 Mean Ox Delivery Rate 10/24 0908 94 Room Air 10/24 0800 98.6 108 23 132/70 93 Room Air 10/24 0800 93 Room Air 10/24 0400 95 Nasal 2.0L Cannula 10/24 0000 97 Nasal 2.0L Cannula 10/24 0000 98.6 87 20 110/62 97 Nasal 2.0L Cannula 10/23 2046 98 Room Air 10/23 1650 93 Room Air 10/23 1600 93 Nasal 2.0L Cannula 10/23 1600 98.1 96 25 148/80 93 Nasal 2.0L Cannula 10/23 1200 95 Nasal 2.0L Cannula Intake & Output 10/24 1600 10/24 0800 10/24 0000 Intake Total 490 450 Output Total 50 900 Balance 440 -450 Intake, IV 240 130 Intake, Oral 250 320 Output, Chest 50 100 Tube Drainage Output, Urine 800 Impression/Plan Impression/Plan Impression/Plan: This is a gentleman with history of polysubstance abuse in the past, on methadone replacement, hypertension, hyperlipidemia, chronic prednisone use in the recent past, hypoadrenalism, migraine, cocaine abuse in the past, history of intravenous drug abuse, bipolar disorder, on multiple medications, ongoing smoking, previous admission to this hospital with altered mental status, has had a few emergency room visits in the recent past few days. Now admitted with severe ARDS and necrotizing pna with empyema with trapped lung with large hydropneumothorax, followed by ards, resp failure, empyema now improved Extubated, on 2 litres doing well Pupils reacting small pupils Obese gentleman with tattoos IJ cath in place [place] placed today No significant JVD Chest decreased breath sounds chest tube in place Heart S1 and S2 was heard no murmur could be appreciated but he had significant rhonchi Abdominal exam obese nontender full abdominal exam could not be done as he was unable to lay flat No significant edema or needle cronin noted. IMPRESSION This is a gentleman with previous history of polysubstance abuse now on methadone, bipolar disorder, ongoing smoking, now here with * Resolving necrotizing strep pna with resolving Severe ARDS with severe bilateral multilobar pna due to strep with empyema, now sig improved, extubated and doing well * Trapped lung and hydropneumothorax s/p Chest tube now s/p tpa dong well and lung seems to have expanded * Resolved Acute renal failure in a patient with sepsis with atn (was on ACI and metformin aswell) * History of Diabetes on metformin * Methadone use high risk for withdrawal * Recent steroid use hence immunosuppressed * Bipolar disorder, hypo-testosterone, multiple other issues including polysubstance use and smoking * History of Hyperlipidemia, hypertension, previous chest pain chest discomfort. * Reactive thrombocytosis RECOMMENDATION Cont abx Reduce benzo to 1 mg q6 and then wean slowly Psych to follow change heparin to lovenox sub cut 40 mg psych eval to cont Follow qtc Keep mag more than 4 Cont gabapentin Change omeprazole to pepcid Will follow
--- NOTE | 2017-10-24 10:36 | PN- Infect Dx ---
Subjective Subjective: Afebrile. He notes some discomfort at the right chest tube site. Objective Last 24 Hrs of Vital Signs/I&O Vital Signs Date Time Temp Pulse Resp B/P B/P Pulse O2 O2 Flow FiO2 Mean Ox Delivery Rate 10/24 0908 94 Room Air 10/24 0800 98.6 108 23 132/70 93 Room Air 10/24 0800 93 Room Air 10/24 0400 95 Nasal 2.0L Cannula 10/24 0000 97 Nasal 2.0L Cannula 10/24 0000 98.6 87 20 110/62 97 Nasal 2.0L Cannula 10/23 2046 98 Room Air 10/23 1650 93 Room Air 10/23 1600 93 Nasal 2.0L Cannula 10/23 1600 98.1 96 25 148/80 93 Nasal 2.0L Cannula 10/23 1200 95 Nasal 2.0L Cannula Intake & Output 10/24 1600 10/24 0800 10/24 0000 Intake Total 490 450 Output Total 50 900 Balance 440 -450 Intake, IV 240 130 Intake, Oral 250 320 Output, Chest 50 100 Tube Drainage Output, Urine 800 Physical Exam Other Physical Findings: He appears comfortable in no acute distress, currently on room air Lungs crackles and decreased breath sounds at the right base; chest tube in place on the right, with 400 cc output yesterday and 50 cc overnight Heart regular rhythm with no murmur Extremities no cyanosis, clubbing or edema; PICC in the right upper extremity with no inflammation at the site Results Last 24 Hours of Lab Results: Laboratory Tests 10/24 0550 Chemistry Sodium (137 - 145 mmol/L) 141 Potassium (3.5 - 5.1 mmol/L) 3.8 Chloride (98 - 107 mmol/L) 101 Carbon Dioxide (22 - 30 mmol/L) 29 Anion Gap (5 - 16) 11 BUN (9 - 20 mg/dL) 11 Creatinine (0.7 - 1.2 mg/dL) 0.9 Estimated GFR (>60 ml/min) > 60 Glucose (65 - 99 mg/dL) 119 H Hemoglobin A1c (4.2 - 5.8 %) Pending Calcium (8.4 - 10.2 mg/dL) 8.8 Phosphorus (2.5 - 4.5 mg/dL) 4.6 H Magnesium (1.6 - 2.3 mg/dL) 1.9 Total Bilirubin (0.2 - 1.3 mg/dL) 0.5 AST (17 - 59 U/L) 24 ALT (21 - 72 U/L) 55 Albumin (3.5 - 5.0 g/dL) 2.8 L Hematology CBC w Diff NO MAN DIFF REQ WBC (4.8 - 10.8 /CUMM) 12.8 H RBC (4.70 - 6.10 /CUMM) 3.23 L Hgb (14.0 - 18.0 G/DL) 9.1 L Hct (42 - 52 %) 27.2 L MCV (80.0 - 94.0 FL) 84.1 MCH (27.0 - 31.0 PG) 28.0 MCHC (33.0 - 37.0 G/DL) 33.3 RDW (11.5 - 14.5 %) 17.5 H Plt Count (130 - 400 /CUMM) 932 H MPV (7.4 - 10.4 FL) 6.6 L Gran % (42.2 - 75.2 %) 67.4 Lymphocytes % (20.5 - 51.1 %) 19.2 L Monocytes % (1.7 - 9.3 %) 9.2 Eosinophils % (0 - 5 %) 3.8 Basophils % (0.0 - 2.0 %) 0.4 Absolute Granulocytes (1.4 - 6.5 /CUMM) 8.6 H Absolute Lymphocytes (1.2 - 3.4 /CUMM) 2.5 Absolute Monocytes (0.10 - 0.60 /CUMM) 1.2 H Absolute Eosinophils (0.0 - 0.7 /CUMM) 0.5 Absolute Basophils (0.0 - 0.2 /CUMM) 0.1 Last 24 Hours of Venancio Results: No recent cultures Recent Imaging Studies: Chest x-ray October 24 reveals nonspecific diffuse airspace disease involving the left lung; the right lung is well expanded with nonspecific airspace disease at the base, with a small amount of right-sided pneumothorax present Assessment/Plan ID Impression: Doing well, status post successful extubation 3 days ago, with his temperatures remaining normal and his white blood cell count decreasing, after an initial increase 2 days ago, of unclear etiology, on Unasyn, Day 10 of treatment for necrotizing pneumonia/empyema secondary to alpha strep, still with significant output from his chest tube. The increased left-sided density on his chest x-ray is of unclear significance given his overall improvement. Suggestion: 1. Further management of his chest tube per Thoracic surgery 2. Repeat CT of his chest once his drainage has significantly decreased 3. Continue Unasyn
[2017-10-24 12:00] VITALS: BP 126/70
[2017-10-24 16:00] VITALS: BP 102/68
[2017-10-25] VITALS: BP 124/68
[2017-10-25 06:20] LABS: ABSOLUTE BASOPHIL COUNT 0.1 /CUMM (0.0-0.2); ABSOLUTE LYMPH COUNT 2.7 /CUMM (1.2-3.4); HEMATOCRIT 24.7 % (42-52)
[2017-10-25 06:25] LABS: ABSOLUTE EOSINOPHIL COUNT 0.5 /CUMM (0.0-0.7); ABSOLUTE GRANULOCYTE CT 6.3 /CUMM (1.4-6.5); ABSOLUTE MONOCYTE COUNT 0.8 /CUMM (0.10-0.60); BASOPHIL % 1.3 % (0.0-2.0); EOSINOPHIL % 5.2 % (0-5); GRANULOCYTE % 60.1 % (42.2-75.2); MEAN CORPUSCULAR HGB 27.8 PG (27.0-31.0); MEAN CORPUSCULAR HGB CONC 33.5 G/DL (33.0-37.0); MEAN CORPUSCULAR VOLUME 83.2 FL (80.0-94.0); MEAN PLATELET VOLUME 6.5 FL (7.4-10.4); RBC DISTRIBUTION WIDTH 17.9 % (11.5-14.5); RED BLOOD CELL CT 2.97 /CUMM (4.70-6.10); WHITE BLOOD CELL COUNT 10.5 /CUMM (4.8-10.8)
[2017-10-25 06:38] LABS: PLATELET COUNT 930 /CUMM (130-400)
--- NOTE | 2017-10-25 07:22 | PN- Resident CRCU ---
Subjective HPI/CRCU Issues: Patient was seen and examined at bedside. NO overnight event, chest tube drained ~80cc from 2PM 10/24, more clear yellowish appearing with some sediments, not clogged. He was not complaining of pain at chest tube side any more. He inquired about whether psych will come today regarding his seroquel dose and also about his chest tube management. Otherwise no specific complaint. Objective Vital Signs & I&O Last 8 Hrs of Vitals and I&O: Vital Signs Date Time Temp Pulse Resp B/P B/P Pulse O2 O2 Flow FiO2 Mean Ox Delivery Rate 10/25 0400 100 Nasal 2.0L Cannula 10/25 0000 100 Nasal 2.0L Cannula 10/25 0000 98.4 98 24 124/68 100 Nasal 2.0L Cannula 10/24 2048 94 Room Air Room Air 10/24 2014 90 116/85 10/24 2000 Room Air 10/24 1600 Room Air 10/24 1600 98.1 90 41 102/68 93 Room Air 10/24 1233 120 10/24 1200 Room Air 10/24 1200 98.7 108 33 126/70 93 Room Air 10/24 0908 94 Room Air Intake & Output 10/25 1600 10/25 0800 10/25 0000 Intake Total 240 710 Output Total 345 635 Balance -105 75 Intake, IV 240 130 Intake, Oral 580 Output, Chest 45 35 Tube Drainage Output, Urine 300 600 Exam General Appearance: no apparent distress, alert, awake, comfortable Head: atraumatic, normal appearance Respiratory: chest non-tender, no respiratory distress, decreased breath sounds, Chest tube insertion site on right flank clear and not clogged, bubbles in/out with breathing Cardiovascular: regular rate/rhythm Gastrointestinal: normal bowel sounds, soft, non-tender Current Medications: Current Medications Sig/Sara Start time Last Medication Dose Route Stop Time Status Admin Acetaminophen 1,000 MG Q6P PRN 10/22 1430 AC 10/24 N/A 1 UNIT IV 1121 Albuterol Sulfate 3 ML EVERY 4 HRS/AWAKE 10/15 1200 AC 10/24 INH 2008 Ampicillin Sodium/ 3,000 MG Q6 10/18 1200 AC 10/25 Sulbactam Sodium IV 0554 Sodium Chloride 100 ML Artificial Tears 2 GTT 4 TIMES/DAY 10/19 1827 AC 10/23 OPH 2012 Enoxaparin Sodium 40 MG DAILY 06/12 0900 AC SC Famotidine 20 MG BID 10/24 2100 AC 10/24 PO 2014 Fentanyl Citrate 100 MCG Q72 10/22 1445 AC 10/22 TOP 1442 Fentanyl Citrate 25 MCG Q72H 10/22 1445 AC 10/22 TOP 1442 Gabapentin 300 MG BID 10/23 0935 AC 10/24 PO 2014 Heparin Sodium 5,000 UNIT Q8 10/14 2200 DC 10/24 (Porcine) SC 0542 Ibuprofen 600 MG .STK-MED ONE 10/24 2309 DC PO 10/24 2310 Ibuprofen 600 MG Q6P PRN 10/22 1430 AC 10/24 PO 2310 Lorazepam 1.5 MG Q6 10/24 1200 DC PO Lorazepam 1 MG Q6 10/24 1200 AC 10/24 PO 2310 Lorazepam 2 MG Q6 10/23 1200 DC 10/24 PO 0542 Melatonin 10 MG AT BEDTIME 10/21 2300 AC 10/24 PO 2014 Metoprolol Tartrate 25 MG BID 10/24 1145 AC 10/24 PO 2014 Nicotine 14 MG DAILY 10/24 2300 10/24 TOP 2348 Omeprazole 40 MG DAILY AC 10/24 0700 DC 10/24 PO 0543 Quetiapine Fumarate 250 MG AT BEDTIME 10/22 2100 AC 10/24 PO 2014 Senna/Docusate Sodium 2 TAB DAILY NEEDED PRN 10/18 1215 AC PO Trazodone HCl 12.5 MG AT BEDTIME 10/21 2359 AC 10/24 PO 2014 Impression/Plan Impression/Problem List Impression: 42-year-old male with significant history of polysubstance abuse including cocaine, migraines, hypertension, previous diabetes not on medications lately presented with progressive worsening of shortness of breath since around a month with outpatient antimicrobial failure. In the ED he found to have purulent phlegm production with productive cough tripoding despite on 100% FiO2. Vital signs at presentation afebrile, heart rate 97, blood pressure 109/56 mmHg, saturating 85% on 6 L. Labs did show white count of 14.7, H&H 12/36, platelet count 496, chemistry sodium 134, potassium 4.5, BUN/creatinine 48/4.9, GFR 13, calcium 7.7, bilirubin 0.9, ALP 142, HIV nonreactive. Normal lactic. Thoracentesis was done in the ER with draining 400 mL of purulent fluid. Pleural fluid analysis did show white count of 22,400, RBC 1800, total protein 5.3, LDH 6615. Blood cultures and sputum cultures - Alpha Streps, Yeast Problem list 1. Severe ARDS on low TV and high PEEP ventilation. Multilobar pna 2. Acute renal failure 3. Hydropneumothorax with trapped lung 4. Methadone maintenence 5. HTN 6. Bipolar disorder 7. Polysubstance abuse PLAN Respiratory #ARDS resolved, extubated without complication. -qtc 483 on 10/24 EKG. Will recheck daily -Cr 0.9 stable. -Patient has been eating well. No need for IVF -switched to PO PPI. Infectious #Multilobar pneumonia Intially started on broad spectrum with IV Zosyn/IV azithro/IV vanco. Cultures growing alpha strep (viridan) Chest CT 10/18 showed No significant change is seen in the dense consolidation and near complete collapse of the right lower lobe or in the subtotal consolidations in the right middle lobe and right upper lobe when compared to 10/14/2017. -switched to unasyn per ID recommendations, currently day 11, pending switch to PO ABx, likely Augmentin. -PICC line and chest tube placement 10/19 without complication. Chest tube had ~ 80cc drainage in last 12hr appeared less sanguous to before. May need a repeated Chest CT, also pending Thoracic surg recommendation. -Leukocytosis completely resolved to 10.5 on latest lab, stable afebrile overnight. Cardiovascular Tachycardia most likely secondary to ifnection, now stable RR 80s ECHO unremarkable -cont to monitor -Restart metoprolol 25 BID for heart rate control (pt was on home dose Propranolol 160mg BID for migraine prophylaxis). -QTC 511 on 6/12 AM EKG, 2/2 Quetiapine? Hematology -Hgb 9.1 -> 8.3, could be some insidious loss from chest tube but VSS -PLT stayed high at 930, unclear why patient had thrombocytosis. -cont monitor Metabolic #Electrolytes Monitor K, Mg, phos daily per renal -K repleted at 3.7 on latest lab and stablized, may recheck daily as needed. Will try to maintain K>4. Will give K-dur 40meq x 1 today -Keep Mg >2 #Acute renal failure Cr 4.9 upon admission current Cr 0.9. -Ultrasound 6/2 ruled out post renal causes. Likely related to sepsis with ATN/ Prerenal. Alimentary -Regular diet without complication/choking. Tolerating well. Neuro -Fentanyl patch 125mcg q72, will taper down as tolerated. -Of note, patient was taking methadone 50mg qd for pain prior to admission. Patient was asking about restarting methadone however now he was being managed under Fentanyl. Advised to f/u w/ PCP outpatient for restarting Methadone. -Started Gabapentin 300 BID. -Appreciated psych consult, restarted on Seroquel 250 qhs (full home dose of 400mg QHS, confirmed with patient on 6/12 AM), Trazdone 12.5 QHs, -Pending psych on resuming Seroquel dose. -Will taper Ativan to 0.5mg q6. DVT prophylaxis Pharm PPX + ALPS Regular Diet Full Code IV access: Peripheral + PICC Problem List: 1. ARDS (adult respiratory distress syndrome) Pain Ratin Tomorrow's Labs & Rationales: ICU/CBC Plan DVT/Prophylaxis: mechanical, pharmacological DVT/Prophylaxis: mechanical, pharmacological
[2017-10-25 08:00] VITALS: BP 112/64
--- NOTE | 2017-10-25 10:04 | PN- CRCU ---
Subjective HPI/Critical Care Issues: Patient was seen and examined at bedside. NO overnight event, chest tube drained ~80cc from 2PM 10/24, more clear yellowish appearing with some sediments, not clogged. He was not complaining of pain at chest tube side any more. He inquired about whether psych will come today regarding his seroquel dose and also about his chest tube management. Otherwise no specific complaint. Objective Current Medications: Current Medications Sig/Sara Start time Last Medication Dose Route Stop Time Status Admin Acetaminophen 1,000 MG Q6P PRN 10/22 1430 AC 10/25 N/A 1 UNIT IV 0832 Albuterol Sulfate 3 ML EVERY 4 HRS/AWAKE 10/15 1200 AC 10/25 INH 0826 Ampicillin Sodium/ 3,000 MG Q6 10/18 1200 AC 10/25 Sulbactam Sodium IV 0554 Sodium Chloride 100 ML Artificial Tears 2 GTT 4 TIMES/DAY 10/19 1827 AC 10/23 OPH 2013 Enoxaparin Sodium 40 MG DAILY 10/25 0900 AC 10/25 SC 0836 Famotidine 20 MG BID 10/24 2100 AC 10/25 PO 0837 Fentanyl Citrate 100 MCG Q72 10/22 1445 AC 10/25 TOP 0836 Fentanyl Citrate 25 MCG Q72H 10/22 1445 AC 10/25 TOP 0837 Gabapentin 300 MG BID 10/23 0935 AC 10/25 PO 0837 Heparin Sodium 5,000 UNIT Q8 10/14 2200 DC 10/24 (Porcine) SC 0542 Ibuprofen 600 MG .STK-MED ONE 10/24 2309 DC PO 10/24 2310 Ibuprofen 600 MG Q6P PRN 10/22 1430 AC 10/25 PO 0837 Lorazepam 0.5 MG Q6 10/25 1200 AC PO 10/31 1159 Lorazepam 1.5 MG Q6 10/24 1200 DC PO Lorazepam 1 MG Q6 10/24 1200 DC 10/24 PO 2310 Melatonin 10 MG AT BEDTIME 10/21 2300 AC 10/24 PO 2014 Metoprolol Tartrate 25 MG BID 10/24 1145 AC 10/25 PO 0837 Nicotine 14 MG DAILY 10/24 2300 AC 10/24 TOP 2348 Omeprazole 40 MG DAILY AC 10/24 0700 DC 10/24 PO 0543 Potassium Chloride 40 MEQ ONCE ONE 10/25 0830 DC 10/25 PO 10/25 0831 0837 Quetiapine Fumarate 250 MG AT BEDTIME 10/22 2100 AC 10/24 PO 2013 Senna/Docusate Sodium 2 TAB DAILY NEEDED PRN 10/18 1215 AC PO Trazodone HCl 12.5 MG AT BEDTIME 10/21 2359 AC 10/24 PO 2013 Vital Signs & I&O Last 24 Hrs of Vitals and I&O: Vital Signs Date Time Temp Pulse Resp B/P B/P Pulse O2 O2 Flow FiO2 Mean Ox Delivery Rate 10/25 0844 92 Room Air Room Air 10/25 0837 108 118/68 10/25 0400 100 Nasal 2.0L Cannula 10/25 0000 100 Nasal 2.0L Cannula 10/25 0000 98.4 98 24 124/68 100 Nasal 2.0L Cannula 10/24 2048 94 Room Air Room Air 10/24 2013 90 116/85 10/24 2000 Room Air 10/24 1600 Room Air 10/24 1600 98.1 90 41 102/68 93 Room Air 10/24 1233 120 10/24 1200 Room Air 10/24 1200 98.7 108 33 126/70 93 Room Air Intake & Output 10/25 1600 10/25 0800 10/25 0000 Intake Total 240 710 Output Total 345 635 Balance -105 75 Intake, IV 240 130 Intake, Oral 580 Output, Chest 45 35 Tube Drainage Output, Urine 300 600 Laboratory Tests 10/25 10/24 0600 0550 Chemistry Sodium (137 - 145 mmol/L) 142 141 Potassium (3.5 - 5.1 mmol/L) 3.7 3.8 Chloride (98 - 107 mmol/L) 105 101 Carbon Dioxide (22 - 30 mmol/L) 29 29 Anion Gap (5 - 16) 8 11 BUN (9 - 20 mg/dL) 11 11 Creatinine (0.7 - 1.2 mg/dL) 1.1 0.9 Estimated GFR (>60 ml/min) > 60 > 60 Glucose (65 - 99 mg/dL) 105 H 119 H Hemoglobin A1c (4.2 - 5.8 %) 6.1 H Calcium (8.4 - 10.2 mg/dL) 8.8 8.8 Phosphorus (2.5 - 4.5 mg/dL) 5.2 H 4.6 H Magnesium (1.6 - 2.3 mg/dL) 2.1 1.9 Total Bilirubin (0.2 - 1.3 mg/dL) 0.5 0.5 AST (17 - 59 U/L) 20 24 ALT (21 - 72 U/L) 43 55 Albumin (3.5 - 5.0 g/dL) 2.6 L 2.8 L Hematology CBC w Diff NO MAN DIFF REQ NO MAN DIFF REQ WBC (4.8 - 10.8 /CUMM) 10.5 12.8 H RBC (4.70 - 6.10 /CUMM) 2.97 L 3.23 L Hgb (14.0 - 18.0 G/DL) 8.3 L 9.1 L Hct (42 - 52 %) 24.7 L 27.2 L MCV (80.0 - 94.0 FL) 83.2 84.1 MCH (27.0 - 31.0 PG) 27.8 28.0 MCHC (33.0 - 37.0 G/DL) 33.5 33.3 RDW (11.5 - 14.5 %) 17.9 H 17.5 H Plt Count (130 - 400 /CUMM) 930 H 932 H MPV (7.4 - 10.4 FL) 6.5 L 6.6 L Gran % (42.2 - 75.2 %) 60.1 67.4 Lymphocytes % (20.5 - 51.1 %) 25.6 19.2 L Monocytes % (1.7 - 9.3 %) 7.8 9.2 Eosinophils % (0 - 5 %) 5.2 H 3.8 Basophils % (0.0 - 2.0 %) 1.3 0.4 Absolute Granulocytes (1.4 - 6.5 /CUMM) 6.3 8.6 H Absolute Lymphocytes (1.2 - 3.4 /CUMM) 2.7 2.5 Absolute Monocytes (0.10 - 0.60 /CUMM) 0.8 H 1.2 H Absolute Eosinophils (0.0 - 0.7 /CUMM) 0.5 0.5 Absolute Basophils (0.0 - 0.2 /CUMM) 0.1 0.1 Impression/Plan Impression/Plan Impression/Plan: This is a gentleman with history of polysubstance abuse in the past, on methadone replacement, hypertension, hyperlipidemia, chronic prednisone use in the recent past, hypoadrenalism, migraine, cocaine abuse in the past, history of intravenous drug abuse, bipolar disorder, on multiple medications, ongoing smoking, previous admission to this hospital with altered mental status, has had a few emergency room visits in the recent past few days. Now admitted with severe ARDS and necrotizing pna with empyema with trapped lung with large hydropneumothorax, followed by ards, resp failure, empyema now improved Extubated, on 2 litres doing well Pupils reacting small pupils Obese gentleman with tattoos IJ cath in place [place] placed today No significant JVD Chest decreased breath sounds chest tube in place Heart S1 and S2 was heard no murmur could be appreciated but he had significant rhonchi Abdominal exam obese nontender full abdominal exam could not be done as he was unable to lay flat No significant edema or needle cronin noted. IMPRESSION This is a gentleman with previous history of polysubstance abuse now on methadone, bipolar disorder, ongoing smoking, now here with * Resolving necrotizing strep pna with resolving Severe ARDS with severe bilateral multilobar pna due to strep with empyema, now sig improved, extubated and doing well * Trapped lung and hydropneumothorax s/p Chest tube now s/p tpa dong well and lung seems to have expanded * Resolved Acute renal failure in a patient with sepsis with atn (was on ACI and metformin aswell) * History of Diabetes on metformin * Methadone use high risk for withdrawal * Recent steroid use hence immunosuppressed * Bipolar disorder, hypo-testosterone, multiple other issues including polysubstance use and smoking * History of Hyperlipidemia, hypertension, previous chest pain chest discomfort. * Reactive thrombocytosis RECOMMENDATION Cont abx Reduce benzo to 0.5 Q8 in am then bid then hs Psych to follow, qtc is high and hold seroquel till they see him Reduce his fentanyl to 100 mcg patch Dc ibuprofen psych eval to cont Follow qtc Keep mag more than 2 Replace potassium Cont gabapentin Reduce pepid to qd Dc nicotine In a 3 days reduce fentanyl to 75 then can change to methadone after CT chest today and if stable will remove chest tube
--- NOTE | 2017-10-25 10:45 | Transfer of Care Summary ---
Hospital Course Course Hospital Course: Reason for ICU admission: AHRF/ARDS reuqiring intubation HPI: 42-year-old male with significant history of polysubstance abuse including cocaine, migraines, hypertension, previous diabetes not on medications lately presented with progressive worsening of shortness of breath since around a month with outpatient antimicrobial failure. In the ED he found to have purulent phlegm production with productive cough tripoding despite on 100% FiO2. Vital signs at presentation afebrile, heart rate 97, blood pressure 109/56 mmHg, saturating 85% on 6 L. Labs did show white count of 14.7, H&H 12/36, platelet count 496, chemistry sodium 134, potassium 4.5, BUN/creatinine 48/4.9, GFR 13, calcium 7.7, bilirubin 0.9, ALP 142, HIV nonreactive. Normal lactic. Thoracentesis was done in the ER with draining 400 mL of purulent fluid. Pleural fluid analysis did show white count of 22,400, RBC 1800, total protein 5.3, LDH 6615. Interval events in the ICU: Problem list 1. Severe ARDS on low TV and high PEEP ventilation. Multilobar pna 2. Acute renal failure 3. Hydropneumothorax with trapped lung 4. Methadone maintenence 5. HTN 6. Bipolar disorder 7. Polysubstance abuse PLAN Respiratory Upon admission, patient was intubated with supportive treatment/adequate sedation with slow TB, high PEEP protocol/goal plateau pressure less than 30 cm H2O, with multilobar pneumonia/respiratory acidosis. Patient gradually improved during intubation, and was successfully extubated on 10/21, with gradual tapering off sedations. Chest tube on the right side was placed by thoracic surgeon on for drainage of pleural effusion, currently still on the maintenance with decreased daily drainage, pending thoracic removal. Infectious Diagnosed with multilobar pneumonia/ARDS, initially started on broad spectrum with IV Zosyn/IV sagittal/IV Vanco, and tailored to culture growing alpha strep (emergent) and downgraded to Unasyn, currently day 11, pending switch to p.o. antibiotics per ID. Patient also has a PICC line placement without complication for antibiotics. Leukocytosis has resolved to 10.5 on latest lab, and has been afebrile for 72 hours. Cardiovascular Patient was monitored on QTc elongation on daily EKG, and has intermittent tachycardia most likely secondary to infection, however patient also endorsed underlying tachycardia episodes at home, being managed by propranolol (indicated for his migraine prophylaxis). After extubation, patient was restarted on metoprolol 25 twice daily for heart rate control, and will continue monitor. Patient's QTC was again elongated to 511 on 10/25 EKG, likely secondary to restart of quetiapine 200 nightly. Will hold quetiapine for now and pending psych reevaluation. Hematology Patient's hemoglobin was stabilized over the hospital course, currently 8.3. Patient's platelets stayed high for the last few days around 900+, however unclear why patient had thrombocytosis. Will continue monitor. Metabolic Patient receives supportive repletion of electrolytes including K, mag, phosphorus was daily renal panel. Patient underwent acute renal failure upon admission with creatinine 4.9, and slowly trended down to 0.9, currently 1.1 on latest lab. Ultrasound on to rule out post renal causes. Patient's renal failure likely related to sepsis with ATN/prerenal, currently resolved. Will continue monitor Alimentary After extubation, patient was started on tube feeding, and soon resume a regular diet without complication/choking, and tolerated the diet well. Neuro Prior to admission, patient was taken methadone 50 mg daily for pain management, however was discontinued his hospital stay due to QTc elongation. Patient -Fentanyl patch 125mcg q72, will taper down as tolerated. -Of note, patient was taking methadone 50mg qd for pain prior to admission. Patient was asking about restarting methadone however now he was being managed under Fentanyl. Advised to f/u w/ PCP outpatient for restarting Methadone. Patient has history of bipolar disorder on Seroquel for mood stabilization, and may have some underlying delirium as well. Psychiatrist was consulted and recommended to restart Seroquel at lower dose to 50 mg nightly, however patient' s QTC was elongated again (as above). Will discontinue Seroquel for now and pending further evaluation by psych. Patient is currently managed on pain with gabapentin 300 twice daily, and trazodone 12.5 nightly for sleep. DVT prophylaxis Pharm PPX + ALPS Regular Diet Full Code IV access: Peripheral + PICC Mechanical ventilation: Yes, extubated without complication prior [facility] transfer. NIPPV: No Antibiotics plan: Unasyn currently day 11 Catheters/ Lines plan: PICC in place, Chest Tube draining. Things to be followed up in the floor: - Psych eval on Seroquel/Methadone, with underlying QTC elongation. - Chest CT for chest tube removal by Thoracic Surg/PA - ABx plan per ID - Taper Ativan to BID on 10/26 then QHS - Taper Fentanyl to 75 in 3 days, and then change to Metahdone after (per Psych/ QTC as well) - Daily EKG for QTC if needed - Daily BEP for K/Mg, replete PRN. Assessment/Plan: as above
--- NOTE | 2017-10-25 11:50 | PN- Infect Dx ---
Subjective Subjective: Afebrile. He notes mild discomfort at the right chest tube site. Objective Last 24 Hrs of Vital Signs/I&O Vital Signs Date Time Temp Pulse Resp B/P B/P Pulse O2 O2 Flow FiO2 Mean Ox Delivery Rate 10/25 0844 92 Room Air Room Air 10/25 0837 108 118/68 10/25 0800 94 Room Air 10/25 0800 97.2 108 29 112/64 94 Room Air 10/25 0400 100 Nasal 2.0L Cannula 10/25 0000 100 Nasal 2.0L Cannula 10/25 0000 98.4 98 24 124/68 100 Nasal 2.0L Cannula 10/24 2048 94 Room Air Room Air 10/24 2013 90 116/85 10/24 2000 Room Air 10/24 1600 Room Air 10/24 1600 98.1 90 41 102/68 93 Room Air 10/24 1233 120 10/24 1200 Room Air 10/24 1200 98.7 108 33 126/70 93 Room Air Intake & Output 10/25 1600 10/25 0800 10/25 0000 Intake Total 240 710 Output Total 345 635 Balance -105 75 Intake, IV 240 130 Intake, Oral 580 Output, Chest 45 35 Tube Drainage Output, Urine 300 600 Physical Exam Other Physical Findings: He appears comfortable in no acute distress Lungs crackles at the right base; chest tube in place with 165 cc output yesterday and 45 cc overnight Heart regular rhythm with no murmur Extremities no cyanosis, clubbing or edema; PICC in the right upper extremity with no inflammation at the site Results Last 24 Hours of Lab Results: Laboratory Tests 10/25 0600 Chemistry Sodium (137 - 145 mmol/L) 142 Potassium (3.5 - 5.1 mmol/L) 3.7 Chloride (98 - 107 mmol/L) 105 Carbon Dioxide (22 - 30 mmol/L) 29 Anion Gap (5 - 16) 8 BUN (9 - 20 mg/dL) 11 Creatinine (0.7 - 1.2 mg/dL) 1.1 Estimated GFR (>60 ml/min) > 60 Glucose (65 - 99 mg/dL) 105 H Calcium (8.4 - 10.2 mg/dL) 8.8 Phosphorus (2.5 - 4.5 mg/dL) 5.2 H Magnesium (1.6 - 2.3 mg/dL) 2.1 Total Bilirubin (0.2 - 1.3 mg/dL) 0.5 AST (17 - 59 U/L) 20 ALT (21 - 72 U/L) 43 Albumin (3.5 - 5.0 g/dL) 2.6 L Hematology CBC w Diff NO MAN DIFF REQ WBC (4.8 - 10.8 /CUMM) 10.5 RBC (4.70 - 6.10 /CUMM) 2.97 L Hgb (14.0 - 18.0 G/DL) 8.3 L Hct (42 - 52 %) 24.7 L MCV (80.0 - 94.0 FL) 83.2 MCH (27.0 - 31.0 PG) 27.8 MCHC (33.0 - 37.0 G/DL) 33.5 RDW (11.5 - 14.5 %) 17.9 H Plt Count (130 - 400 /CUMM) 930 H MPV (7.4 - 10.4 FL) 6.5 L Gran % (42.2 - 75.2 %) 60.1 Lymphocytes % (20.5 - 51.1 %) 25.6 Monocytes % (1.7 - 9.3 %) 7.8 Eosinophils % (0 - 5 %) 5.2 H Basophils % (0.0 - 2.0 %) 1.3 Absolute Granulocytes (1.4 - 6.5 /CUMM) 6.3 Absolute Lymphocytes (1.2 - 3.4 /CUMM) 2.7 Absolute Monocytes (0.10 - 0.60 /CUMM) 0.8 H Absolute Eosinophils (0.0 - 0.7 /CUMM) 0.5 Absolute Basophils (0.0 - 0.2 /CUMM) 0.1 Last 24 Hours of Venancio Results: No recent cultures Assessment/Plan ID Impression: Doing well, with his temperatures and white blood cell count now both normal, on Unasyn, Day 11 of treatment for necrotizing pneumonia/empyema secondary to alpha strep, with persistent, though decreasing, output from the chest tube. He is apparently scheduled for a repeat CT of the chest later today. Suggestion: 1. Await follow-up CT of the chest 2. Would maintain chest tube until his drainage has clearly decreased 3. Continue Unasyn
--- NOTE | 2017-10-25 15:06 | CT SCAN REPORT ---
EXAMINATION: CT CHEST WITHOUT CONTRAST CLINICAL INFORMATION: ARDS, status post extubation. COMPARISON: Chest x-ray 10/24/2017. CT chest 10/18/2017. TECHNIQUE: Multidetector volumetric CT imaging of the chest was done. Axial MIP volume rendering provided. Sagittal and coronal reformatted images were obtained. DLP: 210 mGy-cm FINDINGS: DRAFTER (CAD) ELECTRONIC: Well-expanded lungs. LUNGS: The lungs are now expanded with some reticular interstitial changes in both lungs left greater than right. Previously seen consolidation with air bronchogram right lower lobe has significantly improved. Patchy infiltrate left lower lobe has improved as well. MEDIASTINUM: The thyroid lobes are symmetrical and normal. The central trachea and bronchi are widely patent. 8 jugular central line is noted in the distal SVC. Heart size is normal. No pericardial effusion seen. 1 cm subcarinal lymph nodes are seen. PLEURA: There is significant improvement in the loculated fluid and air collection in the right pleural space following placement of a right chest tube. A tiny right pneumothorax is seen. There is no left-sided pleural effusion seen. AXILLA: No lymphadenopathy. UPPER ABDOMEN: Visualized liver, pancreas and bilateral adrenal glands unremarkable. The spleen is borderline enlarged. OSSEOUS STRUCTURES: No lytic or sclerotic process seen. IMPRESSION: Interval improvement in the right pleural effusion following insertion of right chest tube. A small pneumothorax is seen. Right lower lobe consolidation and patchy opacity and groundglass density in the left lower lobe and left lower lobe consolidation has improved. Stable 1 cm mediastinal adenopathy. Stable right central catheter. The enteric tube has been removed.
[2017-10-25 16:19] VITALS: BP 130/70
[2017-10-25 16:30] VITALS: BP 130/64
[2017-10-25 21:48] VITALS: BP 112/72
[2017-10-26 06:18] VITALS: BP 138/70
--- NOTE | 2017-10-26 07:31 | PN- Housestaff ---
See Addendum Subjective Follow-up For: sepsis hypoxic resp failure bilateral multilobar pna ARDS requiring mechanical ventilation hydropneumothorax with chest tube BREONNA Subjective: patient feeling better, some residual right chest pain after chest tube removal yesterday breathing improved, afebrile and on room air, on day 12 of abx tx awaiting psychiatry eval re: seroquel and prolonged qtc on fentanyl for analgesia, previously on methadone as outpt Review of Systems Constitutional: Reports: see HPI. Objective Last 24 Hrs of Vital Signs/I&O Vital Signs Date Time Temp Pulse Resp B/P B/P Pulse O2 O2 Flow FiO2 Mean Ox Delivery Rate 10/26 1051 94 Room Air 10/26 0834 90 138/70 10/26 0618 99.3 90 18 138/70 94 Room Air 10/25 2148 99.0 110 18 112/72 95 Room Air 10/25 2101 110 112/72 10/25 1925 93 Room Air 10/25 1630 95 Room Air 10/25 1630 98.7 94 18 130/64 95 Room Air 10/25 1619 98.5 98 20 130/70 96 Room Air 10/25 1600 94 Room Air Intake & Output 10/26 1600 10/26 0800 10/26 0000 Intake Total 480 540 Output Total Balance 480 540 Intake, IV 240 60 Intake, Oral 240 480 Physical Exam General Appearance: Alert, Oriented X3, Cooperative, No Acute Distress Cardiovascular: Regular Rate, Normal S1, Normal S2, No Murmurs Lungs: Clear to Auscultation, Normal Air Movement, dressing c/d/i over right chest wall Abdomen: Normal Bowel Sounds, Soft, No Tenderness, No Masses Extremities: No Clubbing, No Cyanosis, No Edema, Normal Pulses Current Medications: Current Medications Sig/Sara Start time Last Medication Dose Route Stop Time Status Admin Acetaminophen 1,000 MG .STK-MED ONE 10/25 1718 DC IV 10/25 1719 Acetaminophen 1,000 MG Q6P PRN 10/22 1430 AC 10/25 N/A 1 UNIT IV 1724 Albuterol Sulfate 3 ML BID 10/25 2100 AC 10/26 INH 1044 Albuterol Sulfate 3 ML EVERY 4 HRS/AWAKE 10/15 1200 DC 10/25 INH 1223 Amoxicillin/ 875 MG Q12 10/26 2100 AC Clavulanate Potassium PO Ampicillin Sodium/ 3,000 MG Q6 10/18 1200 CA 10/26 Sulbactam Sodium IV 1208 Sodium Chloride 100 ML Artificial Tears 2 GTT 4 TIMES/DAY 10/19 1827 10/23 OPH 2013 Divalproex Sodium 500 MG 0800,2200 10/26 1045 10/26 PO 1331 Enoxaparin Sodium 40 MG DAILY 10/25 0900 10/26 SC 0835 Famotidine 20 MG DAILY 10/26 0900 AC 10/26 PO 0834 Fentanyl Citrate 100 MCG Q72 10/22 1445 10/25 TOP 0836 Gabapentin 300 MG TID 10/26 1400 10/26 PO 1332 Gabapentin 300 MG BID 10/23 0935 DC 10/26 PO 0834 Lorazepam 0.5 MG Q8 10/25 1400 10/26 PO 11/01 1045 1332 Melatonin 5 MG AT BEDTIME 10/26 2100 DC PO Melatonin 5 MG AT BEDTIME 10/26 0015 10/26 PO 0018 Melatonin 10 MG AT BEDTIME 10/21 2300 10/25 PO 2059 Metoprolol Tartrate 25 MG BID 10/24 1145 10/26 PO 0834 Nicotine 14 MG DAILY 10/26 0900 10/26 TOP 1054 Patient Medication 1 ED ONE ONE 10/26 1115 CA 10/26 Teaching ED 10/26 1116 1208 Ramelteon 8 MG ONCE ONE 10/25 2044 DC 10/25 PO 10/25 Senna/Docusate Sodium 2 TAB DAILY NEEDED PRN 10/18 1215 PO Trazodone HCl 12.5 MG AT BEDTIME 10/21 2359 CA 10/25 PO 2100 Last 24 Hrs of Lab/Venancio Results Last 24 Hrs of Labs/Mics: Laboratory Tests 10/26/17 0630: Anion Gap 11, Estimated GFR > 60, Glucose 116 H, Calcium 8.2 L, Phosphorus 3.8 , Magnesium 1.6, Total Bilirubin 0.3, AST 14 L, ALT 39, Albumin 2.6 L, CBC w Diff NO MAN DIFF REQ, RBC 3.86 L, MCV 83.8, MCH 28.1, MCHC 33.5, RDW 17.8 H, MPV 6.7 L, Gran % 70.8, Lymphocytes % 17.5 L, Monocytes % 6.2, Eosinophils % 4.4, Basophils % 1.1, Absolute Granulocytes 7.1 H, Absolute Lymphocytes 1.7, Absolute Monocytes 0.6, Absolute Eosinophils 0.4, Absolute Basophils 0.1 Assessment/Plan Assessment: 42 year old male with past medical history significant for polysubstance abuse, chronic pain on methadone, migraines, DM, smoking, bipolar disorder with history of aniceto, HTN, and HLD presented with worsening shortness of breath and cough after outpatient antibiotic failure with severe sepsis with BREONNA, bilateral multilobar strep pneumonia complicated by ARDS, acute hypoxemic respiratory failure, hydropneumothorax requiring mechanical ventilation, chest tube placement and lytic therapy now extubated and on general medicine with active issues of prolonged QTc, previously on seroquel and methadone, chest tube removed yesterday 10/25/17. ARDS secondary to severe multilobar pneumonia and requiring mechanical ventilation Blood cultures negative, pleural fluid and sputum cultures positive for Alpha Strep/Yeast PNA initially treated with broad spectrum antibiotics, Zosyn/azithromycin/ vancomycin. Coverage narrowed to Unasyn Infectious disease consulted Change to PO Augmentin 875mg po bid today, Day 12 Hydropneumothorax with trapped lung: s/p chest tube placement 10/19/17 and removal 10/25/[address] 10/18/17 No significant change is seen in the dense consolidation and near complete collapse of the right lower lobe or in the subtotal consolidations in the right middle lobe and right upper lobe CT scan 10/25/17 after discontinuation of chest tube shows The lungs are now expanded with some reticular interstitial changes in both lungs left greater than right. Previously seen consolidation with air bronchogram right lower lobe has significantly improved. Patchy infiltrate left lower lobe has improved as well. There is significant improvement in the loculated fluid and air collection in the right pleural space. A tiny right pneumothorax is seen. Follow up cardiothoracic surgery recommendations Acute kidney injury Creatinine 4.9 Creatinine now stable ~1 Renal ultrasound 10/15 no outlet obstruction Likely related to prerenal hypoperfusion and sepsis with ATN Chronic pain: Was on methadone maintenance Currently on fentanyl patch 100mcg/hr Not converting back to methadone because prolonged qtc on EKG Increased Gabapentin 300 TID, decrease fentanyl patch to 75mcg/hr tomorrow HTN/prolonged QTc On Metoprolol 25mg PO BID currently Was previously on Propranolol 160mg BID at home for migraine prophylaxis Currently normotensive QTc 511 on EKG today Stopped seroquel and methadone, should remain off on discharge Bipolar disorder: Previously on seroquel (home dose of 400mg qHS) Stopped for QTc prolongation Psychiatry consulted, will follow up recommendations on resuming seroquel Ativan tapered from 0.5mg q8h to q12 starting tonight Add hydroxyzine prn for anxiety Increase gabapentin to 300mg TID Start depakote 500mg po bid, check levels in 5 days Regular Diet DVT ppx-lovenox subcutaneous and ALPs Full Code Problem List: 1. Community acquired pneumonia 2. Acute hypoxemic respiratory failure 3. ARDS (adult respiratory distress syndrome) 4. Methadone dependence 5. Bipolar disorder Pain Ratin Pain Location: right chest wall Pain Goal: Pain 4 or less Pain Plan: fentanyl patch Tomorrow's Labs & Rationales: none Pain Goal: Pain 4 or less Pain Plan: fentanyl patch Tomorrow's Labs & Rationales: none 3. ARDS (adult respiratory distress syndrome) 4. Methadone dependence 5. Bipolar disorder Pain Ratin Pain Location: right chest wall Pain Goal: Pain 4 or less Pain Plan: fentanyl patch Tomorrow's Labs & Rationales: none
[2017-10-26 08:06] LABS: ABSOLUTE BASOPHIL COUNT 0.1 /CUMM (0.0-0.2); ABSOLUTE LYMPH COUNT 1.7 /CUMM (1.2-3.4)
[2017-10-26 08:34] LABS: ABSOLUTE EOSINOPHIL COUNT 0.4 /CUMM (0.0-0.7); ABSOLUTE GRANULOCYTE CT 7.1 /CUMM (1.4-6.5); ABSOLUTE MONOCYTE COUNT 0.6 /CUMM (0.10-0.60); BASOPHIL % 1.1 % (0.0-2.0); EOSINOPHIL % 4.4 % (0-5); GRANULOCYTE % 70.8 % (42.2-75.2); MEAN CORPUSCULAR HGB 28.1 PG (27.0-31.0); MEAN CORPUSCULAR HGB CONC 33.5 G/DL (33.0-37.0); MEAN CORPUSCULAR VOLUME 83.8 FL (80.0-94.0); MEAN PLATELET VOLUME 6.7 FL (7.4-10.4); PLATELET COUNT 839 /CUMM (130-400); RBC DISTRIBUTION WIDTH 17.8 % (11.5-14.5)
[2017-10-26 08:39] LABS: HEMATOCRIT 32.3 % (42-52); RED BLOOD CELL CT 3.86 /CUMM (4.70-6.10)
--- NOTE | 2017-10-26 12:57 | PN- Infect Dx ---
Subjective Subjective: Afebrile. He feels well without complaints Objective Last 24 Hrs of Vital Signs/I&O Vital Signs Date Time Temp Pulse Resp B/P B/P Pulse O2 O2 Flow FiO2 Mean Ox Delivery Rate 10/26 1051 94 Room Air 10/26 0834 90 138/70 10/26 0618 99.3 90 18 138/70 94 Room Air 10/25 2148 99.0 110 18 112/72 95 Room Air 10/25 2101 110 112/72 10/25 1925 93 Room Air 10/25 1630 95 Room Air 10/25 1630 98.7 94 18 130/64 95 Room Air 10/25 1619 98.5 98 20 130/70 96 Room Air 10/25 1600 94 Room Air Intake & Output 10/26 1600 10/26 0800 10/26 0000 Intake Total 480 540 Output Total Balance 480 540 Intake, IV 240 60 Intake, Oral 240 480 Physical Exam Other Physical Findings: He appears comfortable in no acute distress Lungs slightly decreased breath sounds at the right base Heart regular rhythm with no murmur Extremities no cyanosis, clubbing or edema; PICC in the right upper extremity with no inflammation at the site Results Last 24 Hours of Lab Results: Laboratory Tests 10/26 0630 Chemistry Sodium (137 - 145 mmol/L) 140 Potassium (3.5 - 5.1 mmol/L) 3.5 Chloride (98 - 107 mmol/L) 105 Carbon Dioxide (22 - 30 mmol/L) 24 Anion Gap (5 - 16) 11 BUN (9 - 20 mg/dL) 8 L Creatinine (0.7 - 1.2 mg/dL) 1.0 Estimated GFR (>60 ml/min) > 60 Glucose (65 - 99 mg/dL) 116 H Calcium (8.4 - 10.2 mg/dL) 8.2 L Phosphorus (2.5 - 4.5 mg/dL) 3.8 Magnesium (1.6 - 2.3 mg/dL) 1.6 Total Bilirubin (0.2 - 1.3 mg/dL) 0.3 AST (17 - 59 U/L) 14 L ALT (21 - 72 U/L) 39 Albumin (3.5 - 5.0 g/dL) 2.6 L Hematology CBC w Diff NO MAN DIFF REQ WBC (4.8 - 10.8 /CUMM) 10.0 RBC (4.70 - 6.10 /CUMM) 3.86 L Hgb (14.0 - 18.0 G/DL) 10.8 L Hct (42 - 52 %) 32.3 L MCV (80.0 - 94.0 FL) 83.8 MCH (27.0 - 31.0 PG) 28.1 MCHC (33.0 - 37.0 G/DL) 33.5 RDW (11.5 - 14.5 %) 17.8 H Plt Count (130 - 400 /CUMM) 839 H MPV (7.4 - 10.4 FL) 6.7 L Gran % (42.2 - 75.2 %) 70.8 Lymphocytes % (20.5 - 51.1 %) 17.5 L Monocytes % (1.7 - 9.3 %) 6.2 Eosinophils % (0 - 5 %) 4.4 Basophils % (0.0 - 2.0 %) 1.1 Absolute Granulocytes (1.4 - 6.5 /CUMM) 7.1 H Absolute Lymphocytes (1.2 - 3.4 /CUMM) 1.7 Absolute Monocytes (0.10 - 0.60 /CUMM) 0.6 Absolute Eosinophils (0.0 - 0.7 /CUMM) 0.4 Absolute Basophils (0.0 - 0.2 /CUMM) 0.1 Last 24 Hours of Venancio Results: No recent cultures Recent Imaging Studies: CT of the chest October 25 reveals significant improvement in the loculated fluid and air collection in the right pleural space, with a tiny right pneumothorax Assessment/Plan ID Impression: Doing well, with his temperatures and white blood cell count remaining normal, on Unasyn, Day 12 of treatment for necrotizing pneumonia/empyema secondary to alpha strep, status post removal of the pigtail catheter from the right chest yesterday after the CT scan revealed marked improvement. Suggestion: 1. Discontinue Unasyn 2. Begin Augmentin 875 mg p.o. every 12 hours
[2017-10-26 14:01] VITALS: BP 122/74
--- NOTE | 2017-10-26 14:10 | PN- Psychiatry ---
Assessment/Plan Impression: 42-year-old male admitted with acute hypoxic respiratory failure. History of bipolar disorder and polysubstance abuse as well as opiate dependence. Prior to admission was taking quetiapine as a mood stabilizer and methadone for opiate dependence. Prolonged QTC necessitated discontinuation of both of these medications. He is on a fentanyl patch. Asked to follow-up regarding management of bipolar disorder. The patient reports that he was diagnosed with bipolar disorder in 1994 when he presented with aniceto. He says when he is manic he does not sleep for several days, often up to several weeks. He also reports that he is "moodier" and more irritable. Unclear regarding any periods of increased goal-directed activity or increased energy. The patient is adamant however that he has done very well on quetiapine. This is corroborated by his girlfriend. Suggestion: 1. Bipolar disorder unspecified: Reviewed options with patient. He has been on Depakote in the past and would like to recommence this medication. Started on 500 mg p.o. a.m. and at bedtime. The patient will need a blood level in 5 days. 2. For anxiety increase gabapentin to 300 mg p.o. 3 times daily. This can be increased further if necessary. 3. Possible methadone withdrawal: The patient is currently on a lorazepam taper. As a taper reduce his anxiety may increase. He may benefit from hydroxyzine 50 mg p.o. every 6 on an as-needed basis. 4. Insomnia: Addition of Depakote and increasing gabapentin should hopefully stabilize sleep. Some insomnia may be due to aforementioned methadone withdrawal. I have discontinued trazodone as the patient reports it gives him nightmares.It is on 15 mg of melatonin p.o. nightly. This does not appear to be effective. Again for sleep would suggest working with increased gabapentin or adding hydroxyzine. 5. The patient says he has not seen a psychiatrist but has always medication through his primary care. I have made an appointment for him to follow up with our Outpatient service on November 15 at 3.15pm for a 3.30 appoinmtment. Problem List: 1. Bipolar disorder 2. Methadone dependence Subjective Subjective: "I need Seroquel or something to replace it". Complains of poor sleep, anxiety, irritability. Describes himself as "manic". Review of Systems: The patient is alert and oriented 3. Gait was not assessed. My contact was good. Level of activity was normal. Speech was normal in rate, rhythm, volume and tone. He described his mood as "manic". Affect was anxious, irritable. The patient is not suicidal or homicidal. Thought process was normal in tempo, stream and form. There were no delusions or obsessions. Attention and concentration were good. There was no perceptual abnormality. Impulse control is fair. Intelligence level is average, fund of knowledge average, use of language appropriate. Recent and remote memory are intact. Patient's insight is fair. Judgment is unimpaired. Full review of systems has been documented elsewhere in his medical notes. This has been reviewed. Objective Last 24 Hrs of Vital Signs/I&O Vital Signs Date Time Temp Pulse Resp B/P B/P Pulse O2 O2 Flow FiO2 Mean Ox Delivery Rate 10/26 1401 99.1 86 20 122/74 96 Room Air 10/26 1051 94 Room Air 10/26 0834 90 138/70 10/26 0618 99.3 90 18 138/70 94 Room Air 10/25 2148 99.0 110 18 112/72 95 Room Air 10/25 2101 110 112/72 10/25 1925 93 Room Air 10/25 1630 95 Room Air 10/25 1630 98.7 94 18 130/64 95 Room Air 10/25 1619 98.5 98 20 130/70 96 Room Air 10/25 1600 94 Room Air Intake & Output 10/26 1600 10/26 0800 10/26 0000 Intake Total 480 540 Output Total Balance 480 540 Intake, IV 240 60 Intake, Oral 240 480
--- NOTE | 2017-10-26 14:44 | PN- Pulmonary ---
Subjective HPI/Critical Care Issues: Doing well stable CT shows good improvement CHest tube has been removed Objective Current Medications: Current Medications Sig/Sara Start time Last Medication Dose Route Stop Time Status Admin Acetaminophen 1,000 MG .STK-MED ONE 10/25 1718 DC IV 10/25 1719 Acetaminophen 1,000 MG Q6P PRN 10/22 1430 10/25 N/A 1 UNIT IV 1724 Albuterol Sulfate 3 ML BID 10/25 2100 AC 10/26 INH 1044 Albuterol Sulfate 3 ML EVERY 4 HRS/AWAKE 10/15 1200 DC 10/25 INH 1223 Amoxicillin/ 875 MG Q12 10/26 2100 AC Clavulanate Potassium PO Ampicillin Sodium/ 3,000 MG Q6 10/18 1200 DC 10/26 Sulbactam Sodium IV 1208 Sodium Chloride 100 ML Artificial Tears 2 GTT 4 TIMES/DAY 10/19 1827 AC 10/23 OPH 2013 Divalproex Sodium 500 MG 0800,2200 10/26 1045 AC 10/26 PO 1331 Enoxaparin Sodium 40 MG DAILY 10/25 0900 10/26 SC 0835 Famotidine 20 MG DAILY 10/26 0900 AC 10/26 PO 0834 Fentanyl Citrate 100 MCG Q72 10/22 1445 10/25 TOP 0836 Gabapentin 300 MG TID 10/26 1400 AC 10/26 PO 1332 Gabapentin 300 MG BID 10/23 0935 DC 10/26 PO 0834 Lorazepam 0.5 MG Q8 10/25 1400 AC 10/26 PO 11/01 1045 1332 Melatonin 5 MG AT BEDTIME 10/26 2100 DC PO Melatonin 5 MG AT BEDTIME 10/26 0015 10/26 PO 0018 Melatonin 10 MG AT BEDTIME 10/21 2300 10/25 PO 2059 Metoprolol Tartrate 25 MG BID 10/24 1145 AC 10/26 PO 0834 Nicotine 14 MG DAILY 10/26 0900 10/26 TOP 1054 Patient Medication 1 ED ONE ONE 10/26 1115 DC 10/26 Teaching ED 10/26 1116 1208 Ramelteon 8 MG ONCE ONE 10/25 2044 DC 10/25 PO 10/25 204 2102 Senna/Docusate Sodium 2 TAB DAILY NEEDED PRN 10/18 1215 PO Trazodone HCl 12.5 MG AT BEDTIME 10/21 2359 DC 10/25 PO 2101 Vital Signs & I&O Last 24 Hrs of Vitals and I&O: Vital Signs Date Time Temp Pulse Resp B/P B/P Pulse O2 O2 Flow FiO2 Mean Ox Delivery Rate 10/26 1401 99.1 86 20 122/74 96 Room Air 10/26 1051 94 Room Air 10/26 0834 90 138/70 10/26 0618 99.3 90 18 138/70 94 Room Air 10/25 2148 99.0 110 18 112/72 95 Room Air 10/25 2101 110 112/72 10/25 1925 93 Room Air 10/25 1630 95 Room Air 10/25 1630 98.7 94 18 130/64 95 Room Air 10/25 1619 98.5 98 20 130/70 96 Room Air 10/25 1600 94 Room Air Intake & Output 10/26 1600 10/26 0800 10/26 0000 Intake Total 480 540 Output Total Balance 480 540 Intake, IV 240 60 Intake, Oral 240 480 Laboratory Tests 10/26 10/25 0630 0600 Chemistry Sodium (137 - 145 mmol/L) 140 142 Potassium (3.5 - 5.1 mmol/L) 3.5 3.7 Chloride (98 - 107 mmol/L) 105 105 Carbon Dioxide (22 - 30 mmol/L) 24 29 Anion Gap (5 - 16) 11 8 BUN (9 - 20 mg/dL) 8 L 11 Creatinine (0.7 - 1.2 mg/dL) 1.0 1.1 Estimated GFR (>60 ml/min) > 60 > 60 Glucose (65 - 99 mg/dL) 116 H 105 H Calcium (8.4 - 10.2 mg/dL) 8.2 L 8.8 Phosphorus (2.5 - 4.5 mg/dL) 3.8 5.2 H Magnesium (1.6 - 2.3 mg/dL) 1.6 2.1 Total Bilirubin (0.2 - 1.3 mg/dL) 0.3 0.5 AST (17 - 59 U/L) 14 L 20 ALT (21 - 72 U/L) 39 43 Albumin (3.5 - 5.0 g/dL) 2.6 L 2.6 L Hematology CBC w Diff NO MAN DIFF REQ NO MAN DIFF REQ WBC (4.8 - 10.8 /CUMM) 10.0 10.5 RBC (4.70 - 6.10 /CUMM) 3.86 L 2.97 L Hgb (14.0 - 18.0 G/DL) 10.8 L 8.3 L Hct (42 - 52 %) 32.3 L 24.7 L MCV (80.0 - 94.0 FL) 83.8 83.2 MCH (27.0 - 31.0 PG) 28.1 27.8 MCHC (33.0 - 37.0 G/DL) 33.5 33.5 RDW (11.5 - 14.5 %) 17.8 H 17.9 H Plt Count (130 - 400 /CUMM) 839 H 930 H MPV (7.4 - 10.4 FL) 6.7 L 6.5 L Gran % (42.2 - 75.2 %) 70.8 60.1 Lymphocytes % (20.5 - 51.1 %) 17.5 L 25.6 Monocytes % (1.7 - 9.3 %) 6.2 7.8 Eosinophils % (0 - 5 %) 4.4 5.2 H Basophils % (0.0 - 2.0 %) 1.1 1.3 Absolute Granulocytes (1.4 - 6.5 /CUMM) 7.1 H 6.3 Absolute Lymphocytes (1.2 - 3.4 /CUMM) 1.7 2.7 Absolute Monocytes (0.10 - 0.60 /CUMM) 0.6 0.8 H Absolute Eosinophils (0.0 - 0.7 /CUMM) 0.4 0.5 Absolute Basophils (0.0 - 0.2 /CUMM) 0.1 0.1 Impression/Plan Impression/Plan Impression/Plan: This is a gentleman with history of polysubstance abuse in the past, on methadone replacement, hypertension, hyperlipidemia, chronic prednisone use in the recent past, hypoadrenalism, migraine, cocaine abuse in the past, history of intravenous drug abuse, bipolar disorder, on multiple medications, ongoing smoking, previous admission to this hospital with altered mental status, has had a few emergency room visits in the recent past few days. Now admitted with severe ARDS and necrotizing pna with empyema with trapped lung with large hydropneumothorax, followed by [facility], resp failure, empyema now improved Extubated, on room air doing well Pupils reacting small pupils Obese gentleman with tattoos IJ cath in place Dunia placed today No significant JVD Chest decreased breath sounds chest tube removed Heart S1 and S2 was heard no murmur could be appreciated but he had significant rhonchi Abdominal exam obese nontender full abdominal exam could not be done as he was unable to lay flat No significant edema or needle cronin noted. IMPRESSION This is a gentleman with previous history of polysubstance abuse now on methadone, bipolar disorder, ongoing smoking, now here with * Resolving necrotizing strep pna with resolving Severe ARDS with severe bilateral multilobar pna due to strep with empyema, now sig improved, extubated and doing well * Trapped lung and hydropneumothorax s/p Chest tube now s/p tpa dong well and lung seems to have expanded/ Chest tube removed 10/25 * Resolved Acute renal failure in a patient with sepsis with atn (was on ACI and metformin aswell) * History of Diabetes on metformin * Methadone use high risk for withdrawal, on fentanyl patch needs taper * Recent steroid use hence immunosuppressed * Bipolar disorder, hypo-testosterone, multiple other issues including polysubstance use and smoking, PSych involved * History of Hyperlipidemia, hypertension, previous chest pain chest discomfort. * Reactive thrombocytosis improved * Prolonged qtc - needs to be off methadone and seroquel upon dc * Low mag despite iv replacement RECOMMENDATION Cont abx Reduce benzo to 0.5 taper off please REduce fentanyl q 3 days needs to be on 75 one patch (72hr patch), then 50 then 25 then 12.5 for two and off- if not ask psych to address the wean Psych to follow, Start po mag 400 daily Watch platelets Follow qtc Keep mag more than 2 Reduce pepid to qd PT and girl friend is aware not to resume methadone which he has at home due to his qtc Pt needs proper follow up and update of the above issues with his pcp prior to dc Watch in house for 1-2 days with the above plan WIll follow prn
[2017-10-26 21:53] VITALS: BP 126/70
[2017-10-27 06:58] VITALS: BP 120/74
--- NOTE | 2017-10-27 07:09 | PN- Housestaff ---
See Addendum Subjective Follow-up For: sepsis hypoxic resp failure bilateral multilobar pna ARDS requiring mechanical ventilation hydropneumothorax with chest tube BREONNA Subjective: no new complaints, feeling well breathing improved and currently on room air no fever or leukocytosis, on day 13 of abx for pna no issues with new psychiatric medications or complaints of significant pain, on fentanyl 75mcg Review of Systems Constitutional: Reports: see HPI. Objective Last 24 Hrs of Vital Signs/I&O Vital Signs Date Time Temp Pulse Resp B/P B/P Pulse O2 O2 Flow FiO2 Mean Ox Delivery Rate 10/27 0812 84 120/74 10/27 0810 95 Room Air 10/27 0658 98.2 84 20 120/74 94 Room Air 10/27 0000 Room Air 10/26 2153 98.2 95 20 126/70 94 Room Air 10/26 2040 95 126/70 10/26 1936 94 Room Air Room Air 10/26 1401 99.1 86 20 122/74 96 Room Air 10/26 1051 94 Room Air Intake & Output 10/27 1600 10/27 0800 10/27 0000 Intake Total 670 510 Output Total Balance 670 510 Intake, IV 190 30 Intake, Oral 480 480 Number 0 0 Bowel Movements Physical Exam General Appearance: Alert, Oriented X3, Cooperative, No Acute Distress Cardiovascular: Regular Rate, Normal S1, Normal S2, No Murmurs Lungs: RLL rhonchi Abdomen: Normal Bowel Sounds, Soft, No Tenderness, No Masses Extremities: No Clubbing, No Cyanosis, No Edema, Normal Pulses Current Medications: Current Medications Sig/Sara Start time Last Medication Dose Route Stop Time Status Admin Acetaminophen 1,000 MG Q6P PRN 10/22 1430 AC 10/25 N/A 1 UNIT IV 1724 Albuterol Sulfate 3 ML BID 10/25 2100 AC 10/27 INH 0808 Amoxicillin/ 875 MG Q12 10/26 2100 AC 10/26 Clavulanate Potassium PO 2207 Ampicillin Sodium/ 3,000 MG Q6 10/18 1200 DC 10/26 Sulbactam Sodium IV 1208 Sodium Chloride 100 ML Artificial Tears 2 GTT 4 TIMES/DAY 10/19 1827 AC 10/23 OPH 2012 Diphenhydramine HCl 25 MG ONCE ONE 10/26 2129 DC 10/26 PO 10/26 Divalproex Sodium 500 MG 0800,2200 10/26 1045 AC 10/27 PO 0812 Enoxaparin Sodium 40 MG DAILY 10/25 0900 10/27 SC 0814 Famotidine 20 MG DAILY 10/26 0900 10/27 PO 0811 Fentanyl Citrate 75 MCG Q72H 10/27 0900 10/27 TOP 0814 Fentanyl Citrate 100 MCG Q72 10/22 1445 DC 10/25 TOP 10/27 0800 0836 Gabapentin 300 MG TID 10/26 1400 10/27 PO 0812 Gabapentin 300 MG BID 10/23 0935 MD 10/26 PO 0834 Hydroxyzine HCl 50 MG Q6-PRN PRN 10/26 1500 10/27 PO 0528 Lorazepam 0.5 MG BID 10/26 2100 10/27 PO 11/02 Lorazepam 0.5 MG Q8 10/25 1400 MD 10/26 PO 11/01 1045 1332 Magnesium Oxide 400 MG DAILY 10/27 0900 10/27 PO 08 Magnesium Oxide 400 MG ONE ONE 10/26 1630 MD 10/26 PO 10/26 1631 1745 Melatonin 5 MG AT BEDTIME 10/26 0015 10/26 PO 0018 Melatonin 10 MG AT BEDTIME 10/21 2300 MD 10/25 PO 205 Metoprolol Tartrate 25 MG BID 10/24 1145 10/27 PO 08 Nicotine 14 MG DAILY 10/26 0900 10/27 [facility] 0814 Patient Medication 1 ED ONE ONE 10/26 1115 DC 10/26 Teaching ED 10/26 1116 1208 Potassium Chloride 40 MEQ ONCE ONE 10/26 2130 MD 10/26 PO 10/261 2135 Potassium Chloride 20 MEQ .STK-MED ONE 10/269 MD PO 10/26 2130 Senna/Docusate Sodium 2 TAB DAILY NEEDED PRN 10/18 1215 PO Trazodone HCl 12.5 MG AT BEDTIME 10/21 2359 MD 10/25 PO 210 Last 24 Hrs of Lab/Venancio Results Last 24 Hrs of Labs/Mics: Laboratory Tests 10/27/17 0535: Anion Gap 12, Estimated GFR > 60, BUN/Creatinine Ratio 6.4 L, Magnesium 1.9, CBC w Diff Pending, WBC Pending, RBC Pending, Hgb Pending, Hct Pending, MCV Pending, MCH Pending, MCHC Pending, RDW Pending, Plt Count Pending, MPV Pending Assessment/Plan Assessment: 42 year old male with past medical history significant for polysubstance abuse, chronic pain on methadone, migraines, DM, smoking, bipolar disorder with history of aniceto, HTN, and HLD presented with worsening shortness of breath and cough after outpatient antibiotic failure with severe sepsis with BREONNA, bilateral multilobar strep pneumonia complicated by ARDS, acute hypoxemic respiratory failure, hydropneumothorax requiring mechanical ventilation, chest tube placement and lytic therapy now extubated and on general medicine with active issues of prolonged QTc, previously on seroquel and methadone, chest tube removed 10/25/17. ARDS secondary to severe multilobar pneumonia and requiring mechanical ventilation Blood cultures negative, pleural fluid and sputum cultures positive for Alpha Strep/Yeast PNA initially treated with broad spectrum antibiotics, Zosyn/azithromycin/ vancomycin. Coverage narrowed to Unasyn Infectious disease consulted Change to PO Augmentin 875mg po bid today, Day 13 Hydropneumothorax with trapped lung: s/p chest tube placement 10/19/17 and removal 10/25/[address] 10/18/17 No significant change is seen in the dense consolidation and near complete collapse of the right lower lobe or in the subtotal consolidations in the right middle lobe and right upper lobe CT scan 10/25/17 after discontinuation of chest tube shows The lungs are now expanded with some reticular interstitial changes in both lungs left greater than right. Previously seen consolidation with air bronchogram right lower lobe has significantly improved. Patchy infiltrate left lower lobe has improved as well. There is significant improvement in the loculated fluid and air collection in the right pleural space. A tiny right pneumothorax is seen. Acute kidney injury Creatinine 4.9 on presentation, now resolved Creatinine now stable ~1 Renal ultrasound 10/15 no outlet obstruction Likely related to prerenal hypoperfusion and sepsis with ATN Chronic pain: Was on methadone maintenance Currently on fentanyl patch 75mcg/hr Will discuss pain management plan for discharge Not converting back to methadone because prolonged qtc on EKG Increased Gabapentin 300 TID HTN/prolonged QTc On Metoprolol 25mg PO BID currently normotensive SBP~120 Was previously on Propranolol 160mg BID at home for migraine prophylaxis QTc 511 on EKG Stopped seroquel and methadone, should remain off on discharge Bipolar disorder: Previously on seroquel, stopped for QTc prolongation Psychiatry consulted, appreciate recommendations Ativan tapered to 0.5mg q12h currently Add hydroxyzine prn for anxiety Increase gabapentin to 300mg TID Start depakote 500mg po bid, check levels in 4 days Regular Diet DVT ppx-lovenox subcutaneous and ALPs Full Code Problem List: 1. Bipolar disorder 2. Acute hypoxemic respiratory failure 3. Community acquired pneumonia 4. ARDS (adult respiratory distress syndrome) 5. Electrolyte abnormality Pain Ratin Pain Location: right shoulder Pain Goal: Pain 4 or less Pain Plan: fentanyl patch taper Tomorrow's Labs & Rationales: none
[2017-10-27 08:01] LABS: ABSOLUTE BASOPHIL COUNT 0.1 /CUMM (0.0-0.2); ABSOLUTE LYMPH COUNT 2.4 /CUMM (1.2-3.4)
[2017-10-27 08:12] VITALS: BP 120/74
[2017-10-27] MEDS ORDERED: HYDROXYZINE HCL50 M1 PO ×2 (08:21→11:45)
[2017-10-27] MEDS ORDERED: GABAPENTIN300 M2 PO ×2 (08:21→11:45)
[2017-10-27] MEDS ORDERED: METOPROLOL TART25 M1 PO ×2 (08:21→11:45)
[2017-10-27] MEDS ORDERED: MAGNESIUM OXID400 M1 PO ×2 (08:21→11:45)
[2017-10-27] MEDS ORDERED: AMOX-CLAV 875-1 EACH PO ×3 (08:21→11:45)
[2017-10-27] MEDS ORDERED: MELATONIN5 M7 PO ×2 (08:21→11:45)
[2017-10-27] MEDS ORDERED: DIVALPROEX SOD500 M2 PO ×2 (08:21→11:45)
--- NOTE | 2017-10-27 08:31 | Discharge Summary ---
Visit Information Visit Dates Admission Date: 10/14/17 Discharge Date: 10/27/17 Hospital Course Course Attending Physician: Maria Victoria Rosario MD Primary Care Physician: Alex Medrano APRN Hospital Course: 42 year old male with a past medical history of hypertension, polysubstance abuse, migraines, anxiety and bipolar disorder was treated with 2 courses of antibiotics, Amoxicillin then azithromycin, and a short course of steroids for bronchitis. He was admitted on October 14 with cough, fevers and chills, dyspnea, hemoptysis, and hypoxia. He had no fever, leukocytosis of 15,000, acute kidney injury with BUN 48 and creatinine 4.9 and negative lactic acidemia. His chest x -ray showed a large opacity on the right, pleural effusion with an underlying infiltrate and atelectasis. CT of the chest revealed extensive multilobar consolidation, particularly involving the left lower lobe and right lower lobe, a moderate pleural effusion, and a air-fluid level and volume loss in the right greater than left lower lobe. He underwent a thoracentesis in the emergency room, 500 cc of cloudy fluid, which revealed 22,000 white blood cells and culture positive for alpha strep consistent with the sputum culture. He developed progressive hypoxia and dyspnea despite increasing FiO2 and was intubated, sedated, and admitted to the ICU on mechanical. He was initially treated with Vancomycin, Ceftazidime, Azithromycin and Zosyn. Antibiotic coverage was narrowed to Unasyn and eventually converted to Augmentin in consultation with infectious disease. He had a right chest tube placed by surgery for hydropneumothorax diagnosed on CT scan. Follow up CT imaging showed improved expansion and aeration of the right lung with continued drainage following lytic therapy through the chest tube. His hospital course was complicated by ARDS, managed with a low tidal volume, increased PEEP, lung protective ventilation strategy. He gradually improved with treatment of his underlying pneumonia and chest tube placement on 10/19/17. The patient was able to extubated on 10/21/17 and chest tube was removed 10/25/17. Antibiotic coverage was narrowed to Augmentin 875mg po bid on day 12 of treatment and he was prescribed an additional one week at the time of discharge. After transfer to general medicine and chest tube removal, CT scan demonstrated improved aeration of the right lung and tiny residual pneumothorax. The patient had a prolonged QTc on EKG, necessitating psychiatric consultation and discontinuation of the patient's seroquel and methadone for chronic pain. This was substituted for depakote 500mg po bid and hydroxyzine 50mg po tid prn for anxiety per psychiatry's recommendations. He was also recommended to taper from 75mcg fentanyl patch to 50mcg -> 25mcg -> 12.5mcg q72h then stop. He was instructed not to continue methadone or seroquel. He was discharged with instructions to follow up with his primary care physician, Dr. Watts ( pulmonology), pain management, and psychiatry. He also developed a likely reactive thrombocytosis. He was instructed to check his CBC and depakote levels on 10/31/17 and if needed was given referral information for Dr. Zendejas ( hematology) if thrombocytosis persists. He will also need a follow up chest x- ray in four to six weeks to re-evaluate his multilobar pneumonia and pneumothorax for resolution. Allergies: Coded Allergies: No Known Allergies (10/05/17) Significant Procedures: CT CHEST WO IV CONTRAST 10/14/17 EXAMINATION: CT CHEST WITHOUT CONTRAST CLINICAL INFORMATION: Follow-up pneumonia COMPARISON: Recent radiographs TECHNIQUE: Multidetector volumetric CT imaging of the chest was done. Axial MIP volume rendering provided. Sagittal and coronal reformatted images were obtained. DLP: 453 mGy-cm FINDINGS: MUSIC PUBLICIST: Extensive bilateral consolidation appears progressive. Lucency right pleural space laterally noted. LUNGS: Extensive consolidation involving all lobes particularly dense within the left lower lobe and right lower lobe. Air bronchograms noted. Without contrast, it is difficult to discern whether the air fluid level within the right lung base posteriorly is pleural or parenchymal. There is an element of a moderate size parapneumonic effusion. The air-fluid level is concerning for either a lung abscess versus empyema. Bronchopleural fistula not excluded. There is volume loss involving the right lower lobe suggesting an element of an atelectasis. There is also mild volume loss left hemithorax due to the left lower lobe disease. No gross central endobronchial lesion. MEDIASTINUM: Mildly prominent lymph nodes within the mediastinum largest precarinal location measuring up to 2 cm short axis. ET tube NG tube in good position. PLEURA: As above. AXILLA: No lymphadenopathy. UPPER ABDOMEN: Unremarkable. OSSEOUS STRUCTURES: Unremarkable. IMPRESSION: Without IV contrast, it is difficult to assess pleural-parenchymal disease especially on the right. There is progressive dense marked multilobar pneumonia. Air fluid level disease right hemithorax which may be in part pleural related to empyema. Lung abscess not excluded. Follow-up imaging should be performed with IV contrast for better assessment and delineation. EXAM TYPE: CAT - CT CHEST W IV CONTRAST 10/18/17 EXAMINATION: CT CHEST WITH CONTRAST CLINICAL INFORMATION: ARDS with multilobar pneumonia. On ventilator. Large airspace on right lung. Rule out empyema or trapped lung. COMPARISON: Multiple prior chest x-rays, most recent of which is dated 10/18/2017. CT scan of the chest dated 10/14/2017. TECHNIQUE: Multidetector volumetric CT imaging of the chest was obtained after the administration of 94 mL of intravenous Optiray 320. Sagittal and coronal reformations were obtained. DLP: 490.83 mGy-cm. FINDINGS: Evaluation is limited due to extensive streak artifact related to the patient's arms and overlying wires. LUNGS/PLEURA: Endotracheal tube is in place with tip approximately 6 cm above the mahendra. The central airways are widely patent. Again seen is dense consolidation with air bronchograms and extensive volume loss in the right lower lobe, with only a small amount of aeration remaining in the superior segment. There are less extensive consolidation, volume loss and air bronchograms in the right middle lobe and in the dependent portion of the right upper lobe. Findings have not significantly changed compared to 10/14/2017. There are diffuse groundglass opacities throughout the left lung with patchy areas of denser consolidation seen, especially in the left lower lobe. Compared to the prior exam, there is slightly improved aeration in the left lower lobe and no significant change in the opacities in the left upper lobe. There is a moderate size right-sided pleural effusion, which layers posteriorly all the way up to the level of the aortic arch with extension into the right minor fissure, similar to prior exam. There are multiple air loculations within the pleural fluid, which have decreased in volume and size compared to the previous exam. Since no definite pleural thickening or abnormal pleural enhancement is seen, findings may be related to a bronchopleural fistula. However, in the setting of the extensive lung consolidation, an empyema/infected parapneumonic effusion would be difficult to exclude. There is also a trace left-sided pleural effusion, new compared to the prior exam. LYMPHATIC STRUCTURES: Multiple mediastinal and bilateral hilar lymph nodes are seen, the majority of which are less than 1 cm in size. Subcarinal lymph node is abnormal, measuring 1.2 cm in short axis diameter. The adenopathy is likely reactive to the extensive lung parenchymal process. No significant axillary adenopathy. CARDIOVASCULAR STRUCTURES: Aortic and heart size normal. No pericardial effusion. UPPER ABDOMEN: The spleen is enlarged, measuring 13.6 cm longitudinally, unchanged. The liver is not fully included but also appears enlarged. There is a 1.8 x 2.0 cm fluid attenuation mass in the mid left kidney, consistent with a cyst, unchanged. An enteric tube courses into the stomach with tip in the gastric body. Included portions of the solid organs and bowel loops are otherwise unremarkable. OSSEOUS STRUCTURES: Multilevel minimal vertebral spondylosis seen in the thoracic spine. No suspicious focal findings. IMPRESSION: 1. No significant change is seen in the dense consolidation and near complete collapse of the right lower lobe or in the subtotal consolidations in the right middle lobe and right upper lobe when compared to 10/14/2017. Associated large complex right-sided pleural effusion is seen with multiple internal air locules, producing air-fluid levels. Findings are suspicious for a multi lobar pneumonia/ARDS with associated right-sided infected parapneumonic effusion/empyema. Less likely, findings may be related to a multi lobar pneumonia/ARDS with secondary bronchopleural fistula. Close clinical correlation is requested. 2. Extensive diffuse opacification is seen throughout the left lung, also suspicious for multilobar pneumonia/ARDS. There is mildly improved aeration seen in the left lower lobe when compared to the prior exam. Associated small left-sided pleural effusion is now noted, appearing simple. 3. Mediastinal and bilateral hilar reactive adenopathy is seen. 4. Splenomegaly and probable hepatomegaly, though the liver is not included fully on this exam. 5. Mid left renal cyst. 10/25/17 EXAM TYPE: CAT - CT CHEST WO IV CONTRAST EXAMINATION: CT CHEST WITHOUT CONTRAST CLINICAL INFORMATION: ARDS, status post extubation. COMPARISON: Chest x-ray 10/24/2017. CT chest 10/18/2017. TECHNIQUE: Multidetector volumetric CT imaging of the chest was done. Axial MIP volume rendering provided. Sagittal and coronal reformatted images were obtained. DLP: 210 mGy-cm FINDINGS: MUSIC PUBLICIST: Well-expanded lungs. LUNGS: The lungs are now expanded with some reticular interstitial changes in both lungs left greater than right. Previously seen consolidation with air bronchogram right lower lobe has significantly improved. Patchy infiltrate left lower lobe has improved as well. MEDIASTINUM: The thyroid lobes are symmetrical and normal. The central trachea and bronchi are widely patent. 8 jugular central line is noted in the distal SVC. Heart size is normal. No pericardial effusion seen. 1 cm subcarinal lymph nodes are seen. PLEURA: There is significant improvement in the loculated fluid and air collection in the right pleural space following placement of a right chest tube. A tiny right pneumothorax is seen. There is no left-sided pleural effusion seen. AXILLA: No lymphadenopathy. UPPER ABDOMEN: Visualized liver, pancreas and bilateral adrenal glands unremarkable. The spleen is borderline enlarged. OSSEOUS STRUCTURES: No lytic or sclerotic process seen. IMPRESSION: Interval improvement in the right pleural effusion following insertion of right chest tube. A small pneumothorax is seen. Right lower lobe consolidation and patchy opacity and groundglass density in the left lower lobe and left lower lobe consolidation has improved. Stable 1 cm mediastinal adenopathy. Stable right central catheter. The enteric tube has been removed. Transthoracic Echocardiogram 10/14/17 FINDINGS Left Ventricle Normal size left ventricle. No obvious regional wall motion abnormalities. Normal left ventricular ejection fraction estimated at 55-60%. Right Ventricle Right ventricle not well visualized, grossly normal. Right Atrium Right atrium not well visualized, grossly normal. Left Atrium Normal left atrial size. Mitral Valve Mitral valve thickened. Cnbi-ti-ssvnqjxk mitral regurgitation. Aortic Valve Trileaflet aortic valve. Focal thickening of the aortic valve cusps. No aortic stenosis. No aortic regurgitation. Tricuspid Valve Tricuspid valve not well visualized, grossly normal. Mild tricuspid regurgitation. Pulmonic Valve Pulmonic valve not well visualized, grossly normal. Mild pulmonic regurgitation. Pericardium No pericardial effusion. Great Vessels Aortic root and proximal ascending aorta not well visualized. CONCLUSIONS 1. This was a technically difficult and very limited study. 2. Minimal aortic sclerosis is present with no valvular stenosis or insufficiency. 3. Mild thickening of the mitral leaflets is present with mild to moderate mitral insufficiency. 4. No significant pericardial fluid was detected on the study. 5. The left ventricular chamber size and systolic function appear normal. Accurate wall motion assessment was not possible due to the quality of the images obtained. The apical and subcostal images were suboptimal. 6. Mild tricuspid and pulmonic insufficiency are present. There is no evidence of significant pulmonary hypertension. Disposition Summary Disposition Principal Diagnosis: Sepsis secondary to necrotizing multilobar community acquired pneumonia (alpha strep) Acute hypoxemic respiratory failure requiring mechanical ventilation ARDS Nonsustained supraventricular tachycardia Acute kidney injury Prolonged QTc on EKG Hypomagnesia Thrombocytosis Bipolar disorder NOS Chronic pain Additional Diagnosis: Chronic pain syndrome Reactive thrombocytosis Acute renal failure Jti-[id number]-[id number] diabetes mellitus. Bipolar disorder Prolonged QTC. Hypomagnesia Hypertension Hyperlipidemia Discharge Disposition: home or self care Discharge Instructions General Discharge Information Code Status: Full Code Patient's Diet: Diabetic diet Patient's Activity: As tolerated Follow-Up Instructions/Appts: Follow up with your primary care physician, pain management, psychiatry, pulmonology, and hematology if needed. You need to have a CBC for thrombocytosis and depakote level checked. You will need a follow up chest x- ray to document resolution of pneumonia and pneumothorax. Medications at Discharge Discharge Medications: Stop taking the following medications: Propranolol HCl (Propranolol HCl) 80 MG TABLET ORAL TWICE DAILY Qty = 120 Quetiapine Fumarate (Quetiapine Fumarate) 200 MG TABLET ORAL 4 TIMES A DAY Qty = 120 Gabapentin (Gabapentin) 300 MG CAPSULE ORAL TWICE DAILY Qty = 60 Methadone Hydrochloride (Methadone HCl) 10 MG TABLET ORAL TWICE DAILY Qty = 240 Alprazolam (Alprazolam) 1 MG TABLET ORAL as needed for PANIC ATTACKS Qty = 30 Baclofen (Baclofen) 10 MG TABLET ORAL THREE TIMES A DAY NEEDED as needed for muscle spasm/strain Qty = 30 Prednisone (Deltasone) 20 MG TABLET ORAL THREE TIMES DAILY Qty = 15 Continue taking these medications: Ubidecarenone (Coq-10) 100 MG CAPSULE 1 Capsule ORAL DAILY Comments: PER PT Boaz-3S/Dha/Epa/Fish Oil (Sea-Boaz 1,000 MG Softgel) 600-1,000MG CAPSULE 1 Capsule ORAL DAILY Comments: NOT GIVEN IN HOSPITAL Atorvastatin Calcium (Atorvastatin Calcium) 20 MG TABLET 1 Tablet ORAL DAILY Qty = 90 Comments: NOT GIVEN IN HOSPITAL Esomeprazole Magnesium (Nexium) 20 MG CAPSULE.DR 1 Capsule ORAL DAILY Qty = 30 Comments: NOT GIVEN IN HOSPITAL Testosterone (Androgel) 1.25 GM GEL.PACKET 1 Packet On the skin DAILY Qty = 38 Comments: PER PT Metformin HCl (Metformin HCl ER) 500 MG TAB.ER.24 1 Tablet ORAL DAILY Comments: NOT GIVEN IN HOSPITAL Polyethylene Glycol 3350 (Polyethylene Glycol 3350) 255 GM POWDER 17 Gram ORAL DAILY as needed for GI Qty = 527 Comments: NOT GIVEN IN HOSPITAL Albuterol Sulfate (Ventolin Hfa) 18 GM HFA.AER.AD 2 Puff Inhale through mouth EVERY 4-6 HOURS NEEDED as needed for SOB Qty = 1 Comments: Last Taken:10/27/17 Time:8:08 AM Ibuprofen (Ibuprofen) 800 MG TABLET 1 Tablet ORAL THREE TIMES DAILY Qty = 30 Comments: NOT GIVEN IN HOSPITAL Start taking the following new medications: Fentanyl Citrate (Duragesic) 75 MCG/HOUR PATCH.TD72 75 Microgram On the skin Q72H Qty = 1 No Refills Instructions: PLAN TO BE TAPERED AN OUTPATIENT 50mcg x 72hrs, 25mcg x 72 hrs, 12.5mcg x 48 hours then stop Divalproex Sodium (Divalproex Sodium) 500 MG TABLET.DR 500 Milligram ORAL 0800,2200 Qty = 60 No Refills Instructions: . Gabapentin (Gabapentin) 300 MG CAPSULE 300 Milligram ORAL THREE TIMES DAILY Qty = 90 No Refills Instructions: . Hydroxyzine Hydrochloride (Atarax) 50 MG TAB 50 Milligram ORAL EVERY 6 HOURS NEEDED as needed for ANXIETY Qty = 90 No Refills Instructions: . Magnesium Oxide (Magnesium Oxide) 400 MG TABLET 400 Milligram ORAL DAILY Qty = 14 No Refills Melatonin (Melatonin) 5 MG TABLET 5 Milligram ORAL AT BEDTIME Qty = 30 No Refills Instructions: . Metoprolol Tartrate (Metoprolol Tartrate) 25 MG TABLET 25 Milligram ORAL TWICE DAILY Qty = 60 No Refills Instructions: . Amoxicillin/Clavulanate Potass (Amox-Clav 875-125 MG Tablet) 875 MG-125 MG TABLET 875 Milligram ORAL EVERY 12 HOURS Qty = 14 No Refills Instructions: . Copies To: Alex Medrano APRN, MD Review Statement Documenting Attending: Maria Victoria Rosario MD Other Findings: Medically stable to be discharged home today. Patient is to follow-up with his primary care provider for repeat blood work next week. If platelet counts are still elevated he should be referred to the hematology service. Instructions: . Copies To: Alex Medrano APRN, MD Review Statement Documenting Attending: Maria Victoria Rosario MD Other Findings: Medically stable to be discharged home today. Patient is to follow-up with his primary care provider for repeat blood work next week. If platelet counts are still elevated he should be referred to the hematology service.
--- NOTE | 2017-10-27 08:32 | Patient Discharge Instructions ---
Discharge Instructions General Discharge Information You were seen/treated for: pneumonia ARDS hypoxic respiratory failure requiring mechanical ventilation sepsis acute kidney injury chronic pain bipolar Special Instructions: You should follow up with your primary care physician, pain management, pulmonology, and psychiatry. You will need to have your depakote levels checked in four days and a repeat CBC to check your WBC and platelets. If your platelet counts remain elevated, you can see Dr. Zendejas, commercial hvac technician. Acute Coronary Syndrome Inclusion Criteria At DC or during hospital stay patient has or had the following: ACS DIAGNOSIS No Discharge Core Measures Meds if any: Prescribed or Continued at Discharge Meds if any: NOT Prescribed or Continued at Discharge Congestive Heart Failure Inclusion Criteria At DC or during hospital stay patient has or had the following: CHF DIAGNOSIS No Discharge Core Measures Meds if any: Prescribed or Continued at Discharge Meds if any: NOT Prescribed or Continued at Discharge Cerebrovascular accident Inclusion Criteria At DC or during hospital stay patient has or had the following: CVA/TIA Diagnosis No Discharge Core Measures Meds if any: Prescribed or Continued at Discharge Meds if any: NOT Prescribed or Continued at Discharge Venous thromboembolism Inclusion Criteria VTE Diagnosis No VTE Type NONE VTE Confirmed by (Test) NONE Discharge Core Measures - Per Current guidelines, there needs to be overlap - treatment for the first 5 days of Warfarin therapy. - If discharged on Warfarin prior to 5 days of - overlap therapy, the patient will need to be - assessed for post discharge needs including - *Post discharge parental anticoagulation - *Warfarin and/or parental anticoagulation education - *Follow up date to check INR post discharge At least 5 days overlap therapy as Inpatient No Meds if any: Prescribed or Continued at Discharge Note: Overlap Therapy is Warfarin and Anticoagulant Meds if any: NOT Prescribed or Continued at Discharge
[2017-10-27 08:44] LABS: ABSOLUTE EOSINOPHIL COUNT 0.5 /CUMM (0.0-0.7); ABSOLUTE MONOCYTE COUNT 0.8 /CUMM (0.10-0.60); BASOPHIL % 0.8 % (0.0-2.0); EOSINOPHIL % 3.9 % (0-5); GRANULOCYTE % 70.1 % (42.2-75.2); HEMATOCRIT 27.6 % (42-52); MEAN CORPUSCULAR HGB 28.6 PG (27.0-31.0); MEAN CORPUSCULAR HGB CONC 33.7 G/DL (33.0-37.0); MEAN CORPUSCULAR VOLUME 84.6 FL (80.0-94.0); MEAN PLATELET VOLUME 6.4 FL (7.4-10.4); RBC DISTRIBUTION WIDTH 18.5 % (11.5-14.5); RED BLOOD CELL CT 3.26 /CUMM (4.70-6.10); WHITE BLOOD CELL COUNT 12.8 /CUMM (4.8-10.8)
[2017-10-27 09:51] LABS: PLATELET COUNT 1196 /CUMM (130-400)
[2017-10-27] MEDS ORDERED: DURAGESIC1 EAC3 TOP ×2 (11:35→11:45)
--- NOTE | 2017-10-27 11:45 | PN- Infect Dx ---
Subjective Subjective: Afebrile without complaints Objective Last 24 Hrs of Vital Signs/I&O Vital Signs Date Time Temp Pulse Resp B/P B/P Pulse O2 O2 Flow FiO2 Mean Ox Delivery Rate 10/27 0812 84 120/74 10/27 0810 95 Room Air 10/27 0658 98.2 84 20 120/74 94 Room Air 10/27 0000 Room Air 10/26 2153 98.2 95 20 126/70 94 Room Air 10/26 2040 95 126/70 10/26 1936 94 Room Air Room Air 10/26 1401 99.1 86 20 122/74 96 Room Air Intake & Output 10/27 1600 10/27 0800 10/27 0000 Intake Total 670 510 Output Total Balance 670 510 Intake, IV 190 30 Intake, Oral 480 480 Number 0 0 Bowel Movements Physical Exam Other Physical Findings: He appears comfortable in no acute distress Lungs decreased breath sounds at the right base Heart regular rhythm with no murmur Extremities no cyanosis, clubbing or edema; PICC in the right upper extremity with no inflammation at the site Results Last 24 Hours of Lab Results: Laboratory Tests 10/27 0535 Chemistry Sodium (137 - 145 mmol/L) 142 Potassium (3.5 - 5.1 mmol/L) 4.1 Chloride (98 - 107 mmol/L) 101 Carbon Dioxide (22 - 30 mmol/L) 28 Anion Gap (5 - 16) 12 BUN (9 - 20 mg/dL) 7 L Creatinine (0.7 - 1.2 mg/dL) 1.1 Estimated GFR (>60 ml/min) > 60 BUN/Creatinine Ratio (7 - 25 %) 6.4 L Magnesium (1.6 - 2.3 mg/dL) 1.9 Hematology CBC w Diff NO MAN DIFF REQ WBC (4.8 - 10.8 /CUMM) 12.8 H RBC (4.70 - 6.10 /CUMM) 3.26 L Hgb (14.0 - 18.0 G/DL) 9.3 L Hct (42 - 52 %) 27.6 L MCV (80.0 - 94.0 FL) 84.6 MCH (27.0 - 31.0 PG) 28.6 MCHC (33.0 - 37.0 G/DL) 33.7 RDW (11.5 - 14.5 %) 18.5 H Plt Count (130 - 400 /CUMM) 1196 *H MPV (7.4 - 10.4 FL) 6.4 L Gran % (42.2 - 75.2 %) 70.1 Lymphocytes % (20.5 - 51.1 %) 18.7 L Monocytes % (1.7 - 9.3 %) 6.5 Eosinophils % (0 - 5 %) 3.9 Basophils % (0.0 - 2.0 %) 0.8 Absolute Granulocytes (1.4 - 6.5 /CUMM) 9.0 H Absolute Lymphocytes (1.2 - 3.4 /CUMM) 2.4 Absolute Monocytes (0.10 - 0.60 /CUMM) 0.8 H Absolute Eosinophils (0.0 - 0.7 /CUMM) 0.5 Absolute Basophils (0.0 - 0.2 /CUMM) 0.1 Last 24 Hours of Venancio Results: No recent cultures Assessment/Plan ID Impression: Clinically improved, with his temperatures remaining normal, now on Augmentin, Day 13 of treatment for necrotizing pneumonia/empyema secondary to alpha strep, status post removal of the pigtail catheter from his right chest 2 days ago after significant improvement was noted on his follow-up CT of the chest. His white blood cell count has increased, as has his platelet count, likely reactive in nature, and Hematology evaluation is apparently pending. Suggestion: 1. Further evaluation/monitoring of his CBC per Medicine 2. Continue Augmentin for 1 more week
[2017-10-28] MEDS ORDERED: FENTANYL1 EAC3 TOP ×2 (12:30→13:20)
[2017-10-28] MEDS ORDERED: VENTOLIN HFA18 GM INH (12:48)
== END 2017-10-27 12:59 | DRG 720 ==
LOC: ERH 14:07 → ERHI 17:24 → CRI 17:24 → ENRESERV 19:23 → CRI 21:48 → ENTRNSPT 10-25 16:11 → EDTRNSPTSTS 10-25 16:14 → EDTRNSPT 10-25 16:14 → 2NB 10-25 16:24 → CMPTRNSPT 10-25 16:30 → 2NB 10-27 08:00 → ENPENDDIS 10-27 12:04 → ENTRNSPT 10-27 12:49 → EDTRNSPT 10-27 12:51 → EDTRNSPTSTS 10-27 12:51 → 2NB 10-27 12:59 → CMPTRNSPT 10-27 13:11
PROVIDERS: Internal Medicine; Internal Medicine Adolescent Medicine; Internal Medicine Interventional Cardiology; Preventive Medicine Public Health & General Preventive Medicine; Radiology Vascular & Interventional Radiology; Student in an Organized Health Care Education/Training Program
PROC: 5A1955Z Respiratory Ventilation, Greater than 96 Consecutive Hours (ICD-10-PCS; principal; 2017-10-14)
PROC: 0BH17EZ Insertion of Endotracheal Airway into Trachea, Via Natural or Artificial Opening (ICD-10-PCS; 2017-10-14)
PROC: 0W993ZX Drainage of Right Pleural Cavity, Percutaneous Approach, Diagnostic (ICD-10-PCS; 2017-10-14)
PROC: 0W9930Z Drainage of Right Pleural Cavity with Drainage Device, Percutaneous Approach (ICD-10-PCS; 2017-10-19)
DX: A41.9 Sepsis, unspecified organism (principal); N17.9 Acute kidney failure, unspecified; J96.01 Acute respiratory failure with hypoxia; E11.22 Type 2 diabetes mellitus with diabetic chronic kidney disease; E86.0 Dehydration; J15.4 Pneumonia due to other streptococci; J90 Pleural effusion, not elsewhere classified; R65.20 Severe sepsis without septic shock; Z72.0 Tobacco use; F19.10 Other psychoactive substance abuse, uncomplicated; F11.90 Opioid use, unspecified, uncomplicated; E27.40 Unspecified adrenocortical insufficiency; F31.9 Bipolar disorder, unspecified; E11.8 Type 2 diabetes mellitus with unspecified complications; Z79.84 Long term (current) use of oral hypoglycemic drugs; I12.9 Hypertensive chronic kidney disease with stage 1 through stage 4 chronic kidney disease, or unspecified chronic kidney disease; N18.1 Chronic kidney disease, stage 1; E87.2 Acidosis; J86.9 Pyothorax without fistula; B95.0 Streptococcus, group A, as the cause of diseases classified elsewhere; J94.8 Other specified pleural conditions; I47.1 Supraventricular tachycardia; E87.6 Hypokalemia; E83.39 Other disorders of phosphorus metabolism; E83.51 Hypocalcemia; B95.4 Other streptococcus as the cause of diseases classified elsewhere; E83.42 Hypomagnesemia; D47.3 Essential (hemorrhagic) thrombocythemia; G89.4 Chronic pain syndrome; E78.5 Hyperlipidemia, unspecified
CPT/HCPCS: 2NBP; 87075; CCU; 36415; 36592; 71045; 76775; 80307; 81001; 82436; 87040; 87070; 87071; 87086; 87147; 87389; 87449; 87450; 93005; 93010; 93306; 94799; 96374; 96375; 99291; C1769; G0480; J0131; J0456; J0713; J1644; J1650; J1940; J2001; J2060; J2543; J2997; J3010; J3250; J3370; J7040; J7042; J7060